=== PATIENT | female | born 1985 | race African-American/Black ===

== ENCOUNTER → 2019-03-04 14:33 | Outpatient (BNVA) | payer OTHER, SELFPAY | PROVIDERS: PCP Family Medicine; Visit Provider Psychiatry & Neurology Psychiatry | DX: Z01.89 Encounter for other specified special examinations (principal) | CPT/HCPCS: 36415; 80061; 83036 ==

== ENCOUNTER 2019-04-01 10:00 | Outpatient (RCR) | payer OTHER, SELFPAY ==
[2019-03-17 16:03] VITALS: BP 150/82; BMI 18.3
== END 2019-04-17 23:59 | disposition home or self-care (01) ==
LOC: BHCOACUTE 10:00
PROVIDERS: PCP Family Medicine; Visit Provider Dermatology
DX: Z01.89 Encounter for other specified special examinations (principal)
CPT/HCPCS: H2022

== ENCOUNTER 2019-05-04 20:11 | Emergency (ER) | payer MEDICAID, SELFPAY ==
[2019-03-17 16:03] VITALS: BP 150/82; BMI 18.3
[2019-05-04 20:12] VITALS: PULSE 68; RESP 18; TEMP 37; O2SAT 100; BMI 17.7
[2019-05-04 20:51] LABS: Basophils % 0.3 %; Eosinophils # 0.1 10^3/uL (0.0-0.8); Eosinophils % 0.9 %; Hematocrit 41.5 % (37.0-47.0); Hemoglobin 13.4 g/dL (11.5-15.3); Lymphocytes # 1.9 10^3/uL (0.8-4.8); Lymphocytes % 20.7 %; Mean Corpuscular HGB Conc 32.3 g/dL (30.0-36.0); Mean Corpuscular Hemoglobin 31.1 pg (28.0-34.0); Mean Corpuscular Volume 96.3 fL (81-99); Mean Platelet Volume 10.7 fL (7.4-10.4); Monocytes # 0.7 10^3/uL (0.2-0.9); Neutrophils # 6.5 10^3/uL (1.8-7.7); Neutrophils % 70.1 %; Nucleated Red Blood Cells % 0 %; Platelet Count 193 10^3/cmm (130-400); Red Blood Count 4.31 10^6/uL (4.1-5.3); Red Cell Distribution Width 13.8 % (12.1-15.1); White Blood Count 9.2 10^3/uL (4.0-10.0)
--- NOTE | 2019-05-04 20:55 | ED_ITS ---
HPI - Abdominal Pain General: Chief Complaint: Abdominal Pain Stated Complaint: ABDOMINAL PAIN Time Seen by Provider: 05/04/19 20:21 Source: patient Mode of arrival: EMS Limitations: no limitations History of Present Illness: HPI narrative: Patient is a 34-year-old female who presents to ED today with complaints of upper abdominal pain stating that she believes she has pancreatitis. Symptoms have been present for 2 to 3 days. Patient states she has a history of pancreatitis and states her symptoms now are similar. She has not had any nausea or vomiting. She reports normal bowel movements and urinary habits. She has not been running fevers. MD elicited complaint: abdominal pain Pertinent past history: other (pancreatitis ) Onset (ago): day(s) Location: Epigastric Radiation: none Migration to: no migration Exacerbating factors: eating Relieving factors: nothing Associated Symptoms: Reports no associated symptoms; Denies change in bowel habits, change in stool character, chills, coffee ground emesis, diarrhea, dysuria, fever(s), hematochezia, hematemesis, melena, nausea, syncope and vomiting Review of Systems Const: Denies: fever, chills, body aches, change in appetite, change in weight or fatigue Card: Denies: chest pain, palpitations, irregular heart rhythm, edema, lightheadedness, syncope, pre-syncope, shortness of breath on exertion, shortness of breath when lying down or leg pain with exertion Resp: Denies: shortness of breath, productive cough, coughing up blood or chest congestion GI: Reports: abdominal pain; Denies: nausea, vomiting, vomiting blood, coffee grounds in vomit, diarrhea, change in bowel habits, painful bowel movements, change in stool character, blood in stool, black tarry stool, mucus in stool, white/light colored stool or fatty stool : Denies: flank pain, difficulty urinating, painful urination, urinary frequency, urinary urgency or urinary hesitancy Musc: Denies: neck pain or back pain Skin/Breast: Denies: rash Neuro: Denies: headache, numbness in extremities, weakness in extremities or changes in sensation PFSH ED PFSH: Social History Smoking and tobacco status: never smoked Current gender identity: Female Physical Exam Const: COMMON NORMALS: average body habitus, oriented x3, no limitations, healthy appearing, alert and well nourished GENERAL APPEARANCE: in distress (mild; in pain) HENMT: COMMON NORMALS: normocephalic and head/scalp atraumatic HEAD & SCALP: normocephalic and atraumatic Resp: COMMON NORMALS: normal respiratory effort and clear to auscultation bilaterally AUSCULTATION: clear to auscultation bilaterally Cardio: COMMON NORMALS: regular rate and regular rhythm RATE: regular rate RHYTHM: regular rhythm GI: COMMON NORMALS: normal to inspection, nondistended, normoactive bowel sounds, soft to palpation, no hepatosplenomegaly and no masses PALPATION: Yes soft, Yes tender Details: LUQ, RUQ and other (epigastric) and Yes no hepatosplenomegaly : COMMON NORMALS: Yes no CVA tenderness BLADDER/KIDNEY EXAM: Yes no CVA tenderness Back/Pelvis: COMMON NORMALS: no CVA tenderness Extremity: COMMON NORMALS: normal to inspection Neuro: COMMON NORMALS: oriented x3, moves all extremities, no focal motor deficits and no sensory deficits noted SENSORIUM/ORIENTATION: Yes alert Skin: COMMON NORMALS: no rashes or lesions noted GENERAL SKIN EXAM: no rashes or lesions noted Course 2 Vital Signs: Vital signs: Vital Signs Temperature 98.6 F 05/04/19 20:12 Pulse Rate 88 05/04/19 21:31 Respiratory Rate 18 05/04/19 21:31 Blood Pressure 142/95 05/04/19 21:31 Pulse Oximetry 98 05/04/19 21:31 MDM - Abdominal Pain MDM Narrative: Medical decision making narrative: pt feels better after medications; lipase today 68; don't feel she meets inpatient criteria at this t matthew and I believe we can treat her pain at home; return to ED precautions given; otherwise she can follow up with PCP Lab Data: Labs: Lab Results 05/04/19 05/04/19 05/04/19 Range/Units 20:40 20:40 20:40 WBC 9.2 (4.0-10.0) 10^3/ uL RBC 4.31 (4.1-5.3) 10^6/u L Hgb 13.4 (11.5-15.3) g/dL Hct 41.5 (37.0-47.0) % MCV 96.3 (81-99) fL MCH 31.1 (28.0-34.0) pg MCHC 32.3 (30.0-36.0) g/dL RDW 13.8 (12.1-15.1) % Plt Count 193 (130-400) 10^3/c mm MPV 10.7 H (7.4-10.4) fL Neut % (Auto) 70.1 % Lymph % (Auto) 20.7 % [place] % (Auto) 7.0 % Eos % (Auto) 0.9 % Baso % (Auto) 0.3 % Neut # (Auto) 6.5 (1.8-7.7) 10^3/u L Lymph # (Auto) 1.9 (0.8-4.8) 10^3/u L [place] # (Auto) 0.7 (0.2-0.9) 10^3/u L Eos # (Auto) 0.1 (0.0-0.8) 10^3/u L Baso # (Auto) 0.0 (0.0-0.1) 10^3/u L Nucleated RBC % (a uto) 0 % Nucleated RBCs # 0.0 /100WBC Sodium 133 L (136-145) mmol/L Potassium 3.8 (3.5-5.1) mmol/L Chloride 98 (98-107) mmol/L Carbon Dioxide 22 (22-29) mmol/L Anion Gap 16.8 (5-19) BUN 14 (6-20) mg/dL Creatinine 1.0 H (0.5-0.9) mg/dL GFR Calculation 75.9 L (90-130) mL/min Glucose 90 (65-115) mg/dL Calculated Osmolal ity 272 L (285-295) mOsm/k g Calcium 9.9 (8.5-10.5) mg/dL Total Bilirubin 0.3 (0.15-1.2) mg/dL AST 12 (0-32) U/L ALT 7 (0-33) U/L Alkaline Phosphata se 53 (35-105) IU/L Total Protein 7.5 (6.6-8.7) g/dL Albumin 4.9 (3.5-5.2) g/dL Globulin 2.6 (1.3-4.6) g/dL Lipase 68 H (13-60) U/L HCG, Qual Negative (Negative) Urine Color (Yellow) Urine Appearance (CLEAR) Urine pH (5-7) Ur Specific Gravit y (1.005-1.030) Urine Protein (Negative) Urine Glucose (UA) (Normal) Urine Ketones (Negative) Urine Blood (Negative) Urine Nitrate (Negative) Urine Bilirubin (NEGATIVE) Urine Urobilinogen (Negative) mg/dL Ur Leukocyte Yesenia ase (Negative) Urine RBC (0-2) /hpf Urine WBC (0-5) /hpf Ur Squamous Epith Cells (0-5) Urine Bacteria (NONE) Urine Mucus Urine Opiates Scre en (Negative) ng/mL Ur Barbiturates Sc reen (Negative) ng/mL Ur Phencyclidine S crn (Negative) ng/mL Ur Amphetamines Sc reen (Negative) ng/mL U Benzodiazepines Scrn (Negative) ng/mL Urine Cocaine Scre en (Negative) ng/mL U Marijuana (THC) Screen (Negative) ng/mL 05/04/19 05/04/19 Range/Units 21:20 21:20 WBC (4.0-10.0) 10^3/ uL RBC (4.1-5.3) 10^6/u L Hgb (11.5-15.3) g/dL Hct (37.0-47.0) % MCV (81-99) fL MCH (28.0-34.0) pg MCHC (30.0-36.0) g/dL RDW (12.1-15.1) % Plt Count (130-400) 10^3/c mm MPV (7.4-10.4) fL Neut % (Auto) % Lymph % (Auto) % [place] % (Auto) % Eos % (Auto) % Baso % (Auto) % Neut # (Auto) (1.8-7.7) 10^3/u L Lymph # (Auto) (0.8-4.8) 10^3/u L [place] # (Auto) (0.2-0.9) 10^3/u L Eos # (Auto) (0.0-0.8) 10^3/u L Baso # (Auto) (0.0-0.1) 10^3/u L Nucleated RBC % (a uto) % Nucleated RBCs # /100WBC Sodium (136-145) mmol/L Potassium (3.5-5.1) mmol/L Chloride (98-107) mmol/L Carbon Dioxide (22-29) mmol/L Anion Gap (5-19) BUN (6-20) mg/dL Creatinine (0.5-0.9) mg/dL GFR Calculation (90-130) mL/min Glucose (65-115) mg/dL Calculated Osmolal ity (285-295) mOsm/k g Calcium (8.5-10.5) mg/dL Total Bilirubin (0.15-1.2) mg/dL AST (0-32) U/L ALT (0-33) U/L Alkaline Phosphata se (35-105) IU/L Total Protein (6.6-8.7) g/dL Albumin (3.5-5.2) g/dL Globulin (1.3-4.6) g/dL Lipase (13-60) U/L HCG, Qual (Negative) Urine Color Yellow (Yellow) Urine Appearance Hazy A (CLEAR) Urine pH 6 (5-7) Ur Specific Gravit y 1.015 (1.005-1.030) Urine Protein Neg (Negative) Urine Glucose (UA) Norm (Normal) Urine Ketones Negative (Negative) Urine Blood Neg (Negative) Urine Nitrate Negative (Negative) Urine Bilirubin Neg (NEGATIVE) Urine Urobilinogen Norm (Negative) mg/dL Ur Leukocyte Yesenia ase Negative (Negative) Urine RBC 0-4 H (0-2) /hpf Urine WBC None (0-5) /hpf Ur Squamous Epith Cells 5-10 H (0-5) Urine Bacteria 1+ H (NONE) Urine Mucus 1+ Urine Opiates Scre en Negative (Negative) ng/mL Ur Barbiturates Sc reen Negative (Negative) ng/mL Ur Phencyclidine S crn Negative (Negative) ng/mL Ur Amphetamines Sc reen Negative (Negative) ng/mL U Benzodiazepines Scrn Negative (Negative) ng/mL Urine Cocaine Scre en Negative (Negative) ng/mL U Marijuana (THC) Screen Negative (Negative) ng/mL Discharge Plan Discharge Patient Disposition: Home, Self-Care Clinical Impression: Colicky epigastric pain Condition: Stable Prescriptions: New hydrocodone-acetaminophen 5-325 mg tablet 1 tab PO Q6H PRN (Reason: pain) Qty: 14 RF: 0 ondansetron HCl [Zofran] 4 mg tablet 4 mg PO Q6H PRN (Reason: nausea and vomiting) Qty: 14 RF: 0 No Action acamprosate 333 mg tablet,delayed release (DR/EC) 333 mg PO BID RF: 0 Discharge Orders: Discharge Order (Routine); Ordered 05/04/19 Ordered By: Mayela Irvin Referrals: Francy Bell DO [Primary Care Provider] - Discharge Diet: Clear Liquid Discharge Activity: Increase activity as tolerated Patient Instructions: Clear Liquid Diet (ED), Abdominal Pain (ED), Pancreatitis Coding Level of Care Code ED Steward/Stewardess [employer] for Chg Fwd Exam Comprehensive
[2019-05-04 21:05] LABS: Alanine Aminotransferase 7 U/L (0-33); Albumin Level 4.9 g/dL (3.5-5.2); Alkaline Phosphatase 53 IU/L (35-105); Anion Gap 16.8 (5-19); Aspartate Amino Transferase 12 U/L (0-32); Blood Urea Nitrogen 14 mg/dL (6-20); Calcium 9.9 mg/dL (8.5-10.5); Carbon Dioxide 22 mmol/L (22-29); Chloride 98 mmol/L (98-107); Globulin 2.6 g/dL (1.3-4.6); Glomerular Filtration Rate 75.9 mL/min (90-130); Glucose 90 mg/dL (65-115); Lipase 68 U/L (13-60); Osmolality Calculated 272 mOsm/kg (285-295); Potassium 3.8 mmol/L (3.5-5.1); Sodium 133 mmol/L (136-145); Total Bilirubin 0.3 mg/dL (0.15-1.2); Total Protein 7.5 g/dL (6.6-8.7)
[2019-05-04 21:10] LABS: HCG, Serum Qual Negative (Negative)
[2019-05-04 21:27] VITALS: RESP 18
[2019-05-04] MEDS: ondansetron 2 mg/ML SDV 2 mL 4 MG IVP (21:27)
[2019-05-04] MEDS: morphine 4 mg/mL SDV 1 mL IVP (21:27)
[2019-05-04 21:31] VITALS: BP 142/95; PULSE 88; RESP 18; O2SAT 98
[2019-05-04 22:00] LABS: Add Urine Microscopic? YES; Bilirubin Urine Neg (NEGATIVE); Blood Urine Neg (Negative); Glucose Urine UA Norm (Normal); Ketones Urine Negative (Negative); Leukocyte Esterase Urine Negative (Negative); Nitrate Urine Negative (Negative); Protein Urine Neg (Negative); Specific Gravity, Urine 1.015 (1.005-1.030); Urine Appearance Hazy (CLEAR); Urine Color Yellow (Yellow); Urobilinogen Urine Norm (Negative); pH Urine 6 (5-7)
[2019-05-04 22:07] LABS: Amphetamines Screen Urine Negative (Negative); Barbiturates Screen Urine Negative (Negative); Benzodiazepines Screen Urine Negative (Negative); Cocaine Screen Urine Negative (Negative); Opiate Screen Urine Negative (Negative); PCP Screen Urine Negative (Negative); THC Screen Urine Negative (Negative)
[2019-05-04 22:09] LABS: Add Urine Culture? No; Bacteria Urine 1+; Mucus Urine 1+; RBC Urine 0-4 /hpf (0-2)
[2019-05-04 23:10] VITALS: BP 127/94; PULSE 71; RESP 16; O2SAT 99
[2019-05-04] MEDS: HYDROcodone-acetaminophen 5-325 mg Tablet 2 TAB PO (23:12)
[2019-05-04] MEDS: ondansetron 4 MG Tablet PO (23:13)
== END 2019-05-04 23:10 | disposition home or self-care (01) ==
LOC: ER 22:39
PROVIDERS: Emergency Provider Physician Assistant; PCP Family Medicine
DX: R10.13 Epigastric pain (principal)
CPT/HCPCS: 12345; 80053; 80306; 81001; 83690; 84703; 85025; 96374; 96375; 99283; A9270; J2270; J2405; Q0162

== ENCOUNTER 2019-05-29 10:51 | Observation (INO) | payer SELFPAY ==
[2019-03-17 16:03] VITALS: BP 150/82; BMI 18.3
[2019-05-29] VITALS (9 sets, daily range): BP systolic 143–166; BP diastolic 64–96; PULSE 51–97; RESP 16–18; TEMP 36.4–37; O2SAT 96–100; BMI 16.9
--- NOTE | 2019-05-29 11:04 | ED_ITS ---
HPI - Abdominal Pain General: Chief Complaint: Abdominal Pain Stated Complaint: ABD PAIN Time Seen by Provider: 05/29/19 10:52 History of Present Illness: HPI narrative: 34-year-old black female who has a history of recurrent pancreatitis. Approximately a year ago she had a cholecystectomy and sounds like she had an ERCP at that time as well but in discussing with her does not sound as if she had a stent. She cannot recall if she had cholelithiasis. She is reporting several days of epigastric abdominal pain radiating a little bit more into the right upper quadrant. She is not had any hematemesis or coffee-ground emesis she denies any fever or cough. She has had some vomiting. MD elicited complaint: abdominal pain Onset (ago): day(s) (4) Location: Epigastric Severity: severe Quality: cramping and aching Radiation: LUQ and RUQ Migration to: RUQ Exacerbating factors: eating Associated Symptoms: Denies bloating, chills, coffee ground emesis, constipation, diarrhea, dysuria, fever(s), hematochezia, hematemesis, melena, nausea and vomiting Related Data: Date of Last Menstrual Period: 05/05/19 Review of Systems Const: Denies: fever, chills, body aches, change in appetite, fatigue or malaise ENMT: Denies: throat pain, ear pain, nasal discharge or nasal congestion Card: Denies: chest pain, edema, shortness of breath on exertion or shortness of breath when lying down Resp: Denies: shortness of breath, productive cough or non-productive cough GI: Denies: abdominal pain, nausea, vomiting, vomiting blood, coffee grounds in vomit, diarrhea, constipation, bloating, blood in stool or black tarry stool : Denies: flank pain, difficulty urinating, painful urination, urinary frequency or urinary urgency Skin/Breast: Denies: rash or itching PFSH ED PFSH: Medical History Alcohol use disorder Pancreatitis Presence of pancreatic duct stent Tobacco abuse Surgical History Hx of cholecystectomy Social History Smoking and tobacco status: current every day smoker Current gender identity: Female Female Reproductive History: Date of last menstrual period: 05/05/19 Physical Exam Const: COMMON NORMALS: no apparent distress GENERAL APPEARANCE: cooperative and comfortable ORIENTATION/CONSCIOUSNESS: Yes awake, Yes oriented to person, Yes oriented to place and Yes oriented to time HENMT: COMMON NORMALS: normocephalic, head/scalp atraumatic, hearing grossly normal bilaterally, external ears normal, EAC's normal, TM's normal bilaterally, nasal mucous membranes and turbinates normal, moist oral mucous membranes and o ropharynx normal HEAD & SCALP: normocephalic and atraumatic NOSE: nasal mucous membranes and turbinates normal EXTERNAL EAR: Yes external ears normal EXTERNAL AUDITORY CANAL: EAC's normal TYMPANIC MEMBRANE: TM's normal bilaterally Eye: COMMON NORMALS: PERRL, EOMs intact bilaterally, conjunctivae normal and no scleral icterus CONJUNCTIVA: Yes conjunctivae normal PUPIL: Yes PERRL Neck/C-Spine: COMMON NORMALS: full ROM, no lymphadenopathy, supple and no JVD Lymph: LYMPHATIC: no lymphadenopathy noted and no lymphedema noted Resp: COMMON NORMALS: normal respiratory effort, no retractions, no use of accessory muscles and clear to auscultation bilaterally AUSCULTATION: clear to auscultation bilaterally Cardio: COMMON NORMALS: no JVD, regular rate, regular rhythm and no murmurs RATE: regular rate RHYTHM: regular rhythm GI: COMMON NORMALS: no hepatosplenomegaly AUSCULTATION: Yes normoactive bowel sounds PALPATION: Yes tender (Epigastric) Details: RUQ, No guarding and Yes no hepatosplenomegaly Extremity: COMMON NORMALS: normal to inspection, normal capillary refill, no clubbing, cyanosis or edema, no calf tenderness and no pedal edema Neuro: SENSORIUM/ORIENTATION: Yes oriented to person, Yes oriented to place and Yes oriented to time Skin: COMMON NORMALS: no rashes or lesions noted GENERAL SKIN EXAM: no rashes or lesions noted Course Vital Signs: Vital signs: Vital Signs Temperature 98.0 F 05/30/19 13:44 Pulse Rate 62 05/30/19 13:44 Respiratory Rate 16 05/30/19 13:44 Blood Pressure 136/81 05/30/19 13:44 Pulse Oximetry 100 05/30/19 13:44 MDM - Abdominal Pain MDM Narrative: Medical decision making narrative: CT normal labs show mild elevation is currently having a left upper quadrant pain. She does have persistent nausea and vomiting with pain we will put her on observation with IV fluids antiemetics and pain control. Lab Data: Labs: Lab Results 05/29/19 05/29/19 05/29/19 Range/Units 12:03 12:03 12:03 WBC 9.7 (4.0-10.0) 10^3/ uL RBC 4.30 (4.1-5.3) 10^6/u L Hgb 13.3 (11.5-15.3) g/dL Hct 42.9 (37.0-47.0) % MCV 99.8 H (81-99) fL MCH 30.9 (28.0-34.0) pg MCHC 31.0 (30.0-36.0) g/dL RDW 13.6 (12.1-15.1) % Plt Count 188 (130-400) 10^3/c mm MPV 10.9 H (7.4-10.4) fL Neut % (Auto) 81.0 % Lymph % (Auto) 13.9 % [place] % (Auto) 4.2 % Eos % (Auto) 0.4 % Baso % (Auto) 0.2 % Neut # (Auto) 7.9 H (1.8-7.7) 10^3/u L Lymph # (Auto) 1.4 (0.8-4.8) 10^3/u L [place] # (Auto) 0.4 (0.2-0.9) 10^3/u L Eos # (Auto) 0.0 (0.0-0.8) 10^3/u L Baso # (Auto) 0.0 (0.0-0.1) 10^3/u L Nucleated RBC % (a uto) 0 % Nucleated RBCs # 0.0 /100WBC PT (10.5-13.3) SECO NDS INR (0.8-1.2) Sodium 134 L (136-145) mmol/L Potassium 4.2 (3.5-5.1) mmol/L Chloride 100 (98-107) mmol/L Carbon Dioxide 20 L (22-29) mmol/L Anion Gap 18.2 (5-19) BUN 5 L (6-20) mg/dL Creatinine 0.7 (0.5-0.9) mg/dL GFR Calculation 114.6 (90-130) mL/min Glucose 91 (65-115) mg/dL Calculated Osmolal ity 273 L (285-295) mOsm/k g Calcium 9.6 (8.5-10.5) mg/dL Total Bilirubin 0.5 (0.15-1.2) mg/dL AST 15 (0-32) U/L ALT 9 (0-33) U/L Alkaline Phosphata se 55 (35-105) IU/L Total Protein 7.6 (6.6-8.7) g/dL Albumin 4.5 (3.5-5.2) g/dL Globulin 3.1 (1.3-4.6) g/dL Lipase 141 H (13-60) U/L HCG, Qual Negative (Negative) 05/29/19 Range/Units 12:03 WBC (4.0-10.0) 10^3/ uL RBC (4.1-5.3) 10^6/u L Hgb (11.5-15.3) g/dL Hct (37.0-47.0) % MCV (81-99) fL MCH (28.0-34.0) pg MCHC (30.0-36.0) g/dL RDW (12.1-15.1) % Plt Count (130-400) 10^3/c mm MPV (7.4-10.4) fL Neut % (Auto) % Lymph % (Auto) % [place] % (Auto) % Eos % (Auto) % Baso % (Auto) % Neut # (Auto) (1.8-7.7) 10^3/u L Lymph # (Auto) (0.8-4.8) 10^3/u L [place] # (Auto) (0.2-0.9) 10^3/u L Eos # (Auto) (0.0-0.8) 10^3/u L Baso # (Auto) (0.0-0.1) 10^3/u L Nucleated RBC % (a uto) % Nucleated RBCs # /100WBC PT 12.50 (10.5-13.3) SECO NDS INR 0.93 (0.8-1.2) Sodium (136-145) mmol/L Potassium (3.5-5.1) mmol/L Chloride (98-107) mmol/L Carbon Dioxide (22-29) mmol/L Anion Gap (5-19) BUN (6-20) mg/dL Creatinine (0.5-0.9) mg/dL GFR Calculation (90-130) mL/min Glucose (65-115) mg/dL Calculated Osmolal ity (285-295) mOsm/k g Calcium (8.5-10.5) mg/dL Total Bilirubin (0.15-1.2) mg/dL AST (0-32) U/L ALT (0-33) U/L Alkaline Phosphata se (35-105) IU/L Total Protein (6.6-8.7) g/dL Albumin (3.5-5.2) g/dL Globulin (1.3-4.6) g/dL Lipase (13-60) U/L HCG, Qual (Negative) Discharge Plan Discharge Patient Disposition: Placed in Observation Admit Provider: Luis Marin Clinical Impression: Pancreatitis, Acute upper gastrointestinal bleeding Condition: Stable Referrals: Francy Bell DO [Primary Care Provider] - Discharge Date/Time: 05/29/19 15:27 Coding Level of Care Code ED Day Guard for Chg Fwd Exam Comprehensive
[2019-05-29] MEDS: ondansetron 2 mg/ML SDV 2 mL 4 MG IVP ×2 (11:13→15:45)
--- NOTE | 2019-05-29 11:35 | CTR_ITS ---
PROCEDURE INFORMATION: Exam: CT Abdomen And Pelvis With Contrast Exam date and time: 05/29/2019 12:05 PM Age: 34 years old Clinical indication: Abdominal pain; Localized; Right; Prior surgery; Surgery date: 6+ months; Surgery type: Gb; Additional info: Abd pain TECHNIQUE: Imaging protocol: Computed tomography of the abdomen and pelvis with intravenous contrast. Total DLP: 490.26 mGy-cm Radiation optimization: All CT scans at this facility use at least one of these dose optimization techniques: automated exposure control; mA and/or kV adjustment per patient size (includes targeted exams where dose is matched to clinical indication); or iterative reconstruction. Contrast material: OMNI 300; Contrast volume: 75 ml; Contrast route: 18G; COMPARISON: CT Abdomen/Pelvis w IV* [id number] 11/06/2018 12:23 AM FINDINGS: Pleural space: No acute airspace or pleural disease. Liver: No focal hepatic mass. Gallbladder and bile ducts: Status post cholecystectomy. Pancreas: Poorly defined hypodensity in the pancreatic head with infiltration of peripancreatic fat, consistent with pancreatitis in the appropriate clinical setting. Correlation with pancreatic enzymes is recommended. Spleen: No splenomegaly. Adrenals: Unremarkable adrenals. Kidneys and ureters: Normal renal morphology prior no hydronephrosis. Stomach and bowel: Mild wall thickening in the nondistended stomach. Bowel dilatation, disproportionately involving the colon, along with prominent stool. Appendix: No acute appendicitis. Intraperitoneal space: Trace free fluid in the cul-de-sac. Vasculature: Normal caliber of the abdominal aorta. Lymph nodes: No pathologically enlarged lymph nodes. Bladder: Bladder dilatation. Reproductive: 2.1 cm high attenuation right ovarian cyst. Bones/joints: No acute osseous pathology . CT/CT abdomen pelvis w con* [id number] IMPRESSION: 1. Poorly defined hypodensity in the pancreatic head with infiltration of peripancreatic fat, consistent with pancreatitis in the appropriate clinical setting. Correlation with pancreatic enzymes is recommended. 2. Bowel dilatation, disproportionately involving the colon, along with prominent stool. 3. 2.1 cm high attenuation right ovarian cyst. 4. Additional findings as described above. Radiation Dose CTDIVOL = (mGy): DLP = 490.26 (mGy-cm)
[2019-05-29] MEDS: morphine 4 mg/mL SDV 1 mL IVP ×2 (11:45→15:45)
[2019-05-29] MEDS: sodium chlor 0.9% + KCl 20 mEq 20 MEQ/1,000 ML BAG 125 MEQ IV (11:50)
[2019-05-29 12:11] LABS: Basophils % 0.2 %; Eosinophils % 0.4 %; Hematocrit 42.9 % (37.0-47.0); Hemoglobin 13.3 g/dL (11.5-15.3); Lymphocytes # 1.4 10^3/uL (0.8-4.8); Lymphocytes % 13.9 %; Mean Corpuscular Hemoglobin 30.9 pg (28.0-34.0); Mean Corpuscular Volume 99.8 fL (81-99); Mean Platelet Volume 10.9 fL (7.4-10.4); Monocytes # 0.4 10^3/uL (0.2-0.9); Monocytes % 4.2 %; Neutrophils # 7.9 10^3/uL (1.8-7.7); Nucleated Red Blood Cells % 0 %; Platelet Count 188 10^3/cmm (130-400); Red Cell Distribution Width 13.6 % (12.1-15.1); White Blood Count 9.7 10^3/uL (4.0-10.0)
[2019-05-29] MEDS: iohexol 300 mg/mL 100 mL Btl IV (12:17)
[2019-05-29 12:27] LABS: Alanine Aminotransferase 9 U/L (0-33); Albumin Level 4.5 g/dL (3.5-5.2); Alkaline Phosphatase 55 IU/L (35-105); Anion Gap 18.2 (5-19); Aspartate Amino Transferase 15 U/L (0-32); Blood Urea Nitrogen 5 mg/dL (6-20); Calcium 9.6 mg/dL (8.5-10.5); Carbon Dioxide 20 mmol/L (22-29); Chloride 100 mmol/L (98-107); Globulin 3.1 g/dL (1.3-4.6); Glomerular Filtration Rate 114.6 mL/min (90-130); Glucose 91 mg/dL (65-115); Lipase 141 U/L (13-60); Osmolality Calculated 273 mOsm/kg (285-295); Potassium 4.2 mmol/L (3.5-5.1); Sodium 134 mmol/L (136-145); Total Bilirubin 0.5 mg/dL (0.15-1.2); Total Protein 7.6 g/dL (6.6-8.7)
[2019-05-29 12:50] LABS: HCG, Serum Qual Negative (Negative)
[2019-05-29 12:54] LABS: Add Urine Microscopic? NO
[2019-05-29 12:55] LABS: Bilirubin Urine Neg (NEGATIVE); Blood Urine Neg (Negative); Glucose Urine UA Norm (Normal); Ketones Urine 1+ (Negative); Leukocyte Esterase Urine Negative (Negative); Nitrate Urine Negative (Negative); Protein Urine Neg (Negative); Specific Gravity, Urine 1.005 (1.005-1.030); Urine Appearance Clear (CLEAR); Urine Color Straw (Yellow); Urobilinogen Urine Norm (Negative); pH Urine 6.5 (5-7)
[2019-05-29] MEDS: pantoprazole 40 mg SDV IVP (14:17)
--- NOTE | 2019-05-29 14:38 | P.HP_ITS ---
Providers/Chief Complaint Admitting Physician: Luis Marin MD Primary Care Provider: Francy Bell DO Chief Complaint: PANCREATITIS, UPPER GI BLEED History of Present Illness Vanita Barone is a 34 year old female presents to emerge department with yet another flare of epigastric area pain radiating to her back which patient relates to pancreatitis. She reports having off-and-on flares of pancreatitis for the last 3 years. Reports may have flare once a month. Reports that usually she was taking ibuprofen but he does not do any good. Reports that she cannot take Tylenol because every time she tries Tylenol it makes it worse. In mid April she was in ER and prescribed [place]. She is confident that because [place] had Tylenol her pain did not get better and today was quite severe rating 9-10 out of 10. Reports that she vomited earlier and noted bright red blood but not a lot. She also vomited some green bile. She had previously cholecystectomy and reports that she quit drinking alcohol approximately 1 year ago. She recalls having upper endoscopy but does not know results. Reports that it was done at [facility] in [place]. She reports smoking and she is trying to quit and down to 3 cigarettes/day now. She has 3 children that live with their father in [place]. She reports leaving here alone. She is not in contact with her parents. Per previous records it appears that patient had pancreatic stent placement. Review of Systems Const: Denies: fever or chills Eyes: Denies: change in vision ENMT: Denies: throat pain or change in hearing Card: Denies: chest pain, edema or lightheadedness Resp: Denies: shortness of breath or productive cough GI: Reports: abdominal pain (Epigastric and right upper quadrant area), nausea, vomiting and change in bowel habits (Reports that frequently she gets constipated and other constipation she may get several diarrheal bowel movements); Denies: difficulty swallowing, blood in stool or black tarry stool : Denies: difficulty urinating Musc: Denies: joint pain or joint swelling Skin/Breast: Denies: rash or redness Neuro: Denies: headache or weakness in extremities Psych: Denies: depression or suicidal ideation Endo: Denies: excessive sweating [place]/Lymph: Denies: easy bleeding or tender lymph nodes All/Imm: Denies: throat swelling Medications/Allergies Allergies Allergy/AdvReac Type Severity Reaction Status Date / Time No Known Allergies Allergy Verified 03/05/19 11:10 PFSH Acute PFSH: Medical History (Updated 05/29/19 @ 14:50 by Luis Marin MD) Alcohol use disorder Pancreatitis Presence of pancreatic duct stent Tobacco abuse Surgical History (Updated 05/29/19 @ 14:49 by Luis Marin MD) Hx of cholecystectomy Social History Smoking and tobacco status: current every day smoker Current gender identity: Female Female Reproductive History: Date of last menstrual period: 05/05/19 Vitals/I&O/Wt Last Vital Signs Temp 98.6 F 05/29/19 10:52 Pulse 97 05/29/19 10:52 Resp 18 05/29/19 11:45 BP 144/96 05/29/19 10:52 Pulse Ox 99 05/29/19 10:52 Weight last 48 hrs Weight 47.627 kg Physical Exam Const: COMMON NORMALS: no apparent distress, oriented x3 and alert HENMT: COMMON NORMALS: normocephalic and head/scalp atraumatic; oral mucous membranes not moist HEAD & SCALP: normocephalic and atraumatic Eye: COMMON NORMALS: EOMs intact bilaterally, conjunctivae normal and no scleral icterus CONJUNCTIVA: Yes conjunctivae normal Neck/C-Spine: COMMON NORMALS: no lymphadenopathy and no meningeal signs Lymph: LYMPHATIC: no lymphadenopathy noted Chest: COMMONS NORMALS: palpation of chest normal Resp: COMMON NORMALS: no use of accessory muscles and clear to auscultation bilaterally AUSCULTATION: clear to auscultation bilaterally Cardio: COMMON NORMALS: regular rate, regular rhythm and no murmurs RATE: regular rate RHYTHM: regular rhythm OTHER: No lower extremity edema GI: COMMON NORMALS: soft to palpation PALPATION: Yes soft and Yes tender (Mostly right upper quadrant and epigastric area.) RECTAL EXAM: deferred : COMMON NORMALS: Yes no CVA tenderness BLADDER/KIDNEY EXAM: Yes no CVA tenderness Back/Pelvis: COMMON NORMALS: no CVA tenderness and thoracic and lumbar spine normal to inspection Extremity: COMMON NORMALS: normal to inspection and normal capillary refill Neuro: COMMON NORMALS: oriented x3 and no focal motor deficits SENSORIUM/ORIENTATION: Yes alert MENINGEAL SIGNS: Yes no meningeal signs Psych: COMMON NORMALS: mental status grossly normal, thought process normal and cooperative THOUGHT PROCESS: normal thought process Skin: COMMON NORMALS: no rashes or lesions noted GENERAL SKIN EXAM: no rashes or lesions noted Data : 05/29/19 12:03 05/29/19 12:03 A&P Assessment and plan (1) Tobacco abuse: Status: Acute (2) Acute upper gastrointestinal bleeding: Status: Acute (3) Pancreatitis: Status: Acute (4) Gastritis due to nonsteroidal anti-inflammatory drug (NSAID): This diagnosis is suspected. Status: Acute (5) Dehydration with hyponatremia: Status: Acute Additional A&P Information Patient could have NSAID induced gastritis/peptic ulcer disease and possibly related pancreatic irritation/inflammation versus recurrent chronic pancreatitis flare. Given history of hematemesis I have discussed case with Dr. Kunz who will perform upper endoscopy tomorrow. We will start patient on high-dose Protonix for now. Continue with normal saline and start patient on clear liquid diet with n.p.o. post midnight. Repeat lipase in a.m. Continue with morphine for treatment of pain and avoid NSAIDs for now. We have discussed that patient may require GI evaluation for EUS and celiac block if her pain does not get better with analgesics. Attestations Medical Necessity Statement*: Patient with acute pancreatitis and reported GI bleed requires observation for close monitoring, treatment evaluation. I expect patient will require less than two midnights. Coding Level of Care Code Acute Admissions Dean for [facility] Fwd Diagnoses Tobacco abuse Z72.0 Acute upper gastrointestinal bleeding K92.2 Pancreatitis K85.90 Gastritis due to nonsteroidal anti-inflammatory drug (NSAID) K29.60; T39.395A Dehydration with hyponatremia E86.0; E87.1
--- NOTE | 2019-05-29 15:28 | P.CONIM_ITS ---
Providers/Reason For Consult Consulting Physican/Specialty*: Lex Juan MD Reason for Consult*: Hematemesis Attending Physician: Luis Marin MD Primary Care Provider: Francy Bell DO History of Present Illness History of Present Illness Chief Complaint: I vomited blood History of present illness:Ms Vanita Barone is a 34 year old female patient presents to the emergency department with worsening upper abdominal pain dull aching in nature also associated with chronic back,patient recalls that she has been diagnosed with pancreatitis in the past and she stopped drinking a while ago, today while she is having a meal composed of chicken noodles she vomited one time blood and she came to the ER for further evaluation,were a CT scan of the abdomen and pelvis was obtained that showed mild thickness of the gastric wall. Also: 1. Poorly defined hypodensity in the pancreatic head with infiltration of peripancreatic fat, consistent with pancreatitis in the appropriate clinical setting. Correlation with pancreatic enzymes is recommended. 2. Bowel dilatation, disproportionately involving the colon, along with prominent stool. 3. 2.1 cm high attenuation right ovarian cyst. 4. Additional findings as described above. Patient reports no fevers or cough yet she does have some shortness of breath and she also reports that she has not been in contact with any COVID-19 positive patients. Patient reports her gallbladder removed about a year ago most likely her panc reatitis due to alcohol ingestion Patient reports that she had an EGD before couple of years and she is under the impression that she had diagnosis of gastric ulcer. General surgery was consulted for further evaluation potential intervention in the form of diagnostic EGD Review of Systems General: Reports: 10 or more systems reviewed and unremarkable except in HPI and below Meds/Allergies Home Medications and Allergies Home Medications Medication Instructions Recorded Confirmed Type acamprosate 333 mg tablet,delayed 333 mg PO TID 03/04/19 05/29/19 History release Allergies Allergy/AdvReac Type Severity Reaction Status Date / Time No Known Allergies Allergy Verified 03/05/19 11:10 Current Medications Current Medications Generic Name Dose Route Start Last Admin Trade Name Freq PRN Reason Stop Dose Admin Potassium Chloride/Sodium Chloride 20 meq in 1,000 mls @ 125 mls/hr 05/29/19 11:45 05/29/19 11:50 Sodium Chlor 0.9% + Kcl 20 Meq IV 125 mls/hr .Q8H ALBAN Administration PFSH Acute PFSH: Medical History Alcohol use disorder Pancreatitis Presence of pancreatic duct stent Tobacco abuse Surgical History Hx of cholecystectomy Social History Smoking and tobacco status: current every day smoker Current gender identity: Female Female Reproductive History: Date of last menstrual period: 05/05/19 Vitals/I&O/Wt Last Vital Signs Temp 98.3 F 05/29/19 14:53 Pulse 51 L 05/29/19 14:53 Resp 16 05/29/19 14:53 BP 143/64 05/29/19 14:53 Pulse Ox 100 05/29/19 14:53 Weight last 48 hrs Weight 105 lb Physical Exam Narrative: EXAM NARRATIVE: Patient is conscious alert oriented X3 BMI 17 Head and neck examination PERRLA no masses no cervical lymphadenopathy no jaundice Cardiac examination audible S1-S2 no murmurs no gallops no arrhythmias Chest is clear bilateral,abscence of Rhonchi or wheezes,no surgical emphysema Abdomen tender in the epigastric region nondistended soft no organomegaly guarding or rigidity/no signs of peritonitis Extremities no cyanosis no clubbing no edema A&P Assessment and plan (1) Hematemesis: Plan of care; After thorough history and physical examination and reviewing the chart and images with my personal interpretation plan to perform a diagnostic esophagogastroduodenoscopy and possible biopsy tomorrow after appropriate resuscitation. Informed consent per chart were,Indications, risks, benefits, and alternatives were all discussed with the patient and did agree to proceed. Repeat H&H every 8 hour Repeated physical examination We will order stat INR and PTT We will continue coordinating with Dr. Marin service Status: Acute Consult Attestations Medical Necessity Statement: Per hospitalist service Time Spent in Patient Care: 16 - 35 minutes (>than 50% of time spent in counselling and/or direct pt care on unit) . Coding Level of Care Code Acute Retail Aide for [facility] Fwd Diagnoses Hematemesis K92.0
[2019-05-29 16:06] LABS: INR 0.93 (0.8-1.2)
[2019-05-29] MEDS: D5-NS 0.45% + KCL 20 mEq 20 MEQ/1,000 ML BAG 100 MEQ IV (16:19)
[2019-05-29] MEDS: oxyCODONE 5 mg IR Tab/Cap PO ×2 (18:32→22:34)
[2019-05-29] MEDS: promethazine 25 mg/mL SDV 1 mL 12.5 MG IM (20:15)
[2019-05-30] VITALS (19 sets, daily range): BP systolic 116–155; BP diastolic 62–94; PULSE 49–62; RESP 16–18; TEMP 35.3–36.7; O2SAT 94–100
[2019-05-30] MEDS: pantoprazole 40 mg SDV IVP (01:31)
[2019-05-30] MEDS: D5-NS 0.45% + KCL 20 mEq 20 MEQ/1,000 ML BAG 100 MEQ IV (01:32)
[2019-05-30] MEDS: HYDROmorphone 1 mg/mL INJ 1 mL IVP (01:59)
[2019-05-30] MEDS: promethazine 25 mg/mL SDV 1 mL 12.5 MG IM ×2 (05:12→12:27)
[2019-05-30 05:18] LABS: Basophils % 0.1 %; Eosinophils % 0.1 %; Hematocrit 36.3 % (37.0-47.0); Lymphocytes # 0.9 10^3/uL (0.8-4.8); Lymphocytes % 6.8 %; Mean Corpuscular HGB Conc 33.1 g/dL (30.0-36.0); Mean Corpuscular Hemoglobin 32.1 pg (28.0-34.0); Mean Corpuscular Volume 97.1 fL (81-99); Mean Platelet Volume 10.8 fL (7.4-10.4); Monocytes # 0.6 10^3/uL (0.2-0.9); Monocytes % 4.7 %; Neutrophils % 87.9 %; Nucleated Red Blood Cells % 0 %; Platelet Count 179 10^3/cmm (130-400); Red Blood Count 3.74 10^6/uL (4.1-5.3); Red Cell Distribution Width 13.2 % (12.1-15.1); White Blood Count 13.7 10^3/uL (4.0-10.0)
[2019-05-30 05:41] LABS: Alanine Aminotransferase 8 U/L (0-33); Albumin Level 4.2 g/dL (3.5-5.2); Alkaline Phosphatase 47 IU/L (35-105); Anion Gap 16.3 (5-19); Aspartate Amino Transferase 18 U/L (0-32); Blood Urea Nitrogen 2 mg/dL (6-20); Calcium 9.4 mg/dL (8.5-10.5); Carbon Dioxide 23 mmol/L (22-29); Chloride 96 mmol/L (98-107); Globulin 2.8 g/dL (1.3-4.6); Glomerular Filtration Rate 136.9 mL/min (90-130); Glucose 184 mg/dL (65-115); Osmolality Calculated 272 mOsm/kg (285-295); Potassium 4.3 mmol/L (3.5-5.1); Sodium 131 mmol/L (136-145); Total Bilirubin 0.4 mg/dL (0.15-1.2)
[2019-05-30 05:42] LABS: Lipase 153 U/L (13-60); Magnesium 1.6 mg/dL (1.7-2.3); Phosphorus 3.3 mg/dL (2.5-4.5)
--- NOTE | 2019-05-30 06:30 | PM.PN ---
Subjective Subjective: Interval history: Patient continues to have upper abdominal pain likely related to her chronic pancreatitis and she vomited once overnight bilious in nature. She is scheduled for diagnostic EGD due to the concern of the changes on the CT scan of the gastric wall thickness in addition to is concerned that the patient may have an ulcer or potential varices Vitals/I&O/Wt Last Vital Signs Temp 97.6 F 05/30/19 04:00 Pulse 58 L 05/30/19 04:00 Resp 16 05/30/19 04:00 BP 132/64 05/30/19 04:00 Pulse Ox 94 05/30/19 04:00 05/29/19 05/29/19 05/30/19 14:59 22:59 06:59 Intake Total 1000 / 1000 921.667 / 1921.667 Output Total 850 / 850 Balance 1000 / 1000 71.667 / 1071.667 Weight last 48 hrs Weight 105 lb Physical Exam Narrative: EXAM NARRATIVE: Patient is conscious alert oriented X3 BMI 17 Head and neck examination PERRLA no masses no cervical lymphadenopathy no jaundice Abdomen mildly tender epigastric region nondistended soft no organomegaly guarding or rigidity/no signs of peritonitis Data : 05/30/19 04:59 05/30/19 04:59 A&P Assessment and plan (1) Hematemesis: Plan of care; After thorough history and physical examination and reviewing the chart and images with my personal interpretation plan to perform a diagnostic esophagogastroduodenoscopy and possible biopsy today. Informed consent per chart were,Indications, risks, benefits, and alternatives were all discussed with the patient and did agree to proceed. Repeat H&H every 8 hour Repeated physical examination Pain management per hospitalist service, if patient's pain related to chronic pancreatitis may benefit from celiac plexus block down the road We will continue coordinating with Dr. Marin service Status: Acute Attestations Medical Necessity Statement*: Per Hospitalist service Time Spent in Patient Care: 16 - 35 minutes (>than 50% of time spent in counselling and/or direct pt care on unit). 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
--- NOTE | 2019-05-30 07:10 | XRR_ITS ---
PROCEDURE INFORMATION: Exam: XR Chest, 1 View Exam date and time: 05/30/2019 7:11 AM Age: 34 years old Clinical indication: Shortness of breath; Additional info: To rule out pneumonia TECHNIQUE: Imaging protocol: XR of the chest Views: 1 view. COMPARISON: CR Chest 1 [place] [id number] 10/01/2018 12:37 PM FINDINGS: Lungs: Unremarkable. No consolidation. Bibasilar nipple shadows. Pleural space: Unremarkable. No pleural effusion. No pneumothorax. Heart/Mediastinum: Unremarkable. No cardiomegaly. Bones/joints: Unremarkable. XR/XR chest 1V portable [id number] IMPRESSION: No acute findings.
[2019-05-30] MEDS: ondansetron 2 mg/ML SDV 2 mL 4 MG IVP (07:32)
[2019-05-30] MEDS: magnesium sulfate premix 2 GM/50 ML PIGGYBACK IV (07:32)
--- NOTE | 2019-05-30 07:45 | ANES.PREANE2 ---
Pre-Anesthetic Assessment Pre-Anesthetic Assessment: Height/Weight: Height 1.68 m Weight 47.627 kg Temp Pulse Resp BP Pulse Ox 97.6 F 58 L 16 132/64 94 05/30/19 04:00 05/30/19 04:00 05/30/19 04:00 05/30/19 04:00 05/30/19 04:00 Preop Diagnosis: Hematemesis Proposed Procedure: Operation Date: 05/30/19 09:10 Proposed Procedures p EGD(Not Applicable) - Lex Juan MD Last Intake: 22:00 Social: Social History: Tobacco Packs per day: 1/2 Pack years: 10 Exam: Pre-Anes Outpt Exam: alert, oriented x 3, clear to auscultation bilaterally and regular rate & rhythm Airway: Submandibular: WNL Cervical ROM: WNL MP: 1 GI: Comments: some nausea pancreatitis, s/p shunt in duct Neuropsych: Comments: hx alcohol abuse Anesthetic Plan: ASA status: 3 Anesthesia: General Meds/Allergies Current Medications: Current Medications Generic Name Dose Route Start Last Admin Trade Name Freq PRN Reason Stop Dose Admin Acamprosate 333 mg 05/29/19 15:30 05/29/19 20:20 Campral PO Not Given TID ALBAN Potassium Chloride /Dextrose/Sod Cl 20 meq in 1,000 m ls @ 100 mls/hr 05/29/19 15:30 05/30/19 01:32 D5-Ns 0.45% + Ravindra l 20 Meq IV 100 mls/hr .Q10H [place] Administration Magnesium Sulfate 2 gm in 50 mls @ 50 mls/hr 05/30/19 07:08 05/30/19 07:32 Magnesium Sulfat e Premix IV 05/30/19 08:07 50 mls/hr ONCE ONE Administration Ondansetron HCl 4 mg 05/29/19 15:30 05/30/19 07:32 Zofran IVP 4 mg Q6H PRN Administration NAUSEA AND VOMITI NG Oxycodone HCl 5 mg 05/29/19 18:27 05/29/19 22:34 Oxycodone Ir PO 5 mg Q4H PRN Administration MODERATE PAIN Pantoprazole Sodiu m 40 mg 05/30/19 02:00 05/30/19 01:31 Protonix IVP 40 mg Q12H [place] Administration Promethazine HCl 12.5 mg 05/29/19 18:46 05/30/19 05:12 Phenergan IM 12.5 mg Q6H PRN Administration NAUSEA PFSH Anesthesia PFSH: Medical History Alcohol use disorder Pancreatitis Presence of pancreatic duct stent Tobacco abuse Surgical History Hx of cholecystectomy Social History Smoking and tobacco status: current every day smoker Current gender identity: Female Female Reproductive History: Date of last menstrual period: 05/05/19 Data Anesthesia CBC & Chem 7: 05/30/19 04:59 05/30/19 04:59 Other Labs: Laboratory Results - last 48 hr 05/29/19 05/29/19 05/29/19 12:03 12:03 12:03 WBC 9.7 RBC 4.30 Hgb 13.3 Hct 42.9 MCV 99.8 H MCH 30.9 MCHC 31.0 RDW 13.6 Plt Count 188 MPV 10.9 H Neut % (Auto) 81.0 Lymph % (Auto) 13.9 [place] % (Auto) 4.2 Eos % (Auto) 0.4 Baso % (Auto) 0.2 Neut # (Auto) 7.9 H Lymph # (Auto) 1.4 [place] # (Auto) 0.4 Eos # (Auto) 0.0 Baso # (Auto) 0.0 Nucleated RBC % (auto) 0 Nucleated RBCs # 0.0 PT INR Sodium 134 L Potassium 4.2 Chloride 100 Carbon Dioxide 20 L Anion Gap 18.2 BUN 5 L Creatinine 0.7 GFR Calculation 114.6 Glucose 91 Calculated Osmolality 273 L Calcium 9.6 Phosphorus Magnesium Total Bilirubin 0.5 AST 15 ALT 9 Alkaline Phosphatase 55 Total Protein 7.6 Albumin 4.5 Globulin 3.1 Lipase 141 H HCG, Qual Negative Urine Color Urine Appearance Urine pH Ur Specific [place] Urine Protein Urine Glucose (UA) Urine Ketones Urine Blood Urine Nitrate Urine Bilirubin Urine Urobilinogen Ur Leukocyte Esterase 05/29/19 05/29/19 05/30/19 12:03 12:30 04:59 WBC 13.7 H RBC 3.74 L Hgb 12.0 Hct 36.3 L MCV 97.1 MCH 32.1 MCHC 33.1 D RDW 13.2 Plt Count 179 MPV 10.8 H Neut % (Auto) 87.9 Lymph % (Auto) 6.8 [place] % (Auto) 4.7 Eos % (Auto) 0.1 Baso % (Auto) 0.1 Neut # (Auto) 12.0 H Lymph # (Auto) 0.9 [place] # (Auto) 0.6 Eos # (Auto) 0.0 Baso # (Auto) 0.0 Nucleated RBC % (auto) 0 Nucleated RBCs # 0.0 PT 12.50 INR 0.93 Sodium Potassium Chloride Carbon Dioxide Anion Gap BUN Creatinine GFR Calculation Glucose Calculated Osmolality Calcium Phosphorus Magnesium Total Bilirubin AST ALT Alkaline Phosphatase Total Protein Albumin Globulin Lipase HCG, Qual Urine Color Straw Urine Appearance Clear Urine pH 6.5 Ur Specific [place] 1.005 Urine Protein Neg Urine Glucose (UA) Norm Urine Ketones 1+ H Urine Blood Neg Urine Nitrate Negative Urine Bilirubin Neg Urine Urobilinogen Norm Ur Leukocyte Esterase Negative 05/30/19 05/30/19 04:59 04:59 WBC RBC Hgb Hct MCV MCH MCHC RDW Plt Count MPV Neut % (Auto) Lymph % (Auto) [place] % (Auto) Eos % (Auto) Baso % (Auto) Neut # (Auto) Lymph # (Auto) [place] # (Auto) Eos # (Auto) Baso # (Auto) Nucleated RBC % (auto) Nucleated RBCs # PT INR Sodium 131 L Potassium 4.3 Chloride 96 L Carbon Dioxide 23 Anion Gap 16.3 BUN 2 L Creatinine 0.6 GFR Calculation 136.9 H Glucose 184 H Calculated Osmolality 272 L Calcium 9.4 Phosphorus 3.3 Magnesium 1.6 L Total Bilirubin 0.4 AST 18 ALT 8 Alkaline Phosphatase 47 Total Protein 7.0 Albumin 4.2 Globulin 2.8 Lipase 153 H HCG, Qual Urine Color Urine Appearance Urine pH Ur Specific [place] Urine Protein Urine Glucose (UA) Urine Ketones Urine Blood Urine Nitrate Urine Bilirubin Urine Urobilinogen Ur Leukocyte Esterase Cardiac Studies: No Data to Display
[2019-05-30] MEDS: sodium chloride 0.9% 1,000 ML 30 ML IV (08:59)
--- NOTE | 2019-05-30 11:19 | PM.TDS ---
Transfer Summary Providers Date of Admission: 05/29/19 12:23 Date of Discharge: 05/30/19 Attending Provider at Admission: Luis Marin MD Attending Provider at Transfer: Luis Marin MD Primary Care Provider: Francy Bell DO Anticipated Date of Transfer: Anticipated date of transfer: 05/30/19 Receiving Facility & Provider: Receiving Provider: [] Receiving facility: [] Diagnoses at Discharge Discharge Diagnosis (1) Hematemesis: Status: Acute (2) Acute pancreatitis: Status: Acute (3) Gastritis due to nonsteroidal anti-inflammatory drug (NSAID): Status: Acute Reason for Visit Reason for Visit: Reason For Visit: PANCREATITIS, UPPER GI BLEED Hospital Course Discharge Summary: HoweverPatient with previous history of alcohol use disorder presented with yet another episode of epigastric area pain and evidence of pancreatitis on imaging. Patient underwent upper endoscopy showing evidence of gastritis and bile reflux but otherwise no significant findings as per Dr. Kunz. Patient continues to have pain. She had previous history of pancreatic stent placement and further evaluation with EUS and possibly ERCP or celiac block was considered and I have discussed with GI specialist at [facility] who graciously accepted patient for further monitoring, evaluation and treatment. This was discussed with patient and she agrees to be transferred. Patient's magnesium was 1.6 this morning. She was given 2 g of magnesium. Her white blood cell count increased to 13.7 and we were currently waiting for chest x-ray as there is a possibility of aspiration pneumonia. She is currently hemodynamically stable. Her oxygen saturation is 99% on room air. She had 850 mL of urinary output since yesterday and her kidney function is stable. Lipid profile and hemoglobin A1c was not checked. Patient's blood glucose level was 91 yesterday upon admission and 184 this morning. Physical Exam Const: COMMON NORMALS: no apparent distress and oriented x3 Resp: COMMON NORMALS: normal respiratory effort and clear to auscultation bilaterally AUSCULTATION: clear to auscultation bilaterally Cardio: COMMON NORMALS: regular rate, regular rhythm and S2 normal heart sound RATE: regular rate RHYTHM: regular rhythm HEART SOUNDS: S2 normal OTHER: No lower extremity edema GI: COMMON NORMALS: normal to inspection, nondistended, normoactive bowel sounds and soft to palpation PALPATION: Yes soft and Yes tender (Mostly epigastric area) Neuro: COMMON NORMALS: oriented x3 and no focal motor deficits TS Data Data Completed and Pending: Completed Studies During Hospitalization Category Date Time Status CT abdomen pelvis w con* [id number] Stat Cat Scan 05/29/19 11:35 Completed Pending at discharge Category Date Time Status XR chest 1V henry ble [id number] Routine Exams 05/30/19 07:10 Ordered H. Pylori / LACEY T est Routine Lab 05/30/19 09:47 Ordered Lipase AM LABS Lab 05/31/19 04:00 Ordered Lipase AM LABS Lab 06/01/19 04:00 Ordered Magnesium AM LABS Lab 05/31/19 04:00 Ordered Magnesium AM LABS Lab 06/01/19 04:00 Ordered Phosphorus AM LAB S Lab 05/31/19 04:00 Ordered Phosphorus AM LAB S Lab 06/01/19 04:00 Ordered Labs from last 24 hours 05/30/19 05/30/19 05/30/19 04:59 04:59 04:59 WBC 13.7 H RBC 3.74 L Hgb 12.0 Hct 36.3 L MCV 97.1 MCH 32.1 MCHC 33.1 D RDW 13.2 Plt Count 179 MPV 10.8 H Neut % (Auto) 87.9 Lymph % (Auto) 6.8 Grant % (Auto) 4.7 Eos % (Auto) 0.1 Baso % (Auto) 0.1 Neut # (Auto) 12.0 H Lymph # (Auto) 0.9 Grant # (Auto) 0.6 Eos # (Auto) 0.0 Baso # (Auto) 0.0 Nucleated RBC % (a uto) 0 Nucleated RBCs # 0.0 PT INR Sodium 131 L Potassium 4.3 Chloride 96 L Carbon Dioxide 23 Anion Gap 16.3 BUN 2 L Creatinine 0.6 GFR Calculation 136.9 H Glucose 184 H Calculated Osmolal ity 272 L Calcium 9.4 Phosphorus 3.3 Magnesium 1.6 L Total Bilirubin 0.4 AST 18 ALT 8 Alkaline Phosphata se 47 Total Protein 7.0 Albumin 4.2 Globulin 2.8 Lipase 153 H HCG, Qual Urine Color Urine Appearance Urine pH Ur Specific Gravit y Urine Protein Urine Glucose (UA) Urine Ketones Urine Blood Urine Nitrate Urine Bilirubin Urine Urobilinogen Ur Leukocyte Yesenia ase 05/29/19 05/29/19 05/29/19 12:30 12:03 12:03 WBC RBC Hgb Hct MCV MCH MCHC RDW Plt Count MPV Neut % (Auto) Lymph % (Auto) Grant % (Auto) Eos % (Auto) Baso % (Auto) Neut # (Auto) Lymph # (Auto) Grant # (Auto) Eos # (Auto) Baso # (Auto) Nucleated RBC % (a uto) Nucleated RBCs # PT 12.50 INR 0.93 Sodium Potassium Chloride Carbon Dioxide Anion Gap BUN Creatinine GFR Calculation Glucose Calculated Osmolal ity Calcium Phosphorus Magnesium Total Bilirubin AST ALT Alkaline Phosphata se Total Protein Albumin Globulin Lipase HCG, Qual Negative Urine Color Straw Urine Appearance Clear Urine pH 6.5 Ur Specific Gravit y 1.005 Urine Protein Neg Urine Glucose (UA) Norm Urine Ketones 1+ H Urine Blood Neg Urine Nitrate Negative Urine Bilirubin Neg Urine Urobilinogen Norm Ur Leukocyte Yesenia ase Negative 05/29/19 05/29/19 12:03 12:03 WBC 9.7 RBC 4.30 Hgb 13.3 Hct 42.9 MCV 99.8 H MCH 30.9 MCHC 31.0 RDW 13.6 Plt Count 188 MPV 10.9 H Neut % (Auto) 81.0 Lymph % (Auto) 13.9 Grant % (Auto) 4.2 Eos % (Auto) 0.4 Baso % (Auto) 0.2 Neut # (Auto) 7.9 H Lymph # (Auto) 1.4 Grant # (Auto) 0.4 Eos # (Auto) 0.0 Baso # (Auto) 0.0 Nucleated RBC % (a uto) 0 Nucleated RBCs # 0.0 PT INR Sodium 134 L Potassium 4.2 Chloride 100 Carbon Dioxide 20 L Anion Gap 18.2 BUN 5 L Creatinine 0.7 GFR Calculation 114.6 Glucose 91 Calculated Osmolal ity 273 L Calcium 9.6 Phosphorus Magnesium Total Bilirubin 0.5 AST 15 ALT 9 Alkaline Phosphata se 55 Total Protein 7.6 Albumin 4.5 Globulin 3.1 Lipase 141 H HCG, Qual Urine Color Urine Appearance Urine pH Ur Specific Gravit y Urine Protein Urine Glucose (UA) Urine Ketones Urine Blood Urine Nitrate Urine Bilirubin Urine Urobilinogen Ur Leukocyte Yesenia ase Vitals: Last Vital Signs Temp 98 F 05/30/19 10:20 Pulse 55 L 05/30/19 11:00 Resp 16 05/30/19 10:20 BP 148/91 05/30/19 11:00 Pulse Ox 99 05/30/19 11:00 TS Medications Medications Home Medications acamprosate 333 mg tablet,delayed release 333 mg PO TID 03/04/19 [History Confirmed 05/29/19] Active Medications Acamprosate (Campral) 333 mg PO TID [facility] Last Admin: 05/29/19 20:20 Dose: Not Given Documented by: Bisacodyl (Dulcolax) 10 mg PO DAILY PRN PRN Reason: CONSTIPATION Potassium Chloride/Dextrose/Sod Cl (D5-Ns 0.45% + Kcl 20 Meq) 20 meq in 1,000 mls @ 100 mls/hr IV .Q10H [facility] Last Admin: 05/30/19 01:32 Dose: 100 mls/hr Documented by: Sodium Chloride (Sodium Chloride 0.9%) 1,000 mls @ 30 mls/hr IV .Q24H [facility] Last Admin: 05/30/19 08:59 Dose: 30 mls/hr Documented by: Ondansetron HCl (Zofran) 4 mg IVP Q6H PRN PRN Reason: NAUSEA AND VOMITING Last Admin: 05/30/19 07:32 Dose: 4 mg Documented by: Oxycodone HCl (Oxycodone Ir) 5 mg PO Q4H PRN PRN Reason: MODERATE PAIN Last Admin: 05/29/19 22:34 Dose: 5 mg Documented by: Pantoprazole Sodium (Protonix) 40 mg IVP Q12H [facility] Last Admin: 05/30/19 01:31 Dose: 40 mg Documented by: Promethazine HCl (Phenergan) 12.5 mg IM Q6H PRN PRN Reason: NAUSEA Last Admin: 05/30/19 05:12 Dose: 12.5 mg Documented by: Discharge Plan Discharge Patient Disposition: Xfer Other Condition: Stable Prescriptions: No Action acamprosate 333 mg tablet,delayed release (DR/EC) 333 mg PO TID RF: 0 Referrals: Francy Bell DO [Primary Care Provider] - Transfer Attestations Time Spent in Transfer Care*: greater than 30 min Quality Metrics Clinical Quality Measures: During this hospital stay, did patient experience: None Coding Level of Care Code Acute Digital Marketing Specialist for [facility] Fwd Diagnoses Hematemesis K92.0 Acute pancreatitis K85.90 Gastritis due to nonsteroidal anti-inflammatory drug (NSAID) K29.60; T39.395A
[2019-05-30] MEDS: oxyCODONE 5 mg IR Tab/Cap PO (12:26)
--- NOTE | 2019-05-30 12:44 | PC.NURSE ---
Patient report called to Francis Gonzalez RN at [facility]. going to room 940-1.
--- NOTE | 2019-05-30 13:36 | PC.NURSE ---
Report given to ambulance crew. pt ambulated to cot,paperwork give to ambulance crew.
[2019-05-31 10:17] LABS: H. Pylori / CLO Test Negative
== END 2019-05-30 13:36 | disposition other institution (70) ==
LOC: ER 13:21 → MEDSURG 14:03
PROVIDERS: Surgery; Admitting Provider Internal Medicine; Emergency Provider Family Medicine; PCP Family Medicine; Visit Provider Internal Medicine
PROC: 0DJ08ZZ Inspection of Upper Intestinal Tract, Via Natural or Artificial Opening Endoscopic (ICD-10-PCS; CPT 43235; principal; 2019-05-30 09:00)
DX: K92.2 Gastrointestinal hemorrhage, unspecified (principal); F17.210 Nicotine dependence, cigarettes, uncomplicated; K29.70 Gastritis, unspecified, without bleeding; Z79.1 Long term (current) use of non-steroidal anti-inflammatories (NSAID); K85.90 Acute pancreatitis without necrosis or infection, unspecified; E86.0 Dehydration; K92.0 Hematemesis; E87.1 Hypo-osmolality and hyponatremia
CPT/HCPCS: 12345; 36415; 43239; 71045; 74177; 80053; 81003; 83690; 83735; 84100; 84703; 85025; 85610; 87077; 96360; 96361; 96365; 96366; 96372; 96374; 96375; 96376; 99282; 99285; C9113; G0378; J1170; J2001; J2270; J2405; J2550; J2704; J3010; J3475; J7030; Q9967

== ENCOUNTER 2019-07-01 06:44 | Inpatient (IN) | payer SELFPAY ==
[2019-03-17 16:03] VITALS: BP 150/82; BMI 18.3
[2019-07-01] VITALS (13 sets, daily range): BP systolic 101–136; BP diastolic 57–82; PULSE 56–76; RESP 14–20; TEMP 36.3–37; O2SAT 91–100; BMI 16.9
--- NOTE | 2019-07-01 06:56 | W.ED.ABDPA2 ---
HPI - Abdominal Pain General: Chief Complaint: Abdominal Pain Stated Complaint: ABD PAIN Time Seen by Provider: 07/01/19 06:47 History of Present Illness: Associated Symptoms: Reports chills, nausea and vomiting; Denies coffee ground emesis and dysuria Related Data: Date of Last Menstrual Period: 05/05/19 Review of Systems Narrative: Patient reports a history of pancreatitis for several years - due to alcohol but she says she has been sober for 3 years. She has had her gallbladder reomved. She says she was in the hospital in [place] until a few weeks ago - had been on a regular diet until the past few days. She started having her usual pain yesterday and had nausea. she threw up this morning. She told me that she takes no medicines at home - although she told the nurse differently - see list - including naprosyn. She was last seen here with pancreatitis and an UGI bleed in May. No blood in stool or urine now. PCP is Vivian Ricks. Const: Reports: chills, fatigue and malaise Resp: Denies: dyspnea, productive cough or non-productive cough GI: Reports: abdominal pain, nausea and vomiting; Denies: coffee ground emesis or dysphagia : Denies: flank pain, difficulty voiding or dysuria Neuro: Denies: headache(s), numbness in extremities or weakness in extremities Psych: Reports: anxiety, depression and other (history of alcohol abuse - states sober for 3 years) Ashwin/Lymph: Denies: easy bruising or easy bleeding PFSH ED PFSH: Medical History Alcohol use disorder Pancreatitis Presence of pancreatic duct stent Tobacco abuse Surgical History Hx of cholecystectomy Social History Smoking and tobacco status: current every day smoker Current gender identity: Female Female Reproductive History: Date of last menstrual period: 05/05/19 Physical Exam Const: COMMON NORMALS: average body habitus, patient oriented x3 and alert GENERAL APPEARANCE: in distress, anxious and ill appearing NUTRITIONAL APPEARANCE: underweight Eye: COMMON NORMALS: Equal, round and reactive pupils present, EOMs intact bilaterally, conjunctivae normal, no scleral icterus, no papilledema, normal visual weller by confrontation and fundi normal bilaterally CONJUNCTIVA: Yes conjunctivae normal PUPIL: Yes Equal, round and reactive pupils present DIRECT OPHTHALMOSCOPY: Yes no papilledema and Yes fundi normal bilaterally Neck/C-Spine: COMMON NORMALS: supple and no JVD Resp: COMMON NORMALS: normal respiratory effort, No use of accessory muscles and clear to auscultation bilaterally AUSCULTATION: clear to auscultation bilaterally Cardio: COMMON NORMALS: no JVD, regular rate, regular rhythm and No murmurs present (Cardio) RATE: regular rate RHYTHM: regular rhythm GI: PALPATION: Yes Tenderness to palpation present (GI), Yes Guarding due to palpation present (GI), No Rebound tenderness present and Yes Other GI palpation findings present (limited exam due to poor patient cooperation) : COMMON NORMALS: Yes no CVA tenderness BLADDER/KIDNEY EXAM: Yes no CVA tenderness Back/Pelvis: COMMON NORMALS: no CVA tenderness Neuro: COMMON NORMALS: patient oriented x3 SENSORIUM/ORIENTATION: Yes alert Psych: COMMON NORMALS: mental status grossly normal, Normal thought process present, normal affect and activity/motor behavior normal THOUGHT PROCESS: Normal thought process present Skin: COMMON NORMALS: no rashes or lesions noted and turgor normal GENERAL SKIN EXAM: no rashes or lesions noted and turgor normal Course Reevaluation(s): Reevaluation #1: appears more comfortable, but still complaining of 8/10 pain. IV fluids running. Pepcid ordered - history of GERD Time: 08:32 Reevaluation #2: Improved after second dose of morphine, but unable to tolerate PO without worsening of pain. She does not feel that she is well enough to go home. She says that she had a CT done during her reent admission - and also had to have an NG tube as she was not able to eat or drink. Time: 10:11 Reevaluation #3: We had been trying to get records from [facility] to be sure that the patient would not require transfer there, however we were not able to get those records - so Dr. Michelle agreed to admit. Time: 13:44 Vital Signs: Vital signs: Vital Signs Temperature 97.4 F L 07/01/19 06:54 Pulse Rate 76 07/01/19 11:33 Respiratory Rate 16 07/01/19 13:09 Blood Pressure 117/78 07/01/19 11:33 Pulse Oximetry 91 07/01/19 11:33 MDM - Abdominal Pain Differential Diagnosis: Differential diagnosis abdominal pain: Likely abdominal pain, constipation, gastroenteritis, pancreatitis and small bowel obstruction Lab Data: Labs: Lab Results 07/01/19 07/01/19 07/01/19 Range/Units 07:20 07:20 09:38 WBC 12.1 H (4.0-10.0) 10^3/ uL RBC 3.67 L (4.1-5.3) 10^6/u L Hgb 11.4 L (11.5-15.3) g/dL Hct 36.0 L (37.0-47.0) % MCV 98.1 (81-99) fL MCH 31.1 (28.0-34.0) pg MCHC 31.7 (30.0-36.0) g/dL RDW 15.9 H (12.1-15.1) % Plt Count 238 (130-400) 10^3/c mm MPV 11.1 H (7.4-10.4) fL Neut % (Auto) 78.1 % Lymph % (Auto) 13.1 % [place] % (Auto) 6.4 % Eos % (Auto) 1.9 % Baso % (Auto) 0.2 % Neut # (Auto) 9.4 H (1.8-7.7) 10^3/u L Lymph # (Auto) 1.6 (0.8-4.8) 10^3/u L [place] # (Auto) 0.8 (0.2-0.9) 10^3/u L Eos # (Auto) 0.2 (0.0-0.8) 10^3/u L Baso # (Auto) 0.0 (0.0-0.1) 10^3/u L Nucleated RBC % (a uto) 0 % Nucleated RBCs # 0.0 /100WBC Sodium 138 (136-145) mmol/L Potassium 4.1 (3.5-5.1) mmol/L Chloride 102 (98-107) mmol/L Carbon Dioxide 24 (22-29) mmol/L Anion Gap 16.1 (5-19) BUN 7 (6-20) mg/dL Creatinine 0.7 (0.5-0.9) mg/dL GFR Calculation 114.6 (90-130) mL/min Glucose 109 (65-115) mg/dL Calculated Osmolal ity 282 L (285-295) mOsm/k g Calcium 9.8 (8.5-10.5) mg/dL Total Bilirubin 0.5 (0.15-1.2) mg/dL AST 12 (0-32) U/L ALT 7 (0-33) U/L Alkaline Phosphata se 53 (35-105) IU/L Total Protein 7.1 (6.6-8.7) g/dL Albumin 4.0 (3.5-5.2) g/dL Globulin 3.1 (1.3-4.6) g/dL Lipase 92 H (13-60) U/L Urine Color Yellow (Yellow) Urine Appearance Clear (CLEAR) Urine pH 5 (5-7) Ur Specific Gravit y 1.015 (1.005-1.030) Urine Protein Neg (Negative) Urine Glucose (UA) Norm (Normal) Urine Ketones Negative (Negative) Urine Blood Neg (Negative) Urine Nitrate Negative (Negative) Urine Bilirubin Neg (NEGATIVE) Urine Urobilinogen Norm (Negative) mg/dL Ur Leukocyte Yesenia ase Negative (Negative) Ethyl Alcohol < 10 (0-10) mg/dL Discharge Plan Discharge Patient Disposition: Placed in Observation Clinical Impression: Acute dehydration Pancreatitis Qualifiers: Chronicity: chronic Pancreatitis type: unspecified pancreatitis type Qualified Code(s): K86.1 - Other chronic pancreatitis Condition: Stable Referrals: Francy Bell DO [Primary Care Provider] - Coding Level of Care Code ED Burn Crew Member for [facility] Fwd Exam Comprehensive
[2019-07-01] MEDS: ketorolac 30 mg/mL INJ 15 MG IVP (07:14)
[2019-07-01] MEDS: morphine 4 mg/mL SDV 1 mL IVP ×4 (07:14→22:00)
[2019-07-01] MEDS: ondansetron 2 mg/ML SDV 2 mL 4 MG IVP ×2 (07:14→19:44)
[2019-07-01 07:45] LABS: Basophils % 0.2 %; Eosinophils # 0.2 10^3/uL (0.0-0.8); Eosinophils % 1.9 %; Hemoglobin 11.4 g/dL (11.5-15.3); Lymphocytes # 1.6 10^3/uL (0.8-4.8); Lymphocytes % 13.1 %; Mean Corpuscular HGB Conc 31.7 g/dL (30.0-36.0); Mean Corpuscular Hemoglobin 31.1 pg (28.0-34.0); Mean Corpuscular Volume 98.1 fL (81-99); Mean Platelet Volume 11.1 fL (7.4-10.4); Monocytes # 0.8 10^3/uL (0.2-0.9); Monocytes % 6.4 %; Neutrophils # 9.4 10^3/uL (1.8-7.7); Neutrophils % 78.1 %; Nucleated Red Blood Cells % 0 %; Platelet Count 238 10^3/cmm (130-400); Red Blood Count 3.67 10^6/uL (4.1-5.3); Red Cell Distribution Width 15.9 % (12.1-15.1); White Blood Count 12.1 10^3/uL (4.0-10.0)
[2019-07-01 08:06] LABS: Alanine Aminotransferase 7 U/L (0-33); Alkaline Phosphatase 53 IU/L (35-105); Anion Gap 16.1 (5-19); Blood Urea Nitrogen 7 mg/dL (6-20); Calcium 9.8 mg/dL (8.5-10.5); Carbon Dioxide 24 mmol/L (22-29); Chloride 102 mmol/L (98-107); Globulin 3.1 g/dL (1.3-4.6); Glomerular Filtration Rate 114.6 mL/min (90-130); Glucose 109 mg/dL (65-115); Lipase 92 U/L (13-60); Osmolality Calculated 282 mOsm/kg (285-295); Potassium 4.1 mmol/L (3.5-5.1); Sodium 138 mmol/L (136-145); Total Bilirubin 0.5 mg/dL (0.15-1.2); Total Protein 7.1 g/dL (6.6-8.7)
[2019-07-01] MEDS: sodium chloride 0.9% 1,000 ML 999 ML IV (08:26)
[2019-07-01 08:51] LABS: Alcohol Level < 10 mg/dL (0-10)
[2019-07-01 08:52] LABS: Aspartate Amino Transferase 12 U/L (0-32)
[2019-07-01] MEDS: famotidine 20 mg/2 mL INJ 40 MG IVP (08:59)
[2019-07-01 10:01] LABS: Add Urine Microscopic? NO
[2019-07-01 10:08] LABS: Bilirubin Urine Neg (NEGATIVE); Blood Urine Neg (Negative); Glucose Urine UA Norm (Normal); Ketones Urine Negative (Negative); Leukocyte Esterase Urine Negative (Negative); Nitrate Urine Negative (Negative); Protein Urine Neg (Negative); Specific Gravity, Urine 1.015 (1.005-1.030); Urine Appearance Clear (CLEAR); Urine Color Yellow (Yellow); Urobilinogen Urine Norm (Negative); pH Urine 5 (5-7)
--- NOTE | 2019-07-01 14:59 | PM.HP ---
Providers/Chief Complaint Admitting Physician: Stephie Michelle Chief Complaint: ABD PAIN History of Present Illness .Vanita Barone is a 34 year old female with a history of chronic pancreatitis who presented to the emergency room with increasing abdominal pain nausea and vomiting for a couple of days. She ate [employer] 2 days ago which she knows that she should not do. Within 24 hours she started having abdominal pain across her entire abdomen going through to her back along with persistent nausea vomiting and inability to really eat much of anything. She was hospitalized here in May with similar presentation along with vomiting of blood. She underwent endoscopy here that showed evidence of some gastritis and bile reflux but was otherwise unremarkable. Patient's pain continue to be severe. She was ultimately transferred to [facility]. She states that she was hospitalized there and had an MRI and an ultrasound. We have attempted to get the records from there without success. Patient states that she was doing better when she was discharged and felt good for a few days. She is taking Creon and had been following instructions regarding diet until the slip up [employer]. She reports being frustrated with recurrent abdominal pain and pancreatitis issues. When asked her specifically where the pain is, she does states in her entire abdomen. When I asked her to point, she points more to the right side of her abdomen and around the right flank. Denies diarrhea. She states usually when she gets pancreatitis she does not have a bowel movement. Denies fever. Denies sick contacts. I am not sure if she has arranged another primary care provider with whom to follow-up. It did not sound like she had planned follow-up appointment with agricultural education instructor. She states that she takes naproxen at home for the pain is at home. In the emergency room she received 3 doses of morphine for a total of 12 mg over a several hour period, a dose of Toradol, Pepcid and Zofran in addition to fluids. She was given a trial of oral intake and vomited again. She is being admitted for continued treatment. Review of Systems Const: Reports: chills and change in appetite; Denies: fever(s) Eyes: Denies: change in vision ENMT: Denies: throat pain, dry mouth or nasal congestion Card: Denies: chest pain, palpitations or edema Resp: Denies: dyspnea, productive cough or non-productive cough GI: Reports: abdominal pain, nausea, vomiting and constipation; Denies: diarrhea : Denies: difficulty voiding Musc: Reports: back pain; Denies: joint pain Skin/Breast: Denies: rash or pruritus Neuro: Reports: headache(s); Denies: weakness in extremities or dizziness Psych: Denies: anxiety or depression Ashwin/Lymph: Denies: easy bruising or easy bleeding Medications/Allergies Home Medications Medication Instructions Recorded Confirmed Last Taken Type Vitamin B-12 1 tab PO DAILY 07/01/19 07/01/19 07/01/19 06:00 History clonidine HCl 0.1 mg PO BEDTIME 07/01/19 07/01/19 06/30/19 History [id number] [Creon] 3 cap PO DAILY 07/01/19 07/01/19 07/01/19 History naproxen sodium [Aleve] 220 mg PO PRN 07/01/19 07/01/19 07/01/19 06:00 History Allergies Allergy/AdvReac Type Severity Reaction Status Date / Time No Known Allergies Allergy Verified 07/01/19 07:00 PFSH Acute PFSH: Medical History (Updated 07/01/19 @ 21:32 by Stephie Michelle MD) Alcohol use disorder In remission per pt on 06/30/14 Chronic pancreatitis Depression Presence of pancreatic duct stent Pt denies history of pancreatic duct stent and none noted on recent imaging here Tobacco abuse Surgical History (Updated 07/01/19 @ 21:28 by Stephie Michelle MD) History of vaginal delivery Hx of cholecystectomy Social History Smoking and tobacco status: current every day smoker Other details last alcohol use: Pt states she has not been drinking recently Current gender identity: Female Female Reproductive History: Date of last menstrual period: 05/05/19 Vitals/I&O/Wt Last Vital Signs Temp 97.4 F L 07/01/19 06:54 Pulse 56 L 07/01/19 14:24 Resp 16 07/01/19 13:09 BP 105/57 07/01/19 14:24 Pulse Ox 100 07/01/19 14:24 Weight last 48 hrs Weight 47.627 kg Physical Exam Const: OTHER: Alert, oriented x3, cooperative, thin build HENMT: OTHER: Normocephalic atraumatic, moist mucus membranes Eye: OTHER: Pupils equally round and reactive to light, muddy sclera no icterus Neck/C-Spine: OTHER: Supple Resp: OTHER: Clear to auscultation bilaterally, no rales, rhonchi or wheezes noted Cardio: OTHER: Regular rate and rhythm, no murmurs gallops or rubs. GI: OTHER: Abdomen soft, some voluntary guarding, no rebound tenderness, abdomen is tender anywhere you touch it, both flanks are tender. Tenderness is out of proportion to the extent of my palpation at times. Patient has some anticipatory hesitation in response to pain as well. Abdomen is nondistended with positive bowel sounds noted. There is not one more focal tender area at this time. Extremity: NARRATIVE EXTREMITY EXAM: No cyanosis, clubbing or edema Neuro: OTHER: Face symmetric, speech clear, moves all extremities Psych: OTHER: Normal affect Skin: OTHER: Skin dry Data : 07/03/19 05:32 07/03/19 05:32 A&P Assessment and plan (1) Acute generalized abdominal pain: In a patient with known chronic pancreatitis. My understanding from review of records is that it is felt that the alcohol is the most likely etiology of the pancreatitis although patient also reports a history of some type of trauma and possibility of medications. She had extensive evaluation at [facility] in [place] recently although we have been unable to get those records. White count is down from her presentation in May. Lipase is also down. Extra lites are essentially normal right now. Recurrent pain could be due to gastritis, pancreatic inflammation from fatty meal yesterday, cannot fully rule out seeking behavior but she does not come across that way. Status: Acute (2) Chronic pancreatitis: No medications include Creon Status: Acute Qualifiers: Pancreatitis type: alcohol induced Qualified Code(s): K86.0 - Alcohol-induced chronic pancreatitis (3) Gastritis due to nonsteroidal anti-inflammatory drug (NSAID): EGD diagnosed in May, not currently on a PPI at home. 10 used to take NSAIDs. Status: Acute (4) Tobacco abuse: Status: Acute Additional A&P Information Observation admission IV fluids Clear liquid diet Pain control, trying to limit narcotics Antiemetics Continue Creon Supportive care otherwise Plans discussed with patient and she was given an opportunity to ask questions Full code Attestations Medical Necessity Statement*: Currently anticipated stay less than 2 midnights in a patient with known chronic pancreatitis. Ultimately there will depend on clinical course Coding Level of Care Code Acute Cnc Manager for g Fwd Diagnoses Acute generalized abdominal pain R10.84 Chronic pancreatitis K86.0 Pancreatitis type: alcohol induced Gastritis due to nonsteroidal anti-inflammatory drug (NSAID) K29.60; T39.395A Tobacco abuse Z72.0
[2019-07-01] MEDS: pantoprazole 40 mg SDV IVP (16:09)
[2019-07-01] MEDS: sodium chlor 0.9% + KCl 20 mEq 20 MEQ/1,000 ML BAG 150 MEQ IV ×2 (16:10→22:45)
[2019-07-01] MEDS: lipase-protease-amylase Capsule 3 EACH PO (17:22)
[2019-07-02] VITALS (11 sets, daily range): BP systolic 113–139; BP diastolic 61–84; PULSE 56–89; RESP 16–18; TEMP 36.5–37.1; O2SAT 98–100
[2019-07-02] MEDS: HYDROcodone-acetaminophen 5-325 mg Tablet 1 TAB PO ×4 (02:30→21:03)
[2019-07-02 03:50] LABS: Basophils % 0.1 %; Eosinophils # 0.1 10^3/uL (0.0-0.8); Hematocrit 36.7 % (37.0-47.0); Hemoglobin 11.3 g/dL (11.5-15.3); Lymphocytes % 7.6 %; Mean Corpuscular HGB Conc 30.8 g/dL (30.0-36.0); Mean Corpuscular Hemoglobin 30.5 pg (28.0-34.0); Mean Corpuscular Volume 99.2 fL (81-99); Mean Platelet Volume 11.1 fL (7.4-10.4); Monocytes # 0.8 10^3/uL (0.2-0.9); Monocytes % 6.3 %; Neutrophils # 11.3 10^3/uL (1.8-7.7); Neutrophils % 84.6 %; Nucleated Red Blood Cells % 0 %; Platelet Count 213 10^3/cmm (130-400); Red Cell Distribution Width 15.6 % (12.1-15.1); White Blood Count 13.4 10^3/uL (4.0-10.0)
[2019-07-02 04:07] LABS: Alanine Aminotransferase 29 U/L (0-33); Albumin Level 3.8 g/dL (3.5-5.2); Alkaline Phosphatase 123 IU/L (35-105); Anion Gap 16.1 (5-19); Aspartate Amino Transferase 60 U/L (0-32); Blood Urea Nitrogen 3 mg/dL (6-20); Calcium 8.7 mg/dL (8.5-10.5); Carbon Dioxide 22 mmol/L (22-29); Chloride 102 mmol/L (98-107); Globulin 2.7 g/dL (1.3-4.6); Glomerular Filtration Rate 136.9 mL/min (90-130); Glucose 106 mg/dL (65-115); Osmolality Calculated 278 mOsm/kg (285-295); Potassium 4.1 mmol/L (3.5-5.1); Sodium 136 mmol/L (136-145); Total Bilirubin 0.9 mg/dL (0.15-1.2); Total Protein 6.5 g/dL (6.6-8.7)
[2019-07-02] MEDS: pantoprazole 40 mg SDV IVP ×2 (04:19→16:22)
[2019-07-02 04:42] LABS: Lipase 432 U/L (13-60)
[2019-07-02] MEDS: sodium chlor 0.9% + KCl 20 mEq 20 MEQ/1,000 ML BAG 150 MEQ IV ×3 (05:33→17:25)
[2019-07-02] MEDS: morphine 4 mg/mL SDV 1 mL IVP ×5 (05:40→23:27)
[2019-07-02] MEDS: lipase-protease-amylase Capsule 3 EACH PO ×3 (08:34→17:24)
[2019-07-02] MEDS: ondansetron 2 mg/ML SDV 2 mL 4 MG IVP (09:37)
--- NOTE | 2019-07-02 09:58 | PC.CHAP ---
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 tongue and groove machine setter visit [] Patient/Family/Request visit [] Outpatient visit [] Follow-up visit [] Physician referral [] Code/Alert [x] Routine visit [] Staff referral [] Actively dying [] Patient sleeping [] Family support [] [] Out of room [] Palliative care [] [] Receiving care in room [] Pre-surgical visit [] Trauma [] Long length of stay [] ICU visit [] Other: Relational/Emotional Strength [] Patient feels connected with others/family/visitors/staff [] Distress [] Loneliness/isolation [] Abandonment Spirituality of Patient [] Person of Fay [] Attends Temple of their Fay [] Believes in Prayer [] Reads Bible or Methodist materials [] There are Spiritual issues to be addressed Sifter Operator Interventions [x] Prayer [] Active listening [] Non-anxious presence [] Spiritual/emotional support [] Crisis/trauma care [] Spiritual counseling [] Bereavement support [] Provided bereavement packet [] Provided Bible/devotional materials [] Provided toy/stuffed animal, coloring book to patient or family member [] Provided Communion [] Anointing/[place] [] Salvation [x] Completed spiritual assessment [] Other: Impact on Illness or Injury [] Angry [] Fearful [] Anxious [] Often cries [] Exhaustion [] Unable to work [] Unable to attend hindu [] Unable to walk/stand [] Unable to read [] Unable to drive [] Unable to eat/drink [] Unable to sleep [] Unable to be with family [] Patient intubated [] Other: Summary patient resting well Time spent with patient 5 min
--- NOTE | 2019-07-02 12:51 | PM.PN ---
Subjective Subjective: Interval history: Patient with continued pain. Still rates it 9 out of 10. Across her entire abdomen. She states that she cannot eat anything. Described 1 episode last night in which she felt like her heart was racing and she was very anxious. Have still not been able to get the records from [facility]. I have requested them again. With slight changes on laboratory studies as noted below. Of gone on and ordered an abdominal ultrasound here. I suspect that this is just variation of her chronic pancreatitis but I need to get more information about what they did a few weeks ago and what was found on the MRI and such that she had. Medications: Reviewed: Yes Vitals/I&O/Wt Last Vital Signs Temp 98.3 F 07/02/19 11:50 Pulse 73 07/02/19 11:50 Resp 18 07/02/19 11:50 BP 119/79 07/02/19 11:50 Pulse Ox 99 07/02/19 11:50 07/01/19 07/02/19 07/02/19 22:59 06:59 14:59 Intake Total 1087.5 / 2087.5 1000 / 3087.5 985 / 985 Balance 1087.5 / 2087.5 1000 / 3087.5 985 / 985 Weight last 48 hrs Weight 47.627 kg Physical Exam Const: OTHER: Alert, oriented x3, cooperative, thin build, does not look as uncomfortable as she did in the emergency room HENMT: OTHER: Moist mucous membranes Eye: OTHER: Pupils are equal and reactive Resp: OTHER: Clear Cardio: OTHER: Regular rate GI: OTHER: Abdomen remains soft, voluntary and expectant guarding present, most tender in the left upper quadrant and epigastric area today. Positive bowel sounds. No rebound noted Extremity: NARRATIVE EXTREMITY EXAM: No edema Neuro: OTHER: Face symmetric, speech clear, moves all extremities Skin: OTHER: Skin dry Data : 07/02/19 03:20 07/02/19 03:20 Other Labs: Laboratory Tests 07/01/19 07/02/19 07/02/19 07:20 03:20 03:20 Total Bilirubin 0.5 0.9 AST 12 60 H ALT 7 29 Alkaline Phosphatase 53 123 H Lipase 92 H 432 H A&P Assessment and plan (1) Acute generalized abdominal pain: In a patient with known chronic pancreatitis. My understanding from review of records is that it is felt that the alcohol is the most likely etiology of the pancreatitis although patient also reports a history of some type of trauma and possibility of medications. She had extensive evaluation at [facility] in recently although we have still been unable to get those records. AST and lipase are up today compared to yesterday. No fever. White count essentially the same. Status: Acute (2) Chronic pancreatitis: Home medications include Creon Status: Acute Qualifiers: Pancreatitis type: alcohol induced Qualified Code(s): K86.0 - Alcohol-induced chronic pancreatitis (3) Gastritis due to nonsteroidal anti-inflammatory drug (NSAID): EGD diagnosed in May, not currently on a PPI at home. She continues to take NSAIDs. Status: Acute (4) Tobacco abuse: Status: Acute Additional A&P Information Persistent symptoms, increase in labs as noted and inability to take oral intake will transition to inpatient status Check abdominal ultrasound I have again requested records from [facility] and we will see if we can have any luck in getting them today Continue IV fluids Continue clear liquid diet Continue pain control, trying to limit narcotics but challenging in this case as NSAIDs are not an ideal option with the gastritis and patient indicates that she cannot tolerate Tylenol Some of the pain she describes as gas pain. We will add some simethicone, might consider some Bentyl but I would rather have more information from the work-up at [facility] before considering that Antiemetics Continue Creon Supportive care otherwise Plans discussed with patient and she was given an opportunity to ask questions Full code Attestations Medical Necessity Statement*: At this point in time with a trend upward, even small, and labs noted above and lack of oral intake plus persistent symptoms combined with inability to get records from evaluation at [facility] a couple of weeks ago, I am going to go and change patient to inpatient status and proceed with work-up as noted above. I have been peripherally involved in care for her in the past when she had very significant liver enzyme abnormalities and rapid clinical worsening. Therefore I consider patient at high risk of rapid clinical decline, especially if other laboratory studies were to continue to worsen at the rate they have in the past. Coding Level of Care Code Acute Promotions Team Leader for Chg Fwd Diagnoses Acute generalized abdominal pain R10.84 Chronic pancreatitis K86.0 Pancreatitis type: alcohol induced Gastritis due to nonsteroidal anti-inflammatory drug (NSAID) K29.60; T39.395A Tobacco abuse Z72.0
[2019-07-02] MEDS: enoxaparin 30 mg/0.3 mL Syringe SUBCUT (16:21)
[2019-07-03] VITALS (10 sets, daily range): BP systolic 114–145; BP diastolic 71–92; PULSE 63–77; RESP 15–20; TEMP 36.4–36.9; O2SAT 92–100
[2019-07-03] MEDS: sodium chlor 0.9% + KCl 20 mEq 20 MEQ/1,000 ML BAG 150 MEQ IV ×2 (03:20→10:06)
[2019-07-03] MEDS: HYDROcodone-acetaminophen 5-325 mg Tablet 1 TAB PO ×2 (03:20→11:06)
[2019-07-03] MEDS: pantoprazole 40 mg SDV IVP ×2 (04:11→16:17)
[2019-07-03] MEDS: morphine 4 mg/mL SDV 1 mL IVP ×3 (04:46→14:10)
[2019-07-03 05:58] LABS: Basophils % 0.2 %; Eosinophils # 0.2 10^3/uL (0.0-0.8); Eosinophils % 1.8 %; Hematocrit 32.4 % (37.0-47.0); Hemoglobin 10.1 g/dL (11.5-15.3); Lymphocytes # 1.6 10^3/uL (0.8-4.8); Lymphocytes % 18.7 %; Mean Corpuscular HGB Conc 31.2 g/dL (30.0-36.0); Mean Corpuscular Hemoglobin 30.3 pg (28.0-34.0); Mean Corpuscular Volume 97.3 fL (81-99); Mean Platelet Volume 10.7 fL (7.4-10.4); Monocytes # 0.8 10^3/uL (0.2-0.9); Monocytes % 9.1 %; Neutrophils # 5.8 10^3/uL (1.8-7.7); Nucleated Red Blood Cells % 0 %; Platelet Count 182 10^3/cmm (130-400); Red Blood Count 3.33 10^6/uL (4.1-5.3); Red Cell Distribution Width 15.4 % (12.1-15.1); White Blood Count 8.3 10^3/uL (4.0-10.0)
[2019-07-03 06:12] LABS: Anion Gap 14.2 (5-19); Blood Urea Nitrogen 2 mg/dL (6-20); Calcium 9.3 mg/dL (8.5-10.5); Carbon Dioxide 23 mmol/L (22-29); Chloride 104 mmol/L (98-107); Glomerular Filtration Rate 168.9 mL/min (90-130); Glucose 79 mg/dL (65-115); Osmolality Calculated 278 mOsm/kg (285-295); Potassium 4.2 mmol/L (3.5-5.1); Sodium 137 mmol/L (136-145)
[2019-07-03 06:13] LABS: Alanine Aminotransferase 15 U/L (0-33); Albumin Level 3.5 g/dL (3.5-5.2); Alkaline Phosphatase 85 IU/L (35-105); Aspartate Amino Transferase 12 U/L (0-32); Globulin 2.5 g/dL (1.3-4.6); Total Bilirubin 0.4 mg/dL (0.15-1.2)
--- NOTE | 2019-07-03 07:00 | USR_ITS ---
PROCEDURE INFORMATION: Exam: US Abdomen Limited, Right Upper Quadrant Exam date and time: 07/03/2019 7:07 AM Age: 34 years old Clinical indication: Abdominal pain; Prior surgery; Surgery date: 6+ months; Surgery type: Cholecystectomy; Additional info: Eval liver/gb fossa/pancreas, increased lfts/pancreatitis TECHNIQUE: Imaging protocol: Real-time ultrasound of the abdomen with image documentation. Examination was focused on the right upper quadrant. COMPARISON: US gall bladder [id number] 08/25/2018 9:26 PM FINDINGS: Liver: No focal hepatic mass. Gallbladder: Status post cholecystectomy. Common bile duct: Normal caliber of the visualized common bile duct measuring 5 mm in diameter. Pancreas: Mild pancreatic ductal dilatation, which has increased in consult acuity when compared to the prior study. MRCP can be performed for further evaluation, if clinically indicated. Right kidney: Normal right renal morphology. No hydronephrosis. Aorta: Normal caliber of the incompletely visualized abdominal aorta. Inferior vena cava: Unremarkable IVC. Intraperitoneal space: Small quantity of free fluid. US/US abdomen limited [id number] IMPRESSION: 1. Mild pancreatic ductal dilatation, which has increased in consult acuity when compared to the prior study. MRCP can be performed for further evaluation, if clinically indicated. 2. Small quantity of free fluid.
[2019-07-03 08:19] LABS: Lipase 42 U/L (13-60)
[2019-07-03] MEDS: ondansetron 2 mg/ML SDV 2 mL 4 MG IVP (09:57)
[2019-07-03] MEDS: lipase-protease-amylase Capsule 3 EACH PO ×2 (10:09→11:07)
--- NOTE | 2019-07-03 14:32 | PC.RESP ---
Smoking Cessation information and a schedule of classes to patient.
[2019-07-03] MEDS: enoxaparin 30 mg/0.3 mL Syringe SUBCUT (16:17)
--- NOTE | 2019-07-03 22:34 | PM.DCS ---
Discharge Providers Date of Admission: 07/02/19 12:45 Date of Discharge: July 03, 2019 Attending Provider at Admission: Stephie Michelle MD Attending Provider at Discharge: Stephie Michelle MD Diagnoses at Discharge Discharge Diagnosis (1) Acute generalized abdominal pain: Status: Acute (2) Acute pancreatitis: Status: Acute Qualifiers: Pancreatitis type: unspecified pancreatitis type Acute pancreatitis complication: uninfected necrosis Qualified Code(s): K85.91 - Acute pancreatitis with uninfected necrosis, unspecified (3) Chronic pancreatitis: Status: Acute Qualifiers: Pancreatitis type: alcohol induced Qualified Code(s): K86.0 - Alcohol-induced chronic pancreatitis (4) Gastritis due to nonsteroidal anti-inflammatory drug (NSAID): Status: Acute Problem details: EGD 05/2019 (5) Tobacco abuse: Status: Acute Reason for Visit Reason for Visit: Reason For Visit: ABD PAIN Hospital Course Hospital Course: [facility] but were not able to. I ended up doing an abdominal ultrasound which showedPatient is a 34-year-old with a history of chronic pancreatitis related to alcohol use who presented to the emergency room with recurrent acute abdominal pain. She had recently been here and was transferred to [facility] for further evaluation. Repeated efforts to get those records were not successful. Patient's initial lipase was 92 with slight elevation with normal LFTs otherwise. On day 2 her AST and alkaline phosphatase more than doubled as did her lipase. On day 3 however all labs had normalized again. Her alcohol level was actually negative upon admission. Patient was managed with clear liquids, IV fluids and pain medications. No pain medicines were prescribed at discharge. Patient was able to transition to a GI soft low-fat diet. Education was provided on low-fat diet and the importance of following as well as avoiding alcohol. Recommended that she follow-up with her primary care provider. We did again make every effort to get records from mild pancreatic ductal dilatation that was increased from previous study. From what patient reported it sounded like she may have had an MRCP at [facility]. With normalization of studies and improvement in her clinical symptoms no further work-up was done at this point in time. Physical Exam Narrative: EXAM NARRATIVE: Patient is alert, [id number], abdomen is not as tender. She has a regular rhythm and clear lungs. Discharge Data Data Completed and Pending: Completed Studies During Hospitalization Category Date Time Status US abdomen limite d [id number] Routine Ultrasound 07/03/19 07:00 Completed Labs from last 24 hours 07/03/19 07/03/19 07/03/19 05:32 05:32 05:32 WBC RBC Hgb Hct MCV MCH MCHC RDW Plt Count MPV Neut % (Auto) Lymph % (Auto) [place] % (Auto) Eos % (Auto) Baso % (Auto) Neut # (Auto) Lymph # (Auto) [place] # (Auto) Eos # (Auto) Baso # (Auto) Nucleated RBC % (a uto) Nucleated RBCs # Sodium 137 Potassium 4.2 Chloride 104 Carbon Dioxide 23 Anion Gap 14.2 BUN 2 L Creatinine 0.5 GFR Calculation 168.9 H Glucose 79 Calculated Osmolal ity 278 L Calcium 9.3 Total Bilirubin 0.4 Direct Bilirubin 0.20 AST 12 ALT 15 Alkaline Phosphata se 85 Total Protein 6.0 L Albumin 3.5 Globulin 2.5 Lipase 42 07/03/19 05:32 WBC 8.3 RBC 3.33 L Hgb 10.1 L Hct 32.4 L MCV 97.3 MCH 30.3 MCHC 31.2 RDW 15.4 H Plt Count 182 MPV 10.7 H Neut % (Auto) 70.0 Lymph % (Auto) 18.7 [place] % (Auto) 9.1 Eos % (Auto) 1.8 Baso % (Auto) 0.2 Neut # (Auto) 5.8 Lymph # (Auto) 1.6 [place] # (Auto) 0.8 Eos # (Auto) 0.2 Baso # (Auto) 0.0 Nucleated RBC % (a uto) 0 Nucleated RBCs # 0.0 Sodium Potassium Chloride Carbon Dioxide Anion Gap BUN Creatinine GFR Calculation Glucose Calculated Osmolal ity Calcium Total Bilirubin Direct Bilirubin AST ALT Alkaline Phosphata se Total Protein Albumin Globulin Lipase Vitals: Last Vital Signs Temp 98.5 F 07/03/19 17:03 Pulse 70 07/03/19 17:03 Resp 18 07/03/19 17:03 BP 135/75 07/03/19 17:03 Pulse Ox 100 07/03/19 17:03 Discharge Plan Discharge Patient Disposition: Home, Self-Care Condition: Stable Prescriptions: New hydroxyzine pamoate 25 mg Capsule 25 mg PO QID PRN (Reason: Anxiety) Qty: 30 RF: 0 Protonix 40 mg tablet,delayed release (DR/EC) 40 mg PO DAILY Qty: 30 RF: 0 Promethegan 25 mg suppository 25 mg TX Q6H PRN (Reason: nausea and vomiting) Qty: 12 RF: 0 Continued clonidine HCl 0.1 mg tablet 0.1 mg PO BEDTIME RF: 0 Creon 6,000-19,000 -30,000 unit capsule,delayed release(DR/EC) 3 cap PO DAILY RF: 0 Vitamin B-12 1 tab PO DAILY RF: 0 Held Aleve 220 mg Tablet 220 mg PO PRN RF: 0 Hold Instructions: Resume on 07/19/19. take with food or milk Discharge Orders: Discharge Order (Routine); Ordered 07/03/19 Ordered By: Stephie Michelle Referrals: Doug Fink MD [Physician] - (Call Friday to make a hospital follow up appointment with Dr. Fink in 4-7 days.) Discharge Diet: Low Fat and GI Soft Discharge Activity: Resume usual activity Patient Instructions: Promethazine (By mouth), Hydroxyzine Hydrochloride (By mouth), Pantoprazole (By mouth), Pancreatitis (DC), Low Fat Diet (DC) Discharge Date/Time: 07/03/19 17:04 Discharge Attestations Time Spent in Discharge Care*: greater than 30 min Quality Metrics Clinical Quality Measures During this hospital stay, did patient experience: None Coding Level of Care Code Acute Private Client Advisor for Chg Fwd Diagnoses Acute generalized abdominal pain R10.84 Acute pancreatitis K85.91 Pancreatitis type: unspecified pancreatitis type Acute pancreatitis complication: uninfected necrosis Chronic pancreatitis K86.0 Pancreatitis type: alcohol induced Gastritis due to nonsteroidal anti-inflammatory drug (NSAID) K29.60; T39.395A Tobacco abuse Z72.0
== END 2019-07-03 17:04 | disposition home or self-care (01) | DRG 440 ==
LOC: ER 13:45 → MEDSURG 15:12
PROVIDERS: Admitting Provider Hospitalist; Emergency Provider Emergency Medicine; PCP Family Medicine; Visit Provider Hospitalist
DX: K85.90 Acute pancreatitis without necrosis or infection, unspecified (principal); K86.0 Alcohol-induced chronic pancreatitis; K29.70 Gastritis, unspecified, without bleeding; T39.395A Adverse effect of other nonsteroidal anti-inflammatory drugs [NSAID], initial encounter; F10.21 Alcohol dependence, in remission; F17.210 Nicotine dependence, cigarettes, uncomplicated
CPT/HCPCS: 12345; 36415; 76705; 80048; 80053; 80076; 80307; 81003; 83690; 85025; 96372; 96375; 99283; A9270; C9113; G0378; J1650; J1885; J2270; J2405; J3490; J7030

== ENCOUNTER 2019-07-30 03:28 | Inpatient (IN) | payer SELFPAY ==
[2019-03-17 16:03] VITALS: BP 150/82; BMI 18.3
[2019-07-30] VITALS (16 sets, daily range): BP systolic 104–164; BP diastolic 58–91; PULSE 48–74; RESP 14–18; TEMP 36.4–36.6; O2SAT 97–100; BMI 16.4
[2019-07-30 03:40] LABS: Basophils # 0.1 10^3/uL (0.0-0.1); Basophils % 0.4 %; Eosinophils # 0.1 10^3/uL (0.0-0.8); Eosinophils % 1.1 %; Hematocrit 41.1 % (37.0-47.0); Hemoglobin 12.9 g/dL (11.5-15.3); Lymphocytes # 2.7 10^3/uL (0.8-4.8); Lymphocytes % 21.3 %; Mean Corpuscular HGB Conc 31.4 g/dL (30.0-36.0); Mean Corpuscular Hemoglobin 30.7 pg (28.0-34.0); Mean Corpuscular Volume 97.9 fL (81-99); Mean Platelet Volume 11.5 fL (7.4-10.4); Monocytes # 0.9 10^3/uL (0.2-0.9); Monocytes % 7.1 %; Neutrophils # 8.9 10^3/uL (1.8-7.7); Neutrophils % 69.8 %; Nucleated Red Blood Cells % 0 %; Platelet Count 262 10^3/cmm (130-400); Red Cell Distribution Width 15.1 % (12.1-15.1); White Blood Count 12.8 10^3/uL (4.0-10.0)
--- NOTE | 2019-07-30 03:45 | CTR_ITS ---
PROCEDURE INFORMATION: Exam: CT Abdomen And Pelvis With Contrast Exam date and time: 07/30/2019 4:23 AM Age: 34 years old Clinical indication: Abdominal pain; Generalized; Prior surgery; Surgery type: Cholecystectomy; Patient HX: HX chronic pancreatitis TECHNIQUE: Imaging protocol: Computed tomography of the abdomen and pelvis with intravenous contrast. Radiation optimization: All CT scans at this facility use at least one of these dose optimization techniques: automated exposure control; mA and/or kV adjustment per patient size (includes targeted exams where dose is matched to clinical indication); or iterative reconstruction. Contrast material: OMNI 300; Contrast volume: 75 ml; Contrast route: 20G; COMPARISON: CT Abdomen/Pelvis w IV* [id number] 11/06/2018 12:23 AM RADIATION DOSE METRICS: Total DLP: 482.16 mGy-cm FINDINGS: Liver: Normal. No mass. Gallbladder and bile ducts: Postoperative cholecystectomy. Pancreas: Soft tissue stranding surrounding the pancreas which is most pronounced at the pancreatic head and involves the pancreas tail with small amount of free fluid below the margin of the pancreas within the mesentery. Spleen: Normal. No splenomegaly. Adrenals: Normal. No mass. Kidneys and ureters: Normal. No hydronephrosis. Stomach and bowel: Wall thickening of the duodenum with accentuation of the wall of the non distended stomach. Appendix: No evidence of appendicitis. Intraperitoneal space: Small amount of free fluid in the pelvis. Vasculature: Unremarkable. No abdominal aortic aneurysm. Lymph nodes: Few small central abdominal mesenteric lymph nodes. Bladder: Unremarkable as visualized. Reproductive: Unremarkable as visualized. Bones/joints: Unremarkable. No acute fracture. Soft tissues: There is soft tissue stranding within the right pericolic gutter. CT/CT abdomen pelvis w con* [id number] IMPRESSION: 1. Acute pancreatitis. 2. Gastritis/duodenitis possibly secondary. Radiation Dose CTDIVOL = (mGy): DLP = 482.16 (mGy-cm)
--- NOTE | 2019-07-30 03:46 | ECG_ITS ---
Measurements Intervals [place] Rate: 58 P: 81 MS: 152 QRS: 58 QRSD: 76 T: 51 QT: 425 QTc: 418 SINUS BRADYCARDIA Compared to ECG 10/01/2018 17:40:21 Sinus rhythm no longer present Ventricular premature complex(es) no longer present Electronically Signed On 07-31-2019 14:58:01 CDT by Tod Restrepo M.D. [email or web address]
[2019-07-30 03:48] LABS: HCG, Serum Qual Negative (Negative)
[2019-07-30 03:54] LABS: Alanine Aminotransferase 13 U/L (0-33); Albumin Level 4.6 g/dL (3.5-5.2); Alkaline Phosphatase 63 IU/L (35-105); Anion Gap 24.8 (5-19); Aspartate Amino Transferase 18 U/L (0-32); Blood Urea Nitrogen 8 mg/dL (6-20); Calcium 9.8 mg/dL (8.5-10.5); Carbon Dioxide 18 mmol/L (22-29); Chloride 98 mmol/L (98-107); Globulin 2.9 g/dL (1.3-4.6); Glomerular Filtration Rate 85.7 mL/min (90-130); Glucose 89 mg/dL (65-115); Lipase 236 U/L (13-60); Osmolality Calculated 279 mOsm/kg (285-295); Potassium 3.8 mmol/L (3.5-5.1); Sodium 137 mmol/L (136-145); Total Bilirubin 0.4 mg/dL (0.15-1.2); Total Protein 7.5 g/dL (6.6-8.7)
[2019-07-30] MEDS: HYDROmorphone 1 mg/mL INJ 1 mL 0.5 MG IVP (04:06)
[2019-07-30] MEDS: ondansetron 2 mg/ML SDV 2 mL 4 MG IVP ×4 (04:07→17:54)
[2019-07-30 04:16] LABS: Alcohol Level < 10 mg/dL (0-10)
[2019-07-30] MEDS: iohexol 300 mg/mL 100 mL Btl IV (04:42)
--- NOTE | 2019-07-30 05:34 | W.ED.ABDPA2 ---
HPI - Abdominal Pain General: Chief Complaint: Abdominal Pain Stated Complaint: abd pain/ n/v Time Seen by Provider: 07/30/19 03:32 History of Present Illness: HPI narrative: Vanita is a nice 34-year-old female who comes in complaining of upper abdominal pain and vomiting. She states the symptoms began yesterday and have gotten progressively worse. She states the symptoms are consistent with her previous pancreatitis. Her gallbladder is gone and she states she no longer drinks. She is uncertain why her pancreatitis flares up from time to time. She is unaware of anything that makes her symptoms better or worse but she does state anytime she drinks that makes her pain worse. Associated Symptoms: Reports diarrhea, nausea and vomiting; Denies chills, coffee ground emesis, constipation, GI cramping, dysuria, fever(s), heartburn, hematochezia, hematuria, hematemesis, melena and syncope Related Data: Date of Last Menstrual Period: 07/19/19 Review of Systems Const: Denies: fever(s), chills, body aches, fatigue, malaise or diaphoresis Eyes: Denies: change in vision, blurry vision, blind spots or photophobia ENMT: Denies: throat pain, odynophagia, hoarseness, swelling of lips/tongue, ear or mastoid pain, ear discharge, change in hearing or nasal discharge Card: Denies: chest pain, palpitations, irregular heart rhythm, edema, lightheadedness, syncope, pre-syncope, dyspnea on exertion or orthopnea Resp: Denies: dyspnea, productive cough, non-productive cough, wheezing, hemoptysis or chest congestion GI: Reports: abdominal pain, nausea, vomiting and diarrhea; Denies: hematemesis, coffee ground emesis, heartburn, constipation, GI cramping, hematochezia or melena : Denies: flank pain, dysuria, urinary frequency, urinary urgency or hematuria Musc: Denies: neck pain, back pain, extremity pain, extremity swelling, joint pain, joint swelling, joint redness, joint warmth or joint stiffness Skin/Breast: Denies: rash, pruritus, erythema, skin tenderness or jaundice Neuro: Denies: headache(s), numbness in extremities, weakness in extremities, sensory changes, lack of coordination, difficulty walking, dizziness, vertigo, confusion or Slurred speech present Ashwin/Lymph: Denies: easy bruising, easy bleeding, petechiae, purpura or enlarged lymph nodes All/Imm: Denies: urticaria, throat swelling, tongue swelling, facial swelling or acute wheezing PFSH ED PFSH: Medical History (Updated 07/30/19 @ 05:46 by Mireille Quan MD) Abnormal endoscopy of upper gastrointestinal tract Gastritis Alcohol use disorder In remission per pt on 06/30/14 Chronic pancreatitis Depression Presence of pancreatic duct stent Pt denies history of pancreatic duct stent and none noted on recent imaging here Tobacco abuse Surgical History History of vaginal delivery Hx of cholecystectomy Family History Denies family history of Hyperlipidemia Lung disease Hypertension Social History Smoking and tobacco status: current every day smoker Other details last alcohol use: Pt states she has not been drinking recently Current gender identity: Female Female Reproductive History: Date of last menstrual period: 07/19/19 Physical Exam Const: COMMON NORMALS: no acute distress, patient oriented x3, no limitations, healthy appearing and well nourished GENERAL APPEARANCE: cooperative, well kempt and well developed HENMT: COMMON NORMALS: normocephalic, atraumatic, external ears normal, EAC's normal and Normal external nose present HEAD & SCALP: normal to inspection, normocephalic and atraumatic FACE & SINUS: normal facial exam and face symmetric NOSE: Normal external nose present and Normal nares present EXTERNAL EAR: Yes external ears normal EXTERNAL AUDITORY CANAL: EAC's normal MOUTH: Normal oral and palatal mucosa present, lip normal and tongue normal Eye: COMMON NORMALS: Equal, round and reactive pupils present and conjunctivae normal GENERAL EYE: appearance normal, both eyes and all related structures ALIGNMENT: Yes alignment normal PERIORBITAL: periorbital findings normal EYELID: eyelids normal CONJUNCTIVA: Yes conjunctivae normal SCLERA: sclerae normal PUPIL: Yes Equal, round and reactive pupils present Neck/C-Spine: COMMON NORMALS: full ROM, no lymphadenopathy, supple, no meningeal signs and no JVD GENERAL: Yes normal visual inspection and Yes trachea midline Chest: COMMONS NORMALS: normal inspection of the chest and normal palpation of entire chest wall Resp: COMMON NORMALS: normal respiratory effort, No retractions and No use of accessory muscles EFFORT & INSPECTION: Yes able to speak in complete sentences and Yes symmetric chest movement AUSCULTATION: no crackles, no rales, no rhonchi and no wheezes Cardio: COMMON NORMALS: no JVD, regular rate, regular rhythm, S1 normal heart sound present and S2 normal heart sound present RATE: regular rate RHYTHM: regular rhythm HEART SOUNDS: S1 normal heart sound present, S2 normal heart sound present, no click, no gallops, no murmurs, no rubs and abnormal split S2 GI: COMMON NORMALS: Soft to palpation and No hepatosplenomegaly present PALPATION: Yes Soft to palpation, Yes Tenderness to palpation present (GI) (Severe diffusely), No Guarding due to palpation present (GI), No Rigid due to palpation, Yes No hepatosplenomegaly present, No Hernia present, No Palpable mass present and No Pulsatile mass present : COMMON NORMALS: Yes no CVA tenderness BLADDER/KIDNEY EXAM: Yes no CVA tenderness EXTERNAL FEMALE EXAM: No Hernia present Back/Pelvis: COMMON NORMALS: no CVA tenderness, thoracic and lumbar spine normal to inspection, no thoracic nor lumbar tenderness and thoraco-lumbar ROM normal Extremity: COMMON NORMALS: normal to inspection, full ROM, capillary refill normal, no joint enlargement, no clubbing, cyanosis or edema and no calf tenderness Neuro: COMMON NORMALS: patient oriented x3, CN's II-XII intact bilaterally, moves all extremities, no focal motor deficits and no sensory deficits noted MENINGEAL SIGNS: Yes no meningeal signs SPEECH: speech normal Psych: COMMON NORMALS: mental status grossly normal, Normal thought process present, cooperative, normal affect, speech normal and activity/motor behavior normal APPEARANCE: Yes well kempt SPEECH: Yes normal speech THOUGHT PROCESS: Normal thought process present Skin: COMMON NORMALS: no rashes or lesions noted, turgor normal, no jaundice, no petechiae and no mottling GENERAL SKIN EXAM: no rashes or lesions noted and turgor normal Course Vital Signs: Vital signs: Vital Signs Temperature 97.9 F 07/30/19 03:29 Pulse Rate 48 L 07/30/19 03:29 Respiratory Rate 18 07/30/19 04:06 Blood Pressure 104/58 07/30/19 03:29 Pulse Oximetry 98 07/30/19 03:29 MDM - Abdominal Pain MDM Narrative: Medical decision making narrative: Vanita is a 34-year-old female who comes in with recurrent abdominal pain consistent with pancreatitis. Her pain is the same now it is is been in the past. She does not feel as though she will to go home and she has repetitively had dry heaves here in the ER. Go and admit. Case was discussed with Dr. Quan and he is in agreement. Lab Data: Attestation: I reviewed the patient's lab results. Labs: Lab Results 07/30/19 07/30/19 07/30/19 Range/Units 03:30 03:30 03:30 WBC 12.8 H (4.0-10.0) 10^3/ uL RBC 4.20 (4.1-5.3) 10^6/u L Hgb 12.9 (11.5-15.3) g/dL Hct 41.1 (37.0-47.0) % MCV 97.9 (81-99) fL MCH 30.7 (28.0-34.0) pg MCHC 31.4 (30.0-36.0) g/dL RDW 15.1 (12.1-15.1) % Plt Count 262 (130-400) 10^3/c mm MPV 11.5 H (7.4-10.4) fL Neut % (Auto) 69.8 % Lymph % (Auto) 21.3 % Morton % (Auto) 7.1 % Eos % (Auto) 1.1 % Baso % (Auto) 0.4 % Neut # (Auto) 8.9 H (1.8-7.7) 10^3/u L Lymph # (Auto) 2.7 (0.8-4.8) 10^3/u L Morton # (Auto) 0.9 (0.2-0.9) 10^3/u L Eos # (Auto) 0.1 (0.0-0.8) 10^3/u L Baso # (Auto) 0.1 (0.0-0.1) 10^3/u L Nucleated RBC % (a uto) 0 % Nucleated RBCs # 0.0 /100WBC Sodium 137 (136-145) mmol/L Potassium 3.8 (3.5-5.1) mmol/L Chloride 98 (98-107) mmol/L Carbon Dioxide 18 L (22-29) mmol/L Anion Gap 24.8 H (5-19) BUN 8 (6-20) mg/dL Creatinine 0.9 (0.5-0.9) mg/dL GFR Calculation 85.7 L (90-130) mL/min Glucose 89 (65-115) mg/dL Calculated Osmolal ity 279 L (285-295) mOsm/k g Calcium 9.8 (8.5-10.5) mg/dL Total Bilirubin 0.4 (0.15-1.2) mg/dL AST 18 (0-32) U/L ALT 13 (0-33) U/L Alkaline Phosphata se 63 (35-105) IU/L Total Protein 7.5 (6.6-8.7) g/dL Albumin 4.6 (3.5-5.2) g/dL Globulin 2.9 (1.3-4.6) g/dL Lipase 236 H (13-60) U/L HCG, Qual Negative (Negative) Ethyl Alcohol (0-10) mg/dL 07/30/19 Range/Units 03:30 WBC (4.0-10.0) 10^3/ uL RBC (4.1-5.3) 10^6/u L Hgb (11.5-15.3) g/dL Hct (37.0-47.0) % MCV (81-99) fL MCH (28.0-34.0) pg MCHC (30.0-36.0) g/dL RDW (12.1-15.1) % Plt Count (130-400) 10^3/c mm MPV (7.4-10.4) fL Neut % (Auto) % Lymph % (Auto) % Morton % (Auto) % Eos % (Auto) % Baso % (Auto) % Neut # (Auto) (1.8-7.7) 10^3/u L Lymph # (Auto) (0.8-4.8) 10^3/u L Morton # (Auto) (0.2-0.9) 10^3/u L Eos # (Auto) (0.0-0.8) 10^3/u L Baso # (Auto) (0.0-0.1) 10^3/u L Nucleated RBC % (a uto) % Nucleated RBCs # /100WBC Sodium (136-145) mmol/L Potassium (3.5-5.1) mmol/L Chloride (98-107) mmol/L Carbon Dioxide (22-29) mmol/L Anion Gap (5-19) BUN (6-20) mg/dL Creatinine (0.5-0.9) mg/dL GFR Calculation (90-130) mL/min Glucose (65-115) mg/dL Calculated Osmolal ity (285-295) mOsm/k g Calcium (8.5-10.5) mg/dL Total Bilirubin (0.15-1.2) mg/dL AST (0-32) U/L ALT (0-33) U/L Alkaline Phosphata se (35-105) IU/L Total Protein (6.6-8.7) g/dL Albumin (3.5-5.2) g/dL Globulin (1.3-4.6) g/dL Lipase (13-60) U/L HCG, Qual (Negative) Ethyl Alcohol < 10 (0-10) mg/dL Imaging Data ^: CT Abd/Pel: Radiologist's impression: [place] [address] CT Scan Report Signed Patient: Vanita Barone Unit #: [id number] : [id number] Age/Sex: 34 / F ADM Date: 07/30/19 Loc: ER Room/Bed: Attending Dr: Ordering Provider/Ordering MD: Karena Liao DO Date of Service: 07/30/19 Procedure(s): CT abdomen pelvis w con* [id number] Accession Number(s): [id number] Report Number: [id number] PROCEDURE INFORMATION: Exam: CT Abdomen And Pelvis With Contrast Exam date and time: 07/30/2019 4:23 AM Age: 34 years old Clinical indication: Abdominal pain; Generalized; Prior surgery; Surgery type: Cholecystectomy; Patient HX: HX chronic pancreatitis TECHNIQUE: Imaging protocol: Computed tomography of the abdomen and pelvis with intravenous contrast. Radiation optimization: All CT scans at this facility use at least one of these dose optimization techniques: automated exposure control; mA and/or kV adjustment per patient size (includes targeted exams where dose is matched to clinical indication); or iterative reconstruction. Contrast material: OMNI 300; Contrast volume: 75 ml; Contrast route: 20G; COMPARISON: CT Abdomen/Pelvis w IV* [id number] 11/06/2018 12:23 AM RADIATION DOSE METRICS: Total DLP: 482.16 mGy-cm FINDINGS: Liver: Normal. No mass. Gallbladder and bile ducts: Postoperative cholecystectomy. Pancreas: Soft tissue stranding surrounding the pancreas which is most pronounced at the pancreatic head and involves the pancreas tail with small amount of free fluid below the margin of the pancreas within the mesentery. Spleen: Normal. No splenomegaly. Adrenals: Normal. No mass. Kidneys and ureters: Normal. No hydronephrosis. Stomach and bowel: Wall thickening of the duodenum with accentuation of the wall of the non distended stomach. Appendix: No evidence of appendicitis. Intraperitoneal space: Small amount of free fluid in the pelvis. Vasculature: Unremarkable. No abdominal aortic aneurysm. Lymph nodes: Few small central abdominal mesenteric lymph nodes. Bladder: Unremarkable as visualized. Reproductive: Unremarkable as visualized. Bones/joints: Unremarkable. No acute fracture. Soft tissues: There is soft tissue stranding within the right pericolic gutter. CT/CT abdomen pelvis w con* [id number] IMPRESSION: 1. Acute pancreatitis. 2. Gastritis/duodenitis possibly secondary. Radiation Dose CTDIVOL = (mGy): DLP = 482.16 (mGy-cm) Dictated By: Shi Hunter DO Signed By: Shi Hunter DO Signed Date/Time: 07/30/19504 DD/ 0503 Discharge Plan Discharge Patient Disposition: Admitted As Inpatient Clinical Impression: Pancreatitis Qualifiers: Chronicity: acute Pancreatitis type: unspecified pancreatitis type Acute pancreatitis complication: no infection or necrosis Qualified Code(s): K85.90 - Acute pancreatitis without necrosis or infection, unspecified Intractable vomiting Qualifiers: Vomiting type: unspecified Nausea presence: with nausea Qualified Code(s): R11.2 - Nausea with vomiting, unspecified Condition: Stable Referrals: Francy Bell DO [Primary Care Provider] - Coding Level of Care Code ED Demographic Analyst for [facility] Fwd Exam Comprehensive
--- NOTE | 2019-07-30 05:42 | PM.HP ---
Providers/Chief Complaint Primary Care Provider: Francy Bell DO Chief Complaint: abd pain/ n/v History of Present Illness Vanita Barone is a 34 year old female has a history of chronic pancreatitis, currently on Creon, recurrent admissions due to pancreatitis, previous history of alcohol abuse, she was transferred to [facility] for EUS and possibly ERCP & possible celiac block that was arranged by Dr. Juan in May coming in today with chief complaint of worsening abdominal pain and intractable nausea vomiting. Patient is stating that after her dinner she went to bed and her abdominal pain woke her up from sleep, pain was very intense, she has not been using her Creon pancreatic enzymes, she is denying loose stools, fever, use of THC active alcohol intake. She is endorsing to multiple episodes of dry heaves, smoking cigarettes every day. She is following up with Dr. Fink as her PCP. She is also seeing mental health clinic for her depression. When asked about her hospitalization at [facility] he denied any stent placement, she is endorsing placement of nasogastric tube conservative management. Diagnosis in the ER revealed mild leukocytosis, calcium 9.8, BUN 8, creatinine 0.9, lipase 236, CT abdomen revealed pancreatitis, she is afebrile Review of Systems Const: Reports: chills, body aches, change in appetite, fatigue and malaise; Denies: fever(s) Eyes: Denies: change in vision ENMT: Denies: throat pain Card: Denies: chest pain Resp: Denies: dyspnea GI: Reports: abdominal pain, nausea and vomiting : Denies: flank pain Musc: Denies: neck pain Skin/Breast: Denies: rash Neuro: Denies: headache(s) Psych: Reports: anxiety and depression Endo: Denies: polyuria Ashwin/Lymph: Denies: easy bruising All/Imm: Denies: urticaria Medications/Allergies Home Medications Medication Instructions Recorded Confirmed Last Taken Type Aleve 220 mg PO PRN 07/01/19 07/01/19 07/01/19 06:00 History Creon 3 cap PO DAILY 07/01/19 07/01/19 07/01/19 History Vitamin B-12 1 tab PO DAILY 07/01/19 07/01/19 07/01/19 06:00 History clonidine HCl 0.1 mg PO BEDTIME 07/01/19 07/01/19 06/30/19 History hydroxyzine pamoate 25 mg PO QID PRN #30 cap 07/03/19 Unknown Rx pantoprazole [Protonix] 40 mg PO DAILY #30 tab 07/03/19 Unknown Rx promethazine [Promethegan] 25 mg MO Q6H PRN #12 each 07/03/19 Unknown Rx Allergies Allergy/AdvReac Type Severity Reaction Status Date / Time No Known Allergies Allergy Verified 07/01/19 07:00 PFSH Acute PFSH: Medical History (Updated 07/30/19 @ 06:17 by Mireille Quan MD) Abnormal endoscopy of upper gastrointestinal tract Gastritis Alcohol use disorder In remission per pt Chronic pancreatitis Depression Tobacco abuse Surgical History History of vaginal delivery Hx of cholecystectomy Family History Denies family history of Hyperlipidemia Lung disease Hypertension Social History (Updated 07/30/19 @ 06:18 by Mireille Quan MD) Smoking and tobacco status: current every day smoker Alcohol intake: former Former alcohol use details: She is stating that her last drink was about a year ago Other details last alcohol use: Pt states she has not been drinking recently Substance/Drug Use: never Lives independently: Yes Housing: House Current gender identity: Female Female Reproductive History: Date of last menstrual period: 07/19/19 Vitals/I&O/Wt Last Vital Signs Temp 97.9 F 07/30/19 03:29 Pulse 48 L 07/30/19 03:29 Resp 18 07/30/19 04:06 BP 104/58 07/30/19 03:29 Pulse Ox 98 07/30/19 03:29 Weight last 48 hrs Weight 47.627 kg Physical Exam Narrative: EXAM NARRATIVE: Head to toe examination -[place] female laying in distress in her bed She is complaining of epigastric pain Her epigastric region is tender to palpation, bowel sounds sluggish S1, S2 no signs of heart failure, she does look dehydrated Lungs are clear to auscultation Lower extremity no signs of edema gangrene or ulcer Irritable mood because of epigastric distress EOMI, PERRLA nonfocal neurological exam Skin does not show any sign of cyanosis No retroperitoneal hemorrhage sign noted Data : 07/30/19 03:30 07/30/19 03:30 A&P Assessment and plan (1) Acute pancreatitis: Status: Acute Qualifiers: Pancreatitis type: unspecified pancreatitis type Acute pancreatitis complication: uninfected necrosis Qualified Code(s): K85.91 - Acute pancreatitis with uninfected necrosis, unspecified (2) Chronic pancreatitis: Status: Acute Qualifiers: Pancreatitis type: alcohol induced Qualified Code(s): K86.0 - Alcohol-induced chronic pancreatitis (3) Gastritis due to nonsteroidal anti-inflammatory drug (NSAID): Status: Acute (4) Tobacco abuse: Status: Acute Additional A&P Information Acute on chronic pancreatitis Lipase 236, mild leukocytosis, BUN/creatinine not abnormal calcium normal mild acidosis noted on blood chemistry, will obtain lactic acid Alcohol level nondetectable She is currently smoking, she is not using her pancreatic enzymes anymore Last alcoholic drink was a year ago She denies any history of pancreatic duct stent placement at [facility] N.p.o. Lactated Ringer with D5 at 100 mL/h Analgesic control with morphine No signs of pancreatic necrosis or pseudocyst, no signs of sepsis Patient was counseled on smoking cessation and benefits for her chronic pancreatitis DVT prophylaxis Lovenox N.p.o. status Full code Attestations Medical Necessity Statement*: Anticipating discharge in less than 48 hours currently she needs management for acute pancreatitis, most of the time her symptoms resolved within 24 hours Time Spent in Patient Care: (>than 50% of time spent in counselling and/or direct pt care on unit). 50 Coding Level of Care Code Acute Hammer Adjuster for [facility] Diagnoses Acute pancreatitis K85.91 Pancreatitis type: unspecified pancreatitis type Acute pancreatitis complication: uninfected necrosis Chronic pancreatitis K86.0 Pancreatitis type: alcohol induced Gastritis due to nonsteroidal anti-inflammatory drug (NSAID) K29.60; T39.395A Tobacco abuse Z72.0
[2019-07-30] MEDS: sodium chloride 0.9% 1,000 ML 999 ML IV (06:13)
[2019-07-30] MEDS: HYDROmorphone 1 mg/mL INJ 1 mL IVP ×4 (06:14→22:07)
[2019-07-30 09:03] LABS: Bilirubin Urine Neg (NEGATIVE); Blood Urine Neg (Negative); Glucose Urine UA Norm (Normal); Ketones Urine 2+ (Negative); Leukocyte Esterase Urine Negative (Negative); Nitrate Urine Negative (Negative); Protein Urine Neg (Negative); Urine Appearance Clear (CLEAR); Urine Color Yellow (Yellow); Urobilinogen Urine Norm (Negative); pH Urine 5 (5-7)
[2019-07-30 09:09] LABS: Add Urine Culture? No; Bacteria Urine 2+; Squamous Epithelial Cell Urine 25-40 (0-5); WBC Urine 0-4 /hpf (0-5)
[2019-07-30 09:12] LABS: Amphetamines Screen Urine Negative (Negative); Barbiturates Screen Urine Negative (Negative); Benzodiazepines Screen Urine Negative (Negative); Cocaine Screen Urine Negative (Negative); Opiate Screen Urine Positive (Negative); PCP Screen Urine Negative (Negative); THC Screen Urine Negative (Negative)
[2019-07-30] MEDS: morphine 4 mg/mL SDV 1 mL IVP ×2 (09:22→16:06)
[2019-07-30 09:25] LABS: Lactic Acid level (Lactate) 1.1 mmol/L (0.5-2.2)
--- NOTE | 2019-07-30 10:15 | MR_ITS ---
WS: [id number] MRCP (MAGNETIC RESONANCE CHOLANGIOPANCREATOGRAPHY) HISTORY: recurrent pancreatitis COMPARISON: CT 07/30/2019. TECHNIQUE: Multiple sequences are performed to evaluate the intra and extrahepatic ducts. Study is limited by motion. Patient was unable to hold her breath for this examination. Status post prior cholecystectomy. Common bile duct is normal at 5 mm. There is no intrahepatic dila tation. Pancreatic duct is normal. There is a small amount of free fluid adjacent to the duodenal C-l oop. Free fluid is not encapsulated measures 2.2 x 1.8 cm. Fluid is along the lateral aspect of the d uodenum. There is mild increased edema within the pancreas and the adjacent duodenal C-loop. No pleur al effusion. MR/MR MRCP [id number] IMPRESSION: 1. Study is limited by patient motion and breathing artifact. 2. Normal common bile duct. No intrahepatic dilatation or extrahepatic dilatat ion. 3. Small amount of fluid adjacent to the duodenum measures 2.2 x 1.8 cm. 4. Mild pancreatitis and duodenitis.
[2019-07-30] MEDS: LORazepam 2 mg/mL INJ 1 mL 1 MG IVP (10:48)
--- NOTE | 2019-07-30 10:56 | PC.NURSE ---
pt transported to MRI by ambulance
[2019-07-30] MEDS: dextrose 5%-lactated ringers 1,000 ML 100 ML IV ×2 (13:06→23:01)
--- NOTE | 2019-07-30 16:47 | P.PN_ITS ---
Subjective Subjective: Interval history: This morning patient was examined in the emergency room, she still hunched over in position, has significant abdominal pain complaints, states the pain medication wears off too soon, no fevers, no chills, has mild nausea, one episode of emesis this morning, no lightheadedness, no dizziness, patient states that she follows up with his process development technician at [facility], she was at [facility] not too long ago not too sure if she had an MRCP, Vitals/I&O/Wt Last Vital Signs Temp 97.7 F 07/30/19 16:00 Pulse 74 07/30/19 16:00 Resp 18 07/30/19 16:06 BP 144/90 07/30/19 16:00 Pulse Ox 99 07/30/19 16:00 07/30/19 07/30/19 07/30/19 06:59 14:59 22:59 Intake Total 1000 / 1000 Balance 1000 / 1000 Weight last 48 hrs Weight 47.627 kg Physical Exam Const: COMMON NORMALS: no acute distress and patient oriented x3 HENMT: COMMON NORMALS: normocephalic HEAD & SCALP: normocephalic Neck/C-Spine: COMMON NORMALS: no JVD Resp: COMMON NORMALS: normal respiratory effort, No retractions, No use of accessory muscles and clear to auscultation bilaterally AUSCULTATION: clear to auscultation bilaterally Cardio: COMMON NORMALS: no JVD, regular rate, regular rhythm, S1 normal heart sound present and S2 normal heart sound present RATE: regular rate RHYTHM: regular rhythm HEART SOUNDS: S1 normal heart sound present and S2 normal heart sound present GI: COMMON NORMALS: Normal to inspection, nondistended, normoactive bowel sounds present, Soft to palpation, non-tender, No hepatosplenomegaly present, no masses and no bruits PALPATION: Yes Soft to palpation and Yes No hepatosplenomegaly present Extremity: COMMON NORMALS: capillary refill normal, no clubbing, cyanosis or edema, no calf tenderness and no pedal edema Neuro: COMMON NORMALS: patient oriented x3 Psych: COMMON NORMALS: mental status grossly normal Data : 07/30/19 03:30 07/30/19 03:30 A&P Assessment and plan (1) Acute pancreatitis: Status: Acute Qualifiers: Pancreatitis type: unspecified pancreatitis type Acute pancreatitis complication: uninfected necrosis Qualified Code(s): K85.91 - Acute pancreatitis with uninfected necrosis, unspecified (2) Chronic pancreatitis: Status: Acute Qualifiers: Pancreatitis type: alcohol induced Qualified Code(s): K86.0 - Alcohol- induced chronic pancreatitis (3) Gastritis due to nonsteroidal anti-inflammatory drug (NSAID): Status: Acute (4) Tobacco abuse: Status: Acute Additional A&P Information Acute on chronic pancreatitis Lipase 236, mild leukocytosis, BUN/creatinine not abnormal calcium normal mild acidosis noted on blood chemistry, will obtain lactic acid Alcohol level nondetectable She is currently smoking, she is not using her pancreatic enzymes anymore Last alcoholic drink was a year ago She denies any history of pancreatic duct stent placement at [facility] CT abdomen shows soft tissue stranding surrounding the pancreas which is most pronounced at the pancreatic head and involves the pancreatic tail with a small amount of free fluid between the margin of the pancreas within the mesentery MRCP shows common bile duct 5 mm, no intrahepatic dilatation, particular duct is normal, small amount of free fluid adjacent to the duodenal C-loop, free fluid is not encapsulated measures 2.2 x 1.8 cm, fluid along the lateral aspect of the duodenum, mild increased edema within the pancreas, and adjacent duodenal C-loop N.p.o. Lactated Ringer with D5 at 100 mL/h Analgesic control with Dilaudid, 1 mg every 4 hours No signs of pancreatic necrosis or pseudocyst, no signs of sepsis Patient was counseled on smoking cessation and benefits for her chronic pancreatitis DVT prophylaxis Lovenox N.p.o. status Full code Attestations Medical Necessity Statement*: Patient requires continued hospitalization due to acute pancreatitis Coding Level of Care Code Acute Personal Care Aid for [facility] Diagnoses Acute pancreatitis K85.91 Pancreatitis type: unspecified pancreatitis type Acute pancreatitis complication: uninfected necrosis Chronic pancreatitis K86.0 Pancreatitis type: alcohol induced Gastritis due to nonsteroidal anti-inflammatory drug (NSAID) K29.60; T39.395A Tobacco abuse Z72.0
[2019-07-30] MEDS: ipratropium-albuterol 3 mL Neb INHALATION (21:26)
[2019-07-31] VITALS (14 sets, daily range): BP systolic 131–144; BP diastolic 76–85; PULSE 51–84; RESP 16–20; TEMP 36.3–37.3; O2SAT 95–100
[2019-07-31] MEDS: ondansetron 2 mg/ML SDV 2 mL 4 MG IVP (01:05)
[2019-07-31] MEDS: HYDROmorphone 1 mg/mL INJ 1 mL IVP ×3 (02:08→09:26)
[2019-07-31 07:03] LABS: Basophils % 0.1 %; Eosinophils % 0.1 %; Hematocrit 33.8 % (37.0-47.0); Hemoglobin 10.7 g/dL (11.5-15.3); Lymphocytes # 0.7 10^3/uL (0.8-4.8); Lymphocytes % 5.3 %; Mean Corpuscular HGB Conc 31.7 g/dL (30.0-36.0); Mean Corpuscular Hemoglobin 30.3 pg (28.0-34.0); Mean Corpuscular Volume 95.8 fL (81-99); Mean Platelet Volume 11.2 fL (7.4-10.4); Monocytes # 1.1 10^3/uL (0.2-0.9); Monocytes % 8.3 %; Neutrophils # 11.3 10^3/uL (1.8-7.7); Neutrophils % 85.7 %; Nucleated Red Blood Cells % 0 %; Platelet Count 201 10^3/cmm (130-400); Red Blood Count 3.53 10^6/uL (4.1-5.3); Red Cell Distribution Width 14.6 % (12.1-15.1); White Blood Count 13.2 10^3/uL (4.0-10.0)
[2019-07-31 07:22] LABS: Magnesium 1.5 mg/dL (1.7-2.3); Phosphorus 2.7 mg/dL (2.5-4.5)
[2019-07-31 07:23] LABS: Alanine Aminotransferase 8 U/L (0-33); Albumin Level 3.7 g/dL (3.5-5.2); Alkaline Phosphatase 50 IU/L (35-105); Anion Gap 15.5 (5-19); Aspartate Amino Transferase 9 U/L (0-32); Blood Urea Nitrogen 2 mg/dL (6-20); Calcium 8.9 mg/dL (8.5-10.5); Carbon Dioxide 23 mmol/L (22-29); Chloride 96 mmol/L (98-107); Globulin 2.8 g/dL (1.3-4.6); Glomerular Filtration Rate 168.9 mL/min (90-130); Glucose 203 mg/dL (65-115); Osmolality Calculated 273 mOsm/kg (285-295); Potassium 3.5 mmol/L (3.5-5.1); Sodium 131 mmol/L (136-145); Total Bilirubin 0.3 mg/dL (0.15-1.2); Total Protein 6.5 g/dL (6.6-8.7)
[2019-07-31] MEDS: dextrose 5%-lactated ringers 1,000 ML 100 ML IV (08:24)
[2019-07-31] MEDS: enoxaparin 40 mg/0.4 mL Syringe SUBCUT (08:25)
[2019-07-31] MEDS: magnesium sulfate premix 2 GM/50 ML PIGGYBACK IV (10:37)
[2019-07-31 10:51] LABS: Estmated Average Glucose 100; Hemoglobin A1C 5.1 % (4.0-6.0)
[2019-07-31] MEDS: HYDROcodone-acetaminophen 5-325 mg Tablet 1 TAB PO (12:34)
--- NOTE | 2019-07-31 13:10 | PM.PN ---
Subjective Subjective: Interval history: This morning patient continues to have abdominal pain, mild nausea no lightheadedness, denies dizziness, no chest pain, no shortness of breath Vitals/I&O/Wt Last Vital Signs Temp 97.5 F L 07/31/19 11:19 Pulse 64 07/31/19 11:19 Resp 20 H 07/31/19 11:19 BP 138/76 07/31/19 11:19 Pulse Ox 95 07/31/19 11:19 07/30/19 07/31/19 07/31/19 22:59 06:59 14:59 Intake Total 0 / 1000 991.667 / 1991.667 938.333 / 938.333 Output Total 100 / 100 Balance 0 / 1000 891.667 / 1891.667 938.333 / 938.333 Weight last 48 hrs Weight 47.627 kg Physical Exam Const: COMMON NORMALS: no acute distress and patient oriented x3 Neck/C-Spine: COMMON NORMALS: no JVD Resp: COMMON NORMALS: normal respiratory effort, No retractions, No use of accessory muscles and clear to auscultation bilaterally AUSCULTATION: clear to auscultation bilaterally Cardio: COMMON NORMALS: no JVD, regular rate, regular rhythm, S1 normal heart sound present and S2 normal heart sound present RATE: regular rate RHYTHM: regular rhythm HEART SOUNDS: S1 normal heart sound present and S2 normal heart sound present GI: COMMON NORMALS: Normal to inspection, nondistended, normoactive bowel sounds present, Soft to palpation, non-tender, No hepatosplenomegaly present, no masses and no bruits PALPATION: Yes Soft to palpation and Yes No hepatosplenomegaly present Extremity: COMMON NORMALS: capillary refill normal, no clubbing, cyanosis or edema, no calf tenderness and no pedal edema Neuro: COMMON NORMALS: patient oriented x3 Psych: COMMON NORMALS: mental status grossly normal Data : 07/31/19 06:23 07/31/19 06:23 A&P Assessment and plan (1) Acute pancreatitis: Status: Acute Qualifiers: Pancreatitis type: unspecified pancreatitis type Acute pancreatitis complication: uninfected necrosis Qualified Code(s): K85.91 - Acute pancreatitis with uninfected necrosis, unspecified (2) Chronic pancreatitis: Status: Acute Qualifiers: Pancreatitis type: alcohol induced Qualified Code(s): K86.0 - Alcohol-induced chronic pancreatitis (3) Gastritis due to nonsteroidal anti-inflammatory drug (NSAID): Status: Acute (4) Tobacco abuse: Status: Acute Additional A&P Information Acute on chronic pancreatitis Lipase 236, mild leukocytosis, BUN/creatinine not abnormal calcium normal mild acidosis noted on blood chemistry, will obtain lactic acid Alcohol level nondetectable She is currently smoking, she is not using her pancreatic enzymes anymore Last alcoholic drink was a year ago She denies any history of pancreatic duct stent placement at [facility] CT abdomen shows soft tissue stranding surrounding the pancreas which is most pronounced at the pancreatic head and involves the pancreatic tail with a small amount of free fluid between the margin of the pancreas within the mesentery MRCP shows common bile duct 5 mm, no intrahepatic dilatation, particular duct is normal, small amount of free fluid adjacent to the duodenal C-loop, free fluid is not encapsulated measures 2.2 x 1.8 cm, fluid along the lateral aspect of the duodenum, mild increased edema within the pancreas, and adjacent duodenal C-loop N.p.o. Lactated Ringer with D5 at 100 mL/h Replace magnesium, and phosphorus and potassium today Analgesic control with Dilaudid, 1 mg every 4 hours No signs of pancreatic necrosis or pseudocyst, no signs of sepsis Patient was counseled on smoking cessation and benefits for her chronic pancreatitis DVT prophylaxis Lovenox N.p.o. 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
[2019-07-31] MEDS: HYDROmorphone 1 mg/mL INJ 1 mL 0.5 MG IVP ×2 (15:24→19:32)
[2019-07-31] MEDS: cloNIDine 0.1 mg Tablet PO (21:28)
[2019-08-01] VITALS (12 sets, daily range): BP systolic 102–137; BP diastolic 65–89; PULSE 61–88; RESP 14–18; TEMP 36.6–38; O2SAT 95–100
[2019-08-01] MEDS: HYDROmorphone 1 mg/mL INJ 1 mL 0.5 MG IVP ×6 (00:12→21:13)
[2019-08-01] MEDS: dextrose 5%-lactated ringers 1,000 ML 100 ML IV ×3 (01:34→21:16)
[2019-08-01] MEDS: hyDROXYzine 25 mg Capsule PO ×2 (03:15→08:50)
[2019-08-01 04:29] LABS: Basophils % 0.2 %; Eosinophils % 0.2 %; Hematocrit 33.3 % (37.0-47.0); Hemoglobin 10.8 g/dL (11.5-15.3); Mean Corpuscular HGB Conc 32.4 g/dL (30.0-36.0); Mean Corpuscular Hemoglobin 30.7 pg (28.0-34.0); Mean Corpuscular Volume 94.6 fL (81-99); Mean Platelet Volume 11.3 fL (7.4-10.4); Monocytes # 1.3 10^3/uL (0.2-0.9); Monocytes % 10.1 %; Neutrophils # 10.1 10^3/uL (1.8-7.7); Neutrophils % 81.2 %; Nucleated Red Blood Cells % 0 %; Platelet Count 181 10^3/cmm (130-400); Red Blood Count 3.52 10^6/uL (4.1-5.3); Red Cell Distribution Width 14.5 % (12.1-15.1); White Blood Count 12.5 10^3/uL (4.0-10.0)
[2019-08-01 04:49] LABS: Alanine Aminotransferase 7 U/L (0-33); Albumin Level 3.6 g/dL (3.5-5.2); Alkaline Phosphatase 54 IU/L (35-105); Anion Gap 14.3 (5-19); Aspartate Amino Transferase 9 U/L (0-32); Calcium 8.9 mg/dL (8.5-10.5); Carbon Dioxide 27 mmol/L (22-29); Chloride 94 mmol/L (98-107); Globulin 2.9 g/dL (1.3-4.6); Glomerular Filtration Rate 168.9 mL/min (90-130); Glucose 140 mg/dL (65-115); Potassium 3.3 mmol/L (3.5-5.1); Sodium 132 mmol/L (136-145); Total Bilirubin 0.3 mg/dL (0.15-1.2); Total Protein 6.5 g/dL (6.6-8.7)
[2019-08-01 04:50] LABS: Magnesium 1.7 mg/dL (1.7-2.3); Phosphorus 2.9 mg/dL (2.5-4.5)
[2019-08-01 04:55] LABS: Blood Urea Nitrogen 1 mg/dL (6-20); Osmolality Calculated 272 mOsm/kg (285-295)
[2019-08-01] MEDS: enoxaparin 40 mg/0.4 mL Syringe SUBCUT (08:50)
[2019-08-01] MEDS: pantoprazole DR 40 mg Tablet PO (08:50)
[2019-08-01] MEDS: potassium chloride premix 40 MEQ/100 ML PREMIX 25 MEQ IV (09:15)
--- NOTE | 2019-08-01 13:15 | P.PN_ITS ---
Subjective Subjective: Interval history: This morning patient continues to have abdominal pain, states that she is somewhat improved, is quite tender on my examination this morning, has mild nausea, pain control is helping Vitals/I&O/Wt Last Vital Signs Temp 98.4 F 08/01/19 11:34 Pulse 62 08/01/19 11:34 Resp 16 08/01/19 12:52 BP 106/70 08/01/19 11:34 Pulse Ox 99 08/01/19 11:34 07/31/19 08/01/19 08/01/19 22:59 06:59 14:59 Intake Total 1000 / 2741.000 1963 / 1000 Output Total 500 / 501 400 / 400 Balance 500 / 1437.333 600 / 600 Physical Exam Const: COMMON NORMALS: no acute distress and patient oriented x3 HENMT: COMMON NORMALS: normocephalic HEAD & SCALP: normocephalic Neck/C-Spine: COMMON NORMALS: no JVD Resp: COMMON NORMALS: normal respiratory effort, No retractions, No use of accessory muscles and clear to auscultation bilaterally AUSCULTATION: clear to auscultation bilaterally Cardio: COMMON NORMALS: no JVD, regular rate, regular rhythm, S1 normal heart sound present and S2 normal heart sound present RATE: regular rate RHYTHM: regular rhythm HEART SOUNDS: S1 normal heart sound present and S2 normal heart sound present GI: COMMON NORMALS: Normal to inspection, nondistended, normoactive bowel sounds present, Soft to palpation, no masses and no bruits PALPATION: Yes Soft to palpation, Yes Tenderness to palpation present (GI), No Guarding due to palpation present (GI) and No Rigid due to palpation Extremity: COMMON NORMALS: capillary refill normal, no clubbing, cyanosis or edema, no calf tenderness and no pedal edema Neuro: COMMON NORMALS: patient oriented x3 Psych: COMMON NORMALS: mental status grossly normal Data : 08/01/19 04:00 08/01/19 04:00 A&P Assessment and plan (1) Acute pancreatitis: Status: Acute Qualifiers: Pancreatitis type: unspecified pancreatitis type Acute pancreatitis complication: uninfected necrosis Qualified Code(s): K85.91 - Acute pancreatitis with uninfected necrosis, unspecified (2) Chronic pancreatitis: Status: Acute Qualifiers: Pancreatitis type: alcohol induced Qualified Code(s): K86.0 - Alcohol- induced chronic pancreatitis (3) Gastritis due to nonsteroidal anti-inflammatory drug (NSAID): Status: Acute (4) Tobacco abuse: Status: Acute Additional A&P Information Acute on chronic pancreatitis Lipase 236, mild leukocytosis continue Alcohol level nondetectable She is currently smoking, she is not using her pancreatic enzymes anymore Last alcoholic drink was a year ago She denies any history of pancreatic duct stent placement at [facility] abdomen shows soft tissue stranding surrounding the pancreas which is most pronounced at the pancreatic head and involves the pancreatic tail with a small amount of free fluid between the margin of the pancreas within the mesentery MRCP shows common bile duct 5 mm, no intrahepatic dilatation, particular duct is normal, small amount of free fluid adjacent to the duodenal C-loop, free fluid is not encapsulated measures 2.2 x 1.8 cm, fluid along the lateral aspect of the duodenum, mild increased edema within the pancreas, and adjacent duodenal C-loop Continue n.p.o. Lactated Ringer with D5 at 100 mL/h Analgesic control with Dilaudid,0.5mg every 4 hours No signs of pancreatic necrosis or pseudocyst, no signs of sepsis Patient continues to have significant abdominal pain today recheck lipase, recheck liver function, will consider repeating CT scan today DVT prophylaxis Lovenox N.p.o. 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
[2019-08-01 14:26] LABS: Gamma Glutamyl Transferase 20 U/L (5-36); Lipase 46 U/L (13-60)
[2019-08-01 14:33] LABS: Procalcitonin 0.05 ng/mL (0-0.5)
[2019-08-01 14:43] LABS: C Reactive Protein 108.8 mg/L (0.0-4.9)
[2019-08-01] MEDS: ondansetron 2 mg/ML SDV 2 mL 4 MG IVP (18:23)
[2019-08-01] MEDS: cloNIDine 0.1 mg Tablet PO (21:13)
[2019-08-02] VITALS (19 sets, daily range): BP systolic 90–113; BP diastolic 54–72; PULSE 54–90; RESP 16–24; TEMP 36.4–37.2; O2SAT 93–99
[2019-08-02] MEDS: HYDROmorphone 1 mg/mL INJ 1 mL 0.5 MG IVP ×5 (02:10→22:56)
[2019-08-02 04:44] LABS: Basophils % 0.2 %; Eosinophils # 0.1 10^3/uL (0.0-0.8); Eosinophils % 0.7 %; Hematocrit 29.2 % (37.0-47.0); Hemoglobin 9.4 g/dL (11.5-15.3); Lymphocytes # 1.3 10^3/uL (0.8-4.8); Mean Corpuscular HGB Conc 32.2 g/dL (30.0-36.0); Mean Corpuscular Hemoglobin 31.9 pg (28.0-34.0); Mean Platelet Volume 11.3 fL (7.4-10.4); Monocytes % 9.8 %; Neutrophils # 7.7 10^3/uL (1.8-7.7); Neutrophils % 75.9 %; Nucleated Red Blood Cells % 0 %; Platelet Count 158 10^3/cmm (130-400); Red Blood Count 2.95 10^6/uL (4.1-5.3); Red Cell Distribution Width 14.6 % (12.1-15.1); White Blood Count 10.1 10^3/uL (4.0-10.0)
[2019-08-02 05:01] LABS: Albumin Level 3.4 g/dL (3.5-5.2); Alkaline Phosphatase 50 IU/L (35-105); Anion Gap 12.4 (5-19); Aspartate Amino Transferase 8 U/L (0-32); Calcium 9.1 mg/dL (8.5-10.5); Carbon Dioxide 27 mmol/L (22-29); Chloride 99 mmol/L (98-107); Globulin 2.3 g/dL (1.3-4.6); Glomerular Filtration Rate 114.6 mL/min (90-130); Glucose 126 mg/dL (65-115); Potassium 3.4 mmol/L (3.5-5.1); Sodium 135 mmol/L (136-145); Total Bilirubin 0.4 mg/dL (0.15-1.2); Total Protein 5.7 g/dL (6.6-8.7)
[2019-08-02 05:07] LABS: Alanine Aminotransferase 5 U/L (0-33); Blood Urea Nitrogen 1 mg/dL (6-20); Osmolality Calculated 277 mOsm/kg (285-295)
[2019-08-02 05:36] LABS: Magnesium 1.6 mg/dL (1.7-2.3)
[2019-08-02] MEDS: dextrose 5%-lactated ringers 1,000 ML 100 ML IV ×2 (07:38→18:06)
[2019-08-02] MEDS: enoxaparin 40 mg/0.4 mL Syringe SUBCUT (08:38)
[2019-08-02] MEDS: pantoprazole DR 40 mg Tablet PO (08:39)
--- NOTE | 2019-08-02 08:47 | PC.RESP ---
Smoking Cessation packet sent to patient with a schedule of classes.
[2019-08-02] MEDS: ipratropium-albuterol 3 mL Neb INHALATION (10:08)
--- NOTE | 2019-08-02 10:11 | PC.CHAP ---
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 electronic system engineer visit [] Patient/Family/Request visit [] Outpatient visit [] Follow-up visit [] Physician referral [] Code/Alert [x] Routine visit [] Staff referral [] Actively dying [] Patient sleeping [] Family support [] [] Out of room [] Palliative care [] [] Receiving care in room [] Pre-surgical visit [] Trauma [] Long length of stay [] ICU visit [] Other: Relational/Emotional Strength [] Patient feels connected with others/family/visitors/staff [] Distress [] Loneliness/isolation [] Abandonment Spirituality of Patient [] Person of Fay [] Attends Mormon of their Fay [] Believes in Prayer [] Reads Bible or Gnosticist materials [] There are Spiritual issues to be addressed Higher Level Teaching Assistant Interventions [x] Prayer [] Active listening [] Non-anxious presence [] Spiritual/emotional support [] Crisis/trauma care [] Spiritual counseling [] Bereavement support [] Provided bereavement packet [] Provided Bible/devotional materials [] Provided toy/stuffed animal, coloring book to patient or family member [] Provided Communion [] Anointing/[place] [] Salvation [x] Completed spiritual assessment [] Other: Impact on Illness or Injury [] Angry [] Fearful [] Anxious [] Often cries [] Exhaustion [] Unable to work [] Unable to attend adventism [] Unable to walk/stand [] Unable to read [] Unable to drive [] Unable to eat/drink [] Unable to sleep [] Unable to be with family [] Patient intubated [] Other: Summary Pain being addressed. Patient feeling a little better Time spent with patient 5 min
--- NOTE | 2019-08-02 14:50 | CTR_ITS ---
PROCEDURE INFORMATION: Exam: CT Abdomen And Pelvis With Contrast Exam date and time: 08/02/2019 3:08 PM Age: 34 years old Clinical indication: Abdominal pain; Generalized; Prior surgery; Surgery date: 6+ months; Surgery type: Gb; Additional info: F/up pancreatitis TECHNIQUE: Imaging protocol: Computed tomography of the abdomen and pelvis with intravenous contrast. Radiation optimization: All CT scans at this facility use at least one of these dose optimization techniques: automated exposure control; mA and/or kV adjustment per patient size (includes targeted exams where dose is matched to clinical indication); or iterative reconstruction. Contrast material: OMNI 300; Contrast volume: 75 ml; Contrast route: IV; COMPARISON: CT abdomen pelvis w con* [id number] 07/30/2019 4:13 AM RADIATION DOSE METRICS: Total DLP: 517.01 mGy-cm FINDINGS: Liver: Normal. No mass. Gallbladder and bile ducts: Prior cholecystectomy. Pancreas: Continued low-density fluid/inflammation about pancreatic head. Pancreatic head appears larger measuring 3.6 cm with increasing heterogeneity suggesting worsening focal pancreatitis and possible early phlegmon formation (series 2, axial image 28 through 32). Spleen: Normal. No splenomegaly. Adrenals: Normal. No mass. Kidneys and ureters: Normal. No hydronephrosis. Stomach and bowel: Unremarkable. No obstruction. No mucosal thickening. Appendix: No evidence of appendicitis. Intraperitoneal space: Trace amount of pelvic cul-de-sac free fluid, unchanged. Vasculature: Unremarkable. No abdominal aortic aneurysm. Lymph nodes: Unremarkable. No enlarged lymph nodes. Bladder: Unremarkable as visualized. Reproductive: Small amounts of air and fluid in vagina, nonspecific. Small amount of fluid in endometrial cavity, nonspecific. Bones/joints: Unremarkable. No acute fracture. Soft tissues: Unremarkable. CT/CT abdomen pelvis w con* [id number] IMPRESSION: 1.) Continued low-density fluid/inflammation about pancreatic head. Pancreatic head appears larger measuring 3.6 cm with increasing heterogeneity suggesting worsening focal pancreatitis and possible early phlegmon formation (series 2, axial image 28 through 32). 2.)Small amounts of air and fluid in vagina, nonspecific. Small amount of fluid in endometrial cavity, nonspecific. Radiation Dose CTDIVOL = (mGy): DLP = 517.01 (mGy-cm)
[2019-08-02] MEDS: ondansetron 2 mg/ML SDV 2 mL 4 MG IVP ×2 (16:49→22:56)
--- NOTE | 2019-08-02 17:35 | PM.PN ---
Subjective Subjective: Interval history: CT unable to be performed yeseterday. Continues to c.o pain and nausea, not taking sufficient po intake Medications: Reviewed: Yes Vitals/I&O/Wt Last Vital Signs Temp 97.6 F 08/02/19 15:30 Pulse 68 08/02/19 15:30 Resp 18 08/02/19 15:30 BP 99/64 08/02/19 15:30 Pulse Ox 93 08/02/19 15:30 08/02/19 08/02/19 08/02/19 06:59 14:59 22:59 Intake Total 1944 1000 / 1000 Balance 1000 / 1000 Physical Exam Narrative: EXAM NARRATIVE: GEN: Awake, alert and oriented, no acute distress CVS: S1S2 N RS: CTA B/L Abd: Did not permit exam CHIEF TECHNICIAN X RAY: no focal neuro deficits Data : 08/02/19 04:07 08/02/19 04:07 A&P Assessment and plan (1) Acute pancreatitis: Status: Acute Qualifiers: Pancreatitis type: unspecified pancreatitis type Acute pancreatitis complication: uninfected necrosis Qualified Code(s): K85.91 - Acute pancreatitis with uninfected necrosis, unspecified (2) Chronic pancreatitis: Status: Acute Qualifiers: Pancreatitis type: alcohol induced Qualified Code(s): K86.0 - Alcohol-induced chronic pancreatitis (3) Gastritis due to nonsteroidal anti-inflammatory drug (NSAID): Status: Acute (4) Tobacco abuse: Status: Acute Additional A&P Information Acute on chronic pancreatitis Lipase 236, mild leukocytosis continue, low grade fever yeseterday, npw resolved She denies any history of pancreatic duct stent placement at [facility] CT abdomen shows soft tissue stranding surrounding the pancreas which is most pronounced at the pancreatic head and involves the pancreatic tail with a small amount of free fluid between the margin of the pancreas within the mesentery MRCP shows pancreatitis without any CBD or ductal obtsrutcion Repeat CT given ongoing worsening pain to r/o necrotizing pancreatitis Lactated Ringer with D5 at 100 mL/h Analgesic control with morphine No signs of pancreatic necrosis or pseudocyst, no signs of sepsis DVT prophylaxis Lovenox N.p.o. 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
[2019-08-02] MEDS: iohexol 300 mg/mL 100 mL Btl IV (19:25)
[2019-08-02] MEDS: cloNIDine 0.1 mg Tablet PO (20:02)
[2019-08-03] VITALS (13 sets, daily range): BP systolic 96–111; BP diastolic 60–71; PULSE 54–75; RESP 16–20; TEMP 36.7–37.1; O2SAT 96–100
[2019-08-03] MEDS: HYDROmorphone 1 mg/mL INJ 1 mL 0.5 MG IVP ×3 (03:05→11:27)
[2019-08-03 05:22] LABS: Basophils % 0.2 %; Eosinophils # 0.1 10^3/uL (0.0-0.8); Eosinophils % 1.1 %; Hematocrit 27.9 % (37.0-47.0); Lymphocytes # 1.4 10^3/uL (0.8-4.8); Lymphocytes % 16.3 %; Mean Corpuscular HGB Conc 32.3 g/dL (30.0-36.0); Mean Corpuscular Hemoglobin 30.8 pg (28.0-34.0); Mean Corpuscular Volume 95.5 fL (81-99); Mean Platelet Volume 11.6 fL (7.4-10.4); Monocytes # 0.8 10^3/uL (0.2-0.9); Monocytes % 9.5 %; Neutrophils # 6.3 10^3/uL (1.8-7.7); Neutrophils % 72.6 %; Nucleated Red Blood Cells % 0 %; Platelet Count 171 10^3/cmm (130-400); Red Blood Count 2.92 10^6/uL (4.1-5.3); Red Cell Distribution Width 14.6 % (12.1-15.1); White Blood Count 8.7 10^3/uL (4.0-10.0)
[2019-08-03 05:54] LABS: Alanine Aminotransferase 6 U/L (0-33); Albumin Level 3.1 g/dL (3.5-5.2); Alkaline Phosphatase 48 IU/L (35-105); Anion Gap 13.4 (5-19); Aspartate Amino Transferase 7 U/L (0-32); Blood Urea Nitrogen 2 mg/dL (6-20); Carbon Dioxide 26 mmol/L (22-29); Chloride 98 mmol/L (98-107); Globulin 2.9 g/dL (1.3-4.6); Glomerular Filtration Rate 136.9 mL/min (90-130); Glucose 122 mg/dL (65-115); Osmolality Calculated 275 mOsm/kg (285-295); Potassium 3.4 mmol/L (3.5-5.1); Sodium 134 mmol/L (136-145); Total Bilirubin 0.4 mg/dL (0.15-1.2)
[2019-08-03] MEDS: dextrose 5%-lactated ringers 1,000 ML 100 ML IV ×2 (06:26→12:02)
[2019-08-03] MEDS: enoxaparin 40 mg/0.4 mL Syringe SUBCUT (07:25)
[2019-08-03] MEDS: pantoprazole DR 40 mg Tablet PO (07:25)
--- NOTE | 2019-08-03 11:28 | PC.NURSE ---
DILAUDID THIS NURSE EVALUATED PALMA CHACON RN (NURSE RESIDENT) ADMINISTER 0.5MG OF DILAUDID TO THIS PATIENT. THIS NURSE FAILED TO WALK RN THROUGH THE SCANNING PROCESS. PATIENT ID SCANNED, BUT REMAINDER OF DILAUDID ALREADY WASTED IN SHARPS BIN. OVERRIDE SCAN DOCUMENTED.
[2019-08-03] MEDS: ondansetron 2 mg/ML SDV 2 mL 4 MG IVP ×2 (12:02→21:16)
[2019-08-03] MEDS: morphine 4 mg/mL SDV 1 mL 2 MG IVP ×2 (16:57→21:14)
--- NOTE | 2019-08-03 18:17 | PM.PN ---
Subjective Subjective: Interval history: CT repeated yesterday showed some phlegmonous changes around the pancreatic head, however patient states she is feeling better today. Her white count has now normalized. There is no further fevers. She tried liquid diet today and was able to tolerate a few sips. She is quite tearful today as she is anxious about how she will manage when she is home and is quite anxious about her financial and home situation specifically regarding her kids being taken away. 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 Data : 08/03/19 04:23 08/03/19 04:23 A&P Assessment and plan (1) Acute pancreatitis: Status: Acute Qualifiers: Pancreatitis type: unspecified pancreatitis type Acute pancreatitis complication: uninfected necrosis Qualified Code(s): K85.91 - Acute pancreatitis with uninfected necrosis, unspecified (2) Chronic pancreatitis: Status: Acute Qualifiers: Pancreatitis type: alcohol induced Qualified Code(s): K86.0 - Alcohol-induced chronic pancreatitis (3) Gastritis due to nonsteroidal anti-inflammatory drug (NSAID): Status: Acute (4) Tobacco abuse: Status: Acute Additional A&P Information Acute on chronic pancreatitis Leukocytosis and fever have now resolved. CT of the abdomen repeated yesterday shows some phlegmonous changes around the pancreatic head. Though CT changes appear to indicate some worsening, patient clinically appears to be feeling much better. She was able to tolerate a liquid diet and is actually open to trying a GI soft diet later today. Calcium levels are normal. Because of her pancreatitis still remains unclear. She states she has not been drinking in the past year. Alcohol levels upon admission were negative. She denies any history of pancreatic duct stent placement at [facility] in the past. 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
[2019-08-03] MEDS: cloNIDine 0.1 mg Tablet PO (21:15)
[2019-08-04] VITALS: BP 111/69; PULSE 52; RESP 17; TEMP 36.4; O2SAT 100
[2019-08-04 01:37] VITALS: RESP 17; O2SAT 100
[2019-08-04] MEDS: morphine 4 mg/mL SDV 1 mL 2 MG IVP ×2 (01:37→05:40)
[2019-08-04] MEDS: dextrose 5%-lactated ringers 1,000 ML 100 ML IV (01:38)
[2019-08-04 03:43] VITALS: BP 92/56; PULSE 54; RESP 18; TEMP 36.9; O2SAT 95
[2019-08-04 05:31] LABS: Basophils % 0.4 %; Eosinophils # 0.1 10^3/uL (0.0-0.8); Eosinophils % 1.4 %; Hematocrit 29.5 % (37.0-47.0); Hemoglobin 9.7 g/dL (11.5-15.3); Lymphocytes # 1.2 10^3/uL (0.8-4.8); Mean Corpuscular HGB Conc 32.9 g/dL (30.0-36.0); Mean Corpuscular Hemoglobin 31.2 pg (28.0-34.0); Mean Corpuscular Volume 94.9 fL (81-99); Mean Platelet Volume 11.2 fL (7.4-10.4); Monocytes # 0.7 10^3/uL (0.2-0.9); Neutrophils # 5.3 10^3/uL (1.8-7.7); Neutrophils % 71.9 %; Nucleated Red Blood Cells % 0 %; Platelet Count 205 10^3/cmm (130-400); Red Blood Count 3.11 10^6/uL (4.1-5.3); Red Cell Distribution Width 14.2 % (12.1-15.1); White Blood Count 7.4 10^3/uL (4.0-10.0)
[2019-08-04 05:40] VITALS: RESP 18
[2019-08-04 05:50] LABS: Chol HDL Ratio 3.45 mg/dL (0.0-4.40); Cholesterol 114 mg/dL (0-200); HDL Cholesterol 33 mg/dL (60-100); LDL Cholesterol Calculated 66 mg/dL (50-129); Triglycerides 73 mg/dL (0-150)
[2019-08-04 05:51] LABS: Alanine Aminotransferase < 5 U/L (0-33); Albumin Level 3.2 g/dL (3.5-5.2); Alkaline Phosphatase 47 IU/L (35-105); Anion Gap 14.5 (5-19); Aspartate Amino Transferase 8 U/L (0-32); Calcium 9.3 mg/dL (8.5-10.5); Carbon Dioxide 26 mmol/L (22-29); Chloride 100 mmol/L (98-107); Globulin 2.7 g/dL (1.3-4.6); Glomerular Filtration Rate 136.9 mL/min (90-130); Glucose 130 mg/dL (65-115); Potassium 3.5 mmol/L (3.5-5.1); Sodium 137 mmol/L (136-145); Total Bilirubin 0.3 mg/dL (0.15-1.2); Total Protein 5.9 g/dL (6.6-8.7)
[2019-08-04 06:06] LABS: Blood Urea Nitrogen 1 mg/dL (6-20); Osmolality Calculated 281 mOsm/kg (285-295)
[2019-08-04 06:59] VITALS: BP 99/63; PULSE 84; RESP 18; TEMP 36.7; O2SAT 100
--- NOTE | 2019-08-04 08:04 | P.DS_ITS ---
Discharge Providers Date of Admission: 07/31/19 14:39 Date of Discharge: August 04, 2019 Attending Provider at Admission: Tristan Pearl MD Attending Provider at Discharge: Rebecca Rodriguez MD Primary Care Provider: Francy Bell DO Diagnoses at Discharge Discharge Diagnosis (1) Acute pancreatitis: Status: Acute Qualifiers: Pancreatitis type: unspecified pancreatitis type Acute pancreatitis complication: uninfected necrosis Qualified Code(s): K85.91 - Acute pancreatitis with uninfected necrosis, unspecified (2) Chronic pancreatitis: Status: Acute Qualifiers: Pancreatitis type: alcohol induced Qualified Code(s): K86.0 - Alcohol- induced chronic pancreatitis (3) Gastritis due to nonsteroidal anti-inflammatory drug (NSAID): Status: Acute Problem details: EGD 05/2019 (4) Tobacco abuse: Status: Acute Reason for Visit Reason for Visit: abd pain/ n/v Discharge Data Data Completed and Pending: Completed Studies During Hospitalization Category Date Time Status CT abdomen pelvis w con* [id number] Rout ine Cat Scan 08/02/19 14:[address] abdomen pelvis w con* [id number] Stat Cat Scan 07/30/19 03:45 Completed MR MRCP [id number] Urg ent MRI 07/30/19 10:15 Completed Labs from last 24 hours 08/04/19 08/04/19 08/04/19 04:38 04:38 04:38 WBC 7.4 RBC 3.11 L Hgb 9.7 L Hct 29.5 L MCV 94.9 MCH 31.2 MCHC 32.9 RDW 14.2 Plt Count 205 MPV 11.2 H Neut % (Auto) 71.9 Lymph % (Auto) 16.0 [place] % (Auto) 10.0 Eos % (Auto) 1.4 Baso % (Auto) 0.4 Neut # (Auto) 5.3 Lymph # (Auto) 1.2 [place] # (Auto) 0.7 Eos # (Auto) 0.1 Baso # (Auto) 0.0 Nucleated RBC % (a uto) 0 Nucleated RBCs # 0.0 Sodium 137 Potassium 3.5 Chloride 100 Carbon Dioxide 26 Anion Gap 14.5 BUN 1 L Creatinine 0.6 GFR Calculation 136.9 H Glucose 130 H Calculated Osmolal ity 281 L Calcium 9.3 Total Bilirubin 0.3 AST 8 ALT < 5 Alkaline Phosphata se 47 Total Protein 5.9 L Albumin 3.2 L Globulin 2.7 Triglycerides 73 Cholesterol 114 LDL Cholesterol, C alc 66 HDL Cholesterol 33 L LDL/HDL Ratio 2.00 Cholesterol/HDL Ra david 3.45 Vitals: Last Vital Signs Temp 98.1 F 08/04/19 06:59 Pulse 84 08/04/19 06:59 Resp 18 08/04/19 06:59 BP 99/63 08/04/19 06:59 Pulse Ox 100 08/04/19 06:59 Discharge Plan Discharge Patient Disposition: Home, Self-Care Condition: Stable Prescriptions: [place] 5-325 mg tablet 1 tab PO TID PRN (Reason: pain) 7 Days Qty: 20 RF: 0 Continued clonidine HCl 0.1 mg tablet 0.1 mg PO BEDTIME RF: 0 Creon 6,000-19,000 -30,000 unit capsule,delayed release(DR/EC) 3 cap PO DAILY RF: 0 Vitamin B-12 1 tab PO DAILY RF: 0 hydroxyzine pamoate 25 mg Capsule 25 mg PO QID PRN (Reason: Anxiety) Qty: 30 RF: 0 pantoprazole [Protonix] 40 mg tablet,delayed release (DR/EC) 40 mg PO DAILY Qty: 30 RF: 0 promethazine [Promethegan] 25 mg suppository 25 mg ID Q6H PRN (Reason: nausea and vomiting) Qty: 12 RF: 0 Discontinued naproxen sodium [Aleve] 220 mg Tablet 220 mg PO PRN RF: 0 Hold Instructions: Resume on 07/19/19. 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
[2019-08-04 08:14] VITALS: BP 99/63; PULSE 84; RESP 18; TEMP 36.7; O2SAT 100
--- NOTE | 2019-08-04 23:40 | PM.DCS ---
Discharge Providers Date of Admission: 07/31/19 14:39 Date of Discharge: August 04, 2019 Attending Provider at Admission: Tristan Pearl MD Attending Provider at Discharge: Rebecca Rodriguez MD Primary Care Provider: Francy Bell DO Diagnoses at Discharge Discharge Diagnosis (1) Acute pancreatitis: Status: Acute Qualifiers: Acute pancreatitis complication: uninfected necrosis Pancreatitis type: unspecified pancreatitis type Qualified Code(s): K85.91 - Acute pancreatitis with uninfected necrosis, unspecified (2) Chronic pancreatitis: Status: Acute Qualifiers: Pancreatitis type: alcohol induced Qualified Code(s): K86.0 - Alcohol-induced chronic pancreatitis (3) Gastritis due to nonsteroidal anti-inflammatory drug (NSAID): Status: Acute Problem details: EGD 05/2019 Reason for Visit Reason for Visit: abd pain/ n/v Hospital Course Discharge Summary: Patient is a 34-year-old lady with a past medical history of chronic pancreatitis on Creon, however has been unable to afford her medications for a while now. She presented to the ER with chief complaints of abdominal pain and intractable nausea and was found to have CT evidence of acute pancreatitis. Lipase was mildly elevated and trended down during the course of admission. She underwent a CT which also showed pancreatitis and some reactive duodenitis however no evidence of CBD obstruction or pancreatic duct stones were seen. Her pain initially worsened on the first few days and she also underwent a CT abdomen pelvis with contrast to rule out necrotizing pancreatitis. While this did show a phlegmonous change at the head of the pancreas, patient eventually clinically improved. She was able to tolerate a clear to full liquid diet at the time of discharge. Her pain was much better controlled after switching Dilaudid to morphine. Her nausea had completely resolved. Her leukocytosis has also resolved. She had a one-time fever of 100.4 on July 31, however this was resolved by the time of discharge. On the day of discharge patient was still on a full liquid diet. While it was recommended she stay until she is able to tolerate further advancement of her diet, she stated that she only had her right to go home for a very limited time and because of personal reasons wished to be discharged that morning. Since she had overall clinically improved, she was eventually discharged. Physical Exam Narrative: EXAM NARRATIVE: GEN: Awake, alert and oriented, no acute distress CVS: S1S2 N RS: CTA B/L Abd: Soft, nt/nd , bs+ CONTRACT LOADER: no focal neuro deficits Discharge Data Data Completed and Pending: Completed Studies During Hospitalization Category Date Time Status CT abdomen pelvis w con* [id number] Rout ine Cat Scan 08/02/19 14:[address] abdomen pelvis w con* [id number] Stat Cat Scan 07/30/19 03:45 Completed MR MRCP [id number] Urg ent MRI 07/30/19 10:15 Completed Labs from last 24 hours 08/04/19 08/04/19 08/04/19 04:38 04:38 04:38 WBC 7.4 RBC 3.11 L Hgb 9.7 L Hct 29.5 L MCV 94.9 MCH 31.2 MCHC 32.9 RDW 14.2 Plt Count 205 MPV 11.2 H Neut % (Auto) 71.9 Lymph % (Auto) 16.0 [place] % (Auto) 10.0 Eos % (Auto) 1.4 Baso % (Auto) 0.4 Neut # (Auto) 5.3 Lymph # (Auto) 1.2 Carter # (Auto) 0.7 Eos # (Auto) 0.1 Baso # (Auto) 0.0 Nucleated RBC % (a uto) 0 Nucleated RBCs # 0.0 Sodium 137 Potassium 3.5 Chloride 100 Carbon Dioxide 26 Anion Gap 14.5 BUN 1 L Creatinine 0.6 GFR Calculation 136.9 H Glucose 130 H Calculated Osmolal ity 281 L Calcium 9.3 Total Bilirubin 0.3 AST 8 ALT < 5 Alkaline Phosphata se 47 Total Protein 5.9 L Albumin 3.2 L Globulin 2.7 Triglycerides 73 Cholesterol 114 LDL Cholesterol, C alc 66 HDL Cholesterol 33 L LDL/HDL Ratio 2.00 Cholesterol/HDL Ra david 3.45 Vitals: Last Vital Signs Temp 98.1 F 08/04/19 08:14 Pulse 84 08/04/19 08:14 Resp 18 08/04/19 08:14 BP 99/63 08/04/19 08:14 Pulse Ox 100 08/04/19 08:14 Discharge Plan Discharge Patient Disposition: Home, Self-Care Condition: Stable Prescriptions: [place] 5-325 mg tablet 1 tab PO TID PRN (Reason: pain) 7 Days Qty: 20 RF: 0 Continued clonidine HCl 0.1 mg tablet 0.1 mg PO BEDTIME RF: 0 Creon 6,000-19,000 -30,000 unit capsule,delayed release(DR/EC) 3 cap PO DAILY RF: 0 Vitamin B-12 1 tab PO DAILY RF: 0 hydroxyzine pamoate 25 mg Capsule 25 mg PO QID PRN (Reason: Anxiety) Qty: 30 RF: 0 pantoprazole [Protonix] 40 mg tablet,delayed release (DR/EC) 40 mg PO DAILY Qty: 30 RF: 0 promethazine [Promethegan] 25 mg suppository 25 mg [place] Q6H PRN (Reason: nausea and vomiting) Qty: 12 RF: 0 Discontinued naproxen sodium [Aleve] 220 mg Tablet 220 mg PO PRN RF: 0 Hold Instructions: Resume on 07/19/19. take with food or milk ibuprofen 200 mg Tablet 400 - 800 mg PO PRN RF: 0 Discharge Orders: Discharge Order (Routine); Ordered 08/04/19 Ordered By: Rebecca Rodriguez Referrals: [facility] [Other] - 7-10 days Celsa Saldana DO [Physician] - 08/26/19 2:45 pm Discharge Diet: GI Soft Discharge Activity: Resume usual activity Patient Instructions: Hydrocodone/Acetaminophen (By mouth), Pancreatitis (DC), Soft Diet (DC) Discharge Date/Time: 08/04/19 08:33 Discharge Attestations Time Spent in Discharge Care*: less than 30 min Quality Metrics Clinical Quality Measures During this hospital stay, did patient experience: None Coding Level of Care Code 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
== END 2019-08-04 08:33 | disposition home or self-care (01) | DRG 440 ==
LOC: ER 07:27 → MEDSURG 15:45
PROVIDERS: Emergency Medicine; Internal Medicine; Admitting Provider Family Medicine; PCP Family Medicine; Visit Provider Student in an Organized Health Care Education/Training Program
DX: K85.91 Acute pancreatitis with uninfected necrosis, unspecified (principal); K86.0 Alcohol-induced chronic pancreatitis; F10.21 Alcohol dependence, in remission; Z91.14 Patient's other noncompliance with medication regimen; F32.9 Major depressive disorder, single episode, unspecified; F17.210 Nicotine dependence, cigarettes, uncomplicated; K29.00 Acute gastritis without bleeding; T39.395A Adverse effect of other nonsteroidal anti-inflammatory drugs [NSAID], initial encounter
CPT/HCPCS: 12345; 36415; 74177; 74181; 80053; 80061; 80306; 80307; 81001; 82977; 83036; 83605; 83690; 83735; 84100; 84145; 84703; 85025; 86140; 93005; 94640; 94664; 96372; 96375; 99284; G0378; J1170; J1650; J2060; J2270; J2405; J3475; J3480; J7030; Q9967

== ENCOUNTER 2019-10-01 14:07 | Emergency (ER) | payer SELFPAY ==
[2019-03-17 16:03] VITALS: BP 150/82; BMI 18.3
[2019-10-01 14:07] VITALS: BP 147/79; PULSE 65; RESP 16; TEMP 36.9; O2SAT 100; BMI 16.4
--- NOTE | 2019-10-01 14:24 | W.ED.ABDPA2 ---
HPI - Abdominal Pain General: Chief Complaint: Abdominal Pain Stated Complaint: ABDOMINAL PAIN Time Seen by Provider: 10/01/19 14:14 Source: patient Mode of arrival: EMS Limitations: no limitations History of Present Illness: HPI narrative: Patient is a 34-year-old female who has a history of chronic pancreatitis and presents to the emergency department with abdominal pain that started this morning about 5 AM. Pain has been progressively worsening and because of that she is here to be evaluated as she believes that this is 1 of her flareups of pancreatitis MD elicited complaint: abdominal pain Pertinent past history: other (Pancreatitis) Onset (ago): hour(s) (7) Pain Consistency: constant Location: Epigastric Severity: severe Quality: sharp Radiation: none Migration to: no migration Exacerbating factors: eating Relieving factors: nothing Associated Symptoms: Reports anorexia, dyspepsia and nausea; Denies belching, bloating, change in bowel habits, change in stool character, chills, coffee ground emesis, constipation, GI cramping, diarrhea, dysuria, excessive flatus, fever(s), heartburn, hematochezia, hematuria, hematemesis, fecal incontinence, loose stools, melena, poor appetite, syncope, vomiting and other Related Data: Date of Last Menstrual Period: 09/22/19 Review of Systems General: Reports: 10 or more systems reviewed and unremarkable except in HPI and below Const: Denies: fever(s) or chills Eyes: Denies: change in vision or blurry vision ENMT: Denies: throat pain, enlarged tonsils, odynophagia, hoarseness, mouth pain or swelling of lips/tongue Card: Denies: chest pain, palpitations, irregular heart rhythm or syncope Resp: Denies: dyspnea, productive cough or non-productive cough GI: Reports: nausea; Denies: vomiting, hematemesis, coffee ground emesis, heartburn, diarrhea, constipation, bloating, GI cramping, belching, excessive flatus, fecal incontinence, change in bowel habits, change in stool character, hematochezia, melena or other : Denies: dysuria or hematuria Musc: Denies: neck pain, back pain or extremity swelling Skin/Breast: Denies: rash, pruritus or erythema Neuro: Denies: headache(s), numbness in extremities or weakness in extremities Endo: Denies: polyuria, polydipsia or tired all the time PFSH ED PFSH: Medical History Abnormal endoscopy of upper gastrointestinal tract Gastritis Alcohol use disorder In remission per pt Chronic pancreatitis Depression Pancreatitis Tobacco abuse Surgical History History of vaginal delivery Hx of cholecystectomy Family History Denies family history of Hyperlipidemia Lung disease Hypertension Social History Smoking and tobacco status: current every day smoker Alcohol intake: former Former alcohol use details: She is stating that her last drink was about a year ago Other details last alcohol use: Pt states she has not been drinking recently Lives independently: Yes Housing: House Current gender identity: Female Female Reproductive History: Date of last menstrual period: 09/22/19 Physical Exam Const: COMMON NORMALS: no acute distress, average body habitus, patient oriented x3, no limitations, healthy appearing, alert and well nourished HENMT: COMMON NORMALS: normocephalic, atraumatic and moist oral mucous membranes HEAD & SCALP: normocephalic and atraumatic Neck/C-Spine: COMMON NORMALS: no meningeal signs and no JVD Resp: COMMON NORMALS: normal respiratory effort, No retractions, No use of accessory muscles, clear to auscultation bilaterally and percussion normal AUSCULTATION: clear to auscultation bilaterally PERCUSSION: percussion normal Cardio: COMMON NORMALS: no JVD, regular rate, regular rhythm, S1 normal heart sound present, S2 normal heart sound present, No gallops present (Cardio), No clicks present (Cardio), No murmurs present (Cardio), No rub (Cardio) and Peripheral pulses 2+ throughout RATE: regular rate RHYTHM: regular rhythm HEART SOUNDS: S1 normal heart sound present and S2 normal heart sound present PERIPHERAL PULSES: Peripheral pulses 2+ throughout GI: COMMON NORMALS: Normal to inspection, nondistended, normoactive bowel sounds present, Soft to palpation, No hepatosplenomegaly present, no masses and no bruits PALPATION: Yes Soft to palpation, Yes Tenderness to palpation present (GI), Yes Guarding due to palpation present (GI), Yes No hepatosplenomegaly present and No Rebound tenderness present : COMMON NORMALS: Yes no CVA tenderness BLADDER/KIDNEY EXAM: Yes no CVA tenderness Back/Pelvis: COMMON NORMALS: no CVA tenderness Extremity: COMMON NORMALS: normal to inspection, full ROM, capillary refill normal, no calf tenderness and no pedal edema Neuro: COMMON NORMALS: patient oriented x3 SENSORIUM/ORIENTATION: Yes alert MENINGEAL SIGNS: Yes no meningeal signs Skin: COMMON NORMALS: no rashes or lesions noted, no wounds, turgor normal, no jaundice, no petechiae and no mottling GENERAL SKIN EXAM: no rashes or lesions noted and turgor normal Course Reevaluation(s): Reevaluation #1: Discussed her lab findings with her. Negative for acute findings. Lipase negative. Her pain is much improved now. We will discharge her home with no new orders. She voiced understanding and is in agreement with the plan Time: 15:50 Vital Signs: Vital signs: Vital Signs Temperature 97.8 F 10/01/19 17:45 Pulse Rate 85 10/01/19 17:45 Respiratory Rate 18 10/01/19 17:45 Blood Pressure 143/96 10/01/19 17:45 Pulse Oximetry 97 10/01/19 17:45 MDM - Abdominal Pain MDM Narrative: Medical decision making narrative: 34-year-old female with a history of acute pancreatitis presents to the emergency department with abdominal pain that she thought was a flareup of her pancreatitis. Evaluation in the emergency department was unremarkable with a normal lipase. Other labs were also unremarkable. She is discharged home with no new orders. Medical Records: Attestation: I reviewed the patient's medical records. Lab Data: Attestation: I reviewed the patient's lab results. Labs: Lab Results 10/01/19 10/01/19 10/01/19 Range/Units 14:40 14:40 14:54 WBC 10.9 H (4.0-10.0) 10^3/ uL RBC 4.22 (4.1-5.3) 10^6/u L Hgb 12.6 (11.5-15.3) g/dL Hct 39.7 (37.0-47.0) % MCV 94.1 (81-99) fL MCH 29.9 (28.0-34.0) pg MCHC 31.7 (30.0-36.0) g/dL RDW 15.7 H (12.1-15.1) % Plt Count 241 (130-400) 10^3/c mm MPV 10.5 H (7.4-10.4) fL Neut % (Auto) 75.8 % Lymph % (Auto) 15.4 % [place] % (Auto) 7.5 % Eos % (Auto) 0.6 % Baso % (Auto) 0.4 % Neut # (Auto) 8.28 H (1.8-7.7) 10^3/u L Lymph # (Auto) 1.7 (0.8-4.8) 10^3/u L [place] # (Auto) 0.8 (0.2-0.9) 10^3/u L Eos # (Auto) 0.1 (0.0-0.8) 10^3/u L Baso # (Auto) 0.0 (0.0-0.1) 10^3/u L Nucleated RBC % (a uto) 0 % Nucleated RBCs # 0.0 /100WBC Sodium (136-145) mmol/L Potassium (3.5-5.1) mmol/L Chloride (98-107) mmol/L Carbon Dioxide (22-29) mmol/L Anion Gap (5-19) BUN (6-20) mg/dL Creatinine (0.5-0.9) mg/dL GFR Calculation (90-130) mL/min Glucose (65-115) mg/dL Calculated Osmolal ity (285-295) mOsm/k g Lactate (0.5-2.2) mmol/L Calcium (8.5-10.5) mg/dL Total Bilirubin (0.15-1.2) mg/dL AST (0-32) U/L ALT (0-33) U/L Alkaline Phosphata se (35-105) IU/L C-Reactive Protein (0.0-4.9) mg/L Total Protein (6.6-8.7) g/dL Albumin (3.5-5.2) g/dL Globulin (1.3-4.6) g/dL Lipase (13-60) U/L HCG, Qual Negative (Negative) Urine Color Yellow (Yellow) Urine Appearance Clear (CLEAR) Urine pH 5 (5-7) Ur Specific Gravit y 1.015 (1.005-1.030) Urine Protein Neg (Negative) Urine Glucose (UA) Norm (Normal) Urine Ketones 1+ H (Negative) Urine Blood Neg (Negative) Urine Nitrate Negative (Negative) Urine Bilirubin Neg (NEGATIVE) Urine Urobilinogen Neg (Negative) mg/dL Ur Leukocyte Yesenia ase Negative (Negative) Ethyl Alcohol (0-10) mg/dL 10/01/19 10/01/19 Range/Units 14:54 14:54 WBC (4.0-10.0) 10^3/ uL RBC (4.1-5.3) 10^6/u L Hgb (11.5-15.3) g/dL Hct (37.0-47.0) % MCV (81-99) fL MCH (28.0-34.0) pg MCHC (30.0-36.0) g/dL RDW (12.1-15.1) % Plt Count (130-400) 10^3/c mm MPV (7.4-10.4) fL Neut % (Auto) % Lymph % (Auto) % [place] % (Auto) % Eos % (Auto) % Baso % (Auto) % Neut # (Auto) (1.8-7.7) 10^3/u L Lymph # (Auto) (0.8-4.8) 10^3/u L [place] # (Auto) (0.2-0.9) 10^3/u L Eos # (Auto) (0.0-0.8) 10^3/u L Baso # (Auto) (0.0-0.1) 10^3/u L Nucleated RBC % (a uto) % Nucleated RBCs # /100WBC Sodium 135 L (136-145) mmol/L Potassium 4.0 (3.5-5.1) mmol/L Chloride 102 (98-107) mmol/L Carbon Dioxide 20 L (22-29) mmol/L Anion Gap 17.0 (5-19) BUN 7 (6-20) mg/dL Creatinine 0.8 (0.5-0.9) mg/dL GFR Calculation 98.2 (90-130) mL/min Glucose 87 (65-115) mg/dL Calculated Osmolal ity 275 L (285-295) mOsm/k g Lactate 1.0 (0.5-2.2) mmol/L Calcium 9.0 (8.5-10.5) mg/dL Total Bilirubin 0.5 (0.15-1.2) mg/dL AST 21 (0-32) U/L ALT 15 (0-33) U/L Alkaline Phosphata se 59 (35-105) IU/L C-Reactive Protein 1.1 (0.0-4.9) mg/L Total Protein 7.6 (6.6-8.7) g/dL Albumin 4.5 (3.5-5.2) g/dL Globulin 3.1 (1.3-4.6) g/dL Lipase 56 (13-60) U/L HCG, Qual (Negative) Urine Color (Yellow) Urine Appearance (CLEAR) Urine pH (5-7) Ur Specific Gravit y (1.005-1.030) Urine Protein (Negative) Urine Glucose (UA) (Normal) Urine Ketones (Negative) Urine Blood (Negative) Urine Nitrate (Negative) Urine Bilirubin (NEGATIVE) Urine Urobilinogen (Negative) mg/dL Ur Leukocyte Yes[place] ase (Negative) Ethyl Alcohol < 10 (0-10) mg/dL Discharge Plan Discharge Patient Disposition: Home Clinical Impression: Abdominal pain Qualifiers: Abdominal location: epigastric Qualified Code(s): R10.13 - Epigastric pain Condition: Stable Prescriptions: Continued clonidine HCl 0.1 mg tablet 0.1 mg PO BEDTIME RF: 0 [place]on 6,000-19,000 -30,000 unit capsule,delayed release(DR/EC) 3 cap PO DAILY RF: 0 Vitamin B-12 1 tab PO DAILY RF: 0 hydroxyzine pamoate 25 mg Capsule 25 mg PO QID PRN (Reason: Anxiety) Qty: 30 RF: 0 pantoprazole [Protonix] 40 mg tablet,delayed release (DR/EC) 40 mg PO DAILY Qty: 30 RF: 0 promethazine [Promethegan] 25 mg suppository 25 mg [place] Q6H PRN (Reason: nausea and vomiting) Qty: 12 RF: 0 Discharge Orders: Discharge Order (Routine); Ordered 10/01/19 Ordered By: Glenn Mckenna Discharge Diet: Low Fat Discharge Activity: Resume usual activity Patient Instructions: Abdominal Pain (ED) Activity Restrictions/Additional Instructions: Return for any new or worsening symptoms. Follow-up with your primary care provider within 5 days. Discharge Date/Time: 10/01/19 17:48 Coding Level of Care Code ED [employer] for Chg Fwd Exam Comprehensive
[2019-10-01 14:52] VITALS: BP 116/88; PULSE 82; RESP 18; O2SAT 99
[2019-10-01 14:57] VITALS: RESP 18
[2019-10-01] MEDS: morphine 4 mg/mL SDV 1 mL IVP (14:57)
[2019-10-01] MEDS: ondansetron 2 mg/ML SDV 2 mL 4 MG IVP (14:58)
[2019-10-01 15:03] LABS: Basophils % 0.4 %; Eosinophils # 0.1 10^3/uL (0.0-0.8); Eosinophils % 0.6 %; Hematocrit 39.7 % (37.0-47.0); Hemoglobin 12.6 g/dL (11.5-15.3); Lymphocytes # 1.7 10^3/uL (0.8-4.8); Lymphocytes % 15.4 %; Mean Corpuscular HGB Conc 31.7 g/dL (30.0-36.0); Mean Corpuscular Hemoglobin 29.9 pg (28.0-34.0); Mean Corpuscular Volume 94.1 fL (81-99); Mean Platelet Volume 10.5 fL (7.4-10.4); Monocytes # 0.8 10^3/uL (0.2-0.9); Monocytes % 7.5 %; Neutrophils # 8.28 10^3/uL (1.8-7.7); Neutrophils % 75.8 %; Nucleated Red Blood Cells % 0 %; Platelet Count 241 10^3/cmm (130-400); Red Blood Count 4.22 10^6/uL (4.1-5.3); Red Cell Distribution Width 15.7 % (12.1-15.1); White Blood Count 10.9 10^3/uL (4.0-10.0)
[2019-10-01 15:03] LABS: Add Urine Microscopic? NO
[2019-10-01 15:10] LABS: Bilirubin Urine Neg (NEGATIVE); Blood Urine Neg (Negative); Glucose Urine UA Norm (Normal); Ketones Urine 1+ (Negative); Leukocyte Esterase Urine Negative (Negative); Nitrate Urine Negative (Negative); Protein Urine Neg (Negative); Specific Gravity, Urine 1.015 (1.005-1.030); Urine Appearance Clear (CLEAR); Urine Color Yellow (Yellow); Urobilinogen Urine Neg (Negative); pH Urine 5 (5-7)
[2019-10-01 15:12] LABS: HCG Qualitative Urine. Negative (Negative)
[2019-10-01 15:20] LABS: Alanine Aminotransferase 15 U/L (0-33); Albumin Level 4.5 g/dL (3.5-5.2); Alkaline Phosphatase 59 IU/L (35-105); Aspartate Amino Transferase 21 U/L (0-32); Blood Urea Nitrogen 7 mg/dL (6-20); C Reactive Protein 1.1 mg/L (0.0-4.9); Carbon Dioxide 20 mmol/L (22-29); Chloride 102 mmol/L (98-107); Globulin 3.1 g/dL (1.3-4.6); Glomerular Filtration Rate 98.2 mL/min (90-130); Glucose 87 mg/dL (65-115); Lipase 56 U/L (13-60); Osmolality Calculated 275 mOsm/kg (285-295); Sodium 135 mmol/L (136-145); Total Bilirubin 0.5 mg/dL (0.15-1.2); Total Protein 7.6 g/dL (6.6-8.7)
[2019-10-01 15:22] LABS: Alcohol Level < 10 mg/dL (0-10)
[2019-10-01 15:23] VITALS: BP 148/64; PULSE 99; RESP 18; O2SAT 98
[2019-10-01] MEDS: sodium chloride 0.9% 1,000 ML 999 ML IV (15:29)
[2019-10-01] MEDS: lidocaine 2% viscous 15 ML, aluminum-mag hydrox-simethicon 30 ML, sucralfate oral liq 1 GM PO (16:27)
[2019-10-01] MEDS: ketorolac 30 mg/mL INJ IVP (17:18)
[2019-10-01 17:45] VITALS: BP 143/96; PULSE 85; RESP 18; TEMP 36.6; O2SAT 97
== END 2019-10-01 17:48 | disposition home or self-care (01) ==
PROVIDERS: Emergency Provider Family Medicine
DX: R10.13 Epigastric pain (principal); F17.210 Nicotine dependence, cigarettes, uncomplicated
CPT/HCPCS: 12345; 36415; 80053; 80307; 81003; 81025; 83605; 83690; 85025; 86140; 96361; 96374; 96375; 99283; J1885; J2270; J2405; J7030

== ENCOUNTER 2019-10-02 20:15 | Observation (INO) | payer SELFPAY ==
[2019-03-17 16:03] VITALS: BP 150/82; BMI 18.3
[2019-10-02 20:21] VITALS: BP 137/98; PULSE 72; RESP 17; TEMP 36.8; O2SAT 100; BMI 16.0
[2019-10-02 20:31] VITALS: BP 140/93; PULSE 69; RESP 16; O2SAT 100
--- NOTE | 2019-10-02 20:38 | CTR_ITS ---
PROCEDURE INFORMATION: Exam: CT Abdomen And Pelvis With Contrast Exam date and time: 10/02/2019 8:51 PM Age: 34 years old Clinical indication: Abdominal pain; Prior surgery; Surgery date: 6+ months; Surgery type: Gb; Patient HX: C/O epigastric pain HX of pancreatitis TECHNIQUE: Imaging protocol: Computed tomography of the abdomen and pelvis with intravenous contrast. Radiation optimization: All CT scans at this facility use at least one of these dose optimization techniques: automated exposure control; mA and/or kV adjustment per patient size (includes targeted exams where dose is matched to clinical indication); or iterative reconstruction. Contrast material: OMNI 300; Contrast volume: 95 ml; Contrast route: INTRAVENOUS (IV); COMPARISON: CT abdomen pelvis w con* [id number] 08/02/2019 6:38 PM RADIATION DOSE METRICS: Total DLP (mGy-cm): 187.26 FINDINGS: Liver: Unremarkable.No mass. Gallbladder and bile ducts: There has been a cholecystectomy. There is no common bile duct dilation. Pancreas: There is mild peripancreatic inflammatory stranding and fluid, consistent with mild acute pancreatitis. No pseudocyst or pancreatic necrosis. Spleen: Normal. No splenomegaly. Adrenals: Normal. No mass. Kidneys and ureters: There is no evidence of hydronephrosis. There is no evidence of renal calcifications. Stomach and bowel: There is no evidence of intestinal perforation or obstruction. There is no evidence of colitis/diverticulitis. Appendix: No evidence of appendicitis. Intraperitoneal space: There is a small amount of fluid in the pelvis which is within physiologic limits for a menstruating female. Vasculature: Unremarkable.No abdominal aortic aneurysm. Lymph nodes: Unremarkable.No enlarged lymph nodes. Bladder: There is nonspecific bladder wall thickening. This may be related to incomplete distention. Reproductive: The uterus, ovaries and adnexa are unremarkable. Bones/joints: No acute bony abnormality. Soft tissues: Unremarkable. Other findings: There is levoscoliosis. CT/CT abdomen pelvis w con* [id number] IMPRESSION: There is mild peripancreatic inflammatory stranding and fluid, consistent with mild acute pancreatitis. No pseudocyst. Radiation Dose CTDIVOL = (mGy): DLP = 187.26 (mGy-cm)
[2019-10-02 20:51] LABS: Basophils % 0.5 %; Eosinophils # 0.1 10^3/uL (0.0-0.8); Eosinophils % 0.8 %; Hematocrit 36.3 % (37.0-47.0); Hemoglobin 11.4 g/dL (11.5-15.3); Lymphocytes # 1.7 10^3/uL (0.8-4.8); Lymphocytes % 20.2 %; Mean Corpuscular HGB Conc 31.4 g/dL (30.0-36.0); Mean Corpuscular Hemoglobin 29.9 pg (28.0-34.0); Mean Corpuscular Volume 95.3 fL (81-99); Mean Platelet Volume 10.3 fL (7.4-10.4); Monocytes # 0.5 10^3/uL (0.2-0.9); Monocytes % 6.5 %; Neutrophils # 5.98 10^3/uL (1.8-7.7); Neutrophils % 71.8 %; Nucleated Red Blood Cells % 0 %; Platelet Count 210 10^3/cmm (130-400); Red Blood Count 3.81 10^6/uL (4.1-5.3); Red Cell Distribution Width 15.8 % (12.1-15.1); White Blood Count 8.3 10^3/uL (4.0-10.0)
[2019-10-02 21:12] LABS: Alanine Aminotransferase 13 U/L (0-33); Albumin Level 4.2 g/dL (3.5-5.2); Alkaline Phosphatase 53 IU/L (35-105); Anion Gap 14.9 (5-19); Aspartate Amino Transferase 17 U/L (0-32); Blood Urea Nitrogen 4 mg/dL (6-20); C Reactive Protein 9.4 mg/L (0.0-4.9); Calcium 8.8 mg/dL (8.5-10.5); Carbon Dioxide 23 mmol/L (22-29); Chloride 105 mmol/L (98-107); Creatine Phosphokinase 41 U/L (26-192); Globulin 2.9 g/dL (1.3-4.6); Glomerular Filtration Rate 98.2 mL/min (90-130); Glucose 109 mg/dL (65-115); Osmolality Calculated 284 mOsm/kg (285-295); Potassium 3.9 mmol/L (3.5-5.1); Sodium 139 mmol/L (136-145); Total Bilirubin 0.2 mg/dL (0.15-1.2); Total Protein 7.1 g/dL (6.6-8.7)
[2019-10-02 21:19] LABS: Lipase 332 U/L (13-60)
[2019-10-02 21:25] LABS: Add Urine Microscopic? NO
[2019-10-02 21:33] LABS: Bilirubin Urine Neg (NEGATIVE); Blood Urine Neg (Negative); Glucose Urine UA Norm (Normal); HCG Qualitative Urine. Negative (Negative); Ketones Urine 1+ (Negative); Leukocyte Esterase Urine Negative (Negative); Nitrate Urine Negative (Negative); Protein Urine Neg (Negative); Specific Gravity, Urine 1.005 (1.005-1.030); Urine Appearance Clear (CLEAR); Urine Color Yellow (Yellow); Urobilinogen Urine Norm (Negative); pH Urine 5 (5-7)
[2019-10-02 21:39] LABS: Amphetamines Screen Urine Negative (Negative); Barbiturates Screen Urine Negative (Negative); Benzodiazepines Screen Urine Negative (Negative); Cocaine Screen Urine Negative (Negative); Opiate Screen Urine Positive (Negative); PCP Screen Urine Negative (Negative); THC Screen Urine Negative (Negative)
[2019-10-02] MEDS: iohexol 300 mg/mL 100 mL Btl IV (21:50)
--- NOTE | 2019-10-02 21:50 | ED_ITS ---
HPI - Abdominal Pain General: Chief Complaint: Abdominal Pain Stated Complaint: ABDOMINAL PAIN Time Seen by Provider: 10/02/19 20:33 Source: patient Mode of arrival: EMS Limitations: no limitations History of Present Illness: HPI narrative: Patient was seen here yesterday for the same thing. She has a history of chronic pancreatitis, however lipase done yesterday was negative. She was given intravenous pain medication which resolved her pain and she felt better. She was discharged home with no new orders. Sometime to be her pain started again and has been gradually worsening. She is therefore here again to be evaluated. She has nausea but no vomiting MD elicited complaint: abdominal pain Associated Symptoms: Reports nausea; Denies bloating, chills, GI cramping, diarrhea, dysuria, fever(s) and vomiting Related Data: Date of Last Menstrual Period: 09/18/19 Review of Systems General: Reports: 10 or more systems reviewed and unremarkable except in HPI and below Const: Denies: fever(s), chills or body aches Eyes: Denies: change in vision or blurry vision ENMT: Denies: throat pain, enlarged tonsils, odynophagia, hoarseness, mouth pain or swelling of lips/tongue Card: Denies: palpitations, irregular heart rhythm, edema or swelling of feet/ankles Resp: Denies: dyspnea, productive cough or non-productive cough GI: Reports: abdominal pain and nausea; Denies: vomiting, early satiety, diarrhea, bloating or GI cramping : Denies: flank pain, difficulty voiding, dysuria, urinary frequency, urinary urgency or urinary hesitancy Musc: Denies: neck pain, back pain or extremity swelling Skin/Breast: Denies: rash, pruritus or erythema Neuro: Denies: headache(s), numbness in extremities or weakness in extremities Endo: Denies: polyuria, polydipsia or tired all the time PFSH ED PFSH: Medical History (Reviewed 10/02/19 @ 21:56 by Glenn Mckenna MD, [facility] – [place]) Abnormal endoscopy of upper gastrointestinal tract Gastritis Alcohol use disorder In remission per pt Chronic pancreatitis Depression Pancreatitis Tobacco abuse Surgical History History of vaginal delivery Hx of cholecystectomy Family History (Reviewed 10/02/19 @ 21:56 by Glenn Mckenna MD, [facility] – [place]) Denies family history of Hyperlipidemia Lung disease Hypertension Social History (Reviewed 10/02/19 @ 21:56 by Glenn Mckenna MD, [facility] – [place]) Smoking and tobacco status: current every day smoker Alcohol intake: former Former alcohol use details: She is stating that her last drink was about a year ago Other details last alcohol use: Pt states she has not been drinking recently Lives independently: Yes Housing: House Current gender identity: Female Female Reproductive History: Date of last menstrual period: 09/18/19 Physical Exam Const: COMMON NORMALS: average body habitus, patient oriented x3, no limitations, healthy appearing, alert and well nourished GENERAL APPEARANCE: in distress HENMT: COMMON NORMALS: normocephalic, atraumatic and moist oral mucous membranes HEAD & SCALP: normocephalic and atraumatic Neck/C-Spine: COMMON NORMALS: no meningeal signs and no JVD Resp: COMMON NORMALS: normal respiratory effort, No retractions, No use of accessory muscles, clear to auscultation bilaterally and percussion normal AUSCULTATION: clear to auscultation bilaterally PERCUSSION: percussion normal Cardio: COMMON NORMALS: no JVD, regular rate, regular rhythm, S1 normal heart sound present, S2 normal heart sound present, No gallops present (Cardio), No clicks present (Cardio), No murmurs present (Cardio), No rub (Cardio) and Peripheral pulses 2+ throughout RATE: regular rate RHYTHM: regular rhythm HEART SOUNDS: S1 normal heart sound present and S2 normal heart sound present PERIPHERAL PULSES: Peripheral pulses 2+ throughout GI: COMMON NORMALS: Normal to inspection, nondistended, normoactive bowel sounds present, Soft to palpation, No hepatosplenomegaly present, no masses and no bruits PALPATION: Yes Soft to palpation, Yes Tenderness to palpation present (GI) (epigastric) and Yes No hepatosplenomegaly present : COMMON NORMALS: Yes no CVA tenderness BLADDER/KIDNEY EXAM: Yes no CVA tenderness Back/Pelvis: COMMON NORMALS: no CVA tenderness Extremity: COMMON NORMALS: normal to inspection, full ROM, capillary refill normal, no calf tenderness and no pedal edema Neuro: COMMON NORMALS: patient oriented x3 SENSORIUM/ORIENTATION: Yes alert MENINGEAL SIGNS: Yes no meningeal signs Course ED course: 34-year-old female with a history of pancreatitis presents to the emergency department with epigastric pain. She was seen yesterday for the same thing but at that time her lipase numbers were normal. She comes back today with elevation of her lipase consistent with pancreatitis. CT scan findings are also consistent with pancreatitis. Because she has returned twice in less than 24 hours she is admitted under observation status for further evaluation and management. Consultations: Consultation #1: Dr. Michelle, hospitalist. She kindly accepted the patient to her service Time: 23:15 Vital Signs: Vital signs: Vital Signs Temperature 98.2 F 10/02/19 20:21 Pulse Rate 69 10/02/19 20:31 Respiratory Rate 16 10/02/19 21:57 Blood Pressure 140/93 10/02/19 20:31 Pulse Oximetry 100 10/02/19 20:31 MDM - Abdominal Pain MDM Narrative: Medical decision making narrative: 34-year-old female with uncomplicated acute pancreatitis. She is admitted for management and further evaluation. Medical Records: Attestation: I reviewed the patient's medical records. Lab Data: Attestation: I reviewed the patient's lab results. Labs: Lab Results 10/02/19 10/02/19 10/02/19 Range/Units 20:41 20:41 20:47 WBC 8.3 (4.0-10.0) 10^3/ uL RBC 3.81 L (4.1-5.3) 10^6/u L Hgb 11.4 L (11.5-15.3) g/dL Hct 36.3 L (37.0-47.0) % MCV 95.3 (81-99) fL MCH 29.9 (28.0-34.0) pg MCHC 31.4 (30.0-36.0) g/dL RDW 15.8 H (12.1-15.1) % Plt Count 210 (130-400) 10^3/c mm MPV 10.3 (7.4-10.4) fL Neut % (Auto) 71.8 % Lymph % (Auto) 20.2 % [place] % (Auto) 6.5 % Eos % (Auto) 0.8 % Baso % (Auto) 0.5 % Neut # (Auto) 5.98 (1.8-7.7) 10^3/u L Lymph # (Auto) 1.7 (0.8-4.8) 10^3/u L [place] # (Auto) 0.5 (0.2-0.9) 10^3/u L Eos # (Auto) 0.1 (0.0-0.8) 10^3/u L Baso # (Auto) 0.0 (0.0-0.1) 10^3/u L Nucleated RBC % (a uto) 0 % Nucleated RBCs # 0.0 /100WBC Sodium 139 (136-145) mmol/L Potassium 3.9 (3.5-5.1) mmol/L Chloride 105 (98-107) mmol/L Carbon Dioxide 23 (22-29) mmol/L Anion Gap 14.9 (5-19) BUN 4 L (6-20) mg/dL Creatinine 0.8 (0.5-0.9) mg/dL GFR Calculation 98.2 (90-130) mL/min Glucose 109 (65-115) mg/dL Calculated Osmolal ity 284 L (285-295) mOsm/k g Calcium 8.8 (8.5-10.5) mg/dL Total Bilirubin 0.2 (0.15-1.2) mg/dL AST 17 (0-32) U/L ALT 13 (0-33) U/L Alkaline Phosphata se 53 (35-105) IU/L Creatine Kinase 41 (26-192) U/L C-Reactive Protein 9.4 H (0.0-4.9) mg/L Total Protein 7.1 (6.6-8.7) g/dL Albumin 4.2 (3.5-5.2) g/dL Globulin 2.9 (1.3-4.6) g/dL Lipase 332 H (13-60) U/L HCG, Qual Negative (Negative) Urine Color (Yellow) Urine Appearance (CLEAR) Urine pH (5-7) Ur Specific Gravit y (1.005-1.030) Urine Protein (Negative) Urine Glucose (UA) (Normal) Urine Ketones (Negative) Urine Blood (Negative) Urine Nitrate (Negative) Urine Bilirubin (NEGATIVE) Urine Urobilinogen (Negative) mg/dL Ur Leukocyte Yesenia ase (Negative) Urine Opiates Scre en (Negative) ng/mL Ur Barbiturates Sc reen (Negative) ng/mL Ur Phencyclidine S crn (Negative) ng/mL Ur Amphetamines Sc reen (Negative) ng/mL U Benzodiazepines Scrn (Negative) ng/mL Urine Cocaine Scre en (Negative) ng/mL U Marijuana (THC) Screen (Negative) ng/mL 10/02/19 10/02/19 Range/Units 20:47 20:47 WBC (4.0-10.0) 10^3/ uL RBC (4.1-5.3) 10^6/u L Hgb (11.5-15.3) g/dL Hct (37.0-47.0) % MCV (81-99) fL MCH (28.0-34.0) pg MCHC (30.0-36.0) g/dL RDW (12.1-15.1) % Plt Count (130-400) 10^3/c mm MPV (7.4-10.4) fL Neut % (Auto) % Lymph % (Auto) % [place] % (Auto) % Eos % (Auto) % Baso % (Auto) % Neut # (Auto) (1.8-7.7) 10^3/u L Lymph # (Auto) (0.8-4.8) 10^3/u L [place] # (Auto) (0.2-0.9) 10^3/u L Eos # (Auto) (0.0-0.8) 10^3/u L Baso # (Auto) (0.0-0.1) 10^3/u L Nucleated RBC % (a uto) % Nucleated RBCs # /100WBC Sodium (136-145) mmol/L Potassium (3.5-5.1) mmol/L Chloride (98-107) mmol/L Carbon Dioxide (22-29) mmol/L Anion Gap (5-19) BUN (6-20) mg/dL Creatinine (0.5-0.9) mg/dL GFR Calculation (90-130) mL/min Glucose (65-115) mg/dL Calculated Osmolal ity (285-295) mOsm/k g Calcium (8.5-10.5) mg/dL Total Bilirubin (0.15-1.2) mg/dL AST (0-32) U/L ALT (0-33) U/L Alkaline Phosphata se (35-105) IU/L Creatine Kinase (26-192) U/L C-Reactive Protein (0.0-4.9) mg/L Total Protein (6.6-8.7) g/dL Albumin (3.5-5.2) g/dL Globulin (1.3-4.6) g/dL Lipase (13-60) U/L HCG, Qual (Negative) Urine Color Yellow (Yellow) Urine Appearance Clear (CLEAR) Urine pH 5 (5-7) Ur Specific Gravit y 1.005 (1.005-1.030) Urine Protein Neg (Negative) Urine Glucose (UA) Norm (Normal) Urine Ketones 1+ H (Negative) Urine Blood Neg (Negative) Urine Nitrate Negative (Negative) Urine Bilirubin Neg (NEGATIVE) Urine Urobilinogen Norm (Negative) mg/dL Ur Leukocyte Yesenia ase Negative (Negative) Urine Opiates Scre en Positive H (Negative) ng/mL Ur Barbiturates Sc reen Negative (Negative) ng/mL Ur Phencyclidine S crn Negative (Negative) ng/mL Ur Amphetamines Sc reen Negative (Negative) ng/mL U Benzodiazepines Scrn Negative (Negative) ng/mL Urine Cocaine Scre en Negative (Negative) ng/mL U Marijuana (THC) Screen Negative (Negative) ng/mL Imaging Data ^: CT Abd/Pel: Radiologist's impression: [place] [address] CT Scan Report Signed Patient: Benjamin Barone #: [id number] : 1985Acct#:[id number] Age/Sex: 34 / FADM Date: 10/02/19 Loc: ERRoom/Bed: Attending Dr: Ordering Provider/Ordering MD: Glenn Mckenna MD, [facility] – [place] Date of Service: 10/02/19 Procedure(s): CT abdomen pelvis w con* [id number] Accession Number(s): [id number] Report Number: [id number] PROCEDURE INFORMATION: Exam: CT Abdomen And Pelvis With Contrast Exam date and time: 10/02/2019 8:51 PM Age: 34 years old Clinical indication: Abdominal pain; Prior surgery; Surgery date: 6+ months; Surgery type: Gb; Patient HX: C/O epigastric pain HX of pancreatitis TECHNIQUE: Imaging protocol: Computed tomography of the abdomen and pelvis with intravenous contrast. Radiation optimization: All CT scans at this facility use at least one of these dose optimization techniques: automated exposure control; mA and/or kV adjustment per patient size (includes targeted exams where dose is matched to clinical indication); or iterative reconstruction. Contrast material: OMNI 300; Contrast volume: 95 ml; Contrast route: INTRAVENOUS (IV); COMPARISON: CT abdomen pelvis w con* [id number] 08/02/2019 6:38 PM RADIATION DOSE METRICS: Total DLP (mGy-cm): 187.26 FINDINGS: Liver: Unremarkable.No mass. Gallbladder and bile ducts: There has been a cholecystectomy. There is no common bile duct dilation. Pancreas: There is mild peripancreatic inflammatory stranding and fluid, consistent with mild acute pancreatitis. No pseudocyst or pancreatic necrosis. Spleen: Normal. No splenomegaly. Adrenals: Normal. No mass. Kidneys and ureters: There is no evidence of hydronephrosis. There is no evidence of renal calcifications. Stomach and bowel: There is no evidence of intestinal perforation or obstruction. There is no evidence of colitis/diverticulitis. Appendix: No evidence of appendicitis. Intraperitoneal space: There is a small amount of fluid in the pelvis which is within physiologic limits for a menstruating female. Vasculature: Unremarkable.No abdominal aortic aneurysm. Lymph nodes: Unremarkable.No enlarged lymph nodes. Bladder: There is nonspecific bladder wall thickening. This may be related to incomplete distention. Reproductive: The uterus, ovaries and adnexa are unremarkable. Bones/joints: No acute bony abnormality. Soft tissues: Unremarkable. Other findings: There is levoscoliosis. CT/CT abdomen pelvis w con* [id number] IMPRESSION: There is mild peripancreatic inflammatory stranding and fluid, consistent with mild acute pancreatitis. No pseudocyst. Radiation Dose CTDIVOL = (mGy): DLP = 187.26 (mGy-cm) Dictated By:Quyen Rios Signed By:Britney Rios Date/Time:10/02/192212 DD/ 11 Discharge Plan Discharge Patient Disposition: Placed in Observation Clinical Impression: Acute pancreatitis Condition: Stable Prescriptions: No Action clonidine HCl 0.1 mg tablet 0.1 mg PO BEDTIME RF: 0 Creon 6,000-19,000 -30,000 unit capsule,delayed release(DR/EC) 3 cap PO DAILY RF: 0 Vitamin B-12 1 tab PO DAILY RF: 0 hydroxyzine pamoate 25 mg Capsule 25 mg PO QID PRN (Reason: Anxiety) Qty: 30 RF: 0 pantoprazole [Protonix] 40 mg tablet,delayed release (DR/EC) 40 mg PO DAILY Qty: 30 RF: 0 promethazine [Promethegan] 25 mg suppository 25 mg NV Q6H PRN (Reason: nausea and vomiting) Qty: 12 RF: 0 Coding Level of Care Code ED Filenet Developer for Chg Fwd Exam Comprehensive
[2019-10-02 21:57] VITALS: RESP 16
[2019-10-02] MEDS: morphine 4 mg/mL SDV 1 mL IVP (21:57)
[2019-10-02] MEDS: ondansetron 2 mg/ML SDV 2 mL 4 MG IVP (21:57)
[2019-10-02] MEDS: sodium chloride 0.9% 1,000 ML 999 ML IV (21:58)
[2019-10-02 23:50] VITALS: BP 144/84; PULSE 59; RESP 16; O2SAT 100
[2019-10-02] MEDS: sodium chloride 0.9% 1,000 ML 100 ML IV (23:50)
--- NOTE | 2019-10-02 23:51 | P.HP_ITS ---
Providers/Chief Complaint Admitting Physician: Stephie Michelle MD Primary Care Provider: none Chief Complaint: ABDOMINAL PAIN History of Present Illness Vanita Barone is a 34 year old female with history of chronic alcoholic pancreatitis who presented to the emergency room with a acute abdominal pain starting around 1:00 on 01 October. She had similar pain yesterday but at the time had normal lipase. She has had some nausea associated but no vomiting or diarrhea. Pain is located in the epigastric region and goes through to her back. It is rated at an 8 out of 10 and described as sharp. It is been fairly constant today. It has worsened since she was in the emergency room yesterday. Last hospitalization was more than a month ago. Nothing that she is tried at home is helped. In the emergency room today, she was found to have a lipase of 332 and a CRP of 9.4. These were up from prior values. CT of the abdomen was done and did show some mild peripancreatic inflammation. She required several doses of pain medicine in the emergency room. She is already received 2 L of fluid. She is being admitted for further management. She had an MRCP in July of this year done at our facility. Review of Systems Const: Reports: change in appetite and malaise; Denies: fever(s) or chills Eyes: Denies: change in vision ENMT: Reports: dry mouth; Denies: throat pain or nasal congestion Card: Denies: chest pain, palpitations or edema Resp: Denies: dyspnea, productive cough or non-productive cough GI: Reports: abdominal pain and nausea; Denies: vomiting, diarrhea or constipation : Denies: difficulty voiding Musc: Denies: joint swelling, joint redness or muscle weakness Skin/Breast: Reports: dry skin; Denies: rash or pruritus Neuro: Denies: headache(s), numbness in extremities, weakness in extremities or dizziness Psych: Denies: anxiety or depression [place]/Lymph: Denies: easy bruising or easy bleeding Medications/Allergies Home Medications Medication Instructions Recorded Confirmed Last Taken Type Creon 3 cap PO DAILY 07/01/19 07/30/19 07/01/19 History Vitamin B-12 1 tab PO DAILY 07/01/19 07/30/19 07/30/19 History clonidine HCl 0.1 mg PO BEDTIME 07/01/19 07/30/19 07/29/19 History hydroxyzine pamoate 25 mg PO QID PRN #30 cap 07/03/19 07/30/19 Unknown Rx pantoprazole [Protonix] 40 mg PO DAILY #30 tab 07/03/19 07/30/19 07/30/19 Rx promethazine [Promethegan] 25 mg ND Q6H PRN #12 each 07/03/19 07/30/19 Unknown Rx Allergies Allergy/AdvReac Type Severity Reaction Status Date / Time No Known Allergies Allergy Verified 10/02/19 20:27 Additional Medication Information Medications listed above are what patient has been previously prescribed. She has not had the prescriptions filled since she was here in July and is not currently taking those medications. PFSH Acute PFSH: Medical History (Updated 10/03/19 @ 00:08 by Stephie Michelle MD) Abnormal endoscopy of upper gastrointestinal tract (~05/2019) NSAID induced gastritis Alcohol use disorder In remission per pt Chronic pancreatitis Depression Surgical History History of vaginal delivery Hx of cholecystectomy Family History Denies family history of Hyperlipidemia Lung disease Hypertension Social History Smoking and tobacco status: current every day smoker Alcohol intake: former Other details last alcohol use: Pt states she has not been drinking recently Lives independently: Yes Housing: House Current gender identity: Female Female Reproductive History: Date of last menstrual period: 09/18/19 Vitals/I&O/Wt Last Vital Signs Temp 98.2 F 10/02/19 20:21 Pulse 59 L 10/02/19 23:50 Resp 16 10/02/19 23:50 BP 144/84 10/02/19 23:50 Pulse Ox 100 10/02/19 23:50 Weight last 48 hrs Weight 47.627 kg Physical Exam Const: COMMON NORMALS: patient oriented x3 and alert HENMT: COMMON NORMALS: normocephalic and atraumatic Eye: COMMON NORMALS: Equal, round and reactive pupils present and EOMs intact bilaterally Neck/C-Spine: COMMON NORMALS: supple Lymph: LYMPHATIC: no lymphadenopathy noted Resp: COMMON NORMALS: normal respiratory effort, No use of accessory muscles and clear to auscultation bilaterally Cardio: COMMON NORMALS: regular rate, regular rhythm, No gallops present (Cardio), No murmurs present (Cardio) and No rub (Cardio) GI: COMMON NORMALS: Soft to palpation AUSCULTATION: Yes Hypoactive bowel sounds present PALPATION: Yes Tenderness to palpation present (GI) (In the epigastrium), No Guarding due to palpation present (GI) and No Rebound tenderness present PERCUSSION: normal to percussion Extremity: COMMON NORMALS: capillary refill normal, no clubbing, cyanosis or edema and no calf tenderness Neuro: COMMON NORMALS: moves all extremities and no sensory deficits noted SENSORIUM/ORIENTATION: Yes alert SPEECH: speech normal Psych: COMMON NORMALS: Normal thought process present and cooperative Skin: COMMON NORMALS: no rashes or lesions noted and no mottling Data : 10/02/19 20:41 10/02/19 20:41 Other Labs: Liver Function 10/02/19 Range/Units 20:41 Total Bilirubin 0.2 (0.15-1.2) mg/dL AST 17 (0-32) U/L ALT 13 (0-33) U/L Alkaline Phosphatase 53 (35-105) IU/L Albumin 4.2 (3.5-5.2) g/dL Urine 10/02/19 Range/Units 20:47 Urine Color Yellow (Yellow) Urine Appearance Clear (CLEAR) Urine pH 5 (5-7) Ur Specific [place] 1.005 (1.005-1.030) Urine Protein Neg (Negative) Urine Glucose (UA) Norm (Normal) Laboratory Tests 10/02/19 10/02/19 10/02/19 20:41 20:47 20:47 C-Reactive Protein 9.4 H Lipase 332 H HCG, Qual Negative Urine Opiates Screen Positive H CT Abd/Pel: Radiologist's impression: FINDINGS: Liver: Unremarkable.No mass. Gallbladder and bile ducts: There has been a cholecystectomy. There is no common bile duct dilation. Pancreas: There is mild peripancreatic inflammatory stranding and fluid, consistent with mild acute pancreatitis. No pseudocyst or pancreatic necrosis. Spleen: Normal. No splenomegaly. Adrenals: Normal. No mass. Kidneys and ureters: There is no evidence of hydronephrosis. There is no evidence of renal calcifications. Stomach and bowel: There is no evidence of intestinal perforation or obstruction. There is no evidence of colitis/diverticulitis. Appendix: No evidence of appendicitis. Intraperitoneal space: There is a small amount of fluid in the pelvis which is within physiologic limits for a menstruating female. Vasculature: Unremarkable.No abdominal aortic aneurysm. Lymph nodes: Unremarkable.No enlarged lymph nodes. Bladder: There is nonspecific bladder wall thickening. This may be related to incomplete distention. Reproductive: The uterus, ovaries and adnexa are unremarkable. Bones/joints: No acute bony abnormality. Soft tissues: Unremarkable. Other findings: There is levoscoliosis. CT/CT abdomen pelvis w con* [id number] IMPRESSION: There is mild peripancreatic inflammatory stranding and fluid, consistent with mild acute pancreatitis. No pseudocyst. A&P Assessment and plan (1) Acute pancreatitis: In a patient with known chronic alcoholic pancreatitis Status: Acute Qualifiers: Pancreatitis type: unspecified pancreatitis type Acute pancreatitis complication: no infection or necrosis Qualified Code(s): K85.90 - Acute pancreatitis without necrosis or infection, unspecified (2) Elevated C-reactive protein (CRP): Status: Acute (3) Depression: Status: Chronic Qualifiers: Depression Type: major depressive disorder Major depression recurrence: recurrent Active/Remission status: remission status unspecified Qualified Code(s): F33.9 - Major depressive disorder, recurrent, unspecified (4) Nicotine dependence, cigarettes, uncomplicated: Status: Chronic Additional A&P Information Observation admission IV fluids Pain control Clear liquids only Reevaluate in the morning Supportive care otherwise Nicotine patch if needed Lovenox for DVT prophylaxis PPI for GI prophylaxis Plans discussed with patient and she was given an opportunity to ask questions Full code Attestations Medical Necessity Statement*: Anticipated stay less than 2 midnights currently in a patient with known chronic pancreatitis with some mild peripancreatic inflammation. She has had 2 ER visits in the last 48 hours. Hopefully with initiation of pain control and fluids we can get her symptoms under control. Coding Level of Care Code Acute Supervisor Cell Operation for Anurag [place] Diagnoses Acute pancreatitis K85.90 Pancreatitis type: unspecified pancreatitis type Acute pancreatitis complication: no infection or necrosis Elevated C-reactive protein (CRP) R79.82 Depression F33.9 Depression Type: major depressive disorder Major depression recurrence: recurrent Active/Remission status: remission status unspecified Nicotine dependence, cigarettes, uncomplicated F17.210
[2019-10-03] VITALS (10 sets, daily range): BP systolic 123–144; BP diastolic 76–92; PULSE 52–73; RESP 16–18; TEMP 36.4–37.1; O2SAT 99–100
[2019-10-03] MEDS: sodium chlor 0.9% + KCl 20 mEq 20 MEQ/1,000 ML BAG 100 MEQ IV ×3 (01:02→21:09)
[2019-10-03] MEDS: enoxaparin 40 mg/0.4 mL Syringe SUBCUT (01:02)
[2019-10-03] MEDS: morphine 4 mg/mL SDV 1 mL IVP ×4 (02:30→21:19)
[2019-10-03 04:54] LABS: Basophils % 0.3 %; Eosinophils # 0.1 10^3/uL (0.0-0.8); Eosinophils % 1.3 %; Hematocrit 33.5 % (37.0-47.0); Hemoglobin 10.5 g/dL (11.5-15.3); Lymphocytes # 2.2 10^3/uL (0.8-4.8); Lymphocytes % 24.9 %; Mean Corpuscular HGB Conc 31.3 g/dL (30.0-36.0); Mean Corpuscular Hemoglobin 30.1 pg (28.0-34.0); Mean Platelet Volume 11.2 fL (7.4-10.4); Monocytes # 0.5 10^3/uL (0.2-0.9); Monocytes % 5.5 %; Neutrophils # 5.86 10^3/uL (1.8-7.7); Neutrophils % 67.8 %; Nucleated Red Blood Cells % 0 %; Platelet Count 197 10^3/cmm (130-400); Red Blood Count 3.49 10^6/uL (4.1-5.3); Red Cell Distribution Width 15.7 % (12.1-15.1); White Blood Count 8.7 10^3/uL (4.0-10.0)
[2019-10-03 05:12] LABS: Alanine Aminotransferase 10 U/L (0-33); Albumin Level 3.7 g/dL (3.5-5.2); Alkaline Phosphatase 45 IU/L (35-105); Anion Gap 11.9 (5-19); Aspartate Amino Transferase 13 U/L (0-32); Blood Urea Nitrogen 3 mg/dL (6-20); Calcium 8.2 mg/dL (8.5-10.5); Carbon Dioxide 21 mmol/L (22-29); Chloride 110 mmol/L (98-107); Globulin 2.2 g/dL (1.3-4.6); Glomerular Filtration Rate 114.6 mL/min (90-130); Glucose 96 mg/dL (65-115); Magnesium 2.1 mg/dL (1.7-2.3); Osmolality Calculated 283 mOsm/kg (285-295); Potassium 3.9 mmol/L (3.5-5.1); Sodium 139 mmol/L (136-145); Total Bilirubin 0.2 mg/dL (0.15-1.2); Total Protein 5.9 g/dL (6.6-8.7)
[2019-10-03 05:13] LABS: Lipase 206 U/L (13-60)
[2019-10-03] MEDS: lipase-protease-amylase Capsule 2 EACH PO ×3 (08:12→17:51)
[2019-10-03] MEDS: pantoprazole DR 40 mg Tablet PO (08:12)
[2019-10-03] MEDS: HYDROcodone-acetaminophen 5-325 mg Tablet 1 TAB PO ×2 (09:52→14:32)
[2019-10-03] MEDS: promethazine 25 mg Tablet 12.5 MG PO (09:52)
[2019-10-03] MEDS: hyDROXYzine 25 mg Capsule 50 MG PO (12:09)
--- NOTE | 2019-10-03 21:47 | PM.PN ---
Subjective Subjective: Interval history: Still persistent dental pain. Very poor oral intake of food or drink. Had a minimal amount of broth. Vitals/I&O/Wt Last Vital Signs Temp 98 F 10/03/19 20:00 Pulse 66 10/03/19 20:00 Resp 18 10/03/19 21:19 BP 144/92 10/03/19 20:00 Pulse Ox 99 10/03/19 20:00 10/03/19 10/03/19 10/03/19 06:59 14:59 22:59 Intake Total 1726.667 / 7075.591 5877 / 2794.667 Output Total 700 / 700 500 / 1200 Balance 1026.667 / 1026.667 568 / 1594.667 Weight last 48 hrs Weight 47.627 kg Physical Exam Const: COMMON NORMALS: no acute distress and patient oriented x3 OTHER: Uncomfortable due to abdominal pain. HENMT: COMMON NORMALS: oropharynx normal Neck/C-Spine: COMMON NORMALS: no JVD Resp: COMMON NORMALS: normal respiratory effort and clear to auscultation bilaterally AUSCULTATION: clear to auscultation bilaterally Cardio: COMMON NORMALS: no JVD, regular rhythm, S1 normal heart sound present, S2 normal heart sound present and No murmurs present (Cardio) RHYTHM: regular rhythm HEART SOUNDS: S1 normal heart sound present and S2 normal heart sound present GI: COMMON NORMALS: Normal to inspection, nondistended, normoactive bowel sounds present and Soft to palpation PALPATION: Yes Soft to palpation and Yes Tenderness to palpation present (GI) (Some diffuse, but the worst at the epigastrium) Extremity: COMMON NORMALS: no joint enlargement and no pedal edema Neuro: COMMON NORMALS: patient oriented x3 and moves all extremities Skin: COMMON NORMALS: no rashes or lesions noted GENERAL SKIN EXAM: no rashes or lesions noted Data : 10/03/19 04:34 10/03/19 04:34 A&P Assessment and plan (1) Acute pancreatitis: Reports she quit drinking alcohol about 3 years ago. Since then has had at least 3 episodes of recurrent pancreatitis. Will assess with gallbladder ultrasound to get a closer look at the bile ducts. She is previously had cholecystectomy, although choledocholithiasis is still a possibility. Did have MRCP on 07/30/2019 which was unrevealing. Triglycerides previously checked multiple times, and were not elevated. Calcium is not elevated. Discussed with her that smoking in some instances can trigger pancreatitis, and warned her to avoid smoking to reduce chance of recurrent disease. Discussed with her also that she would benefit from assessment by gastroenterology due to recurrent episodes of pancreatitis despite alcohol cessation, for additional evaluation. This may include endoscopic ultrasound, possibly ERCP, any other work-up at the discretion of the raking machine operator. She verbalized understanding. Previously known chronic alcoholic pancreatitis. Currently acute pancreatitis is confirmed by CT scan. She is still having pain, very poor oral intake. Continue IV hydration, symptomatic support. Will continue observation. Recheck lipase. Status: Acute Qualifiers: Pancreatitis type: unspecified pancreatitis type Acute pancreatitis complication: no infection or necrosis Qualified Code(s): K85.90 - Acute pancreatitis without necrosis or infection, unspecified (2) Elevated C-reactive protein (CRP): Status: Acute (3) Depression: She states that she gets stressed out easily, although says overall does not have severe depression. She says she follows up with a caser at [facility]. Status: Chronic Qualifiers: Depression Type: major depressive disorder Major depression recurrence: recurrent Active/Remission status: remission status unspecified Qualified Code(s): F33.9 - Major depressive disorder, recurrent, unspecified (4) Nicotine dependence, cigarettes, uncomplicated: Encourage cessation as insomnia sepsis smoking can trigger acute pancreatitis. Status: Chronic Attestations Medical Necessity Statement*: Continue hospitalization for supportive care due to episode of acute pancreatitis, with continued abdominal pain, poor oral intake. 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
[2019-10-04] VITALS (9 sets, daily range): BP systolic 111–153; BP diastolic 67–92; PULSE 56–68; RESP 14–20; TEMP 36.4–37; O2SAT 98–100
[2019-10-04] MEDS: enoxaparin 40 mg/0.4 mL Syringe SUBCUT ×2 (00:31→23:13)
[2019-10-04] MEDS: morphine 4 mg/mL SDV 1 mL IVP ×2 (01:22→05:44)
[2019-10-04 04:27] LABS: Basophils % 0.4 %; Eosinophils # 0.1 10^3/uL (0.0-0.8); Eosinophils % 2.1 %; Hematocrit 33.4 % (37.0-47.0); Hemoglobin 10.2 g/dL (11.5-15.3); Lymphocytes # 2.5 10^3/uL (0.8-4.8); Lymphocytes % 36.7 %; Mean Corpuscular HGB Conc 30.5 g/dL (30.0-36.0); Mean Corpuscular Hemoglobin 30.1 pg (28.0-34.0); Mean Corpuscular Volume 98.5 fL (81-99); Mean Platelet Volume 10.8 fL (7.4-10.4); Monocytes # 0.4 10^3/uL (0.2-0.9); Monocytes % 5.7 %; Neutrophils # 3.65 10^3/uL (1.8-7.7); Neutrophils % 54.8 %; Nucleated Red Blood Cells % 0 %; Platelet Count 176 10^3/cmm (130-400); Red Blood Count 3.39 10^6/uL (4.1-5.3); Red Cell Distribution Width 15.3 % (12.1-15.1); White Blood Count 6.7 10^3/uL (4.0-10.0)
[2019-10-04 04:45] LABS: Alanine Aminotransferase 9 U/L (0-33); Albumin Level 3.5 g/dL (3.5-5.2); Alkaline Phosphatase 43 IU/L (35-105); Anion Gap 11.1 (5-19); Aspartate Amino Transferase 12 U/L (0-32); Blood Urea Nitrogen 2 mg/dL (6-20); Calcium 8.1 mg/dL (8.5-10.5); Carbon Dioxide 22 mmol/L (22-29); Chloride 108 mmol/L (98-107); Globulin 2.4 g/dL (1.3-4.6); Glomerular Filtration Rate 136.9 mL/min (90-130); Glucose 77 mg/dL (65-115); Lipase 113 U/L (13-60); Osmolality Calculated 278 mOsm/kg (285-295); Potassium 4.1 mmol/L (3.5-5.1); Sodium 137 mmol/L (136-145); Total Bilirubin 0.2 mg/dL (0.15-1.2); Total Protein 5.9 g/dL (6.6-8.7)
[2019-10-04] MEDS: HYDROcodone-acetaminophen 5-325 mg Tablet 1 TAB PO ×5 (05:18→23:14)
[2019-10-04] MEDS: sodium chlor 0.9% + KCl 20 mEq 20 MEQ/1,000 ML BAG 100 MEQ IV ×2 (05:47→16:58)
[2019-10-04] MEDS: bisacodyl 5 mg Tablet 10 MG PO (08:29)
[2019-10-04] MEDS: pantoprazole DR 40 mg Tablet PO (08:29)
[2019-10-04] MEDS: lipase-protease-amylase Capsule 2 EACH PO ×3 (08:29→16:57)
--- NOTE | 2019-10-04 08:33 | PC.NURSE ---
patient reports abdominal pain with movement or exertion, but tolerable while laying still, discussed plan of care including pain management, verbalized understanding, denies further questions or concerns.
--- NOTE | 2019-10-04 12:05 | PC.RESP ---
Smoking Cessation information sent to patient.
--- NOTE | 2019-10-04 12:46 | PM.PN ---
Subjective Subjective: Interval history: Still having abdominal pain today. Poor appetite. She can only a small amount of oral liquid. In terms of IV pain medication says that the pain is the worse in the morning, and so needs a dose at that time, otherwise we will try to go with oral treatment with hydrocodone. Vitals/I&O/Wt Last Vital Signs Temp 98.1 F 10/04/19 11:44 Pulse 68 10/04/19 11:44 Resp 18 10/04/19 11:44 BP 139/92 10/04/19 11:44 Pulse Ox 100 10/04/19 11:44 10/03/19 10/04/19 10/04/19 22:59 06:59 14:59 Intake Total 1568 / 3294.667 863.333 / 4158.000 218 / 218 Output Total 500 / 1200 500 / 1700 Balance 1068 / 2094.667 363.333 / 2458.000 218 / 218 Weight last 48 hrs Weight 47.627 kg Physical Exam Const: COMMON NORMALS: no acute distress and patient oriented x3 OTHER: Uncomfortable due to abdominal pain. HENMT: COMMON NORMALS: oropharynx normal Neck/C-Spine: COMMON NORMALS: no JVD Resp: COMMON NORMALS: normal respiratory effort and clear to auscultation bilaterally AUSCULTATION: clear to auscultation bilaterally Cardio: COMMON NORMALS: no JVD, regular rhythm, S1 normal heart sound present, S2 normal heart sound present and No murmurs present (Cardio) RHYTHM: regular rhythm HEART SOUNDS: S1 normal heart sound present and S2 normal heart sound present GI: COMMON NORMALS: Normal to inspection, nondistended, normoactive bowel sounds present and Soft to palpation PALPATION: Yes Soft to palpation and Yes Tenderness to palpation present (GI) (epigastrium) Extremity: COMMON NORMALS: no joint enlargement and no pedal edema Neuro: COMMON NORMALS: patient oriented x3 and moves all extremities Skin: COMMON NORMALS: no rashes or lesions noted GENERAL SKIN EXAM: no rashes or lesions noted Data : 10/04/19 04:15 10/04/19 04:15 A&P Assessment and plan (1) Acute pancreatitis: Lipase is improving, however, subjectively she is still having quite a bit of pain, poor oral intake. She does agree to try to transition to oral medication for pain is possible, but does say pain is worse in the morning, and at that time still needed IV medication. For now we will keep IV morphine daily in the morning, hydrocodone for other times. Continue IV hydration support. Zofran for nausea. Other symptomatic management. May discharge home once abdominal pain is improving, tolerating some oral intake. Reports she quit drinking alcohol about 3 years ago. Since then has had at least 3 episodes of recurrent pancreatitis. Gallbladder ultrasound unremarkable. Status post cholecystectomy. Did have MRCP on 07/30/2019 which was unrevealing. Triglycerides previously checked multiple times, and were not elevated. Calcium is not elevated. Discussed with her that smoking in some instances can trigger pancreatitis, and warned her to avoid smoking to reduce chance of recurrent disease. Discussed with her also that she would benefit from assessment by gastroenterology due to recurrent episodes of pancreatitis despite alcohol cessation, for additional evaluation. This may include endoscopic ultrasound, possibly ERCP, any other work-up at the discretion of the cutter aluminum sheet. She verbalized understanding. Previously known chronic alcoholic pancreatitis. Currently acute pancreatitis is confirmed by CT scan. Status: Acute Qualifiers: Pancreatitis type: unspecified pancreatitis type Acute pancreatitis complication: no infection or necrosis Qualified Code(s): K85.90 - Acute pancreatitis without necrosis or infection, unspecified (2) Elevated C-reactive protein (CRP): Status: Acute (3) Depression: She states that she gets stressed out easily, although says overall does not have severe depression. She says she follows up with a protective services case worker at [facility] [place]. Status: Chronic Qualifiers: Depression Type: major depressive disorder Major depression recurrence: recurrent Active/Remission status: remission status unspecified Qualified Code(s): F33.9 - Major depressive disorder, recurrent, unspecified (4) Nicotine dependence, cigarettes, uncomplicated: Encourage cessation as insomnia sepsis smoking can trigger acute pancreatitis. Status: Chronic Additional A&P Information Observation admission IV fluids Pain control Clear liquids only Reevaluate in the morning Supportive care otherwise Nicotine patch if needed Lovenox for DVT prophylaxis PPI for GI prophylaxis Plans discussed with patient and she was given an opportunity to ask questions Full code Attestations Medical Necessity Statement*: Continue admission for assessment management of acute pancreatitis. 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
[2019-10-04] MEDS: hyDROXYzine 25 mg Capsule 50 MG PO ×2 (14:35→23:14)
[2019-10-04] MEDS: ondansetron 2 mg/ML SDV 2 mL 4 MG IVP (16:58)
[2019-10-04] MEDS: HYDROmorphone 1 mg/mL INJ 1 mL 2 MG IVP (20:09)
--- NOTE | 2019-10-04 21:48 | US_ITS ---
WS: [id number] RIGHT UPPER QUADRANT ULTRASOUND HISTORY: biliary ducts, pancreas - recurrent pancreatitis COMPARISON: 07/03/2019 Liver: 12.8 cm in length. Normal size and echogenicity with no intrahepatic dilatation. No mass. Gallbladder: Prior cholecystectomy. CBD: 0.6 cm Pancreas: Normal size and echogenicity. Right kidney: 10.7 cm in length. Normal echogenicity with no mass or hydronephrosis. Aorta and IVC: Unremarkable. No ascites. US/US gall bladder [id number] IMPRESSION: 1. Status post cholecystectomy. 2. Otherwise negative.
[2019-10-05] VITALS: BP 135/93; PULSE 73; RESP 20; TEMP 36.9; O2SAT 98
[2019-10-05 04:00] VITALS: BP 145/86; PULSE 48; RESP 18; TEMP 36.8; O2SAT 100
[2019-10-05 04:29] LABS: Basophils % 0.3 %; Eosinophils # 0.1 10^3/uL (0.0-0.8); Eosinophils % 1.7 %; Hematocrit 32.4 % (37.0-47.0); Hemoglobin 10.6 g/dL (11.5-15.3); Lymphocytes # 2.2 10^3/uL (0.8-4.8); Lymphocytes % 34.7 %; Mean Corpuscular HGB Conc 32.7 g/dL (30.0-36.0); Mean Corpuscular Hemoglobin 31.4 pg (28.0-34.0); Mean Corpuscular Volume 95.9 fL (81-99); Monocytes # 0.5 10^3/uL (0.2-0.9); Neutrophils # 3.58 10^3/uL (1.8-7.7); Neutrophils % 56.1 %; Nucleated Red Blood Cells % 0 %; Platelet Count 159 10^3/cmm (130-400); Red Blood Count 3.38 10^6/uL (4.1-5.3); Red Cell Distribution Width 14.8 % (12.1-15.1); White Blood Count 6.4 10^3/uL (4.0-10.0)
[2019-10-05] MEDS: HYDROcodone-acetaminophen 5-325 mg Tablet 1 TAB PO ×3 (04:31→12:30)
[2019-10-05] MEDS: sodium chlor 0.9% + KCl 20 mEq 20 MEQ/1,000 ML BAG 100 MEQ IV (04:31)
[2019-10-05 04:56] LABS: Alanine Aminotransferase 7 U/L (0-33); Albumin Level 3.2 g/dL (3.5-5.2); Alkaline Phosphatase 42 IU/L (35-105); Aspartate Amino Transferase 12 U/L (0-32); Blood Urea Nitrogen 2 mg/dL (6-20); Calcium 8.4 mg/dL (8.5-10.5); Carbon Dioxide 22 mmol/L (22-29); Chloride 106 mmol/L (98-107); Globulin 2.3 g/dL (1.3-4.6); Glomerular Filtration Rate 136.9 mL/min (90-130); Glucose 74 mg/dL (65-115); Lipase 38 U/L (13-60); Osmolality Calculated 276 mOsm/kg (285-295); Sodium 136 mmol/L (136-145); Total Bilirubin 0.2 mg/dL (0.15-1.2); Total Protein 5.5 g/dL (6.6-8.7)
--- NOTE | 2019-10-05 07:49 | PC.NURSE ---
Patient resting in bed, easily awakens, oriented X3, reports wanting lights off and left alone to reduce pain, reports pain with movement. discussed plan of care. call light in reach.
[2019-10-05 08:00] VITALS: BP 128/81; PULSE 68; RESP 14; TEMP 36.9; O2SAT 99
[2019-10-05] MEDS: lipase-protease-amylase Capsule 2 EACH PO ×2 (08:56→10:56)
[2019-10-05] MEDS: pantoprazole DR 40 mg Tablet PO (08:56)
[2019-10-05] MEDS: hyDROXYzine 25 mg Capsule 50 MG PO (10:56)
[2019-10-05] MEDS: bisacodyl 5 mg Tablet 10 MG PO (10:56)
[2019-10-05 11:36] VITALS: BP 113/68; PULSE 60; RESP 14; TEMP 37; O2SAT 100
--- NOTE | 2019-10-05 12:02 | PM.DCS ---
Discharge Providers Date of Admission: 10/02/19 23:19 Date of Discharge: October 05, 2019 Attending Provider at Admission: Stephie Michelle MD Attending Provider at Discharge: Luis Marin MD Diagnoses at Discharge Discharge Diagnosis (1) Acute pancreatitis: Status: Acute Qualifiers: Pancreatitis type: unspecified pancreatitis type Acute pancreatitis complication: no infection or necrosis Qualified Code(s): K85.90 - Acute pancreatitis without necrosis or infection, unspecified (2) Elevated C-reactive protein (CRP): Status: Acute (3) Depression: Status: Chronic Qualifiers: Depression Type: major depressive disorder Major depression recurrence: recurrent Active/Remission status: remission status unspecified Qualified Code(s): F33.9 - Major depressive disorder, recurrent, unspecified (4) Nicotine dependence, cigarettes, uncomplicated: Status: Chronic Reason for Visit Reason for Visit: ABDOMINAL PAIN Hospital Course Discharge Summary: Patient with previous history of pancreatitis and gastritis/duodenitis presented with recurrent episodes of epigastric area abdominal pain and elevated pancreatic enzymes. Patient was previously told to avoid any NSAIDs but she continues to take large amount of ibuprofen every 3 hours mostly for her abdominal pain. I again had extensive discussion with patient regarding importance to avoid NSAIDs as it likely causes patient to have gastritis/esophagitis and possibly transmural inflammation causing peripancreatic edema and not necessarily true pancreatitis. Patient voiced understanding. This morning reports feeling much better. Her lipase normalized. Reports that she is not nauseous and able to eat and drink. She wants to go home and we will go ahead and dismiss patient on Stafford and Tylenol as well as Protonix. If patient stays of NSAIDs I think she will gradually improved and stay asymptomatic. Discussed with patient regarding importance of smoking cessation. Patient voiced understanding but refused any pharmacological help. Patient was told to follow-up with primary care physician in the next 4 to 7 days. Physical Exam Const: COMMON NORMALS: no acute distress Eye: COMMON NORMALS: EOMs intact bilaterally, conjunctivae normal and no scleral icterus CONJUNCTIVA: Yes conjunctivae normal Resp: COMMON NORMALS: clear to auscultation bilaterally AUSCULTATION: clear to auscultation bilaterally Cardio: COMMON NORMALS: regular rate, regular rhythm and No murmurs present (Cardio) RATE: regular rate RHYTHM: regular rhythm OTHER: No lower extremity edema GI: COMMON NORMALS: Soft to palpation PALPATION: Yes Soft to palpation and Yes Tenderness to palpation present (GI) (At epigastric area.) Discharge Data Data Completed and Pending: Completed Studies During Hospitalization Category Date Time Status CT abdomen pelvis w con* [id number] Urge nt Cat Scan 10/02/19 20:38 Completed US gall bladder 7 [id number] Routine Ultrasound 10/04/19 21:48 Completed Pending at discharge Category Date Time Status Complete Blood Co unt w/Auto AM LABS Lab 10/06/19 04:00 Ordered Comprehensive Met abolic Panel AM LA BS Lab 10/06/19 04:00 Ordered Labs from last 24 hours 10/05/19 10/05/19 03:53 03:53 WBC 6.4 RBC 3.38 L Hgb 10.6 L Hct 32.4 L MCV 95.9 MCH 31.4 MCHC 32.7 D RDW 14.8 Plt Count 159 MPV 12.0 H Neut % (Auto) 56.1 Lymph % (Auto) 34.7 Hawkins % (Auto) 7.0 Eos % (Auto) 1.7 Baso % (Auto) 0.3 Neut # (Auto) 3.58 Lymph # (Auto) 2.2 Hawkins # (Auto) 0.5 Eos # (Auto) 0.1 Baso # (Auto) 0.0 Nucleated RBC % (a uto) 0 Nucleated RBCs # 0.0 Sodium 136 Potassium 4.0 Chloride 106 Carbon Dioxide 22 Anion Gap 12.0 BUN 2 L Creatinine 0.6 GFR Calculation 136.9 H Glucose 74 Calculated Osmolal ity 276 L Calcium 8.4 L Total Bilirubin 0.2 AST 12 ALT 7 Alkaline Phosphata se 42 Total Protein 5.5 L Albumin 3.2 L Globulin 2.3 Lipase 38 Vitals: Last Vital Signs Temp 98.6 F 10/05/19 11:36 Pulse 60 10/05/19 11:36 Resp 14 10/05/19 11:36 BP 113/68 10/05/19 11:36 Pulse Ox 100 10/05/19 11:36 Discharge Plan Discharge Patient Disposition: Home Condition: Stable Prescriptions: New hydrocodone-acetaminophen 5-325 mg Tablet 1 tab PO Q6H PRN (Reason: Moderate To Severe Pain) Qty: 20 RF: 0 acetaminophen 325 mg Tablet 650 mg PO Q6H PRN (Reason: Mild/Mod Pain Or Temp >/= 101) Qty: 30 RF: 0 Zenpep 5,000-17,000- 24,000 unit Capsule,Delayed Release(Dr/Ec) 2 ea PO TIDWM Qty: 120 RF: 0 pantoprazole 40 mg Tablet,Delayed Release (Dr/Ec) 40 mg PO DAILY Qty: 30 RF: 0 promethazine 25 mg Tablet 12.5 mg PO Q8H PRN (Reason: Nausea) Qty: 10 RF: 0 No Action No Known Home Medications RF: 0 Discharge Orders: Discharge Order (Routine); Ordered 10/05/19 Ordered By: Luis Marin Discharge Diet: Advance as tolerated Discharge Activity: Increase activity as tolerated Activity Restrictions/Additional Instructions: Please call your doctor or present to emergency department if your condition worsens or you develop diarrhea. Please avoid taking NSAIDs and use Tylenol as needed for pain but not more than 4 g/day. Please note that prescribed Stafford also has Tylenol in it. 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
--- NOTE | 2019-10-05 12:26 | PC.NURSE ---
discharge instructions given to patient, patient verbalized understanding of instructions. IV discontinued and IV catheter intact.
[2019-10-05 14:23] VITALS: BP 113/68; PULSE 60; RESP 14; TEMP 37; O2SAT 100
== END 2019-10-05 14:30 | disposition home or self-care (01) ==
LOC: ER 23:26 → MEDSURG 10-03 07:45
PROVIDERS: Family Medicine; Internal Medicine; Admitting Provider Hospitalist; Visit Provider Internal Medicine
DX: K85.90 Acute pancreatitis without necrosis or infection, unspecified (principal); K86.0 Alcohol-induced chronic pancreatitis; R79.82 Elevated C-reactive protein (CRP); F33.9 Major depressive disorder, recurrent, unspecified; F10.11 Alcohol abuse, in remission; F17.200 Nicotine dependence, unspecified, uncomplicated; Z90.49 Acquired absence of other specified parts of digestive tract
CPT/HCPCS: 12345; 36415; 74177; 76705; 80053; 80306; 81003; 81025; 82550; 83690; 83735; 85025; 86140; 96360; 96361; 96372; 96374; 96375; 96376; 99283; 99285; G0378; J1170; J1650; J2270; J2405; J7030; Q0169; Q9967

== ENCOUNTER 2019-12-13 22:20 | Emergency (ER) | payer SELFPAY ==
[2019-10-05 12:15] VITALS: BP 150/82; BMI 18.3
[2019-12-13 22:23] VITALS: BP 146/97; PULSE 73; RESP 18; TEMP 36.8; O2SAT 100; BMI 16.7
--- NOTE | 2019-12-13 22:28 | ECG_ITS ---
[facility] Test Date: 2019-12-13 Pat Name: Vanita Barone Department: Room: Gender: Female Shade Maker: : 1985 Requested By: Karena Castillo Order Number: [id number] Reading MD: Measurements Intervals Luck Rate: 70 P: 74 NE: 145 QRS: 55 QRSD: 87 T: 71 QT: 363 QTc: 392 Interpretive Statements SINUS RHYTHM WITH SINUS ARRHYTHMIA No previous ECG available for comparison [email or web address]
--- NOTE | 2019-12-13 22:30 | XR_ITS ---
WS: [id number] Exam: XR chest 1V portable [id number] Date/Time of Exam: 12/13/2019 11:03 PM Reason For Exam: Chest pain Comparison 05/30/2019. The lungs are hyperinflated and clear. Normal cardiomediastinal structures and bony elements. No pleu ral effusions. XR/XR chest 1V portable [id number] IMPRESSION: 1. Pulmonary hyperinflation. No acute process identified.
[2019-12-13] MEDS: ondansetron 2 mg/ML SDV 2 mL 4 MG IVP (22:52)
[2019-12-13 22:58] VITALS: RESP 16; O2SAT 99
[2019-12-13 22:58] LABS: Basophils % 0.4 %; Eosinophils # 0.1 10^3/uL (0.0-0.8); Eosinophils % 0.8 %; Hematocrit 37.8 % (37.0-47.0); Hemoglobin 12.1 g/dL (11.5-15.3); Lymphocytes # 2.2 10^3/uL (0.8-4.8); Lymphocytes % 23.2 %; Mean Corpuscular Hemoglobin 32.2 pg (28.0-34.0); Mean Corpuscular Volume 100.5 fL (81-99); Mean Platelet Volume 10.7 fL (7.4-10.4); Monocytes # 0.8 10^3/uL (0.2-0.9); Monocytes % 7.9 %; Neutrophils # 6.42 10^3/uL (1.8-7.7); Neutrophils % 67.5 %; Nucleated Red Blood Cells % 0 %; Platelet Count 186 10^3/cmm (130-400); Red Blood Count 3.76 10^6/uL (4.1-5.3); Red Cell Distribution Width 15.6 % (12.1-15.1); White Blood Count 9.5 10^3/uL (4.0-10.0)
[2019-12-13] MEDS: HYDROmorphone 1 mg/mL INJ 1 mL 0.5 MG IVP (22:58)
[2019-12-13] MEDS: sodium chloride 0.9% 1,000 ML 999 ML IV (23:05)
--- NOTE | 2019-12-13 23:08 | ED_ITS ---
HPI - Chest Pain General: Chief Complaint: Chest Pain Stated Complaint: CP Time Seen by Provider: 12/13/19 22:25 Source: patient Mode of arrival: ambulatory Limitations: no limitations History of Present Illness: HPI narrative: Vanita is a nice 34-year-old female who comes in complaining of upper abdominal pain and chest pain. She states that this feels like her pancreatitis that she is had numerous times in the past. She describes the pain as a dull ache that goes through to her back. She had associated nausea but no vomiting. She denies any diarrhea or constipation. Patient states it is really not chest pain but insists that its upper abdominal pain. She denies having any alcohol recently and that has been her cause in the past. She states tonight she became stressed and upset with family problems and ultimately this is what caused her to become sick. She denies recent blood in her stools or black tarry stools. She denies any other complaints or concerns. She did not try thing at home to see what would make this better or worse. She just thought it was bad enough she should come to the hospital. Associated symptoms: Reports abdominal pain and nausea; Deny diaphoresis, dyspnea, fever(s), palpitations, syncope or vomiting Review of Systems Const: Denies: fever(s), chills, body aches, fatigue, malaise or diaphoresis Eyes: Denies: change in vision, blurry vision, photophobia, eye discomfort, eye discharge, eye redness or yellow eyes ENMT: Denies: throat pain, odynophagia, hoarseness, swelling of lips/tongue, ear or mastoid pain, ear discharge, change in hearing or nasal discharge Card: Reports: chest pain; Denies: palpitations, irregular heart rhythm, edema, lightheadedness, syncope, pre-syncope, dyspnea on exertion or orthopnea Resp: Denies: dyspnea, productive cough, non-productive cough, wheezing, hemoptysis or chest congestion GI: Reports: abdominal pain and nausea; Denies: vomiting, hematemesis, coffee ground emesis, heartburn, diarrhea, constipation, GI cramping, hematochezia or melena : Denies: flank pain, dysuria, urinary frequency, urinary urgency or hematuria Musc: Denies: neck pain, back pain, extremity pain, extremity swelling, joint pain, joint swelling, joint redness, joint warmth or joint stiffness Skin/Breast: Denies: rash, pruritus, erythema, skin pain or skin tenderness Neuro: Denies: headache(s), numbness in extremities, weakness in extremities, sensory changes, lack of coordination, difficulty walking, dizziness, vertigo, confusion, Slurred speech present or seizure-like activity Ashwin/Lymph: Denies: easy bruising, easy bleeding, petechiae, purpura or enlarged lymph nodes All/Imm: Denies: urticaria, throat swelling, tongue swelling, facial swelling or acute wheezing PFSH ED PFSH: Medical History Abnormal endoscopy of upper gastrointestinal tract (~05/2019) NSAID induced gastritis Alcohol use disorder In remission per pt Chronic pancreatitis Depression Surgical History History of vaginal delivery Hx of cholecystectomy Family History Denies family history of Hyperlipidemia Lung disease Hypertension Social History Smoking and tobacco status: current every day smoker Alcohol intake: former Other details last alcohol use: Pt states she has not been drinking recently Lives independently: Yes Housing: House Current gender identity: Female Female Reproductive History: Date of last menstrual period: 09/18/19 Physical Exam Const: COMMON NORMALS: no acute distress, patient oriented x3, no limitations and alert GENERAL APPEARANCE: cooperative HENMT: COMMON NORMALS: normocephalic, atraumatic, external ears normal, EAC's normal and Normal external nose present HEAD & SCALP: normal to inspection, normocephalic and atraumatic FACE & SINUS: normal facial exam and face symmetric NOSE: Normal external nose present and Normal nares present EXTERNAL EAR: Yes external ears normal EXTERNAL AUDITORY CANAL: EAC's normal MOUTH: Normal oral and palatal mucosa present, lip normal and tongue normal Eye: COMMON NORMALS: Equal, round and reactive pupils present and conjunctivae normal GENERAL EYE: appearance normal, both eyes and all related structures ALIGNMENT: Yes alignment normal PERIORBITAL: periorbital findings normal EYELID: eyelids normal CONJUNCTIVA: Yes conjunctivae normal SCLERA: sclerae normal PUPIL: Yes Equal, round and reactive pupils present Neck/C-Spine: COMMON NORMALS: full ROM, no lymphadenopathy, supple, no meningeal signs and no JVD GENERAL: Yes normal visual inspection and Yes trachea midline Chest: COMMONS NORMALS: normal inspection of the chest and normal palpation of entire chest wall Resp: COMMON NORMALS: normal respiratory effort, No retractions, No use of accessory muscles and clear to auscultation bilaterally EFFORT & INSPECTION: Yes able to speak in complete sentences and Yes symmetric chest movement AUSCULTATION: clear to auscultation bilaterally, no crackles, no rales, no rhonchi and no wheezes Cardio: COMMON NORMALS: no JVD, regular rate, regular rhythm, S1 normal heart sound present and S2 normal heart sound present RATE: regular rate RHYTHM: regular rhythm HEART SOUNDS: S1 normal heart sound present, S2 normal heart sound present, no click, no gallops, no murmurs and no rubs GI: COMMON NORMALS: Soft to palpation and No hepatosplenomegaly present PALPATION: Yes Soft to palpation, Yes Tenderness to palpation present (GI) (Moderate diffusely), No Guarding due to palpation present (GI), No Rigid due to palpation, Yes No hepatosplenomegaly present, No Hernia present, No Palpable mass present and No Pulsatile mass present : COMMON NORMALS: Yes no CVA tenderness BLADDER/KIDNEY EXAM: Yes no CVA tenderness EXTERNAL FEMALE EXAM: No Hernia present Back/Pelvis: COMMON NORMALS: no CVA tenderness, thoracic and lumbar spine normal to inspection, no thoracic nor lumbar tenderness and thoraco-lumbar ROM normal Extremity: COMMON NORMALS: normal to inspection, full ROM, capillary refill normal, no joint enlargement, no clubbing, cyanosis or edema and no calf tenderness Neuro: COMMON NORMALS: patient oriented x3, CN's II-XII intact bilaterally, moves all extremities, no focal motor deficits and no sensory deficits noted SENSORIUM/ORIENTATION: Yes alert MENINGEAL SIGNS: Yes no meningeal signs SPEECH: speech normal Psych: COMMON NORMALS: mental status grossly normal, Normal thought process present, cooperative, normal affect, speech normal and activity/motor behavior normal SPEECH: Yes normal speech THOUGHT PROCESS: Normal thought process present Skin: COMMON NORMALS: no rashes or lesions noted, turgor normal, no jaundice, no petechiae and no mottling GENERAL SKIN EXAM: no rashes or lesions noted and turgor normal Procedures EJ/Peripheral Line Arm L: Time Out Performed: Yes Skin Cleansed in Sterile Fashion: Yes Size (gauge): 20 IV Secured and Dressing Applied: Yes Patient Tolerated Procedure: well Additional Comments: Ultrasound utilized throughout procedure. Course Vital Signs: Vital signs: Vital Signs Temperature 98.2 F 12/13/19 22:23 Pulse Rate 63 12/14/19 04:52 Respiratory Rate 16 12/14/19 02:02 Blood Pressure 133/71 12/14/19 02:30 Pulse Oximetry 94 12/14/19 04:52 MDM - Chest Pain MDM Narrative: Medical decision making narrative: 1223 -Vanita is declining a CT scan as we have lost an IV and she does not want any further attempts. She wants to go home. Unfortunately she will not have a ride available to take her home until 9 or 10:00 in the morning. She states that she has an appointment later today with a new primary care provider and she wants to make that appointment. When asked she states that her lipase does become elevated reliably when she has a flareup of acute pancreatitis. Her lipase tonight is normal. I have offered and recommended to do a CT scan with or without contrast but she declines. She states she just wants to rest until her right can arrive. I will continue to cycle her cardiac enzymes while she is here in the ER and I will not make her go to the waiting room as she can rest here until her ride is available. Patient understands she is free to change her mind and had further evaluation at any time. 0454 -patient was due to have another troponin drawn which would be her third. Her last EKG and troponin were unremarkable. Patient is refusing any further blood draws at this time. I had previously shared with her the risks of missed GA but she is certain this was her pancreatitis. Her pain is gone. She has been discharged but because I have allowed her to sleep in the emergency department I wanted to continue with the rule out but at this point the patient is refusing further work-up. She is still awaiting her ride. Lab Data: Labs: Lab Results 12/13/19 12/13/19 12/13/19 Range/Units 22:30 22:30 22:30 WBC 9.5 (4.0-10.0) 10^3/ uL RBC 3.76 L (4.1-5.3) 10^6/u L Hgb 12.1 (11.5-15.3) g/dL Hct 37.8 (37.0-47.0) % MCV 100.5 H (81-99) fL MCH 32.2 (28.0-34.0) pg MCHC 32.0 (30.0-36.0) g/dL RDW 15.6 H (12.1-15.1) % Plt Count 186 (130-400) 10^3/c mm MPV 10.7 H (7.4-10.4) fL Neut % (Auto) 67.5 % Lymph % (Auto) 23.2 % [place] % (Auto) 7.9 % Eos % (Auto) 0.8 % Baso % (Auto) 0.4 % Neut # (Auto) 6.42 (1.8-7.7) 10^3/u L Lymph # (Auto) 2.2 (0.8-4.8) 10^3/u L [place] # (Auto) 0.8 (0.2-0.9) 10^3/u L Eos # (Auto) 0.1 (0.0-0.8) 10^3/u L Baso # (Auto) 0.0 (0.0-0.1) 10^3/u L Nucleated RBC % (a uto) 0 % Nucleated RBCs # 0.0 /100WBC PT (12.1-14.9) SECO NDS INR (0.8-1.2) APTT (23.9-36.7) SECO NDS Sodium 135 L (136-145) mmol/L Potassium 3.6 (3.5-5.1) mmol/L Chloride 102 (98-107) mmol/L Carbon Dioxide 22 (22-29) mmol/L Anion Gap 14.6 (5-19) BUN 8 (6-20) mg/dL Creatinine 0.6 (0.5-0.9) mg/dL GFR Calculation 136.9 H (90-130) mL/min Glucose 147 H (65-115) mg/dL Calculated Osmolal ity 281 L (285-295) mOsm/k g Lactic Acid 1.5 (0.5-2.2) mmol/L Calcium 9.0 (8.5-10.5) mg/dL Magnesium 1.8 (1.7-2.3) mg/dL Total Bilirubin 0.2 (0.15-1.2) mg/dL AST 15 (0-32) U/L ALT 13 (0-33) U/L Alkaline Phosphata se 63 (35-105) IU/L Troponin T Gen 5 n g/L (0-10) ng/L Troponin T Baselin e (0-10) ng/L Total Protein 6.9 (6.6-8.7) g/dL Albumin 4.4 (3.5-5.2) g/dL Globulin 2.5 (1.3-4.6) g/dL Lipase 79 H (13-60) U/L HCG, Qual (Negative) Urine Color (Yellow) Urine Appearance (CLEAR) Urine pH (5-7) Ur Specific Gravit y (1.005-1.030) Urine Protein (Negative) Urine Glucose (UA) (Normal) Urine Ketones (Negative) Urine Blood (Negative) Urine Nitrate (Negative) Urine Bilirubin (Negative) Urine Urobilinogen (Negative) mg/dL Ur Leukocyte Yesenia ase (Negative) Urine RBC (0-2) /hpf Urine WBC (0-5) /hpf Ur Squamous Epith Cells (0-5) /hpf Amorphous Sediment Urine Bacteria (NONE) /hpf Urine Mucus /hpf Ethyl Alcohol < 10 (0-10) mg/dL Serum Ketones Negative (Negative) 12/13/19 12/13/19 12/13/19 Range/Units 22:30 23:10 23:10 WBC (4.0-10.0) 10^3/ uL RBC (4.1-5.3) 10^6/u L Hgb (11.5-15.3) g/dL Hct (37.0-47.0) % MCV (81-99) fL MCH (28.0-34.0) pg MCHC (30.0-36.0) g/dL RDW (12.1-15.1) % Plt Count (130-400) 10^3/c mm MPV (7.4-10.4) fL Neut % (Auto) % Lymph % (Auto) % [place] % (Auto) % Eos % (Auto) % Baso % (Auto) % Neut # (Auto) (1.8-7.7) 10^3/u L Lymph # (Auto) (0.8-4.8) 10^3/u L [place] # (Auto) (0.2-0.9) 10^3/u L Eos # (Auto) (0.0-0.8) 10^3/u L Baso # (Auto) (0.0-0.1) 10^3/u L Nucleated RBC % (a uto) % Nucleated RBCs # /100WBC PT 12.70 (12.1-14.9) SECO NDS INR 0.92 (0.8-1.2) APTT 27.8 (23.9-36.7) SECO NDS Sodium (136-145) mmol/L Potassium (3.5-5.1) mmol/L Chloride (98-107) mmol/L Carbon Dioxide (22-29) mmol/L Anion Gap (5-19) BUN (6-20) mg/dL Creatinine (0.5-0.9) mg/dL GFR Calculation (90-130) mL/min Glucose (65-115) mg/dL Calculated Osmolal ity (285-295) mOsm/k g Lactic Acid (0.5-2.2) mmol/L Calcium (8.5-10.5) mg/dL Magnesium (1.7-2.3) mg/dL Total Bilirubin (0.15-1.2) mg/dL AST (0-32) U/L ALT (0-33) U/L Alkaline Phosphata se (35-105) IU/L Troponin T Gen 5 n g/L (0-10) ng/L Troponin T Baselin e 6 (0-10) ng/L Total Protein (6.6-8.7) g/dL Albumin (3.5-5.2) g/dL Globulin (1.3-4.6) g/dL Lipase (13-60) U/L HCG, Qual Negative (Negative) Urine Color (Yellow) Urine Appearance (CLEAR) Urine pH (5-7) Ur Specific Gravit y (1.005-1.030) Urine Protein (Negative) Urine Glucose (UA) (Normal) Urine Ketones (Negative) Urine Blood (Negative) Urine Nitrate (Negative) Urine Bilirubin (Negative) Urine Urobilinogen (Negative) mg/dL Ur Leukocyte Yesenia ase (Negative) Urine RBC (0-2) /hpf Urine WBC (0-5) /hpf Ur Squamous Epith Cells (0-5) /hpf Amorphous Sediment Urine Bacteria (NONE) /hpf Urine Mucus /hpf Ethyl Alcohol (0-10) mg/dL Serum Ketones (Negative) 12/14/19 12/14/19 Range/Units 00:41 02:15 WBC (4.0-10.0) 10^3/ uL RBC (4.1-5.3) 10^6/u L Hgb (11.5-15.3) g/dL Hct (37.0-47.0) % MCV (81-99) fL MCH (28.0-34.0) pg MCHC (30.0-36.0) g/dL RDW (12.1-15.1) % Plt Count (130-400) 10^3/c mm MPV (7.4-10.4) fL Neut % (Auto) % Lymph % (Auto) % [place] % (Auto) % Eos % (Auto) % Baso % (Auto) % Neut # (Auto) (1.8-7.7) 10^3/u L Lymph # (Auto) (0.8-4.8) 10^3/u L [place] # (Auto) (0.2-0.9) 10^3/u L Eos # (Auto) (0.0-0.8) 10^3/u L Baso # (Auto) (0.0-0.1) 10^3/u L Nucleated RBC % (a uto) % Nucleated RBCs # /100WBC PT (12.1-14.9) SECO NDS INR (0.8-1.2) APTT (23.9-36.7) SECO NDS Sodium (136-145) mmol/L Potassium (3.5-5.1) mmol/L Chloride (98-107) mmol/L Carbon Dioxide (22-29) mmol/L Anion Gap (5-19) BUN (6-20) mg/dL Creatinine (0.5-0.9) mg/dL GFR Calculation (90-130) mL/min Glucose (65-115) mg/dL Calculated Osmolal ity (285-295) mOsm/k g Lactic Acid (0.5-2.2) mmol/L Calcium (8.5-10.5) mg/dL Magnesium (1.7-2.3) mg/dL Total Bilirubin (0.15-1.2) mg/dL AST (0-32) U/L ALT (0-33) U/L Alkaline Phosphata se (35-105) IU/L Troponin T Gen 5 n g/L 6 (0-10) ng/L Troponin T Baselin e (0-10) ng/L Total Protein (6.6-8.7) g/dL Albumin (3.5-5.2) g/dL Globulin (1.3-4.6) g/dL Lipase (13-60) U/L HCG, Qual (Negative) Urine Color Yellow (Yellow) Urine Appearance Hazy A (CLEAR) Urine pH 5 (5-7) Ur Specific Gravit y 1.020 (1.005-1.030) Urine Protein Neg (Negative) Urine Glucose (UA) Norm (Normal) Urine Ketones 1+ H (Negative) Urine Blood Neg (Negative) Urine Nitrate Negative (Negative) Urine Bilirubin Neg (Negative) Urine Urobilinogen 1 H (Negative) mg/dL Ur Leukocyte Yesenia ase Negative (Negative) Urine RBC 0-4 H (0-2) /hpf Urine WBC None (0-5) /hpf Ur Squamous Epith Cells 10-15 H (0-5) /hpf Amorphous Sediment Not Reportable Urine Bacteria Trace (NONE) /hpf Urine Mucus 4+ /hpf Ethyl Alcohol (0-10) mg/dL Serum Ketones (Negative) EKG Data^: EKG 1: Attestation: I personally reviewed and interpreted this EKG as follows: EKG interpretation date: 12/13/19 EKG interpretation time: 22:26 Interpretation: Normal sinus rhythm at 70 beats a minute,, no blocks, normal intervals, normal axis, nonspecific ST-T wave changes. EKG 2: Attestation: I personally reviewed and interpreted this EKG as follows: EKG interpretation date: 12/14/19 EKG interpretation time: 04:08 Interpretation: Sinus bradycardia 58 beats a minute, no blocks, normal intervals, no acute ST-T wave changes. Discharge Plan Discharge Patient Disposition: Home Clinical Impression: Chronic pancreatitis Qualifiers: Pancreatitis type: other Qualified Code(s): K86.1 - Other chronic pancreatitis Condition: Stable Prescriptions: No Action acetaminophen 325 mg Tablet 650 mg PO Q6H PRN (Reason: Mild/Mod Pain Or Temp >/= 101) Qty: 30 RF: 0 hydrocodone-acetaminophen 5-325 mg Tablet 1 tab PO Q6H PRN (Reason: Moderate To Severe Pain) Qty: 20 RF: 0 pantoprazole 40 mg Tablet,Delayed Release (Dr/Ec) 40 mg PO DAILY Qty: 30 RF: 0 promethazine 25 mg Tablet 12.5 mg PO Q8H PRN (Reason: Nausea) Qty: 10 RF: 0 Zenpep 5,000-17,000- 24,000 unit Capsule,Delayed Release(Dr/Ec) 2 ea PO TIDWM Qty: 120 RF: 0 Discharge Orders: Discharge Order (Routine); Ordered 12/14/19 Ordered By: Karena Liao Referrals: Tristan Pearl MD [Hospitalist] - (Follow-up today as scheduled.) Discharge Diet: Advance as tolerated and Clear Liquid Discharge Activity: Increase activity as tolerated Patient Instructions: Chest Pain (ED), Pancreatitis (ED) Activity Restrictions/Additional Instructions: Please return to the ER immediately for any of the signs or symptoms listed on your discharge instruction sheets, worsening/changing of your symptoms, you are not getting better as quickly as expected, or for ANY other cause or concerns. You are declining any further evaluation and care here of your heart or abdomen. I have recommended a CT scan as well as further lab testing but you have declined. If you change your mind or your symptoms change/worsen you are welcome to return to the ER at any time. Be certain to follow-up with your new primary care provider today as scheduled. Coding Level of Care Code ED [employer] for [employer] Fwd Exam Comprehensive
[2019-12-13 23:18] VITALS: BP 132/83; PULSE 62; RESP 19; O2SAT 99
[2019-12-13 23:20] LABS: Alanine Aminotransferase 13 U/L (0-33); Albumin Level 4.4 g/dL (3.5-5.2); Alkaline Phosphatase 63 IU/L (35-105); Anion Gap 14.6 (5-19); Aspartate Amino Transferase 15 U/L (0-32); Blood Urea Nitrogen 8 mg/dL (6-20); Carbon Dioxide 22 mmol/L (22-29); Chloride 102 mmol/L (98-107); Globulin 2.5 g/dL (1.3-4.6); Glomerular Filtration Rate 136.9 mL/min (90-130); Glucose 147 mg/dL (65-115); Lipase 79 U/L (13-60); Magnesium 1.8 mg/dL (1.7-2.3); Osmolality Calculated 281 mOsm/kg (285-295); Potassium 3.6 mmol/L (3.5-5.1); Sodium 135 mmol/L (136-145); Total Bilirubin 0.2 mg/dL (0.15-1.2); Total Protein 6.9 g/dL (6.6-8.7)
[2019-12-13 23:21] LABS: Lactic Sepsis W/Reflex 1.5 mmol/L (0.5-2.2); Troponin(5th) Baseline 6 ng/L (0-10)
[2019-12-13 23:26] LABS: Alcohol Level < 10 mg/dL (0-10)
[2019-12-13 23:36] LABS: Ketone (Acetest) Serum Negative (Negative)
[2019-12-13 23:45] VITALS: BP 139/101; PULSE 87; RESP 18; O2SAT 100
[2019-12-14 00:14] LABS: INR 0.92 (0.8-1.2)
[2019-12-14 00:15] LABS: Partial Thromboplastin Time 27.8 SECONDS (23.9-36.7)
[2019-12-14 00:16] LABS: HCG, Serum Qual Negative (Negative)
--- NOTE | 2019-12-14 00:31 | ECG_ITS ---
[facility] Test Date: 2019-12-14 Pat Name: Vanita Barone Department: Room: Gender: Female Bone Tender: : 1985 Requested By: Karena Castillo Order Number: [id number] Reading MD: Measurements Intervals [place] Rate: 52 P: 71 NC: 138 QRS: 57 QRSD: 85 T: 69 QT: 413 QTc: 386 Interpretive Statements SINUS BRADYCARDIA Compared to ECG 07/30/2019 12:50:15 No significant changes [email or web address]
[2019-12-14] MEDS: HYDROcodone-acetaminophen 5-325 mg Tablet 1 TAB PO ×2 (00:41→02:10)
[2019-12-14 00:43] VITALS: BP 139/80; PULSE 60; O2SAT 99
[2019-12-14 01:03] LABS: Blood Urine Neg (Negative); Glucose Urine UA Norm (Normal); Ketones Urine 1+ (Negative); Nitrate Urine Negative (Negative); Protein Urine Neg (Negative); Urine Appearance Hazy (CLEAR); Urine Color Yellow (Yellow); pH Urine 5 (5-7)
[2019-12-14 01:04] LABS: Add Urine Microscopic? YES; Bilirubin Urine Neg (Negative); Leukocyte Esterase Urine Negative (Negative); Urobilinogen Urine 1 mg/dL (Negative)
[2019-12-14 01:25] LABS: Add Urine Culture? No; Bacteria Urine TRACE /hpf; Mucus Urine 4+ /hpf; RBC Urine 0-4 /hpf (0-2)
[2019-12-14 02:02] VITALS: BP 113/69; PULSE 80; RESP 16; O2SAT 100
[2019-12-14] MEDS: ondansetron 4 MG Tablet PO (02:10)
[2019-12-14 02:30] VITALS: BP 133/71; PULSE 62; O2SAT 100
[2019-12-14 03:13] LABS: Troponin T (5th) Once 6 ng/L (0-10)
--- NOTE | 2019-12-14 04:31 | ECG_ITS ---
[facility] Test Date: 2019-12-14 Pat Name: Vanita Barone Department: Room: Gender: Female Rn Pediatric: : 1985 Requested By: Karena Castillo Order Number: [id number] Reading MD: Measurements Intervals [place] Rate: 58 P: 75 NH: 166 QRS: 56 QRSD: 77 T: 69 QT: 411 QTc: 404 Interpretive Statements SINUS BRADYCARDIA Compared to ECG 12/14/2019 00:06:32 No significant changes [email or web address]
[2019-12-14 04:52] VITALS: PULSE 63; O2SAT 94
--- NOTE | 2019-12-14 04:52 | PC.NURSE ---
pt refused to get the last TROP drawn.
[2019-12-14] MEDS: ibuprofen 200 mg Tablet 400 MG PO (05:03)
== END 2019-12-14 06:11 | disposition home or self-care (01) ==
PROVIDERS: Emergency Provider Emergency Medicine
DX: K86.1 Other chronic pancreatitis (principal); F17.210 Nicotine dependence, cigarettes, uncomplicated
CPT/HCPCS: 12345; 36573; 71045; 80053; 80307; 81001; 82009; 83605; 83690; 83735; 84484; 84703; 85025; 85610; 85730; 93005; 96374; 96375; 96376; 99284; J0131; J1170; J2405; J7030; Q0162

== ENCOUNTER 2019-12-15 04:24 | Inpatient (IN) | payer SELFPAY ==
[2019-10-05 12:15] VITALS: BP 150/82; BMI 18.3
[2019-12-15] VITALS (25 sets, daily range): BP systolic 100–164; BP diastolic 51–99; PULSE 54–108; RESP 15–24; TEMP 36.5–37.1; O2SAT 97–100; BMI 16.7
--- NOTE | 2019-12-15 04:27 | XR_ITS ---
WS: [id number] PORTABLE CHEST HISTORY: Upper abdominal pain COMPARISON: 12/13/2019 Lungs are clear and well expanded. No pleural effusion or pneumothorax. Cardiac size: Normal. Mediastinum/Aorta: Normal mediastinum. No osseous abnormality seen. XR/XR chest 1V portable [id number] IMPRESSION: Unremarkable portable chest.
--- NOTE | 2019-12-15 04:27 | CT_ITS ---
WS: [id number] CT ABDOMEN AND PELVIS WITH CONTRAST HISTORY: Abdominal pain TECHNIQUE: Imaging performed of the abdomen and pelvis with IV contrast. Single phase imaging of the abdomen. The CT evaluation was performed after delayed contrast due to extravasation. Coronal and sa gittal reformats are submitted. All CT scans at [facility] use at least one of these dose optimization techniques: automated exposure control; mA and/or kV adjustment per patient size (inclu ricardo targeted exams where dose is matched to clinical indication); or iterative reconstruction. IV CONTRAST: Omnipaque 300; 95 mL IV. Oral contrast: No DLP: 180.13 mGy.cm COMPARISON: 10/02/2019 Lower thorax: Lung bases are clear. Heart is normal size. Small hiatal hernia. Liver/biliary system: Normal size with no intrahepatic dilatation. Gallbladder: Status post cholecystectomy. Pancreas: Very mildly edematous and prominent pancreas with minimal. Pancreatic fluid and edema. No c ollection. No dilatation of the pancreatic duct. Spleen: Normal. Adrenal glands: Normal. Right kidney: Normal. Left kidney: Normal. Aorta: Normal. Lymphadenopathy: None. Free fluid: Small amount of free fluid in the pelvis could be physiologic. GI tract: Normal appendix. Moderate diffuse fecal retention. No GI tract obstruction. Abdominal wall: Unremarkable abdominal wall. No hernia. Pelvis: Urinary bladder is markedly distended and contains excreted contrast. Uterus appears midline. Ovaries are difficult to visualize but they probably are both contain small follicles. Bones: Unremarkable. CT/CT abdomen pelvis w con* [id number] IMPRESSION: 1. Mild acute pancreatitis. No pseudocyst identified. 2. Normal appendix. 3. Mild constipation. 4. Small amount of free fluid in the pelvis could be physiologic.
[2019-12-15 04:46] LABS: ABG PCO2 33.9 mmHg (35-45); ABG PH Result 7.35 (7.35-7.45); Arterial Blood Gas Hematocrit 37.1 % (37-47); Base Excess ABG -5.9 mmol/L (-2.0-2.0); Blood Gas Allen Test Pos; Blood Gas Sample Site Radial, left; Blood Gas Sample Type Arterial; HCO3 ABG 18.9 mmol/L (22-26); Oxygen Device ROOM AIR
[2019-12-15] MEDS: morphine 4 mg/mL SDV 1 mL IVP ×3 (05:12→08:37)
[2019-12-15] MEDS: ondansetron 2 mg/ML SDV 2 mL 4 MG IVP ×2 (05:12→21:08)
[2019-12-15] MEDS: pantoprazole 40 mg SDV 80 MG IVP (05:13)
[2019-12-15] MEDS: sodium chloride 0.9% 1,000 ML 999 ML IV ×2 (05:18→08:30)
--- NOTE | 2019-12-15 05:30 | ED_ITS ---
HPI - Abdominal Pain General: Chief Complaint: Abdominal Pain Stated Complaint: ABD PAIN Time Seen by Provider: 12/15/19 04:26 Source: patient and EMS Mode of arrival: EMS Limitations: no limitations History of Present Illness: HPI narrative: Vanita is a 34-year-old female well- known to me. She was seen and evaluated by me last night for the same complaint of abdominal pain. Patient has history of chronic pancreatitis. She denies any recent alcohol. Last night she was seen in her lipase was normal and she stated that her lipase will usually go up when she does get a flareup. She felt better after being medicated and hydrated and elected to go home. Patient states she did well at home until about noon when her pain gradually began to return. At midnight this a.m. she got much worse and began to vomit. She denies any chest pain, shortness of breath, fever, diarrhea, blood in her stools or blood in her vomit. Patient states this feels like her typical flareup of pancreatitis. Associated Symptoms: Reports nausea and vomiting; Denies chills, coffee ground emesis, constipation, GI cramping, diarrhea, dysuria, fever(s), heartburn, hematochezia, hematuria, hematemesis, melena and syncope Related Data: Date of Last Menstrual Period: 09/18/19 Review of Systems Const: Denies: fever(s), chills, body aches, fatigue, malaise or diaphoresis Eyes: Denies: change in vision, blurry vision, photophobia, eye discomfort, eye discharge, eye redness or yellow eyes ENMT: Denies: throat pain, odynophagia, hoarseness, swelling of lips/tongue, ear or mastoid pain, ear discharge, change in hearing or nasal discharge Card: Denies: chest pain, palpitations, irregular heart rhythm, edema, lightheadedness, syncope, pre-syncope, dyspnea on exertion or orthopnea Resp: Denies: dyspnea, productive cough, non-productive cough, wheezing, hemoptysis or chest congestion GI: Reports: abdominal pain, nausea and vomiting; Denies: hematemesis, coffee ground emesis, heartburn, diarrhea, constipation, GI cramping, hematochezia or melena : Denies: flank pain, dysuria, urinary frequency, urinary urgency or hematuria Musc: Denies: neck pain, back pain, extremity pain, extremity swelling, joint pain, joint swelling, joint redness, joint warmth or joint stiffness Skin/Breast: Denies: rash, pruritus, erythema, skin pain or skin tenderness Neuro: Denies: headache(s), numbness in extremities, weakness in extremities, sensory changes, lack of coordination, difficulty walking, dizziness, vertigo, confusion, Slurred speech present or seizure-like activity Ashwin/Lymph: Denies: easy bruising, easy bleeding, petechiae, purpura or enlarged lymph nodes All/Imm: Denies: urticaria, throat swelling, tongue swelling, facial swelling or acute wheezing PFSH ED PFSH: Medical History Abnormal endoscopy of upper gastrointestinal tract (~05/2019) NSAID induced gastritis Alcohol abuse Alcohol use disorder In remission per pt Anxiety Chronic GERD Chronic pancreatitis Depression Social discord Surgical History History of vaginal delivery Hx of cholecystectomy Family History Denies family history of Hyperlipidemia Lung disease Hypertension Social History Smoking and tobacco status: current every day smoker Alcohol intake: former Other details last alcohol use: Pt states she has not been drinking recently Lives independently: Yes Housing: House Current gender identity: Female Female Reproductive History: Date of last menstrual period: 09/18/19 Physical Exam Const: COMMON NORMALS: no acute distress, patient oriented x3, no limitations and alert GENERAL APPEARANCE: cooperative HENMT: COMMON NORMALS: normocephalic, atraumatic, external ears normal, EAC's normal and Normal external nose present HEAD & SCALP: normal to inspection, normocephalic and atraumatic FACE & SINUS: normal facial exam and face symmetric NOSE: Normal external nose present and Normal nares present EXTERNAL EAR: Yes external ears normal EXTERNAL AUDITORY CANAL: EAC's normal MOUTH: Normal oral and palatal mucosa present, lip normal and tongue normal Eye: COMMON NORMALS: Equal, round and reactive pupils present and conjunctivae normal GENERAL EYE: appearance normal, both eyes and all related structures ALIGNMENT: Yes alignment normal PERIORBITAL: periorbital findings normal EYELID: eyelids normal CONJUNCTIVA: Yes conjunctivae normal SCLERA: sclerae normal PUPIL: Yes Equal, round and reactive pupils present Neck/C-Spine: COMMON NORMALS: full ROM, no lymphadenopathy, supple, no meningeal signs and no JVD GENERAL: Yes normal visual inspection and Yes trachea midline Chest: COMMONS NORMALS: normal inspection of the chest and normal palpation of entire chest wall Resp: COMMON NORMALS: normal respiratory effort, No retractions, No use of accessory muscles and clear to auscultation bilaterally EFFORT & INSPECTION: Yes able to speak in complete sentences and Yes symmetric chest movement AUSCULTATION: clear to auscultation bilaterally, no crackles, no rales, no rhonchi and no wheezes Cardio: COMMON NORMALS: no JVD, regular rate, regular rhythm, S1 normal heart sound present and S2 normal heart sound present RATE: regular rate RHYTHM: regular rhythm HEART SOUNDS: S1 normal heart sound present, S2 normal heart sound present, no click, no gallops, no murmurs and no rubs GI: COMMON NORMALS: Soft to palpation and No hepatosplenomegaly present PALPATION: Yes Soft to palpation, No Tenderness to palpation present (GI) (Upper abdomen), No Guarding due to palpation present (GI), No Rigid due to palpation, Yes No hepatosplenomegaly present, No Hernia present, No Palpable mass present and No Pulsatile mass present : COMMON NORMALS: Yes no CVA tenderness BLADDER/KIDNEY EXAM: Yes no CVA tenderness EXTERNAL FEMALE EXAM: No Hernia present Back/Pelvis: COMMON NORMALS: no CVA tenderness, thoracic and lumbar spine normal to inspection, no thoracic nor lumbar tenderness and thoraco-lumbar ROM normal Extremity: COMMON NORMALS: normal to inspection, full ROM, capillary refill normal, no joint enlargement, no clubbing, cyanosis or edema and no calf tenderness Neuro: COMMON NORMALS: patient oriented x3, CN's II-XII intact bilaterally, moves all extremities, no focal motor deficits and no sensory deficits noted SENSORIUM/ORIENTATION: Yes alert MENINGEAL SIGNS: Yes no meningeal signs SPEECH: speech normal Psych: COMMON NORMALS: mental status grossly normal, Normal thought process present, cooperative, normal affect, speech normal and activity/motor behavior normal SPEECH: Yes normal speech THOUGHT PROCESS: Normal thought process present Skin: COMMON NORMALS: no rashes or lesions noted, turgor normal, no jaundice, no petechiae and no mottling GENERAL SKIN EXAM: no rashes or lesions noted and turgor normal Course Vital Signs: Vital signs: Vital Signs Temperature 98.0 F 12/15/19 04:28 Pulse Rate 72 12/15/19 05:30 Respiratory Rate 16 12/15/19 05:30 Blood Pressure 133/83 12/15/19 05:30 Pulse Oximetry 100 12/15/19 05:30 MDM - Abdominal Pain MDM Narrative: Medical decision making narrative: 0545 -Case to be turned over to Dr. Bush at change of shift. Patient has not vomited here. Her vital signs are stable. Labs and CT are pending at this time. Differential Diagnosis: Differential diagnosis abdominal pain: Likely abdominal pain, acute appendicitis, calculus of kidney, constipation, diverticulitis, gastroenteritis, pancreatitis and small bowel obstruction Medical Records: Attestation: I reviewed the patient's medical records. Lab Data: Labs: Lab Results 12/15/19 Range/Units 04:33 Specimen Type Arterial Sample Site Radial, left ABG pH 7.35 (7.35-7.45) ABG pCO2 33.9 L (35-45) mmHg ABG pO2 91.0 (80.0-100.0) mmH g ABG HCO3 18.9 L (22-26) mmol/L ABG Base Excess -5.9 L (-2.0-2.0) mmol/ L Yevgeniy Test Pos Hematocrit 37.1 (37-47) % O2 Delivery Device Room air Human Resources Mgr ID [id number] Discharge Plan Discharge Prescriptions: No Action hydrocodone-acetaminophen 5-325 mg Tablet 1 tab PO Q6H PRN (Reason: Moderate To Severe Pain) Qty: 20 RF: 0 pantoprazole 40 mg Tablet,Delayed Release (Dr/Ec) 40 mg PO DAILY Qty: 30 RF: 0 promethazine 25 mg Tablet 12.5 mg PO Q8H PRN (Reason: Nausea) Qty: 10 RF: 0 Zenpep 5,000-17,000- 24,000 unit Capsule,Delayed Release(Dr/Ec) 2 ea PO TIDWM Qty: 120 RF: 0 Coding Level of Care Code ED 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 Fwd Exam Comprehensive
[2019-12-15 05:52] LABS: HCG, Serum Qual Negative (Negative)
[2019-12-15 05:56] LABS: Alanine Aminotransferase 13 U/L (0-33); Albumin Level 4.9 g/dL (3.5-5.2); Alkaline Phosphatase 62 IU/L (35-105); Anion Gap 16.2 (5-19); Aspartate Amino Transferase 14 U/L (0-32); Blood Urea Nitrogen 5 mg/dL (6-20); Carbon Dioxide 23 mmol/L (22-29); Chloride 102 mmol/L (98-107); Globulin 3.1 g/dL (1.3-4.6); Glomerular Filtration Rate 98.2 mL/min (90-130); Glucose 85 mg/dL (65-115); Lipase 90 U/L (13-60); Magnesium 1.7 mg/dL (1.7-2.3); Osmolality Calculated 281 mOsm/kg (285-295); Potassium 4.2 mmol/L (3.5-5.1); Sodium 137 mmol/L (136-145); Total Bilirubin 0.3 mg/dL (0.15-1.2)
[2019-12-15 05:57] LABS: H. Pylori IgG Antibody Negative (Negative)
[2019-12-15 06:00] LABS: Alcohol Level < 10 mg/dL (0-10)
[2019-12-15 06:04] LABS: Basophils % 0.5 %; Eosinophils # 0.1 10^3/uL (0.0-0.8); Eosinophils % 1.1 %; Hematocrit 40.6 % (37.0-47.0); Hemoglobin 12.8 g/dL (11.5-15.3); Lymphocytes # 1.7 10^3/uL (0.8-4.8); Lymphocytes % 27.2 %; Mean Corpuscular HGB Conc 31.5 g/dL (30.0-36.0); Mean Corpuscular Hemoglobin 31.1 pg (28.0-34.0); Mean Corpuscular Volume 98.8 fL (81-99); Mean Platelet Volume 12.3 fL (7.4-10.4); Monocytes # 0.5 10^3/uL (0.2-0.9); Monocytes % 7.5 %; Neutrophils # 4.06 10^3/uL (1.8-7.7); Neutrophils % 63.5 %; Nucleated Red Blood Cells % 0 %; Platelet Count 213 10^3/cmm (130-400); Red Blood Count 4.11 10^6/uL (4.1-5.3); Red Cell Distribution Width 15.4 % (12.1-15.1); White Blood Count 6.4 10^3/uL (4.0-10.0)
[2019-12-15 09:15] LABS: Add Urine Microscopic? NO
[2019-12-15 09:26] LABS: Bilirubin Urine Neg (Negative); Blood Urine Neg (Negative); Glucose Urine UA Norm (Normal); Ketones Urine 2+ (Negative); Leukocyte Esterase Urine Negative (Negative); Nitrate Urine Negative (Negative); Protein Urine Neg (Negative); Specific Gravity, Urine 1.015 (1.005-1.030); Urine Appearance Clear (CLEAR); Urine Color Yellow (Yellow); Urobilinogen Urine Norm (Negative)
--- NOTE | 2019-12-15 09:55 | PC.SOCIAL ---
Spoke with the patient about [facility], she stated that she does speak with someone from there. I called [facility], they stated that she talks with a casemanager often. They have an appointment set up for FridayDec 19 at 11 AM call visit. They faxed over an application for [facility], this was done with the patient while in ER. This was faxed back over to [facility]. I called Danish De Los Santos to see if he will help this patient with [employer]. Or if he could possibly check on the medicaid process as she had previously applied before.
--- NOTE | 2019-12-15 11:35 | PM.MISC ---
Miscellaneous Note Purpose of Documentation: IV insertion Note: 20g IV inserted under US-guidance at L basilic. Patient tolerated well. 3 Attempts
[2019-12-15] MEDS: morphine 4 mg/mL SDV 1 mL 6 MG IM (12:21)
[2019-12-15] MEDS: iohexol 300 mg/mL 100 mL Btl IV (13:12)
--- NOTE | 2019-12-15 14:23 | P.HP_ITS ---
Providers/Chief Complaint Chief Complaint: ABD PAIN History of Present Illness Vanita Barone is a 34 year old female with past medical history of chronic pancreatitis currently on Creon, recurrent admissions because of pancreatitis, gastritis, history of alcohol abuse in the past presented today with abdominal pain worsening for last 2 to 3 days. She states she was doing fine till around 4 days ago since her last discharge 2 months ago. Abdominal pain at present is epigastric rating to back is sharp in nature around 6/ 10 to 10/10 radiating to retrosternal area along with nausea. She states she has been taking up to 4 to 5 tablets of Tylenol every day for pain for last 4 to 5 days. She states she has not had alcohol for over a year. She is not able to take her medication as an outpatient including [place] for pain medication which was prescribed to to her by her primary care provider because of lack of insurance and financial struggles. She denies of having any diarrhea. States she has some constipation with last bowel movement around 4 days ago and is passing flatus occasionally. Denies of having any dizziness, palpitation, chest pain, dysuria, loss of appetite. States she is actually gained around 4 pounds since last admission. She denies of any flulike symptoms , fever, exposure to COVID-19 Her blood work in the ER showed a white count of 6.4, hemoglobin of 12.8, platelet count of 12 213, ABG showing a PCO2 of 33, PO2 of 99, sodium of 137, chloride of 132, creatinine of 0.8, lactate of 1, AST/ALT of 14/13, alkaline phosphatase of 62, lipase of 90 with UA negative for any signs of UTI. CT abdomen pelvis done in the ER showed mild acute pancreatitis with no pseudocyst and mild constipation. Review of Systems General: Reports: 10 or more systems reviewed and unremarkable except in HPI and below Const: Denies: fever(s), chills, body aches, change in appetite, change in weight, malaise, night sweats, diaphoresis, change in sleep pattern, daytime sleepiness or snoring Eyes: Denies: change in vision, blurry vision, photophobia, eye discomfort or eye discharge ENMT: Denies: throat pain, enlarged tonsils, hoarseness, mouth pain, oral sores, dry mouth, tinnitus, nasal congestion or post nasal drip Card: Denies: chest pain, palpitations, irregular heart rhythm, edema, swelling of feet/ankles, lightheadedness, syncope, pre-syncope, dyspnea on exertion, orthopnea, leg pain with exertion or acrocyanosis Resp: Denies: dyspnea, productive cough, non-productive cough, wheezing, stridor, pain on inspiration, change in phlegm color, hemoptysis or chest congestion GI: Denies: abdominal pain, nausea, vomiting, hematemesis, coffee ground emesis, dysphagia, heartburn, diarrhea, constipation, bloating, GI cramping, change in bowel habits, pain on defecation, hematochezia or melena : Denies: flank pain, dysuria, urinary frequency, urinary urgency, urinary hesitancy, nocturia or hematuria Musc: Denies: neck pain, back pain, extremity pain, joint pain, joint swelling, joint redness, joint stiffness or limited range of motion Neuro: Denies: headache(s), numbness in extremities, weakness in extremities, sensory changes, lack of coordination, difficulty walking, frequent falls, dizziness, vertigo, confusion, Slurred speech present, difficulty communicating thoughts or seizure-like activity Psych: Denies: anxiety, depression, mood swings, panic attacks, hopelessness or irritability Endo: Denies: polyuria, polydipsia, tired all the time, cold intolerance, excessive sweating, flushing or heat intolerance Ashwin/Lymph: Denies: easy bruising or easy bleeding All/Imm: Denies: tongue swelling, facial swelling or acute wheezing Medications/Allergies Home Medications Medication Instructions Recorded Confirmed Last Taken Type [id number] [Zenpep] 2 ea PO TIDWM #120 cap 10/05/19 12/15/19 Unknown Rx Allergies Allergy/AdvReac Type Severity Reaction Status Date / Time No Known Allergies Allergy Verified 12/14/19 10: PFSH Acute PFSH: Medical History Abnormal endoscopy of upper gastrointestinal tract (~05/2019) NSAID induced gastritis Alcohol abuse Alcohol use disorder In remission per pt Anxiety Chronic GERD Chronic pancreatitis Depression Social discord Surgical History History of vaginal delivery Hx of cholecystectomy Family History Denies family history of Hyperlipidemia Lung disease Hypertension Social History Smoking and tobacco status: current every day smoker Alcohol intake: former Other details last alcohol use: Pt states she has not been drinking recently Lives independently: Yes Housing: House Current gender identity: Female Female Reproductive History: Date of last menstrual period: 09/18/19 Vitals/I&O/Wt Last Vital Signs Temp 98.0 F 12/15/19 04:28 Pulse 63 12/15/19 14:00 Resp 24 H 12/15/19 14:00 BP 109/65 12/15/19 14:00 Pulse Ox 99 12/15/19 14:00 12/14/19 12/15/19 12/15/19 22:59 06:59 14:59 Intake Total 699.3 / 699.3 300.7 / 300.7 Balance 699.3 / 699.3 300.7 / 300.7 Weight last 48 hrs Weight 48.534 kg Physical Exam Narrative: EXAM NARRATIVE: General: No acute distress, AO x3, thin, cachectic HEENT: PERRLA, pupils bilaterally equal and reactive Chest: Normal vesicular breath sounds, no added sounds, equal good air entry bilaterally CVS: S1-S2 regular, no murmurs, no tachycardia, no gallops, no rubs Abdomen: Soft, tenderness in epigastric area, no organomegaly, bowel sounds present Neuro: No focal deficits, no facial deformity, AO x3, power 5/5 in all limbs Data : 12/15/19 04:55 12/15/19 04:52 A&P Assessment and plan (1) Abdominal pain: Status: Acute (2) Chronic pancreatitis: Status: Chronic Qualifiers: Pancreatitis type: other Qualified Code(s): K86.1 - Other chronic pancreatitis (3) Abnormal endoscopy of upper gastrointestinal tract: Status: Acute (4) Social discord: Status: Acute Additional A&P Information Abdominal pain: Most likely because of combination of chronic pancreatitis along with worsening of NSAID induced gastritis which was found to be on endoscopy done in May 2019. Patient states she is taking up to 4 to 5 tablets of Tylenol every day right now. CT abdomen results appreciated. Patient does not have any gallstones and alkaline phosphatase within normal limits. For now we will treat conservatively. N.p.o. for now. We will try clear liquid diet at night and advance gradually as she tolerates. Zofran as needed along with promethazine. Protonix IV daily. Maalox 15 mL p.o. every 8 hours for now. Milk of magnesia for constipation. H. pylori negative in the ER, hepatitis panel negative in the past in April, alcohol level negative in the ER today. Check lipid panel to rule out triglyceridemia, TSH, iron panel, ferritin, ESR, CRP, JORGE ALBERTO profile given recurrent admissions for pancreatitis even though patient does not consume alcohol anymore. Though most likely patient presentation is worsening of chronic pancreatitis at present. HbA1c done in 06.17. Continue with home dose of Creon. Dilaudid 0.5 IV every 6 hours as needed for pain. D5 NS at 50 cc/h. Social discord: Patient states she cannot try medication as an outpatient because of lack of insurance and financial trouble at present and states at present she need to rely on our friends for assistance with medication and transportation. She follows up with Dr. Ryan who is a [address] physician. We will consult care coordination for possible financial assistance. Patient also has some features of anxiety/depression. Most likely she needs to follow- up as an outpatient with [facility]. Full code. N.p.o. for now. Clear liquid diet from night. Lovenox for DVT prophylaxis Protonix for PUD prophylaxis Attestations Medical Necessity Statement*: Patient needs admission because of abdominal pain most likely because of acute on chronic pancreatitis along with poor oral intake. Most likely admission for less than 2 midnights Time Spent in Patient Care: Greater than 35 minutes (>than 50% of time spent in counselling and/or direct pt care on unit) . Coding Level of Care Code Acute Swing Tender for Chg Fwd Diagnoses Abdominal pain R10.9 Chronic pancreatitis K86.1 Pancreatitis type: other Abnormal endoscopy of upper gastrointestinal tract R93.3 Social discord Z65.8
[2019-12-15 14:58] LABS: Chol HDL Ratio 2.82 mg/dL (0.0-4.40); Cholesterol 169 mg/dL (0-200); HDL Cholesterol 60 mg/dL (60-100); Iron 65 ug/dL (37-145); LDL Cholesterol Calculated 76 mg/dL (50-129); Percent Saturation 18.5 % (20-50); Total Iron Binding Capacity 351 mcg/dl; Triglycerides 163 mg/dL (0-150); Unsaturated Iron Binding 286 ug/dL (112-347); VLDL Cholestrol Calculation 33 mg/dL (0-30)
[2019-12-15] MEDS: alum-mag-hydroxide-sime 30 mL UDC 15 ML PO (16:17)
[2019-12-15 16:31] LABS: Erythrocyte Sedimentation Rate 9 mm/hr (0-15)
[2019-12-15 16:33] LABS: C Reactive Protein 1.7 mg/L (0.0-4.9); Ferritin 51 ng/mL (15-150)
[2019-12-15] MEDS: pantoprazole 40 mg SDV IVP (16:55)
[2019-12-15] MEDS: HYDROmorphone 1 mg/mL INJ 1 mL 0.5 MG IVP ×2 (16:56→21:11)
[2019-12-15] MEDS: lipase-protease-amylase Capsule 2 EACH PO (16:56)
[2019-12-15] MEDS: D5-NS 0.45% + KCL 20 mEq 20 MEQ/1,000 ML BAG 125 MEQ IV (16:57)
--- NOTE | 2019-12-15 17:58 | ECG_ITS ---
[facility] Test Date: 2019-12-15 Pat Name: Vanita Barone Department: Room: 252 Gender: Female Supervisor Photocomposition: : 1985 Requested By: Karena Castillo Order Number: [id number] Reading MD: Measurements Intervals [place] Rate: 59 P: 71 AR: 155 QRS: 55 QRSD: 72 T: 65 QT: 397 QTc: 394 Interpretive Statements SINUS BRADYCARDIA No previous ECG available for comparison [id number]
[2019-12-15] MEDS: promethazine 25 mg/mL SDV 1 mL 12.5 MG IM (23:03)
[2019-12-16] VITALS (9 sets, daily range): BP systolic 111–147; BP diastolic 73–97; PULSE 52–81; RESP 12–20; TEMP 36.1–36.9; O2SAT 96–100
[2019-12-16] MEDS: alum-mag-hydroxide-sime 30 mL UDC 15 ML PO ×2 (00:45→08:00)
[2019-12-16] MEDS: HYDROmorphone 1 mg/mL INJ 1 mL 0.5 MG IVP ×3 (01:15→08:00)
[2019-12-16] MEDS: D5-NS 0.45% + KCL 20 mEq 20 MEQ/1,000 ML BAG 125 MEQ IV ×2 (05:01→19:49)
[2019-12-16 05:23] LABS: Basophils % 0.2 %; Eosinophils # 0.1 10^3/uL (0.0-0.8); Eosinophils % 0.9 %; Hematocrit 36.9 % (37.0-47.0); Hemoglobin 11.7 g/dL (11.5-15.3); Lymphocytes # 1.2 10^3/uL (0.8-4.8); Lymphocytes % 13.5 %; Mean Corpuscular HGB Conc 31.7 g/dL (30.0-36.0); Mean Corpuscular Hemoglobin 31.6 pg (28.0-34.0); Mean Corpuscular Volume 99.7 fL (81-99); Mean Platelet Volume 11.4 fL (7.4-10.4); Monocytes # 0.6 10^3/uL (0.2-0.9); Monocytes % 6.6 %; Neutrophils # 7.09 10^3/uL (1.8-7.7); Neutrophils % 78.4 %; Nucleated Red Blood Cells % 0 %; Platelet Count 191 10^3/cmm (130-400); Red Cell Distribution Width 15.5 % (12.1-15.1); White Blood Count 9.1 10^3/uL (4.0-10.0)
[2019-12-16 05:31] LABS: INR 0.98 (0.8-1.2)
[2019-12-16 05:58] LABS: Alanine Aminotransferase 14 U/L (0-33); Albumin Level 4.1 g/dL (3.5-5.2); Alkaline Phosphatase 52 IU/L (35-105); Aspartate Amino Transferase 20 U/L (0-32); Blood Urea Nitrogen 3 mg/dL (6-20); Calcium 8.7 mg/dL (8.5-10.5); Carbon Dioxide 22 mmol/L (22-29); Chloride 101 mmol/L (98-107); Globulin 2.4 g/dL (1.3-4.6); Glomerular Filtration Rate 136.9 mL/min (90-130); Glucose 158 mg/dL (65-115); Osmolality Calculated 276 mOsm/kg (285-295); Sodium 133 mmol/L (136-145); Total Bilirubin 0.2 mg/dL (0.15-1.2); Total Protein 6.5 g/dL (6.6-8.7)
[2019-12-16 05:59] LABS: Magnesium 1.7 mg/dL (1.7-2.3); Phosphorus 3.1 mg/dL (2.5-4.5)
[2019-12-16 06:10] LABS: Lipase 620 U/L (13-60)
--- NOTE | 2019-12-16 07:43 | PC.NURSE ---
walked in asked her if she was feeling okay she shook her head no, I asked her if I could take her vitals she rolled over put the sheet over her face, then another DIRECTOR WEB came in asked her if she could and she would not allow us to take her vitals.
[2019-12-16] MEDS: pantoprazole 40 mg SDV IVP (08:00)
[2019-12-16] MEDS: lipase-protease-amylase Capsule 2 EACH PO ×2 (08:00→11:41)
[2019-12-16] MEDS: ondansetron 2 mg/ML SDV 2 mL 4 MG IVP ×2 (08:00→20:55)
--- NOTE | 2019-12-16 09:19 | PM.PN ---
Subjective Subjective: Interval history: On examination patient lying comfortably in bed. States had a rough night because of abdominal pain. Denies any nausea. Not able to eat. Labs and vitals noted. Has remained afebrile. Vitals/I&O/Wt Last Vital Signs Temp 97.3 F L 12/16/19 04:00 Pulse 52 L 12/16/19 04:00 Resp 18 12/16/19 05:01 BP 124/73 12/16/19 04:00 Pulse Ox 97 12/16/19 04:00 12/15/19 12/16/19 12/16/19 22:59 06:59 14:59 Intake Total 480 / 1780.7 1000 / 2780.7 Output Total 0 / 0 Balance 480 / 1780.7 1000 / 2780.7 Weight last 48 hrs Weight 49.532 kg Weight 48.534 kg Physical Exam Narrative: EXAM NARRATIVE: General: No acute distress, AO x3, thin, cachectic HEENT: PERRLA, pupils bilaterally equal and reactive Chest: Normal vesicular breath sounds, no added sounds, equal good air entry bilaterally CVS: S1-S2 regular, no murmurs, no tachycardia, no gallops, no rubs Abdomen: Soft, tenderness in epigastric area, no organomegaly, bowel sounds present Neuro: No focal deficits, no facial deformity, AO x3, power 5/5 in all limbs Data : 12/16/19 04:32 12/16/19 04:32 A&P Assessment and plan (1) Abdominal pain: Status: Acute (2) Chronic pancreatitis: Status: Chronic Qualifiers: Pancreatitis type: other Qualified Code(s): K86.1 - Other chronic pancreatitis (3) Abnormal endoscopy of upper gastrointestinal tract: Status: Acute (4) Social discord: Status: Acute Additional A&P Information Abdominal pain: Most likely because of combination of chronic pancreatitis along with worsening of NSAID induced gastritis which was found to be on endoscopy done in May 2019. Patient states she is taking up to 4 to 5 tablets of Tylenol every day right now. CT abdomen results appreciated. Patient does not have any gallstones and alkaline phosphatase within normal limits. For now we will treat conservatively. Likely is worsening today. N.p.o. for now. We will try to advance gradually. Zofran as needed along with promethazine. Protonix IV daily. Maalox 15 mL p.o. every 8 hours as needed Milk of magnesia for constipation. H. pylori negative in the ER, hepatitis panel negative in the past in April, alcohol level negative in the ER today. As such, iron panel, ferritin, ESR, CRP results appreciated. JORGE ALBERTO profile pending. HbA1c done in 06.17. Continue with home dose of Creon. Increase Dilaudid to 1 mg IV every 6 hours as needed for pain along with Tylenol 3 25 every 8 hour as needed.. D5 NS at 50 cc/h. Social discord: Patient states she cannot try medication as an outpatient because of lack of insurance and financial trouble at present and states at present she need to rely on our friends for assistance with medication and transportation. She follows up with Dr. Ryan who is a [address] physician. As per the care coordination patient failed financial assistance paperwork last time and was unfortunately declined. Full code. NPO. Lovenox for DVT prophylaxis Protonix for PUD prophylaxis Attestations Medical Necessity Statement*: Patient needs further hospitalization for management of acute on chronic pancreatitis leading to poor oral intake, pain control Time Spent in Patient Care: Greater than 35 minutes (>than 50% of time spent in counselling and/or direct pt care on unit). Coding Level of Care Code Acute Traveling Nurse for Anurag [place] Diagnoses Abdominal pain R10.9 Chronic pancreatitis K86.1 Pancreatitis type: other Abnormal endoscopy of upper gastrointestinal tract R93.3 Social discord Z65.8
--- NOTE | 2019-12-16 10:48 | PC.CHAP ---
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 smog technician visit [] Patient/Family/Request visit [] Outpatient visit [] Follow-up visit [] Physician referral [] Code/Alert [x] Routine visit [] Staff referral [] Actively dying [] Patient sleeping [] Family support [] [] Out of room [] Palliative care [] [x] Receiving care in room [] Pre-surgical visit [] Trauma [] Long length of stay [] ICU visit [] Other: Relational/Emotional Strength [x] Patient feels connected with others/family/visitors/staff [] Distress [] Loneliness/isolation [] Abandonment Spirituality of Patient [x] Person of Fay [] Attends Latter Day of their Fay [x] Believes in Prayer [] Reads Bible or Caodaism materials [] There are Spiritual issues to be addressed 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 Truck 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 Interventions [x] Prayer [x] Active listening [x] Non-anxious presence [x] Spiritual/emotional support [] Crisis/trauma care [x] Spiritual counseling [] Bereavement support [] Provided bereavement packet [] Provided Bible/devotional materials [] Provided toy/stuffed animal, coloring book to patient or family member [] Provided Communion [] Anointing/[place] [] Salvation [x] Completed spiritual assessment [] Other: Impact on Illness or Injury [] Angry [x] Fearful [] Anxious [] Often cries [] Exhaustion [] Unable to work [] Unable to attend baptism [] Unable to walk/stand [] Unable to read [] Unable to drive [] Unable to eat/drink [] Unable to sleep [] Unable to be with family [] Patient intubated [] Other: Summary In pain, not feeling well, doesn't know what about her recovery, good attitude, negative feelings Time spent with patient 10 mins
[2019-12-16] MEDS: acetaminophen 325 mg Tablet PO ×2 (11:26→19:36)
[2019-12-16] MEDS: magnesium hydroxide 30 mL UDC PO (13:57)
[2019-12-16] MEDS: HYDROmorphone 1 mg/mL INJ 1 mL IVP ×2 (14:26→20:53)
[2019-12-16] MEDS: promethazine 25 mg/mL SDV 1 mL 12.5 MG IM (14:31)
[2019-12-17] VITALS (10 sets, daily range): BP systolic 114–140; BP diastolic 68–87; PULSE 62–86; RESP 16–20; TEMP 36.6–37.3; O2SAT 97–100
[2019-12-17] MEDS: HYDROmorphone 1 mg/mL INJ 1 mL IVP ×4 (02:48→21:14)
[2019-12-17] MEDS: acetaminophen 325 mg Tablet PO ×2 (04:19→13:33)
[2019-12-17] MEDS: D5-NS 0.45% + KCL 20 mEq 20 MEQ/1,000 ML BAG 125 MEQ IV (04:19)
[2019-12-17 06:35] LABS: Lipase 256 U/L (13-60)
[2019-12-17 07:31] LABS: Alanine Aminotransferase 11 U/L (0-33); Albumin Level 3.8 g/dL (3.5-5.2); Alkaline Phosphatase 50 IU/L (35-105); Anion Gap 11.4 (5-19); Aspartate Amino Transferase 20 U/L (0-32); Calcium 9.1 mg/dL (8.5-10.5); Carbon Dioxide 24 mmol/L (22-29); Chloride 99 mmol/L (98-107); Globulin 2.5 g/dL (1.3-4.6); Glomerular Filtration Rate 168.9 mL/min (90-130); Glucose 104 mg/dL (65-115); Potassium 3.4 mmol/L (3.5-5.1); Sodium 131 mmol/L (136-145); Total Bilirubin 0.3 mg/dL (0.15-1.2); Total Protein 6.3 g/dL (6.6-8.7)
[2019-12-17 07:38] LABS: Blood Urea Nitrogen 1 mg/dL (6-20); Osmolality Calculated 268 mOsm/kg (285-295)
[2019-12-17] MEDS: pantoprazole 40 mg SDV IVP (08:47)
[2019-12-17] MEDS: dextrose 5%-sod chloride 0.9% 1,000 ML 75 ML IV ×2 (09:28→23:23)
--- NOTE | 2019-12-17 10:59 | P.PN_ITS ---
Subjective Subjective: Interval history: Lying comfortably in bed. Denies any nausea, vomiting. Tolerating clear liquid diet appropriately. States pain is little better. Talking a lot more awake than yesterday. Still has not had a bowel movement. Seen in hemodynamically stable and afebrile. Vitals/I&O/Wt Last Vital Signs Temp 98.7 F 12/17/19 07:33 Pulse 69 12/17/19 07:33 Resp 18 12/17/19 08:48 BP 132/82 12/17/19 07:33 Pulse Ox 98 12/17/19 08:48 12/16/19 12/17/19 12/17/19 22:59 06:59 14:59 Intake Total 230 / 1230 1100 / 2330 650 / 650 Balance 230 / 1230 1100 / 2330 650 / 650 Weight last 48 hrs Weight 48.217 kg Weight 49.532 kg Physical Exam Narrative: EXAM NARRATIVE: General: No acute distress, AO x3, thin, cachectic HEENT: PERRLA, pupils bilaterally equal and reactive Chest: Normal vesicular breath sounds, no added sounds, equal good air entry bilaterally CVS: S1-S2 regular, no murmurs, no tachycardia, no gallops, no rubs Abdomen: Soft, tenderness in epigastric area, no organomegaly, bowel sounds present Neuro: No focal deficits, no facial deformity, AO x3, power 5/5 in all limbs Data : 12/16/19 04:32 12/17/19 04:30 A&P Assessment and plan (1) Abdominal pain: Status: Acute (2) Chronic pancreatitis: Status: Chronic Qualifiers: Pancreatitis type: other Qualified Code(s): K86.1 - Other chronic pancreatitis (3) Abnormal endoscopy of upper gastrointestinal tract: Status: Acute (4) Social discord: Status: Acute Additional A&P Information Abdominal pain: Most likely because of combination of chronic pancreatitis along with worsening of NSAID induced gastritis which was found to be on endoscopy done in May 2019. Patient states she is taking up to 4 to 5 tablets of Tylenol every day right now. CT abdomen results appreciated. Patient does not have any gallstones and alkaline phosphatase within normal limits. For now we will treat conservatively. Lipase better than yesterday. Continue with clear liquid diet for now. Will advance gradually. Zofran as needed along with promethazine. Protonix IV daily. Maalox 15 mL p.o. every 8 hours as needed Milk of magnesia for constipation. Dilaudid 1 g IV every 6 hours as needed, Tylenol 3 25 mg every 8 hours as needed for pain. H. pylori negative in the ER, hepatitis panel negative in the past in April, alcohol level negative in the ER today. As such, iron panel, ferritin, ESR, CRP results appreciated. JORGE ALBERTO profile pending. HbA1c done in 06.17. Hyponatremia: Most likely dilutional. We will switch fluids to D5 NS at 75 cc/h. Social discord: Patient states she cannot try medication as an outpatient because of lack of insurance and financial trouble at present and states at present she need to rely on our friends for assistance with medication and transportation. She follows up with Dr. Ryan who is a [facility] physician. As per the care coordination patient failed financial assistance paperwork last time and was unfortunately declined. Full code. NPO. Lovenox for DVT prophylaxis Protonix for PUD prophylaxis Attestations Medical Necessity Statement*: Patient needs controlled hospitalization for management of acute on chronic pancreatitis, poor oral intake mildly advanced oral diet gradually. Time Spent in Patient Care: Greater than 35 minutes (>than 50% of time spent in counselling and/or direct pt care on unit) . Coding Level of Care Code Acute Hydrologic Modeler for Anurag Paris Diagnoses Abdominal pain R10.9 Chronic pancreatitis K86.1 Pancreatitis type: other Abnormal endoscopy of upper gastrointestinal tract R93.3 Social discord Z65.8
[2019-12-17] MEDS: magnesium hydroxide 30 mL UDC PO (11:15)
--- NOTE | 2019-12-17 16:52 | PC.RESP ---
Smoking Cessation information sent to patient.
[2019-12-17] MEDS: ondansetron 2 mg/ML SDV 2 mL 4 MG IVP (17:38)
[2019-12-18] VITALS (10 sets, daily range): BP systolic 109–138; BP diastolic 50–93; PULSE 40–99; RESP 16–18; TEMP 36.5–36.9; O2SAT 94–100
[2019-12-18] MEDS: acetaminophen 325 mg Tablet PO ×3 (00:48→18:11)
[2019-12-18] MEDS: diphenhydrAMINE 50 mg Capsule PO (01:50)
[2019-12-18] MEDS: HYDROmorphone 1 mg/mL INJ 1 mL IVP ×4 (03:54→22:44)
[2019-12-18 05:45] LABS: Basophils % 0.3 %; Eosinophils # 0.1 10^3/uL (0.0-0.8); Eosinophils % 1.3 %; Hematocrit 33.6 % (37.0-47.0); Hemoglobin 10.7 g/dL (11.5-15.3); Lymphocytes # 1.9 10^3/uL (0.8-4.8); Lymphocytes % 28.4 %; Mean Corpuscular HGB Conc 31.8 g/dL (30.0-36.0); Mean Corpuscular Hemoglobin 31.5 pg (28.0-34.0); Mean Corpuscular Volume 98.8 fL (81-99); Mean Platelet Volume 11.4 fL (7.4-10.4); Monocytes # 0.7 10^3/uL (0.2-0.9); Monocytes % 10.5 %; Neutrophils # 4.04 10^3/uL (1.8-7.7); Neutrophils % 59.2 %; Nucleated Red Blood Cells % 0 %; Platelet Count 186 10^3/cmm (130-400); White Blood Count 6.8 10^3/uL (4.0-10.0)
[2019-12-18 06:19] LABS: Alanine Aminotransferase 10 U/L (0-33); Albumin Level 3.5 g/dL (3.5-5.2); Alkaline Phosphatase 48 IU/L (35-105); Anion Gap 11.7 (5-19); Aspartate Amino Transferase 18 U/L (0-32); Calcium 8.8 mg/dL (8.5-10.5); Carbon Dioxide 24 mmol/L (22-29); Chloride 104 mmol/L (98-107); Globulin 2.2 g/dL (1.3-4.6); Glomerular Filtration Rate 136.9 mL/min (90-130); Glucose 98 mg/dL (65-115); Potassium 3.7 mmol/L (3.5-5.1); Sodium 136 mmol/L (136-145); Total Bilirubin 0.2 mg/dL (0.15-1.2); Total Protein 5.7 g/dL (6.6-8.7)
[2019-12-18 06:20] LABS: Lipase 51 U/L (13-60)
[2019-12-18 06:22] LABS: Blood Urea Nitrogen 1 mg/dL (6-20); Osmolality Calculated 278 mOsm/kg (285-295)
[2019-12-18] MEDS: pantoprazole 40 mg SDV IVP (08:56)
--- NOTE | 2019-12-18 09:05 | PC.NURSE ---
IV IV to R AC removed with catheter intact. No distress noted.
[2019-12-18] MEDS: dextrose 5%-sod chloride 0.9% 1,000 ML 75 ML IV (13:00)
--- NOTE | 2019-12-18 13:09 | P.PN_ITS ---
Subjective Subjective: Interval history: No acute events overnight. On examination patient is lying comfortably in bed. She is tolerating clear liquid diet well. She states she has having abdominal pain on and off. Discussed with her in detail that unfortunately she has chronic pancreatitis and she would always have some baseline abdominal pain and and she should not expect her pain to be 0. Discussed with her that going forward she should take GI soft diet/ BRAT diet for at least couple of weeks and then advance gradually. Discussed with her that she can take multiple small small meals. Discussed with her regarding the concept of refractory opiate pain. Vitals/I&O/Wt Last Vital Signs Temp 98.4 F 12/18/19 11:45 Pulse 89 12/18/19 11:45 Resp 17 12/18/19 11:45 BP 109/73 12/18/19 11:45 Pulse Ox 94 12/18/19 08:00 12/17/19 12/18/19 12/18/19 22:59 06:59 14:59 Intake Total 1650 / 2300 1000 / 1000 Output Total 425 / 425 Balance 1650 / 2300 -425 / 1875 1000 / 1000 Weight last 48 hrs Weight 48.172 kg Weight 48.217 kg Physical Exam Narrative: EXAM NARRATIVE: General: No acute distress, AO x3, thin, cachectic HEENT: PERRLA, pupils bilaterally equal and reactive Chest: Normal vesicular breath sounds, no added sounds, equal good air entry bilaterally CVS: S1-S2 regular, no murmurs, no tachycardia, no gallops, no rubs Abdomen: Soft, tenderness in epigastric area, no organomegaly, bowel sounds present Neuro: No focal deficits, no facial deformity, AO x3, power 5/5 in all limbs Data : 12/18/19 04:53 12/18/19 04:53 A&P Assessment and plan (1) Abdominal pain: Status: Acute (2) Chronic pancreatitis: Status: Chronic Qualifiers: Pancreatitis type: other Qualified Code(s): K86.1 - Other chronic pancreatitis (3) Abnormal endoscopy of upper gastrointestinal tract: Status: Acute (4) Social discord: Status: Acute Additional A&P Information Abdominal pain: Most likely because of combination of chronic pancreatitis along with worsening of NSAID induced gastritis which was found to be on endoscopy done in May 2019. Patient states she is taking up to 4 to 5 tablets of Tylenol every day right now. CT abdomen results appreciated. Patient does not have any gallstones and alkaline phosphatase within normal limits. For now we will treat conservatively. Lipase trending down. Advance to full liquid diet. Zofran as needed along with promethazine. Protonix IV daily. Dilaudid 1 g IV every 6 hours as needed, Tylenol 3 25 mg every 8 hours as needed for pain. H. pylori negative in the ER, hepatitis panel negative in the past in April, alcohol level negative in the ER today. As such, iron panel, ferritin, ESR, CRP results appreciated. JORGE ALBERTO profile pending. HbA1c done in 06.17. Hyponatremia: Resolved. Most likely dilutional. We will switch fluids to D5 NS at 75 cc/h. Social discord: Patient states she cannot try medication as an outpatient because of lack of insurance and financial trouble at present and states at present she need to rely on our friends for assistance with medication and transportation. She follows up with Dr. Ryan who is a [facility] physician. As per the care coordination patient failed financial assistance paperwork last time and was unfortunately declined. Full code. Full liquid diet. Lovenox for DVT prophylaxis Protonix for PUD prophylaxis. Discharge planning: If patient continues to do well can plan to discharge her tomorrow on full liquid diet for couple of weeks advancing to GI soft/brat diet. Attestations Medical Necessity Statement*: Needs further hospitalization for management of abdominal pain because of acute on chronic pancreatitis while we advance her diet gradually. Time Spent in Patient Care: Greater than 35 minutes (>than 50% of time spent in counselling and/or direct pt care on unit) . Coding Level of Care Code Acute Registered Account Administrator for Anurag Paris Diagnoses Abdominal pain R10.9 Chronic pancreatitis K86.1 Pancreatitis type: other Abnormal endoscopy of upper gastrointestinal tract R93.3 Social discord Z65.8
[2019-12-18] MEDS: ondansetron 2 mg/ML SDV 2 mL 4 MG IVP (16:43)
[2019-12-18] MEDS: diphenhydrAMINE 25 mg Capsule 50 MG PO (22:45)
[2019-12-19] VITALS (8 sets, daily range): BP systolic 113–128; BP diastolic 71–84; PULSE 52–81; RESP 16–20; TEMP 36.4–37.3; O2SAT 97–100
[2019-12-19] MEDS: acetaminophen 325 mg Tablet PO (01:29)
[2019-12-19] MEDS: dextrose 5%-sod chloride 0.9% 1,000 ML 75 ML IV (01:31)
[2019-12-19] MEDS: HYDROmorphone 1 mg/mL INJ 1 mL IVP ×2 (05:21→11:47)
[2019-12-19 06:20] LABS: Alanine Aminotransferase 10 U/L (0-33); Albumin Level 3.4 g/dL (3.5-5.2); Alkaline Phosphatase 48 IU/L (35-105); Anion Gap 10.8 (5-19); Aspartate Amino Transferase 13 U/L (0-32); Calcium 8.9 mg/dL (8.5-10.5); Carbon Dioxide 26 mmol/L (22-29); Chloride 106 mmol/L (98-107); Globulin 2.4 g/dL (1.3-4.6); Glomerular Filtration Rate 114.6 mL/min (90-130); Glucose 95 mg/dL (65-115); Potassium 3.8 mmol/L (3.5-5.1); Sodium 139 mmol/L (136-145); Total Bilirubin 0.2 mg/dL (0.15-1.2); Total Protein 5.8 g/dL (6.6-8.7)
[2019-12-19 06:23] LABS: Lipase 37 U/L (13-60)
[2019-12-19 06:27] LABS: Blood Urea Nitrogen 1 mg/dL (6-20); Osmolality Calculated 284 mOsm/kg (285-295)
[2019-12-19] MEDS: pantoprazole 40 mg SDV IVP (09:36)
--- NOTE | 2019-12-19 09:47 | P.DS_ITS ---
Discharge Providers Date of Admission: 12/17/19 09:10 Date of Discharge: December 19, 2019 Attending Provider at Admission: Quan Anderson MD Attending Provider at Discharge: Quan Anderson MD Diagnoses at Discharge Discharge Diagnosis (1) Abdominal pain: Status: Acute (2) Chronic pancreatitis: Status: Chronic Qualifiers: Pancreatitis type: other Qualified Code(s): K86.1 - Other chronic pancreatitis (3) Abnormal endoscopy of upper gastrointestinal tract: Status: Acute Permanent problem details: NSAID induced gastritis (4) Social discord: Status: Acute Reason for Visit Reason for Visit: ABD PAIN Hospital Course Discharge Summary: Vanita Barone is a 34 year old female with past medical history of chronic pancreatitis currently on Creon, recurrent admissions because of pancreatitis, gastritis, history of alcohol abuse in the past presented today with abdominal pain worsening for last 2 to 3 days. She states she was doing fine till around 4 days ago since her last discharge 2 months ago. Abdominal pain at present is epigastric rating to back is sharp in nature around 6/ 10 to 10/10 radiating to retrosternal area along with nausea. She states she has been taking up to 4 to 5 tablets of Tylenol every day for pain for last 4 to 5 days. She states she has not had alcohol for over a year. She is not able to take her medication as an outpatient including Ida for pain medication which was prescribed to to her by her primary care provider because of lack of insurance and financial struggles. She denies of having any diarrhea. States she has some constipation with last bowel movement around 4 days ago and is passing flatus occasionally. Denies of having any dizziness, palpitation, chest pain, dysuria, loss of appetite. States she is actually gained around 4 pounds since last admission. She denies of any flulike symptoms, fever, exposure to COVID-19 Her blood work in the ER showed a white count of 6.4, hemoglobin of 12.8, platelet count of 12 213, ABG showing a PCO2 of 33, PO2 of 99, sodium of 137, chloride of 132, creatinine of 0.8, lactate of 1, AST/ALT of 14/13, alkaline phosphatase of 62, lipase of 90 with UA negative for any signs of UTI. CT abdomen pelvis done in the ER showed mild acute pancreatitis with no pseudocyst and mild constipation. She was under the hospital and started on conservative treatment for acute on chronic pancreatitis. She was kept n.p.o. and had IV hydration and was advanced to full liquid diet gradually. She responded well to the treatment and is able to tolerate full liquid diet well. Patient does not have any insurance and because of financial difficulties she is not able to get her medications as an outpatient. Patient unfortunately has been denied very recently for financial assistance. She supposed to see Dr. Leahy who is a [facility] physician from where she can get medications at a better thrasher. She is advised to continue full liquid diet and to advance very slowly within next 1 week to GI soft diet/brat diet mostly containing bananas, applesauce, rice, toast, mashed potatoes. She is advised to take multiple small meals during the day. She has been discharged in hemodynamically stable condition with above recommendations. She has been appointment to see [facility] at [place] on December 19 and has been counseled to keep her appointment. Physical Exam Narrative: EXAM NARRATIVE: General: No acute distress, AO x3, thin, cachectic HEENT: PERRLA, pupils bilaterally equal and reactive Chest: Normal vesicular breath sounds, no added sounds, equal good air entry bilaterally CVS: S1-S2 regular, no murmurs, no tachycardia, no gallops, no rubs Abdomen: Soft, tenderness in epigastric area, no organomegaly, bowel sounds present Neuro: No focal deficits, no facial deformity, AO x3, power 5/5 in all limbs Discharge Data Data Completed and Pending: Completed Studies During Hospitalization Category Date Time Status CT abdomen pelvis w con* [id number] Stat Cat Scan 12/15/19 04:27 Completed XR chest 1V henry ble [id number] Stat Exams 12/15/19 04:27 Completed Pending at discharge Category Date Time Status [facility] JORGE ALBERTO Profile R outine Lab 12/15/19 15:35 Received Labs from last 24 hours 12/19/19 12/19/19 04:56 04:56 Sodium 139 Potassium 3.8 Chloride 106 Carbon Dioxide 26 Anion Gap 10.8 BUN 1 L Creatinine 0.7 GFR Calculation 114.6 Glucose 95 Calculated Osmolal ity 284 L Calcium 8.9 Total Bilirubin 0.2 AST 13 ALT 10 Alkaline Phosphata se 48 Total Protein 5.8 L Albumin 3.4 L Globulin 2.4 Lipase 37 Vitals: Last Vital Signs Temp 97.6 F 12/19/19 07:42 Pulse 81 12/19/19 07:42 Resp 18 12/19/19 07:42 BP 124/84 12/19/19 07:42 Pulse Ox 100 12/19/19 07:42 Discharge Plan Discharge Patient Disposition: Home Condition: Stable Prescriptions: New Mag-Al Plus 200-200-20 mg/5 mL Suspension 15 ml PO Q8H PRN (Reason: Abdominal pain) Qty: 120 RF: 0 Protonix 40 mg tablet,delayed release (DR/EC) 40 mg PO DAILY Qty: 30 RF: 0 Ida 5-325 mg tablet 1 tab PO BID PRN (Reason: pain) Qty: 10 RF: 0 Continued Zenpep 5,000-17,000- 24,000 unit Capsule,Delayed Release(Dr/Ec) 2 ea PO TIDWM Qty: 60 RF: 0 Discharge Orders: Discharge Order (Routine); Ordered 12/19/19 Ordered By: Quan Anderson Referrals: [facility], [Staff Physician] - 12/20/19 11:00 am (Phone call visit with your therapist. Please be available for this call. ) Activity Restrictions/Additional Instructions: She is advised to continue full liquid diet and to advance very slowly within next 1 week to GI soft diet/brat diet mostly containing bananas, applesauce, rice, toast, mashed potatoes. She is advised to take multiple small meals during the day. Discharge Attestations Time Spent in Discharge Care*: greater than 30 min Specific Discharge Activities: Specific discharge activities: educating patient, discussing with continuous pillowcase cutter/social workers/dc planners, documenting/other paperwork and evaluating patient/reviewing data Status at Discharge: Cognitive status at discharge: cognitively intact , Behavioral status at discharge: cooperative , Functional status at discharge: independent ambulation Overall status at discharge: patient is back to [facility] Quality Metrics Clinical Quality Measures During this hospital stay, did patient experience: None Coding Level of Care Code Acute Rescue Worker for Carlg Fwd Diagnoses Abdominal pain R10.9 Chronic pancreatitis K86.1 Pancreatitis type: other Abnormal endoscopy of upper gastrointestinal tract R93.3 Social discord Z65.8
--- NOTE | 2019-12-19 12:50 | PC.NURSE ---
Discharge instructions given to patient voiced full understanding, Meds from beds to meds given to patient. IV dc'd cath intact bleeding controlled with 2x2's and coban, patient to main entrance via wheelchair with zero difficulties.
[2019-12-20 15:23] LABS: Anti-Double Strand DNA AB <1 IU/mL; Jo-1 Antibody <1.0 NEG AI (<1.0 NEG); SM/RNP Antibodies <1.0 NEG AI (<1.0 NEG); SS-B/LA IGG <1.0 NEG AI (<1.0 NEG); Scleroderma Ab(Scl-70) Ab <1.0 NEG AI (<1.0 NEG); Ss-A/Ro Igg <1.0 NEG AI (<1.0 NEG)
--- NOTE | 2019-12-20 17:19 | PC.RESP ---
Smoking Cessation information sent to patient.
== END 2019-12-19 12:50 | disposition home or self-care (01) | DRG 440 ==
LOC: ER 12:29 → MEDSURG 14:51
PROVIDERS: Emergency Medicine; Admitting Provider Student in an Organized Health Care Education/Training Program; Emergency Provider Family Medicine; Visit Provider Student in an Organized Health Care Education/Training Program
DX: K86.1 Other chronic pancreatitis (principal); Z79.1 Long term (current) use of non-steroidal anti-inflammatories (NSAID); F10.21 Alcohol dependence, in remission; Z65.8 Other specified problems related to psychosocial circumstances; K21.9 Gastro-esophageal reflux disease without esophagitis; F41.8 Other specified anxiety disorders; F17.210 Nicotine dependence, cigarettes, uncomplicated; K85.90 Acute pancreatitis without necrosis or infection, unspecified
CPT/HCPCS: 12345; 36410; 36415; 36600; 71045; 74177; 80053; 80061; 80307; 81003; 82728; 82803; 83540; 83550; 83605; 83690; 83735; 84100; 84443; 84703; 85025; 85610; 85651; 86140; 86225; 86235; 86677; 93005; 94664; 96372; 96375; 99284; C9113; G0378; J1170; J2270; J2405; J2550; J7030; Q0163; Q9967

== ENCOUNTER 2020-05-05 05:41 | Emergency (ER) | payer SELFPAY ==
[2019-10-05 12:15] VITALS: BP 150/82; BMI 18.3
[2020-05-05] VITALS (11 sets, daily range): BP systolic 109–143; BP diastolic 65–86; PULSE 56–98; RESP 13–21; TEMP 36.6; O2SAT 96–100; BMI 16.4
[2020-05-05 05:58] LABS: Basophils % 0.4 %; Eosinophils % 0.4 %; Hemoglobin 13.6 g/dL (11.5-15.3); Lymphocytes # 2.6 10^3/uL (0.8-4.8); Lymphocytes % 24.4 %; Mean Corpuscular HGB Conc 32.4 g/dL (30.0-36.0); Mean Corpuscular Hemoglobin 32.4 pg (28.0-34.0); Mean Platelet Volume 10.9 fL (7.4-10.4); Monocytes # 0.8 10^3/uL (0.2-0.9); Monocytes % 6.9 %; Neutrophils # 7.32 10^3/uL (1.8-7.7); Neutrophils % 67.7 %; Nucleated Red Blood Cells % 0 %; Platelet Count 185 10^3/cmm (130-400); Red Cell Distribution Width 14.6 % (12.1-15.1); White Blood Count 10.8 10^3/uL (4.0-10.0)
[2020-05-05] MEDS: sodium chloride 0.9% 1,000 ML 999 ML IV (06:00)
[2020-05-05 06:13] LABS: Alanine Aminotransferase 29 U/L (0-33); Albumin Level 4.6 g/dL (3.5-5.2); Alkaline Phosphatase 59 IU/L (35-105); Anion Gap 28.2 (5-19); Aspartate Amino Transferase 51 U/L (0-32); Blood Urea Nitrogen 5 mg/dL (6-20); Calcium 9.5 mg/dL (8.5-10.5); Carbon Dioxide 16 mmol/L (22-29); Chloride 92 mmol/L (98-107); Globulin 3.2 g/dL (1.3-4.6); Glomerular Filtration Rate 113.9 mL/min (90-130); Glucose 70 mg/dL (65-115); Lipase 67 U/L (13-60); Osmolality Calculated 270 mOsm/kg (285-295); Potassium 4.2 mmol/L (3.5-5.1); Sodium 132 mmol/L (136-145); Total Protein 7.8 g/dL (6.6-8.7)
--- NOTE | 2020-05-05 06:18 | W.ED.ABDPA2 ---
HPI - Abdominal Pain General: Chief Complaint: Abdominal Pain Stated Complaint: abd pain Time Seen by Provider: 05/05/20 06:11 Source: patient Mode of arrival: EMS Limitations: no limitations History of Present Illness: MD elicited complaint: abdominal pain Pertinent past history: gastritis and other (pancreatitis) Onset (ago): day(s) (1) Pain Consistency: constant Location: Epigastric and Periumbilical Severity: severe Quality: cramping, stabbing, aching, sharp and burning Radiation: epigastric and back Exacerbating factors: eating Relieving factors: nothing Context: history of similar episodes and other (symptoms started after eating hot sauce. She also smokes marijuana.) Associated Symptoms: Reports bloating, dyspepsia, heartburn, nausea and poor appetite; Denies coffee ground emesis, dysuria, fever(s), hematochezia and hematemesis Related Data: Date of Last Menstrual Period: 04/16/20 Patient : No Review of Systems General: Reports: 10 or more systems reviewed and unremarkable except in HPI and below Const: Reports: change in appetite, fatigue and malaise Eyes: Denies: change in vision or blurry vision ENMT: Reports: dry mouth; Denies: throat pain or enlarged tonsils Resp: Denies: dyspnea, productive cough or wheezing GI: Reports: abdominal pain, nausea, vomiting, heartburn, bloating and GI cramping; Denies: hematemesis, coffee ground emesis or hematochezia : Denies: difficulty voiding, dysuria or urinary frequency Skin/Breast: Denies: rash, pruritus or erythema Neuro: Reports: headache(s); Denies: numbness in extremities or weakness in extremities All/Imm: Denies: urticaria or throat swelling PFSH ED PFSH: Medical History Abnormal endoscopy of upper gastrointestinal tract (~05/2019) NSAID induced gastritis Alcohol abuse Alcohol use disorder In remission per pt Anxiety Chronic GERD Chronic pancreatitis Depression Social discord Surgical History History of vaginal delivery Hx of cholecystectomy Family History Denies family history of Hyperlipidemia Lung disease Hypertension Social History Smoking and tobacco status: current every day smoker Alcohol intake: former Other details last alcohol use: Pt states she has not been drinking recently Lives independently: Yes Housing: House Current gender identity: Female Female Reproductive History: Date of last menstrual period: 04/16/20 Physical Exam Const: GENERAL APPEARANCE: cooperative; not ill appearing, not frail appearing and no odor of alcohol detected NUTRITIONAL APPEARANCE: underweight ORIENTATION/CONSCIOUSNESS: Yes awake, Yes oriented to person and Yes oriented to place HENMT: COMMON NORMALS: normocephalic and atraumatic HEAD & SCALP: normocephalic and atraumatic FACE & SINUS: normal facial exam and face symmetric Eye: COMMON NORMALS: Equal, round and reactive pupils present, EOMs intact bilaterally, conjunctivae normal and no scleral icterus GENERAL EYE: appearance normal, both eyes and all related structures CONJUNCTIVA: Yes conjunctivae normal SCLERA: sclerae normal PUPIL: Yes Equal, round and reactive pupils present Neck/C-Spine: COMMON NORMALS: no lymphadenopathy; negative for full ROM Resp: COMMON NORMALS: normal respiratory effort, No use of accessory muscles and clear to auscultation bilaterally EFFORT & INSPECTION: Yes able to speak in complete sentences, No respiratory distress and No labored AUSCULTATION: clear to auscultation bilaterally Cardio: COMMON NORMALS: regular rate, regular rhythm, S1 normal heart sound present and S2 normal heart sound present RATE: regular rate RHYTHM: regular rhythm HEART SOUNDS: S1 normal heart sound present and S2 normal heart sound present GI: INSPECTION: Yes normal to inspection, No abdominal distension and No Localized GI swelling present AUSCULTATION: Yes normoactive bowel sounds PALPATION: Yes Soft to palpation, Yes Tenderness to palpation present (GI), Yes Guarding due to palpation present (GI) and No Ascites present : COMMON NORMALS: Yes no CVA tenderness BLADDER/KIDNEY EXAM: Yes no CVA tenderness Back/Pelvis: COMMON NORMALS: no CVA tenderness Extremity: COMMON NORMALS: normal to inspection and full ROM Neuro: SENSORIUM/ORIENTATION: Yes oriented to person and Yes oriented to place Skin: COMMON NORMALS: no rashes or lesions noted, no wounds, turgor normal and no jaundice GENERAL SKIN EXAM: no rashes or lesions noted and turgor normal Course Vital Signs: Vital signs: Vital Signs Temperature 97.8 F 05/05/20 11:37 Pulse Rate 78 03/19/21 11:37 Respiratory Rate 21 H 05/05/20 11:37 Blood Pressure 109/65 05/05/20 11:37 Pulse Oximetry 100 05/05/20 11:37 MDM - Abdominal Pain MDM Narrative: Medical decision making narrative: 35-year-old female with history of chronic pancreatitis, with epigastric pain, nausea, vomiting since yesterday.35-year-old female with history of chronic pancreatitis, with epigastric pain, nausea, vomiting since yesterday.Treated with IV fluid, analgesics, anti-emetics. CT abdomen pelvis shows change is consistent with chronic pancreatitis as well as thickening of the distal stomach and proximal duodenum distant with duodenitis. No free air. Her lipase is 67, which is lower than her baseline. She improved significantly with IVPPI, and was able to tolerate liquids.I will recommend that she restart protonic?s twice daily for 14 days, and also start Carafate four times daily for the next two weeks. She needs to schedule a follow up appointment with her primary care doctor to schedule further testing and evaluation if her symptoms do not improve. Differential Diagnosis: Differential diagnosis abdominal pain: Likely constipation, gastroenteritis, pancreatitis and small bowel obstruction Medical Records: Attestation: I reviewed the patient's medical records. Lab Data: Attestation: I reviewed the patient's lab results. Labs: Lab Results 05/05/20 05/05/20 05/05/20 Range/Units 05:50 05:50 08:44 WBC 10.8 H (4.0-10.0) 10^3/ uL RBC 4.20 (4.1-5.3) 10^6/u L Hgb 13.6 (11.5-15.3) g/dL Hct 42.0 (37.0-47.0) % MCV 100.0 H (81-99) fL MCH 32.4 (28.0-34.0) pg MCHC 32.4 (30.0-36.0) g/dL RDW 14.6 (12.1-15.1) % Plt Count 185 (130-400) 10^3/c mm MPV 10.9 H (7.4-10.4) fL Neut % (Auto) 67.7 % Lymph % (Auto) 24.4 % [place] % (Auto) 6.9 % Eos % (Auto) 0.4 % Baso % (Auto) 0.4 % Neut # (Auto) 7.32 (1.8-7.7) 10^3/u L Lymph # (Auto) 2.6 (0.8-4.8) 10^3/u L [place] # (Auto) 0.8 (0.2-0.9) 10^3/u L Eos # (Auto) 0.0 (0.0-0.8) 10^3/u L Baso # (Auto) 0.0 (0.0-0.1) 10^3/u L Nucleated RBC % (a uto) 0 % Nucleated RBCs # 0.0 /100WBC Sodium 132 L (136-145) mmol/L Potassium 4.2 (3.5-5.1) mmol/L Chloride 92 L (98-107) mmol/L Carbon Dioxide 16 L (22-29) mmol/L Anion Gap 28.2 H (5-19) BUN 5 L (6-20) mg/dL Creatinine 0.7 (0.5-0.9) mg/dL GFR Calculation 113.9 (90-130) mL/min Glucose 70 (65-115) mg/dL Calculated Osmolal ity 270 L (285-295) mOsm/k g Calcium 9.5 (8.5-10.5) mg/dL Total Bilirubin 1.0 (0.15-1.2) mg/dL AST 51 H (0-32) U/L ALT 29 (0-33) U/L Alkaline Phosphata se 59 (35-105) IU/L Total Protein 7.8 (6.6-8.7) g/dL Albumin 4.6 (3.5-5.2) g/dL Globulin 3.2 (1.3-4.6) g/dL Lipase 67 H (13-60) U/L HCG, Qual Negative (Negative) Urine Color (Yellow) Urine Appearance (CLEAR) Urine pH (5-7) Ur Specific Gravit y (1.005-1.030) Urine Protein (Negative) Urine Glucose (UA) (Normal) Urine Ketones (Negative) Urine Blood (Negative) Urine Nitrate (Negative) Urine Bilirubin (Negative) Urine Urobilinogen (Negative) mg/dL Ur Leukocyte Yesenia ase (Negative) Urine Opiates Scre en (Negative) ng/mL Ur Barbiturates Sc reen (Negative) ng/mL Ur Phencyclidine S crn (Negative) ng/mL Ur Amphetamines Sc reen (Negative) ng/mL U Benzodiazepines Scrn (Negative) ng/mL Urine Cocaine Scre en (Negative) ng/mL U Marijuana (THC) Screen (Negative) ng/mL 05/05/20 05/05/20 Range/Units 08:44 08:44 WBC (4.0-10.0) 10^3/ uL RBC (4.1-5.3) 10^6/u L Hgb (11.5-15.3) g/dL Hct (37.0-47.0) % MCV (81-99) fL MCH (28.0-34.0) pg MCHC (30.0-36.0) g/dL RDW (12.1-15.1) % Plt Count (130-400) 10^3/c mm MPV (7.4-10.4) fL Neut % (Auto) % Lymph % (Auto) % [place] % (Auto) % Eos % (Auto) % Baso % (Auto) % Neut # (Auto) (1.8-7.7) 10^3/u L Lymph # (Auto) (0.8-4.8) 10^3/u L [place] # (Auto) (0.2-0.9) 10^3/u L Eos # (Auto) (0.0-0.8) 10^3/u L Baso # (Auto) (0.0-0.1) 10^3/u L Nucleated RBC % (a uto) % Nucleated RBCs # /100WBC Sodium (136-145) mmol/L Potassium (3.5-5.1) mmol/L Chloride (98-107) mmol/L Carbon Dioxide (22-29) mmol/L Anion Gap (5-19) BUN (6-20) mg/dL Creatinine (0.5-0.9) mg/dL GFR Calculation (90-130) mL/min Glucose (65-115) mg/dL Calculated Osmolal ity (285-295) mOsm/k g Calcium (8.5-10.5) mg/dL Total Bilirubin (0.15-1.2) mg/dL AST (0-32) U/L ALT (0-33) U/L Alkaline Phosphata se (35-105) IU/L Total Protein (6.6-8.7) g/dL Albumin (3.5-5.2) g/dL Globulin (1.3-4.6) g/dL Lipase (13-60) U/L HCG, Qual (Negative) Urine Color Yellow (Yellow) Urine Appearance Clear (CLEAR) Urine pH 5 (5-7) Ur Specific Gravit y 1.030 (1.005-1.030) Urine Protein Neg (Negative) Urine Glucose (UA) Norm (Normal) Urine Ketones 3+ H (Negative) Urine Blood Neg (Negative) Urine Nitrate Negative (Negative) Urine Bilirubin Neg (Negative) Urine Urobilinogen Norm (Negative) mg/dL Ur Leukocyte Yesenia ase Negative (Negative) Urine Opiates Scre en Negative (Negative) ng/mL Ur Barbiturates Sc reen Negative (Negative) ng/mL Ur Phencyclidine S crn Negative (Negative) ng/mL Ur Amphetamines Sc reen Negative (Negative) ng/mL U Benzodiazepines Scrn Negative (Negative) ng/mL Urine Cocaine Scre en Negative (Negative) ng/mL U Marijuana (THC) Screen Positive H (Negative) ng/mL Discharge Plan Discharge Patient Disposition: Home Clinical Impression: Acute duodenitis Chronic pancreatitis Qualifiers: Pancreatitis type: unspecified pancreatitis type Qualified Code(s): K86.1 - Other chronic pancreatitis Abdominal pain Qualifiers: Abdominal location: epigastric Qualified Code(s): R10.13 - Epigastric pain Condition: Stable Prescriptions: New Protonix 40 mg tablet,delayed release (DR/EC) 40 mg PO BID 14 Days Qty: 28 RF: 0 sucralfate 1 gram tablet 1 g PO Q6H 28 Days Qty: 112 RF: 0 [place] 7.5-325 mg tablet 1 tab PO Q8H PRN (Reason: pain) Qty: 12 RF: 0 ondansetron 8 mg tablet,disintegrating 8 mg PO Q8H PRN (Reason: nausea and vomiting) 2 Days Qty: 30 RF: 0 No Action Mag-Al Plus 200-200-20 mg/5 mL Suspension 15 ml PO Q8H PRN (Reason: Abdominal pain) Qty: 120 RF: 0 Protonix 40 mg tablet,delayed release (DR/EC) 40 mg PO DAILY Qty: 30 RF: 0 [place] 5-325 mg tablet 1 tab PO BID PRN (Reason: pain) Qty: 10 RF: 0 Zenpep 5,000-17,000- 24,000 unit Capsule,Delayed Release(Dr/Ec) 2 ea PO TIDWM Qty: 60 RF: 0 Discharge Orders: Discharge ED (Routine); Ordered 05/05/20 Ordered By: Maura Harding Discharge Diet: Advance as tolerated and Clear Liquid Discharge Activity: Increase activity as tolerated Patient Instructions: Peptic Ulcer (ED) Activity Restrictions/Additional Instructions: Start taking your Protonix twice daily for the next 14 days. Avoid acidic or spicy foods. Avoid [id number] anti-inflammatory such as Aleve/Advil/Motrin/ibuprofen. Call to schedule follow-up appointment with your primary care doctor in the next 2 to 3 days. Start with clear liquids, advance to full liquids and then soft/bland food if tolerated. Return immediately to the ER if you are unable to keep down liquids you after taking the medicine, if you develop a fever, throwing up blood, or any other worsening symptoms. Stand Alone Forms: Work/School Release Coding Level of Care Code ED Obstetrician And Gynaecologist for Anurag [place]
--- NOTE | 2020-05-05 06:58 | CT_ITS ---
WS: [id number] CT ABDOMEN PELVIS TECHNIQUE: Contrast-enhanced CT of the abdomen and pelvis with coronal and sagittal reformatted image s. CLINICAL INFORMATION: epigastric pain, N/V, hx of pancreatitis and PUD, r/o perf COMPARISON: CT December 15, 2019 DLP: 615.[address] scans at [facility] use at least one of these dose optimization techniques: automat ed exposure control; mA and/or kV adjustment per patient size (includes targeted exams where dose is matched to clinical indication); or iterative reconstruction. FINDINGS: Mild diffuse thickening of the duodenum and distal stomach can be seen with gastroduodeniti s. No free air. No evidence of perforation. In addition, mild edema involving the body and head of th e pancreas with peripancreatic fluid most consistent with acute pancreatitis. Recommend correlation p ancreatic enzymes. Diffuse fatty infiltration of the liver. Cholecystectomy. Normal portal vein and splenic vein. Lung b ases are well aerated. Adrenal glands are normal. Normal renal parenchymal enhancement. No hydronephr osis. Normal portal vein and splenic vein. Normal renal parenchymal enhancement. Portal vein and sple lorena vein are patent. Lung bases are well aerated. Adrenal glands are normal. Normal renal parenchymal enhancement. No hydr onephrosis. Normal caliber abdominal aorta. Physiologic multifollicular ovaries. Trace free fluid in the pelvis. No evidence of small or large sharon wel obstruction. CT/CT abdomen pelvis w con* [id number] IMPRESSION: 1. Mild diffuse thickening of the distal stomach and proximal duodenum can be seen with gastroduodenitis. No free air. 2. Mild edema with Peripancreatic fluid suspicious for acute pancreatitis. No pseudocyst. Recommend correlation with pancreatic enzymes. 3. Normal portal veins and splenic vein. 4. Prior cholecystectomy. 5. Diffuse fatty infiltration of the liver. Notified Maura Harding MD at 05/05/2020 10:20 AM.
[2020-05-05] MEDS: pantoprazole 40 mg SDV IVP (07:11)
[2020-05-05] MEDS: ondansetron 2 mg/ML SDV 2 mL 4 MG IVP (07:11)
[2020-05-05] MEDS: fentaNYL 50 mcg/mL INJ 2mL IVP (07:12)
--- NOTE | 2020-05-05 07:32 | PC.NURSE ---
Received report assumed care. No changes noted from report. Fluids completed. Pt C/O of mid to upper abdomen pain. Had 1 episode of bile vomit. Dr Harding in room, complete assessment. Meds will be ordered for abd pain.
[2020-05-05] MEDS: hyoscyamine ODT 0.125 mg Tablet 0.25 MG PO (07:35)
--- NOTE | 2020-05-05 07:37 | PC.NURSE ---
Resting with lights out.
[2020-05-05] MEDS: lactated ringers 1,000 ML 999 ML IV (08:30)
[2020-05-05 08:53] LABS: HCG Qualitative Urine. Negative (Negative)
[2020-05-05] MEDS: iohexol 300 mg/mL 100 mL Btl IV (10:00)
[2020-05-05 10:11] LABS: Add Urine Microscopic? NO
[2020-05-05 10:15] LABS: Bilirubin Urine Neg (Negative); Blood Urine Neg (Negative); Glucose Urine UA Norm (Normal); Ketones Urine 3+ (Negative); Leukocyte Esterase Urine Negative (Negative); Nitrate Urine Negative (Negative); Protein Urine Neg (Negative); Urine Appearance Clear (CLEAR); Urine Color Yellow (Yellow); Urobilinogen Urine Norm (Negative); pH Urine 5 (5-7)
[2020-05-05] MEDS: morphine 4 mg/mL SDV 1 mL 6 MG IVP (10:16)
[2020-05-05 11:59] LABS: Amphetamines Screen Urine Negative (Negative); Barbiturates Screen Urine Negative (Negative); Benzodiazepines Screen Urine Negative (Negative); Cocaine Screen Urine Negative (Negative); Opiate Screen Urine Negative (Negative); PCP Screen Urine Negative (Negative); THC Screen Urine Positive (Negative)
== END 2020-05-05 11:48 | disposition home or self-care (01) ==
PROVIDERS: Emergency Medicine; Emergency Provider Family Medicine
DX: K29.80 Duodenitis without bleeding (principal); K86.1 Other chronic pancreatitis; R10.13 Epigastric pain; F17.210 Nicotine dependence, cigarettes, uncomplicated
CPT/HCPCS: 74177; 80053; 80306; 81003; 81025; 83690; 85025; 96361; 96374; 96375; 99284; C9113; J2270; J2405; J3010; J7030; Q9967

== ENCOUNTER 2020-05-06 22:17 | Inpatient (IN) | payer SELFPAY ==
[2019-10-05 12:15] VITALS: BP 150/82; BMI 18.3
[2020-05-06 22:18] VITALS: BP 143/96; PULSE 68; RESP 16; TEMP 36.6; O2SAT 100; BMI 16.4
--- NOTE | 2020-05-06 22:19 | W.ED.ABDPA2 ---
HPI - Abdominal Pain General: Chief Complaint: Abdominal Pain Stated Complaint: ABDOMINAL PAIN Time Seen by Provider: 05/06/20 22:19 Source: patient Mode of arrival: ambulatory Limitations: no limitations History of Present Illness: HPI narrative: Patient comes in today with epigastric pain. Patient had been seen yesterday for the same complaints and was diagnosed with duodenitis and chronic pancreatitis. CT scan was done at that time and noted no perforation. Patient was unable to get medications filled today due to lack of funds. Patient appears in moderate pain. Patient does report that she has been throwing up all day without able to hold any fluids down. MD elicited complaint: abdominal pain Related Data: Date of Last Menstrual Period: 04/16/20 Review of Systems General: Reports: 10 or more systems reviewed and unremarkable except in HPI and below GI: Reports: abdominal pain PFSH ED PFSH: Medical History Abnormal endoscopy of upper gastrointestinal tract (~05/2019) NSAID induced gastritis Alcohol abuse Alcohol use disorder In remission per pt Anxiety Chronic GERD Chronic pancreatitis Depression Social discord Surgical History History of vaginal delivery Hx of cholecystectomy Family History Denies family history of Hyperlipidemia Lung disease Hypertension Social History Smoking and tobacco status: current every day smoker Alcohol intake: former Other details last alcohol use: Pt states she has not been drinking recently Lives independently: Yes Housing: House Current gender identity: Female Female Reproductive History: Date of last menstrual period: 04/16/20 Physical Exam Const: COMMON NORMALS: no acute distress and patient oriented x3 GENERAL APPEARANCE: cooperative HENMT: COMMON NORMALS: normocephalic and Normal external nose present HEAD & SCALP: normal to inspection and normocephalic NOSE: Normal external nose present MOUTH: Normal oral and palatal mucosa present Eye: GENERAL EYE: appearance normal, both eyes and all related structures Neck/C-Spine: COMMON NORMALS: full ROM Lymph: LYMPHATIC: no lymphadenopathy noted Chest: COMMONS NORMALS: normal inspection of the chest Resp: COMMON NORMALS: normal respiratory effort EFFORT & INSPECTION: Yes able to speak in complete sentences Cardio: COMMON NORMALS: regular rate and regular rhythm RATE: regular rate RHYTHM: regular rhythm GI: INSPECTION: Yes normal to inspection AUSCULTATION: Yes normoactive bowel sounds PALPATION: Yes Tenderness to palpation present (GI) (epigastric) : COMMON NORMALS: Yes no CVA tenderness BLADDER/KIDNEY EXAM: Yes no CVA tenderness Back/Pelvis: COMMON NORMALS: no CVA tenderness and thoracic and lumbar spine normal to inspection Extremity: COMMON NORMALS: normal to inspection Neuro: COMMON NORMALS: patient oriented x3 and moves all extremities Psych: COMMON NORMALS: mental status grossly normal and cooperative Skin: COMMON NORMALS: no rashes or lesions noted GENERAL SKIN EXAM: no rashes or lesions noted Course ED course: 2334, patient's labs shows a deterioration of her condition her lipase is went from 60s to greater than 500. Patient been given IV fluids, medication for nausea and pain and reports minimal relief. Patient reports today few has been able to hold anything down and fluids and has had worsening pain. I reviewed this with Dr. Pan who will assume care of patient in order to patient be admitted to hospitalist therapy. wjw Vital Signs: Vital signs: Vital Signs Temperature 97.8 F 05/06/20 22:18 Pulse Rate 81 05/06/20 23:25 Respiratory Rate 17 05/06/20 23:25 Blood Pressure 171/105 05/06/20 23:25 Pulse Oximetry 100 05/06/20 23:25 MDM - Abdominal Pain MDM Narrative: Medical decision making narrative: Patient comes back in today from yesterday in which she was diagnosed with duodenitis and chronic pancreatitis. Patient reported today she was unable to have medications filled had worsening symptoms of pain and inability to hold any liquids down. On exam patient's abdomen is tender with epigastric tenderness. Patient appears to be in moderate to severe pain.Vital signs were normal. Differential diagnosis includes but not limited to pancreatitis, gastroenteritis, gastritis, dehydration. Laboratory values showed a deterioration from yesterday's labs with increase in WBCs from 10,000-16,000. Sodium from 1 32-1 30. And lipase from 62 greater than 500. I reviewed this with Dr. Pan feeling that patient probably needs to be admitted for concerns of dehydration and deterioration of chronic pancreatitis. He agreed to plan and to talk with hospitalist regarding further recommendations. Lab Data: Labs: Lab Results 05/06/20 05/06/20 Range/Units 22:45 22:45 WBC 16.2 H (4.0-10.0) 10^3/ uL RBC 4.51 (4.1-5.3) 10^6/u L Hgb 14.7 (11.5-15.3) g/dL Hct 45.5 (37.0-47.0) % MCV 100.9 H (81-99) fL MCH 32.6 (28.0-34.0) pg MCHC 32.3 (30.0-36.0) g/dL RDW 14.0 (12.1-15.1) % Plt Count 202 (130-400) 10^3/c mm MPV 11.0 H (7.4-10.4) fL Neut % (Auto) 88.3 % Lymph % (Auto) 6.2 % [place] % (Auto) 5.1 % Eos % (Auto) 0.0 % Baso % (Auto) 0.1 % Neut # (Auto) 14.26 H (1.8-7.7) 10^3/u L Lymph # (Auto) 1.0 (0.8-4.8) 10^3/u L [place] # (Auto) 0.8 (0.2-0.9) 10^3/u L Eos # (Auto) 0.0 (0.0-0.8) 10^3/u L Baso # (Auto) 0.0 (0.0-0.1) 10^3/u L Nucleated RBC % (a uto) 0 % Nucleated RBCs # 0.0 /100WBC Sodium 130 L (136-145) mmol/L Potassium 4.0 (3.5-5.1) mmol/L Chloride 94 L (98-107) mmol/L Carbon Dioxide 15 L (22-29) mmol/L Anion Gap 25.0 H (5-19) BUN 4 L (6-20) mg/dL Creatinine 0.6 (0.5-0.9) mg/dL GFR Calculation 136.1 H (90-130) mL/min Glucose 134 H (65-115) mg/dL Calculated Osmolal ity 269 L (285-295) mOsm/k g Calcium 9.9 (8.5-10.5) mg/dL Total Bilirubin 0.6 (0.15-1.2) mg/dL AST 24 (0-32) U/L ALT 24 (0-33) U/L Alkaline Phosphata se 66 (35-105) IU/L Total Protein 8.8 H (6.6-8.7) g/dL Albumin 5.1 (3.5-5.2) g/dL Globulin 3.7 (1.3-4.6) g/dL Lipase 527 H (13-60) U/L Discharge Plan Discharge Prescriptions: No Action Mag-Al Plus 200-200-20 mg/5 mL Suspension 15 ml PO Q8H PRN (Reason: Abdominal pain) Qty: 120 RF: 0 Protonix 40 mg tablet,delayed release (DR/EC) 40 mg PO DAILY Qty: 30 RF: 0 [place] 5-325 mg tablet 1 tab PO BID PRN (Reason: pain) Qty: 10 RF: 0 Zenpep 5,000-17,000- 24,000 unit Capsule,Delayed Release(Dr/Ec) 2 ea PO TIDWM Qty: 60 RF: 0 Protonix 40 mg tablet,delayed release (DR/EC) 40 mg PO BID 14 Days Qty: 28 RF: 0 sucralfate 1 gram tablet 1 g PO Q6H 28 Days Qty: 112 RF: 0 [place] 7.5-325 mg tablet 1 tab PO Q8H PRN (Reason: pain) Qty: 12 RF: 0 ondansetron 8 mg tablet,disintegrating 8 mg PO Q8H PRN (Reason: nausea and vomiting) 2 Days Qty: 30 RF: 0 Sign Out Sign Out Data: Sign Out Comment: needs admission for dehydration and exacerbation of pancreatitis. Last updated by Edin Cormier FNP at 05/06/20 23:44 Coding Level of Care Code ED Environmental Emergencies Assistant for Anurag Fwd Exam Comprehensive
[2020-05-06] MEDS: sodium chloride 0.9% 1,000 ML 999 ML IV (22:34)
[2020-05-06] MEDS: metoclopramide 5 mg/mL SDV 2 mL 10 MG IVP (22:35)
[2020-05-06] MEDS: famotidine 20 mg/2 mL INJ 40 MG IVP (22:35)
[2020-05-06 22:41] VITALS: RESP 17; O2SAT 100
[2020-05-06] MEDS: morphine 4 mg/mL SDV 1 mL IVP (22:41)
[2020-05-06 22:52] LABS: Basophils % 0.1 %; Hematocrit 45.5 % (37.0-47.0); Hemoglobin 14.7 g/dL (11.5-15.3); Lymphocytes % 6.2 %; Mean Corpuscular HGB Conc 32.3 g/dL (30.0-36.0); Mean Corpuscular Hemoglobin 32.6 pg (28.0-34.0); Mean Corpuscular Volume 100.9 fL (81-99); Monocytes # 0.8 10^3/uL (0.2-0.9); Monocytes % 5.1 %; Neutrophils # 14.26 10^3/uL (1.8-7.7); Neutrophils % 88.3 %; Nucleated Red Blood Cells % 0 %; Platelet Count 202 10^3/cmm (130-400); Red Blood Count 4.51 10^6/uL (4.1-5.3); White Blood Count 16.2 10^3/uL (4.0-10.0)
[2020-05-06 23:13] LABS: Alanine Aminotransferase 24 U/L (0-33); Albumin Level 5.1 g/dL (3.5-5.2); Alkaline Phosphatase 66 IU/L (35-105); Blood Urea Nitrogen 4 mg/dL (6-20); Calcium 9.9 mg/dL (8.5-10.5); Carbon Dioxide 15 mmol/L (22-29); Chloride 94 mmol/L (98-107); Globulin 3.7 g/dL (1.3-4.6); Glomerular Filtration Rate 136.1 mL/min (90-130); Glucose 134 mg/dL (65-115); Osmolality Calculated 269 mOsm/kg (285-295); Sodium 130 mmol/L (136-145); Total Bilirubin 0.6 mg/dL (0.15-1.2); Total Protein 8.8 g/dL (6.6-8.7)
[2020-05-06 23:16] LABS: Aspartate Amino Transferase 24 U/L (0-32)
[2020-05-06 23:22] LABS: Lipase 527 U/L (13-60)
[2020-05-06 23:25] VITALS: BP 171/105; PULSE 81; RESP 17; O2SAT 100
[2020-05-07] VITALS (12 sets, daily range): BP systolic 132–163; BP diastolic 70–91; PULSE 55–73; RESP 16–18; TEMP 36.6–37.2; O2SAT 95–100
[2020-05-07] MEDS: morphine 4 mg/mL SDV 1 mL IVP ×6 (00:48→22:16)
--- NOTE | 2020-05-07 01:48 | PM.HP ---
Providers/Chief Complaint Admitting Physician: Stephie Michelle MD Chief Complaint: ABDOMINAL PAIN History of Present Illness Vanita Barone is a 35 year old female who presented to the emergency room twice in the past day and a half with complaints of abdominal pain. Pain started a couple of days ago. It is primarily in the epigastrium and left upper quadrant area and goes around to her back. It is sharp and constant, rated as severe. She has had nausea and vomiting. Initially vomitus of attempts at food intake and later dry heaving. Most recent episode occurred in the emergency room this evening. She denies any diarrhea. Last bowel movement was approximately 5 days ago. Denies any blood in her vomitus. No fever or chills. She generally has not felt well and does not want to even try to eat anything. She had a CT of her abdomen and pelvis done May 05 that revealed some thickening at the duodenum as well as some mild peripancreatic inflammatory changes. Lipase at the time was 67. She received IV fluids, IV pain medicines and antiemetics with significant clinical improvement. She was given a prescription for Protonix and Carafate and recommended to follow-up with her primary care provider. She did okay initially but throughout the day today has had return of increasing pain and vomiting. She does not have any pain medicines or antiemetics at home. Does not sound like she has been taking her pancreatic enzymes. She required several doses of IV pain medicine as well as antiemetic agents this evening. She received some fluids and IV Pepcid also. Lipase was found to be over 500 now. With persistent pain and nausea, increase in her lipase levels and continued inability to take oral intake, she is being admitted for further treatment. Review of Systems Const: Reports: change in appetite and malaise; Denies: fever(s) or chills ENMT: Reports: dry mouth; Denies: throat pain or nasal congestion Card: Denies: chest pain, palpitations or edema Resp: Denies: dyspnea, productive cough or non-productive cough GI: Reports: abdominal pain, nausea, vomiting and constipation (Last bowel movement about 5 days ago); Denies: diarrhea : Reports: oliguria; Denies: difficulty voiding Musc: Reports: back pain; Denies: joint swelling, joint redness or muscle weakness Skin/Breast: Denies: rash or pruritus Neuro: Denies: headache(s) or dizziness Psych: Reports: anxiety; Denies: depression Ashwin/Lymph: Denies: easy bruising or easy bleeding Medications/Allergies Allergies Allergy/AdvReac Type Severity Reaction Status Date / Time No Known Allergies Allergy Verified 12/14/19 10:20 Additional Medication Information Not taking any medications at home currently PFSH Acute PFSH: Medical History (Updated 05/07/20 @ 02:23 by Stephie Michelle MD) Abnormal endoscopy of upper gastrointestinal tract (~05/2019) NSAID induced gastritis Alcohol abuse Patient denies current drinking 05/07/2020 Anxiety Chronic GERD Chronic pancreatitis by history alcoholic related, denies ongoing use, acutely worsens every couple months Depression Social discord Surgical History History of vaginal delivery Hx of cholecystectomy Family History Denies family history of Hyperlipidemia Lung disease Hypertension Social History (Updated 05/07/20 @ 02:33 by Stephie Michelle MD) Smoking and tobacco status: current every day smoker cigarettes Alcohol intake: former Former alcohol use details: Denies current use Substance/Drug Use: current Substance/Drug use type: Marijuana Lives independently: Yes Housing: House Current gender identity: Female Female Reproductive History: Date of last menstrual period: 04/16/20 Vitals/I&O/Wt Last Vital Signs Temp 98 F 05/07/20 01:25 Pulse 64 05/07/20 01:25 Resp 18 05/07/20 01:25 BP 160/79 05/07/20 01:25 Pulse Ox 100 05/07/20 01:25 05/06/20 05/06/20 05/07/20 14:59 22:59 06:59 Intake Total 1000 / 1000 Balance 1000 / 1000 Weight last 48 hrs Weight 47.627 kg Physical Exam Const: COMMON NORMALS: patient oriented x3 and alert GENERAL APPEARANCE: not comfortable NUTRITIONAL APPEARANCE: thin HENMT: COMMON NORMALS: not normocephalic and head/scalp not atraumatic Eye: COMMON NORMALS: Equal, round and reactive pupils present and EOMs intact bilaterally Neck/C-Spine: COMMON NORMALS: supple Resp: COMMON NORMALS: clear to auscultation bilaterally Cardio: COMMON NORMALS: regular rate and regular rhythm GI: COMMON NORMALS: Soft to palpation AUSCULTATION: Yes Hypoactive bowel sounds present PALPATION: Yes Tenderness to palpation present (GI) (epigastrium & left upper quadrant greater than other quadrants), Yes Guarding due to palpation present (GI) and No Rebound tenderness present Extremity: COMMON NORMALS: no clubbing, cyanosis or edema Neuro: COMMON NORMALS: moves all extremities SPEECH: speech normal Psych: COMMON NORMALS: cooperative Skin: COMMON NORMALS: no rashes or lesions noted GENERAL SKIN EXAM: dry skin Data : 05/06/20 22:45 05/06/20 22:45 Other Labs: Laboratory Results WBC 16.2 10^3/uL (4.0-10.0) H 05/06/20 22:45 RBC 4.51 10^6/uL (4.1-5.3) 05/06/20 22:45 Hgb 14.7 g/dL (11.5-15.3) 05/06/20 22:45 Hct 45.5 % (37.0-47.0) 05/06/20 22:45 MCV 100.9 fL (81-99) H 05/06/20 22:45 MCH 32.6 pg (28.0-34.0) 05/06/20 22:45 MCHC 32.3 g/dL (30.0-36.0) 05/06/20 22:45 RDW 14.0 % (12.1-15.1) 05/06/20 22:45 Plt Count 202 10^3/cmm (130-400) 05/06/20 22:45 MPV 11.0 fL (7.4-10.4) H 05/06/20 22:45 Neut % (Auto) 88.3 % 05/06/20 22:45 Lymph % (Auto) 6.2 % 05/06/20 22:45 Edmunds % (Auto) 5.1 % 05/06/20 22:45 Eos % (Auto) 0.0 % 05/06/20 22:45 Baso % (Auto) 0.1 % 05/06/20 22:45 Neut # (Auto) 14.26 10^3/uL (1.8-7.7) H 05/06/20 22:45 Lymph # (Auto) 1.0 10^3/uL (0.8-4.8) 05/06/20 22:45 Edmunds # (Auto) 0.8 10^3/uL (0.2-0.9) 05/06/20 22:45 Eos # (Auto) 0.0 10^3/uL (0.0-0.8) 05/06/20 22:45 Baso # (Auto) 0.0 10^3/uL (0.0-0.1) 05/06/20 22:45 Nucleated RBC % (auto) 0 % 05/06/20 22:45 Nucleated RBCs # 0.0 /100WBC 05/06/20 22:45 Sodium 130 mmol/L (136-145) L 05/06/20 22:45 Potassium 4.0 mmol/L (3.5-5.1) 05/06/20 22:45 Chloride 94 mmol/L (98-107) L 05/06/20 22:45 Carbon Dioxide 15 mmol/L (22-29) L 05/06/20 22:45 Anion Gap 25.0 (5-19) H 05/06/20 22:45 BUN 4 mg/dL (6-20) L 05/06/20 22:45 Creatinine 0.6 mg/dL (0.5-0.9) 05/06/20 22:45 GFR Calculation 136.1 mL/min (90-130) H 05/06/20 22:45 Glucose 134 mg/dL (65-115) H 05/06/20 22:45 Calculated Osmolality 269 mOsm/kg (285-295) L 05/06/20 22:45 Calcium 9.9 mg/dL (8.5-10.5) 05/06/20 22:45 Total Bilirubin 0.6 mg/dL (0.15-1.2) 05/06/20 22:45 AST 24 U/L (0-32) 05/06/20 22:45 ALT 24 U/L (0-33) 05/06/20 22:45 Alkaline Phosphatase 66 IU/L (35-105) 05/06/20 22:45 Total Protein 8.8 g/dL (6.6-8.7) H 05/06/20 22:45 Albumin 5.1 g/dL (3.5-5.2) 05/06/20 22:45 Globulin 3.7 g/dL (1.3-4.6) 05/06/20 22:45 Lipase 527 U/L (13-60) H 05/06/20 22:45 Other data: CT ABDOMEN AND PELVIS 05/05/2020: FINDINGS: Mild diffuse thickening of the duodenum and distal stomach can be seen with gastroduodenitis. No free air. No evidence of perforation. In addition, mild edema involving the body and head of the pancreas with peripancreatic fluid most consistent with acute pancreatitis. Recommend correlation pancreatic enzymes. Diffuse fatty infiltration of the liver. Cholecystectomy. Normal portal vein and splenic vein. Lung bases are well aerated. Adrenal glands are normal. Normal renal parenchymal enhancement. No hydronephrosis. Normal portal vein and splenic vein. Normal renal parenchymal enhancement. Portal vein and splenic vein are patent. Lung bases are well aerated. Adrenal glands are normal. Normal renal parenchymal enhancement. No hydronephrosis. Normal caliber abdominal aorta. Physiologic multifollicular ovaries. Trace free fluid in the pelvis. No evidence of small or large bowel obstruction. CT/CT abdomen pelvis w con* [id number] IMPRESSION: 1. Mild diffuse thickening of the distal stomach and proximal duodenum can be seen with gastroduodenitis. No free air. 2. Mild edema with Peripancreatic fluid suspicious for acute pancreatitis. No pseudocyst. Recommend correlation with pancreatic enzymes. 3. Normal portal veins and splenic vein. 4. Prior cholecystectomy. 5. Diffuse fatty infiltration of the liver. A&P Assessment and plan (1) Acute on chronic pancreatitis: Status: Acute (2) Acute duodenitis: Status: Acute (3) Nicotine dependence, cigarettes, uncomplicated: Status: Chronic Additional A&P Information Inpatient admission IV fluids Pain control, will start with IV as well as oral options, K pad IV PPI Resume pancreatic enzymes Check lactic acid and CRP Antiemetics as needed Clear liquid diet Monitor electrolytes and volume status, replacing and adjusting fluids as indicated Stool softeners Monitor clinical response Lovenox for DVT prophylaxis Supportive care otherwise Would probably benefit from GI evaluation; has been recommended in the past without follow-through Anticipate will need new prescriptions or medications filled prior to discharge Anticipate DE home Has followed at [facility] in the past Attestations Medical Necessity Statement*: Anticipated stay greater than 2 midnights in this patient with a history of chronic pancreatitis presenting with persistent GI symptoms and increasing lipase. She required multiple doses of IV pain medications and antiemetics in the emergency room without significant improvement overall. CT imaging done day prior to admission revealed some thickening in the area of the duodenum and peripancreatic inflammation. At high risk of progressive clinical decline without intervention as documented. 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
[2020-05-07] MEDS: sodium chloride 0.9% 1,000 ML 150 ML IV ×4 (02:05→23:46)
[2020-05-07] MEDS: enoxaparin 30 mg/0.3 mL Syringe SUBCUT (02:08)
[2020-05-07] MEDS: pantoprazole 40 mg SDV IV ×2 (02:18→15:20)
[2020-05-07] MEDS: ondansetron 2 mg/ML SDV 2 mL 4 MG IVP ×3 (03:17→21:01)
[2020-05-07] MEDS: HYDROcodone-acetaminophen 5-325 mg Tablet 1 TAB PO ×2 (03:23→09:18)
[2020-05-07] MEDS: promethazine 25 mg Supp PR (04:52)
[2020-05-07] MEDS: lipase-protease-amylase Capsule 2 EACH PO ×3 (09:17→18:24)
[2020-05-07] MEDS: docusate sodium 100 mg Capsule PO ×2 (09:18→18:24)
[2020-05-07 11:43] LABS: Magnesium 1.5 mg/dL (1.7-2.3); Phosphorus 1.8 mg/dL (2.5-4.5)
[2020-05-07 11:58] LABS: C Reactive Protein 40.9 mg/L (0.0-4.9)
[2020-05-07 12:09] LABS: Lipase 369 U/L (13-60)
[2020-05-07] MEDS: magnesium sulfate premix 4 GM/100 ML PREMIX IV (13:08)
[2020-05-07] MEDS: HYDROcodone-acetaminophen 5-325 mg Tablet 2 TAB PO ×2 (15:21→21:00)
[2020-05-07] MEDS: phosphorus 250 mg Tablet PO (18:24)
--- NOTE | 2020-05-07 18:26 | PC.NURSE ---
shift summary no change in pt condition at this time. pt was rested in bed most of day.
--- NOTE | 2020-05-07 18:53 | P.PN_ITS ---
Subjective Subjective: Interval history: Patient admitted just after midnight. Still having pain but admittedly better with increased oral pain medications. No vomiting. Medications: Reviewed: Yes Vitals/I&O/Wt Last Vital Signs Temp 98.6 F 05/07/20 15:52 Pulse 69 05/07/20 15:52 Resp 18 05/07/20 17:22 BP 163/89 05/07/20 15:52 Pulse Ox 95 05/07/20 17:22 05/07/20 05/07/20 05/07/20 06:59 14:59 22:59 Intake Total 1000 / 1000 1120 / 1120 1007.5 / 2127.5 Output Total 500 / 500 650 / 650 Balance 500 / 500 1120 / 1120 357.5 / 1477.5 Weight last 48 hrs Weight 47.627 kg Physical Exam Narrative: EXAM NARRATIVE: Patient is laying comfortably in bed upon entering the room. She states that she still in a lot of pain and having a lot of nausea. I do not assess this clinically. Regular normal S1-S2 without murmurs Lungs clear to auscultation Abdomen mildly tender epigastrium normal bowel sounds no rebound rigidity or guarding Extremities no edema Data : 05/06/20 22:45 05/06/20 22:45 A&P Assessment and plan (1) Acute on chronic pancreatitis: Continue IV fluids and IV pain medicine as well as oral pain medicine. Discussed with admitting provider and patient usually takes 3 or 4 days to recover. Nothing seems different about this admission. Status: Acute (2) Social discord: Status: Chronic (3) Chronic GERD: Continue PPI Status: Chronic (4) Nicotine dependence, cigarettes, uncomplicated: Status: Chronic Attestations Medical Necessity Statement*: Patient requires admission for supportive care through acute pancreatitis. requires IV pain medications as well as IV fluids. 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
[2020-05-07 21:19] LABS: Basophils % 0.3 %; Eosinophils % 0.3 %; Hematocrit 41.4 % (37.0-47.0); Hemoglobin 13.9 g/dL (11.5-15.3); Lymphocytes # 1.2 10^3/uL (0.8-4.8); Lymphocytes % 8.4 %; Mean Corpuscular HGB Conc 33.6 g/dL (30.0-36.0); Mean Corpuscular Hemoglobin 32.3 pg (28.0-34.0); Mean Corpuscular Volume 96.3 fL (81-99); Monocytes # 0.6 10^3/uL (0.2-0.9); Monocytes % 4.5 %; Neutrophils # 12.18 10^3/uL (1.8-7.7); Neutrophils % 86.1 %; Nucleated Red Blood Cells % 0 %; Platelet Count 187 10^3/cmm (130-400); Red Cell Distribution Width 13.8 % (12.1-15.1); White Blood Count 14.1 10^3/uL (4.0-10.0)
[2020-05-07 21:59] LABS: Lactic Sepsis W/Reflex 0.8 mmol/L (0.5-2.2)
[2020-05-08] VITALS (11 sets, daily range): BP systolic 123–156; BP diastolic 68–92; PULSE 58–81; RESP 16–19; TEMP -17.7–37.4; O2SAT 94–100
[2020-05-08] MEDS: enoxaparin 30 mg/0.3 mL Syringe SUBCUT (02:03)
[2020-05-08] MEDS: pantoprazole 40 mg SDV IV ×2 (02:04→15:13)
[2020-05-08] MEDS: ondansetron 2 mg/ML SDV 2 mL 4 MG IVP (02:45)
[2020-05-08] MEDS: HYDROcodone-acetaminophen 5-325 mg Tablet 2 TAB PO ×3 (02:57→20:47)
[2020-05-08] MEDS: morphine 4 mg/mL SDV 1 mL IVP ×4 (06:39→23:37)
[2020-05-08] MEDS: sodium chloride 0.9% 1,000 ML 150 ML IV ×3 (06:39→20:47)
[2020-05-08 07:26] LABS: Alanine Aminotransferase 16 U/L (0-33); Albumin Level 3.7 g/dL (3.5-5.2); Alkaline Phosphatase 51 IU/L (35-105); Anion Gap 18.1 (5-19); Aspartate Amino Transferase 15 U/L (0-32); Calcium 8.1 mg/dL (8.5-10.5); Carbon Dioxide 17 mmol/L (22-29); Chloride 100 mmol/L (98-107); Globulin 2.7 g/dL (1.3-4.6); Glucose 65 mg/dL (65-115); Potassium 3.1 mmol/L (3.5-5.1); Sodium 132 mmol/L (136-145); Total Bilirubin 0.5 mg/dL (0.15-1.2); Total Protein 6.4 g/dL (6.6-8.7)
[2020-05-08 07:28] LABS: Blood Urea Nitrogen 1 mg/dL (6-20); Osmolality Calculated 268 mOsm/kg (285-295)
--- NOTE | 2020-05-08 07:32 | PC.NURSE ---
pt refused vitals signs i woke pt by saying goodmorning is it okay if i check bloodpressure pt rolled back over and closed eyes.
[2020-05-08] MEDS: lipase-protease-amylase Capsule 2 EACH PO ×3 (09:29→18:48)
[2020-05-08] MEDS: phosphorus 250 mg Tablet PO ×2 (09:29→18:47)
[2020-05-08] MEDS: docusate sodium 100 mg Capsule PO ×2 (09:29→18:48)
--- NOTE | 2020-05-08 10:20 | PC.CHAP ---
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 furnace repairer helper visit [] Patient/Family/Request visit [] Outpatient visit [] Follow-up visit [] Physician referral [] Code/Alert [x] Routine visit [] Staff referral [] Actively dying [x] Patient sleeping [] Family support [] [] Out of room [] Palliative care [] [] Receiving care in room [] Pre-surgical visit [] Trauma [] Long length of stay [] ICU visit [] Other: Relational/Emotional Strength [] Patient feels connected with others/family/visitors/staff [] Distress [] Loneliness/isolation [] Abandonment Spirituality of Patient [] Person of Fay [] Attends Christianity of their Fay [] Believes in Prayer [] Reads Bible or Sikh materials [] There are Spiritual issues to be addressed Video Network Engineer Interventions [] Prayer [] Active listening [] Non-anxious presence [] Spiritual/emotional support [] Crisis/trauma care [] Spiritual counseling [] Bereavement support [] Provided bereavement packet [] Provided Bible/devotional materials [] Provided toy/stuffed animal, coloring book to patient or family member [] Provided Communion [] Anointing/[place] [] Salvation [] Completed spiritual assessment [] Other: Impact on Illness or Injury [] Angry [] Fearful [] Anxious [] Often cries [] Exhaustion [] Unable to work [] Unable to attend muslim [] Unable to walk/stand [] Unable to read [] Unable to drive [] Unable to eat/drink [] Unable to sleep [] Unable to be with family [] Patient intubated [] Other: Summary Time spent with patient
--- NOTE | 2020-05-08 11:37 | PC.NURSE ---
1129- Pain Patient report pain a 9/10 down throughout her upper and lower back. Patient requested the morphine IV push stating the pills hurt my stomach .
--- NOTE | 2020-05-08 13:30 | PC.RESP ---
SMOKING CESSATION INFORMATION SENT TO PATIENT.
--- NOTE | 2020-05-08 18:12 | PM.PN ---
Subjective Subjective: Interval history: Tolerating full liquid diet currently. Rates pain 8 out of 10, relieved with opiates, hemodynamically stable, afebrile Medications: Reviewed: Yes Medication Review Details: Not taking any medications at home currently Vitals/I&O/Wt Last Vital Signs Temp 99.0 F 05/08/20 16:00 Pulse 76 05/08/20 16:00 Resp 18 05/08/20 16:00 BP 123/68 05/08/20 16:00 Pulse Ox 100 05/08/20 11:18 05/08/20 05/08/20 05/08/20 06:59 14:59 22:59 Intake Total 1100 / 4252.5 1000 / 1000 240 / 1240 Output Total 1100 / 2150 400 / 400 Balance 0 / 2102.5 600 / 600 240 / 840 Weight last 48 hrs Weight 47.627 kg Physical Exam Narrative: EXAM NARRATIVE: GEN: Awake, alert and oriented, no acute distress CVS: S1S2 N RS: CTA B/L Abd: Soft, nondistended, tenderness to palpation epigastric and left upper quadrant region 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 Discussed with admitting provider and patient usually takes 3 or 4 days to recover. Nothing seems different about this admission. Status: Acute (2) Social discord: Status: Chronic (3) Chronic GERD: Continue PPI Status: Chronic (4) Nicotine dependence, cigarettes, uncomplicated: Status: Chronic Additional A&P Information Inpatient admission IV fluids, normal saline at 150 cc with hour Pain control, will start with IV as well as oral options, K pad IV PPI Resume pancreatic enzymes Antiemetics as needed Full liquid diet, advance as tolerated Monitor electrolytes and volume status, replacing and adjusting fluids as indicated Stool softeners Monitor clinical response Lovenox for DVT prophylaxis Supportive care otherwise Would probably benefit from GI evaluation; has been recommended in the past without follow-through Anticipate will need new prescriptions or medications filled prior to discharge Has followed at [facility] in the past Attestations Medical Necessity Statement*: Optimization of pain control, slowly advancing diet for acute on chronic pancreatitis. 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
[2020-05-09] VITALS (9 sets, daily range): BP systolic 126–147; BP diastolic 51–92; PULSE 61–93; RESP 16–18; TEMP 36.6–37.2; O2SAT 99–100
[2020-05-09] MEDS: enoxaparin 40 mg/0.4 mL Syringe SUBCUT (02:04)
[2020-05-09] MEDS: pantoprazole 40 mg SDV IV ×2 (02:04→13:59)
[2020-05-09] MEDS: HYDROcodone-acetaminophen 5-325 mg Tablet 2 TAB PO ×4 (03:43→21:04)
[2020-05-09] MEDS: sodium chloride 0.9% 1,000 ML 150 ML IV ×2 (03:44→10:51)
[2020-05-09] MEDS: morphine 4 mg/mL SDV 1 mL IVP ×2 (07:56→13:59)
[2020-05-09] MEDS: docusate sodium 100 mg Capsule PO ×2 (07:57→17:19)
[2020-05-09] MEDS: phosphorus 250 mg Tablet PO ×2 (07:57→17:19)
--- NOTE | 2020-05-09 11:14 | PC.NURSE ---
TEARFUL UPON ENTERING ROOM PT LAYING ON BED WITH NO SHEETS ON BED COVERED UP WITH JACKET - PER THIS NURSE, REQUESTED PT TO SIT UP IN CHAIR WHILE LINENS WERE PLACED - PT STARTS TO CRY AND STATES DONT YELL AT ME - EDUCATED PT TO THIS NURSE MAKING A REQUEST ONLY SO LINENS COULD BE PLACED ON BARE BED AND WAS NOT YELLING AT HER PO PAIN MEDICATION GIVEN PER REQUEST - PT REMAINS TEARFUL AND STATES I JUST WANT TO SLEEP
[2020-05-09] MEDS: lipase-protease-amylase Capsule 2 EACH PO ×2 (12:06→17:18)
--- NOTE | 2020-05-09 15:08 | PC.NURSE ---
pt asked if i could come back to check vitals at a later time. pt stated she had not slept much and wanted to rest.
--- NOTE | 2020-05-09 16:57 | PM.PN ---
Subjective Subjective: Interval history: Still c.o pain, mildly improved, persisting nausea Medications: Reviewed: Yes Medication Review Details: Not taking any medications at home currently Vitals/I&O/Wt Last Vital Signs Temp 98.9 F 05/09/20 11:11 Pulse 68 05/09/20 11:54 Resp 18 05/09/20 13:59 BP 147/81 05/09/20 11:54 Pulse Ox 100 05/09/20 11:54 05/09/20 05/09/20 05/09/20 06:59 14:59 22:59 Intake Total 1000 / 3290 1000 / 1000 Output Total 1400 / 1800 Balance -400 / 1490 1000 / 1000 Physical Exam Narrative: EXAM NARRATIVE: GEN: Awake, alert and oriented, no acute distress CVS: S1S2 N RS: CTA B/L Abd: Soft, nt/nd , bs+ 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 Data : 05/07/20 21:13 05/08/20 05:35 A&P Assessment and plan (1) Acute on chronic pancreatitis: Status: Acute (2) Social discord: Status: Chronic (3) Chronic GERD: Continue PPI Status: Chronic (4) Nicotine dependence, cigarettes, uncomplicated: Status: Chronic Additional A&P Information Continue IV fluids, normal saline at 150 cc with hour Pain control, continue with iv opiates change protonix to 40mg po BID Antiemetics as needed Advance diet to full liquid from clears , then to GI soft as tolerated Recative duodenitis noted no current signs of pseudocyst or necrosis on CT Monitor clinical response Lovenox for DVT prophylaxis Suppkement iv potassium , noted at 3.1 today DVT ppx: lovenox Full code Attestations Medical Necessity Statement*: ongoing need for IVF, advancing diet as tolerated, pain control Coding Level of Care Code 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
[2020-05-09] MEDS: lidocaine 1% 5 ML in potassium chloride premix 100 ML 25 ML IV (17:17)
[2020-05-09] MEDS: pantoprazole DR 40 mg Tablet PO (17:19)
[2020-05-09] MEDS: ondansetron 2 mg/ML SDV 2 mL 4 MG IVP (21:35)
[2020-05-09] MEDS: sodium chloride 0.9% 500 ML 150 ML IV (22:38)
[2020-05-10] VITALS (8 sets, daily range): BP systolic 117–146; BP diastolic 68–83; PULSE 52–84; RESP 13–19; TEMP 36.7–37.1; O2SAT 99–100
[2020-05-10] MEDS: morphine 4 mg/mL SDV 1 mL IVP ×4 (00:02→23:54)
[2020-05-10] MEDS: sodium chloride 0.9% 500 ML 150 ML IV ×2 (02:10→05:34)
[2020-05-10] MEDS: enoxaparin 40 mg/0.4 mL Syringe SUBCUT (02:11)
[2020-05-10] MEDS: HYDROcodone-acetaminophen 5-325 mg Tablet 2 TAB PO ×3 (03:10→21:11)
[2020-05-10 07:55] LABS: Basophils % 0.4 %; Eosinophils # 0.2 10^3/uL (0.0-0.8); Eosinophils % 2.1 %; Hematocrit 31.9 % (37.0-47.0); Hemoglobin 10.8 g/dL (11.5-15.3); Lymphocytes # 2.1 10^3/uL (0.8-4.8); Lymphocytes % 27.5 %; Mean Corpuscular HGB Conc 33.9 g/dL (30.0-36.0); Mean Corpuscular Hemoglobin 32.5 pg (28.0-34.0); Mean Corpuscular Volume 96.1 fL (81-99); Mean Platelet Volume 11.7 fL (7.4-10.4); Monocytes # 0.6 10^3/uL (0.2-0.9); Monocytes % 8.2 %; Neutrophils # 4.76 10^3/uL (1.8-7.7); Neutrophils % 61.3 %; Nucleated Red Blood Cells % 0 %; Platelet Count 190 10^3/cmm (130-400); Red Blood Count 3.32 10^6/uL (4.1-5.3); Red Cell Distribution Width 13.4 % (12.1-15.1); White Blood Count 7.8 10^3/uL (4.0-10.0)
[2020-05-10 08:23] LABS: Alanine Aminotransferase 10 U/L (0-33); Albumin Level 3.5 g/dL (3.5-5.2); Alkaline Phosphatase 43 IU/L (35-105); Anion Gap 15.7 (5-19); Aspartate Amino Transferase 11 U/L (0-32); Calcium 8.5 mg/dL (8.5-10.5); Carbon Dioxide 25 mmol/L (22-29); Chloride 99 mmol/L (98-107); Globulin 2.5 g/dL (1.3-4.6); Glomerular Filtration Rate 217.3 mL/min (90-130); Glucose 68 mg/dL (65-115); Sodium 137 mmol/L (136-145); Total Bilirubin 0.2 mg/dL (0.15-1.2)
[2020-05-10 08:24] LABS: Lipase 239 U/L (13-60)
[2020-05-10 08:25] LABS: Blood Urea Nitrogen 1 mg/dL (6-20); Osmolality Calculated 278 mOsm/kg (285-295)
[2020-05-10 08:27] LABS: Potassium 2.7 mmol/L (3.5-5.1)
[2020-05-10] MEDS: phosphorus 250 mg Tablet PO ×2 (08:52→18:06)
[2020-05-10] MEDS: docusate sodium 100 mg Capsule PO ×2 (08:52→18:07)
[2020-05-10] MEDS: lipase-protease-amylase Capsule 2 EACH PO ×3 (08:52→18:06)
[2020-05-10] MEDS: pantoprazole DR 40 mg Tablet PO ×2 (08:53→18:07)
[2020-05-10] MEDS: diphenhydrAMINE 25 mg Capsule PO ×2 (12:53→21:11)
--- NOTE | 2020-05-10 14:37 | PM.PN ---
Subjective Subjective: Interval history: Afebrile, hemodynamically stable, saturating 100% on room air, potassium today at 2.7 Medications: Reviewed: Yes Medication Review Details: Not taking any medications at home currently Vitals/I&O/Wt Last Vital Signs Temp 98.3 F 05/10/20 11:19 Pulse 52 L 05/10/20 11:19 Resp 18 05/10/20 11:19 BP 127/82 05/10/20 11:19 Pulse Ox 100 05/10/20 11:19 05/09/20 05/10/20 05/10/20 22:59 06:59 14:59 Intake Total 1105 / 2105 1000 / 3105 500 / 500 Output Total 2049 Balance 1105 / 2105 -1050 / 1055 500 / 500 Physical Exam Narrative: EXAM NARRATIVE: GEN: Awake, alert and oriented, no acute distress CVS: S1S2 N RS: CTA B/L Abd: Soft, nt/nd , bs+ 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 Data : 05/10/20 07:18 05/10/20 07:18 A&P Assessment and plan (1) Acute on chronic pancreatitis: Status: Acute (2) Social discord: Status: Chronic (3) Chronic GERD: Continue PPI Status: Chronic (4) Nicotine dependence, cigarettes, uncomplicated: Status: Chronic Additional A&P Information Continue IV fluids, reduce rate 200 cc an hour today Advance diet to GI soft and assess for patient tolerance Pain control, continue Percocet 10/650 every 6 hours as needed, reduce morphine to every 8 hour as needed, add Toradol, will attempt to transition to oral medications as much as possible in anticipation of discharge over the next 24 to 48 hours. Continue protonix to 40mg po BID Antiemetics as needed Recative duodenitis noted no current signs of pseudocyst or necrosis on CT Monitor clinical response with above interventions Lovenox for DVT prophylaxis Supplement iv potassium , noted at 2.7 today DVT ppx: lovenox Full code Attestations Medical Necessity Statement*: Acute on chronic pancreatitis, needs optimization of pain management, advancing diet, assess for patient tolerance. 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
[2020-05-10] MEDS: ketorolac 30 mg/mL INJ 15 MG IVP (18:07)
[2020-05-10] MEDS: potassium chloride ER 20 mEq Tablet PO (18:07)
[2020-05-10] MEDS: sodium chloride 0.9% 1,000 ML 100 ML IV (18:08)
[2020-05-10] MEDS: lidocaine 1% 5 ML in potassium chloride premix 100 ML 25 ML IV ×2 (18:09→22:49)
[2020-05-11 00:27] VITALS: BP 124/82; PULSE 76; RESP 18; TEMP 36.7; O2SAT 99
[2020-05-11] MEDS: enoxaparin 40 mg/0.4 mL Syringe SUBCUT (03:19)
[2020-05-11] MEDS: ketorolac 30 mg/mL INJ 15 MG IVP (03:19)
[2020-05-11] MEDS: sodium chloride 0.9% 1,000 ML 100 ML IV (03:25)
[2020-05-11] MEDS: morphine 4 mg/mL SDV 1 mL IVP ×2 (03:25→12:02)
[2020-05-11 04:30] VITALS: BP 115/68; PULSE 76; RESP 18; TEMP 37; O2SAT 99
[2020-05-11 07:36] LABS: Basophils % 0.7 %; Eosinophils # 0.1 10^3/uL (0.0-0.8); Eosinophils % 1.7 %; Hematocrit 33.7 % (37.0-47.0); Hemoglobin 11.5 g/dL (11.5-15.3); Lymphocytes # 2.1 10^3/uL (0.8-4.8); Lymphocytes % 36.7 %; Mean Corpuscular HGB Conc 34.1 g/dL (30.0-36.0); Mean Corpuscular Hemoglobin 32.6 pg (28.0-34.0); Mean Corpuscular Volume 95.5 fL (81-99); Mean Platelet Volume 11.1 fL (7.4-10.4); Monocytes # 0.6 10^3/uL (0.2-0.9); Monocytes % 9.8 %; Neutrophils # 2.95 10^3/uL (1.8-7.7); Neutrophils % 50.9 %; Nucleated Red Blood Cells % 0 %; Platelet Count 216 10^3/cmm (130-400); Red Blood Count 3.53 10^6/uL (4.1-5.3); Red Cell Distribution Width 13.6 % (12.1-15.1); White Blood Count 5.8 10^3/uL (4.0-10.0)
[2020-05-11 07:51] LABS: Alanine Aminotransferase 9 U/L (0-33); Albumin Level 3.3 g/dL (3.5-5.2); Alkaline Phosphatase 42 IU/L (35-105); Anion Gap 14.5 (5-19); Aspartate Amino Transferase 12 U/L (0-32); Blood Urea Nitrogen 2 mg/dL (6-20); Calcium 8.3 mg/dL (8.5-10.5); Carbon Dioxide 24 mmol/L (22-29); Chloride 100 mmol/L (98-107); Globulin 2.4 g/dL (1.3-4.6); Glomerular Filtration Rate 217.3 mL/min (90-130); Glucose 78 mg/dL (65-115); Osmolality Calculated 275 mOsm/kg (285-295); Potassium 3.5 mmol/L (3.5-5.1); Sodium 135 mmol/L (136-145); Total Bilirubin 0.2 mg/dL (0.15-1.2); Total Protein 5.7 g/dL (6.6-8.7)
[2020-05-11 08:00] VITALS: BP 132/87; PULSE 64; RESP 18; TEMP 36.8; O2SAT 100
[2020-05-11] MEDS: HYDROcodone-acetaminophen 5-325 mg Tablet 2 TAB PO (09:01)
[2020-05-11] MEDS: bisacodyl 5 mg Tablet 10 MG PO (09:01)
[2020-05-11] MEDS: ondansetron 2 mg/ML SDV 2 mL 4 MG IVP (09:02)
[2020-05-11] MEDS: docusate sodium 100 mg Capsule PO (09:02)
[2020-05-11] MEDS: pantoprazole DR 40 mg Tablet PO (09:02)
[2020-05-11] MEDS: lipase-protease-amylase Capsule 2 EACH PO ×2 (09:12→12:02)
[2020-05-11 12:00] VITALS: BP 120/81; PULSE 73; RESP 18; TEMP 36.9; O2SAT 97
[2020-05-11 12:02] VITALS: RESP 15; O2SAT 100
--- NOTE | 2020-05-11 12:03 | P.DS_ITS ---
Discharge Providers Date of Admission: 05/07/20 00:37 Date of Discharge: May 11, 2020 Attending Provider at Admission: Stephie Michelle MD Attending Provider at Discharge: Rebecca Rodriguez MD Diagnoses at Discharge Discharge Diagnosis (1) Acute on chronic pancreatitis: Status: Acute (2) Social discord: Status: Chronic (3) Chronic GERD: Status: Chronic (4) Nicotine dependence, cigarettes, uncomplicated: Status: Chronic Reason for Visit Reason for Visit: ABDOMINAL PAIN Hospital Course Hospital Course Patient is a 35-year-old lady with a history of chronic pancreatitis who presented with chief complaints of abdominal pain nausea vomiting, inability to tolerate p.o. intake. CAT scan upon admission showed signs of pancreatitis and likely reactive duodenitis. Patient had cramping abdominal pain, she received pain control with both p.o. and IV opiates, hydration during course of admission. Her diet was slowly advanced. Leukocytosis on admission secondary to dehydration is now resolved. She remained afebrile and hemodynamically stable. Feels much improved on the day of discharge, tolerating a GI soft diet at this time. She is being discharged with recommendations to follow-up with senior construction estimator. Patient is moving to [place] in summer 2020 and indicates that she will be following up with her senior construction estimator there. In the interim encouraged to reestablish follow-up with her primary care physician. Physical Exam Narrative: EXAM NARRATIVE: GEN: Awake, alert and oriented, no acute distress CVS: S1S2 N RS: CTA B/L Abd: Soft, nt/nd , bs+ [employer] RO[employer]ING M[employer] OPERATOR: no focal neuro deficits Discharge Data 2 Data Completed and Pending: Labs from last 24 hours 05/11/20 05/11/20 07:10 07:10 WBC 5.8 RBC 3.53 L Hgb 11.5 Hct 33.7 L MCV 95.5 MCH 32.6 MCHC 34.1 RDW 13.6 Plt Count 216 MPV 11.1 H Neut % (Auto) 50.9 Lymph % (Auto) 36.7 [place] % (Auto) 9.8 Eos % (Auto) 1.7 Baso % (Auto) 0.7 Neut # (Auto) 2.95 Lymph # (Auto) 2.1 [place] # (Auto) 0.6 Eos # (Auto) 0.1 Baso # (Auto) 0.0 Nucleated RBC % (a uto) 0 Nucleated RBCs # 0.0 Sodium 135 L Potassium 3.5 Chloride 100 Carbon Dioxide 24 Anion Gap 14.5 BUN 2 L Creatinine 0.4 L GFR Calculation 217.3 H Glucose 78 Calculated Osmolal ity 275 L Calcium 8.3 L Total Bilirubin 0.2 AST 12 ALT 9 Alkaline Phosphata se 42 Total Protein 5.7 L Albumin 3.3 L Globulin 2.4 Addt'l Data from Hospital Stay: Laboratory Results Vitals: Last Vital Signs Temp 98.2 F 05/11/20 08:00 Pulse 64 05/11/20 08:00 Resp 15 05/11/20 12:02 BP 132/87 05/11/20 08:00 Pulse Ox 100 05/11/20 12:02 Discharge Plan Discharge Patient Disposition: Home Condition: Stable Prescriptions: New hydrocodone-acetaminophen 5-325 mg Tablet 1 tab PO Q6H PRN (Reason: Moderate Pain) 7 Days Qty: 28 RF: 0 pantoprazole 40 mg Tablet,Delayed Release (Dr/Ec) 40 mg PO BID 30 Days Qty: 60 RF: 0 Zenpep 5,000-17,000- 24,000 unit Capsule,Delayed Release(Dr/Ec) 2 ea PO TIDWM 30 Days Qty: 60 RF: 0 diphenhydramine HCl 25 mg Capsule 25 mg PO Q6H PRN (Reason: Itching) Qty: 0 RF: 0 ondansetron HCl [Zofran] 4 mg tablet 4 mg PO Q8H PRN (Reason: nausea and vomiting) 5 Days Qty: 15 RF: 0 No Action No Known Home Medications RF: 0 Discharge Orders: Discharge Order (Routine); Ordered 05/11/20 Ordered By: Rebecca Rodriguez Referrals: Celsa Saldana DO [Physician] - 05/22/20 1:15 pm Discharge Diet: Advance as tolerated Discharge Activity: Resume usual activity Discharge Attestations Time Spent in Discharge Care*: greater than 30 min Specific Discharge Activities: educating patient and discussing with correctional case records supervisor/social workers/dc planners Status at Discharge: Cognitive status at discharge: cognitively intact , Behavioral status at discharge: cooperative , Quality Metrics Clinical Quality Measures During this hospital stay, did patient experience: None Coding Level of Care Code Acute Chg FW DC note Diagnoses Acute on chronic pancreatitis K85.90; K86.1 Social discord Z65.8 Chronic GERD K21.9 Nicotine dependence, cigarettes, uncomplicated F17.210
[2020-05-11 14:14] VITALS: RESP 15; O2SAT 100
== END 2020-05-11 14:15 | disposition home or self-care (01) | DRG 440 ==
LOC: ER 23:05 → MEDSURG 05-07 01:04
PROVIDERS: Admitting Provider Hospitalist; Emergency Provider Nurse Practitioner Family; Visit Provider Student in an Organized Health Care Education/Training Program
DX: K85.90 Acute pancreatitis without necrosis or infection, unspecified (principal); K86.0 Alcohol-induced chronic pancreatitis; F10.11 Alcohol abuse, in remission; F41.9 Anxiety disorder, unspecified; K21.9 Gastro-esophageal reflux disease without esophagitis; F32.9 Major depressive disorder, single episode, unspecified; F12.90 Cannabis use, unspecified, uncomplicated; K29.80 Duodenitis without bleeding
CPT/HCPCS: 36415; 80053; 83605; 83690; 83735; 84100; 85025; 86140; 96361; 96372; 96374; 96375; 99285; C9113; J1650; J1885; J2270; J2405; J2765; J3475; J3480; J3490; J7030; J7040; J8498

== ENCOUNTER 2020-05-17 12:33 | Inpatient (IN) | payer SELFPAY ==
[2019-10-05 12:15] VITALS: BP 150/82; BMI 18.3
[2020-05-17] VITALS (9 sets, daily range): BP systolic 118–153; BP diastolic 75–109; PULSE 58–104; RESP 18; TEMP 36.8–37; O2SAT 97–100; BMI 15.2
[2020-05-17] MEDS: ondansetron 2 mg/ML SDV 2 mL 4 MG IVP (13:30)
[2020-05-17] MEDS: morphine 4 mg/mL SDV 1 mL IVP (13:30)
--- NOTE | 2020-05-17 14:27 | CT_ITS ---
WS: [id number] CT ABDOMEN AND PELVIS WITH CONTRAST HISTORY: diffuse abdominal pain TECHNIQUE: Imaging performed of the abdomen and pelvis with IV contrast. Single phase imaging of the abdomen. Coronal and sagittal reformats are submitted. All CT scans at [facility] use at least one of these dose optimization techniques: automated exposure control; mA and/or kV adjustment per patient size (includes targeted exams where dose is matched to clinical indication); or iterativ e reconstruction. IV CONTRAST: Omnipaque 300; 95 mL IV. Oral contrast: No DLP: 622.67 mGy.cm COMPARISON: 05/05/2020 Lower thorax: Lung bases are clear. Heart is normal size. No hiatal hernia. Liver/biliary system: Normal size liver. Very minimal central bile duct dilatation may be physiologic . Gallbladder: Status post cholecystectomy. Pancreas: Again noted is mild edema around the pancreas and the body has enlarged since the prior nazario dy suggesting mild acute pancreatitis with edema. No adjacent fluid collection or pancreatic pseudocy st. Spleen: Normal. Adrenal glands: Normal. Right kidney: Normal. Left kidney: Normal. Aorta: Normal. Lymphadenopathy: None. Free fluid: Small amount of free fluid in the pelvis, more than physiologic fluid. The fluid has incr eased since 05/05/2020. GI tract: No GI tract obstruction. There is mucosal edema and significant inflammatory changes of col itis, most significant from the hepatic flexure to the sigmoid. Abdominal wall: Unremarkable abdominal wall. No hernia. Pelvis: Normal size anteverted uterus. Free fluid in the pelvis is more than physiologic. Bones: Unremarkable. CT/CT abdomen pelvis w con* [id number] IMPRESSION: 1. Development of mucosal edema within a large portion of the colon, greatest at the splenic flexure with adjacent fluid. Findings consistent with acute, sarkis r lopez colitis. 2. Small amount of free fluid in the pelvis is more than physiologic and new s javon since 05/05/2020. 3. Continued changes suspicious for mild pancreatitis.
--- NOTE | 2020-05-17 14:28 | ED_ITS ---
Documented by User: ELICEO Mahmood 05/22/20 07:03 HPI - Abdominal Pain General: Chief Complaint: Abdominal Pain Stated Complaint: ABD PAIN Time Seen by Provider: 05/17/20 14:19 Source: patient Mode of arrival: wheelchair Limitations: no limitations History of Present Illness: HPI narrative: Patient is a 35-year-old female with a history of chronic pancreatitis is here for complaints of diffuse abdominal pain. Patient was discharged from our facility approximately 5 to 6 days ago for chronic pancreatitis and duodenitis. She states since her d ischarge her pain has not improved at all. She tells me she is not able to keep anything down. She is having severe pain anytime she tries to eat. She has not been running fevers. No diarrhea. Patient has not had any hematemesis. MD elicited complaint: abdominal pain Pertinent past history: other (pancreatitis) Associated Symptoms: Reports nausea and vomiting; Denies change in stool character, chills, diarrhea, dysuria and fever(s) Related Data: Date of Last Menstrual Period: 04/16/20 Review of Systems Const: Denies: fever(s), chills, body aches, fatigue or malaise Card: Denies: chest pain Resp: Denies: dyspnea GI: Reports: abdominal pain, nausea and vomiting; Denies: diarrhea, pain on defecation or change in stool character : Denies: flank pain, difficulty voiding, dysuria, urinary frequency, urinary urgency or urinary hesitancy Musc: Denies: neck pain or back pain Skin/Breast: Denies: rash Neuro: Denies: headache(s) [facility] ED PFSH: Medical History (Updated 05/20/20 @ 00:00 by ) Abnormal endoscopy of upper gastrointestinal tract (~05/2019) NSAID induced gastritis Alcohol abuse Patient denies current drinking 05/07/2020 Anxiety Chronic GERD Chronic pancreatitis by history alcoholic related, denies ongoing use, acutely worsens every couple months Depression Nicotine dependence, cigarettes, uncomplicated Pancolitis Pancreatitis, chronic Surgical History History of vaginal delivery Hx of cholecystectomy Family History Denies family history of Hyperlipidemia Lung disease Hypertension Social History (Updated 05/07/20 @ 02:33 by Stephie Michelle MD) Smoking and tobacco status: current every day smoker cigarettes Alcohol intake: former Former alcohol use details: Denies current use Lives independently: Yes Housing: House Current gender identity: Female Female Reproductive History: Date of last menstrual period: 04/16/20 Physical Exam Const: COMMON NORMALS: no acute distress, patient oriented x3, no limitations and alert GENERAL APPEARANCE: cooperative ORIENTATION/CONSCIOUSNESS: Yes awake, Yes oriented to person, Yes oriented to place and Yes oriented to time HENMT: COMMON NORMALS: normocephalic and atraumatic HEAD & SCALP: normocephalic and atraumatic Resp: COMMON NORMALS: normal respiratory effort and clear to auscultation bilaterally AUSCULTATION: clear to auscultation bilaterally Cardio: COMMON NORMALS: regular rate and regular rhythm RATE: regular rate RHYTHM: regular rhythm GI: COMMON NORMALS: Normal to inspection, nondistended, normoactive bowel sounds present, Soft to palpation, No hepatosplenomegaly present and no masses PALPATION: Yes Soft to palpation, Yes Tenderness to palpation present (GI) (diffusely; patient grabs my hand and pushes away), Yes Guarding due to palpation present (GI) and Yes No hepatosplenomegaly present : COMMON NORMALS: Yes no CVA tenderness BLADDER/KIDNEY EXAM: Yes no CVA tenderness Back/Pelvis: COMMON NORMALS: no CVA tenderness Neuro: COMMON NORMALS: patient oriented x3 SENSORIUM/ORIENTATION: Yes alert, Yes oriented to person, Yes oriented to place and Yes oriented to time Skin: COMMON NORMALS: no rashes or lesions noted GENERAL SKIN EXAM: no rash es or lesions noted Course Vital Signs: Vital signs: Vital Signs Temperature 98.9 F 05/19/20 17:03 Pulse Rate 61 05/19/20 17:03 Respiratory Rate 18 05/19/20 17:03 Blood Pressure 122/55 05/19/20 17:03 Pulse Oximetry 100 05/19/20 17:03 MDM - Abdominal Pain MDM Narrative: Medical decision making narrative: Patient was discharged home from the hospital a few days ago. She tells me her pain never improved and seems to be worse today. Her CT scan showing pancolitis. I offered patient IV antibiotics and to go home on antibiotics and pain medications however patient does not feel like her pain could be adequately controlled at home. I have spoken to Dr. Lara who spoke to hospitalist for admission. Lab Data: Labs: Lab Results 05/17/20 05/17/20 05/17/20 Range/Units 11:17 13:29 14:45 WBC 9.2 (4.0-10.0) 10^3/ uL RBC 4.04 L (4.1-5.3) 10^6/u L Hgb 13.2 (11.5-15.3) g/dL Hct 39.6 (37.0-47.0) % MCV 98.0 (81-99) fL MCH 32.7 (28.0-34.0) pg MCHC 33.3 (30.0-36.0) g/dL RDW 15.2 H (12.1-15.1) % Plt Count 431 H (130-400) 10^3/c mm MPV 10.5 H (7.4-10.4) fL Neut % (Auto) 65.8 % Lymph % (Auto) 23.2 % [place] % (Auto) 9.6 % Eos % (Auto) 0.8 % Baso % (Auto) 0.4 % Neut # (Auto) 6.05 (1.8-7.7) 10^3/u L Lymph # (Auto) 2.1 (0.8-4.8) 10^3/u L [place] # (Auto) 0.9 (0.2-0.9) 10^3/u L Eos # (Auto) 0.1 (0.0-0.8) 10^3/u L Baso # (Auto) 0.0 (0.0-0.1) 10^3/u L Nucleated RBC % (a uto) 0 % Nucleated RBCs # 0.0 /100WBC Sodium (136-145) mmol/L Potassium (3.5-5.1) mmol/L Chloride (98-107) mmol/L Carbon Dioxide (22-29) mmol/L Anion Gap (5-19) BUN (6-20) mg/dL Creatinine (0.5-0.9) mg/dL GFR Calculation (90-130) mL/min Glucose (65-115) mg/dL Calculated Osmolal ity (285-295) mOsm/k g Calcium (8.5-10.5) mg/dL Total Bilirubin (0.15-1.2) mg/dL AST (0-32) U/L ALT (0-33) U/L Alkaline Phosphata se (35-105) IU/L Total Protein (6.6-8.7) g/dL Albumin (3.5-5.2) g/dL Globulin (1.3-4.6) g/dL Lipase (13-60) U/L HCG, Qual (Negative) Urine Color Yellow (Yellow) Urine Appearance Hazy A (CLEAR) Urine pH 6.5 (5-7) Ur Specific Gravit y 1.020 (1.005-1.030) Urine Protein Neg (Negative) Urine Glucose (UA) Norm (Normal) Urine Ketones 1+ H (Negative) Urine Blood Neg (Negative) Urine Nitrate Negative (Negative) Urine Bilirubin 1+ H (Negative) Urine Urobilinogen 1 H (Negative) mg/dL Ur Leukocyte Yesenia ase Negative (Negative) Urine RBC 0-4 H (0-2) /hpf Urine WBC None (0-5) /hpf Ur Squamous Epith Cells 40-55 H (0-5) /hpf Amorphous Sediment Not Reportable Urine Bacteria 2+ H (NONE) /hpf Urine Mucus 4+ /hpf Urine Opiates Scre en Positive H (Negative) ng/mL Ur Barbiturates Sc reen Negative (Negative) ng/mL Ur Phencyclidine S crn Negative (Negative) ng/mL Ur Amphetamines Sc reen Negative (Negative) ng/mL U Benzodiazepines Scrn Negative (Negative) ng/mL Urine Cocaine Scre en Negative (Negative) ng/mL U Marijuana (THC) Screen Positive H (Negative) ng/mL 05/17/20 05/17/20 Range/Units 14:45 14:45 WBC (4.0-10.0) 10^3/ uL RBC (4.1-5.3) 10^6/u L Hgb (11.5-15.3) g/dL Hct (37.0-47.0) % MCV (81-99) fL MCH (28.0-34.0) pg MCHC (30.0-36.0) g/dL RDW (12.1-15.1) % Plt Count (130-400) 10^3/c mm MPV (7.4-10.4) fL Neut % (Auto) % Lymph % (Auto) % [place] % (Auto) % Eos % (Auto) % Baso % (Auto) % Neut # (Auto) (1.8-7.7) 10^3/u L Lymph # (Auto) (0.8-4.8) 10^3/u L [place] # (Auto) (0.2-0.9) 10^3/u L Eos # (Auto) (0.0-0.8) 10^3/u L Baso # (Auto) (0.0-0.1) 10^3/u L Nucleated RBC % (a uto) % Nucleated RBCs # /100WBC Sodium 140 (136-145) mmol/L Potassium 3.5 (3.5-5.1) mmol/L Chloride 101 (98-107) mmol/L Carbon Dioxide 27 (22-29) mmol/L Anion Gap 15.5 (5-19) BUN 6 (6-20) mg/dL Creatinine 0.5 (0.5-0.9) mg/dL GFR Calculation 168.0 H (90-130) mL/min Glucose 93 (65-115) mg/dL Calculated Osmolal ity 287 (285-295) mOsm/k g Calcium 9.5 (8.5-10.5) mg/dL Total Bilirubin 0.2 (0.15-1.2) mg/dL AST 16 (0-32) U/L ALT 10 (0-33) U/L Alkaline Phosphata se 48 (35-105) IU/L Total Protein 7.4 (6.6-8.7) g/dL Albumin 4.2 (3.5-5.2) g/dL Globulin 3.2 (1.3-4.6) g/dL Lipase 89 H (13-60) U/L HCG, Qual Negative (Negative) Urine Color (Yellow) Urine Appearance (CLEAR) Urine pH (5-7) Ur Specific Gravit y (1.005-1.030) Urine Protein (Negative) Urine Glucose (UA) (Normal) Urine Ketones (Negative) Urine Blood (Negative) Urine Nitrate (Negative) Urine Bilirubin (Negative) Urine Urobilinogen (Negative) mg/dL Ur Leukocyte Yesenia ase (Negative) Urine RBC (0-2) /hpf Urine WBC (0-5) /hpf Ur Squamous Epith Cells (0-5) /hpf Amorphous Sediment Urine Bacteria (NONE) /hpf Urine Mucus /hpf Urine Opiates Scre en (Negative) ng/mL Ur Barbiturates Sc reen (Negative) ng/mL Ur Phencyclidine S crn (Negative) ng/mL Ur Amphetamines Sc reen (Negative) ng/mL U Benzodiazepines Scrn (Negative) ng/mL Urine Cocaine Scre en (Negative) ng/mL U Marijuana (THC) Screen (Negative) ng/mL Imaging Data ^: CT Abd/Pel: Radiologist's impression: [facility] [address] [place] [address] CT Scan Report Signed Patient: Vanita Barone Unit #: [id number] : [id number] Age/Sex: 35 / F ADM Date: 05/17/20 Loc: ER Room/Bed: Attending Dr: Ordering Provider/Ordering MD: Mayela Irvin Date of Service: 05/17/20 Procedure(s): CT abdomen pelvis w con* [id number] Accession Number(s): [id number] Report Number: [id number] WS: [id number] CT ABDOMEN AND PELVIS WITH CONTRAST HISTORY: diffuse abdominal pain TECHNIQUE: Imaging performed of the abdomen and pelvis with IV contrast. Single phase imaging of the abdomen. Coronal and sagittal reformats are submitted. All CT scans at [facility] u se at least one of these dose optimization techniques: automated exposure control; mA and/or kV adjustment per patient size (includes targeted exams where dose is matched to clinical indication); or iterative reconstruction. IV CONTRAST: Omnipaque 300; 95 mL IV. Oral contrast: No DLP: 622.67 mGy.cm COMPARISON: 05/05/2020 Lower thorax: Lung bases are clear. Heart is normal size. No hiatal hernia. Liver/biliary system: Normal size liver. Very minimal central bile duct dilatation may be physiologic. Gallbladder: Status post cholecystectomy. Pancreas: Again noted is mild edema around the pancreas and the body has enlarged since the prior study suggesting mild acute pancreatitis with edema. No adjacent fluid collection or pancreatic pseudocyst. Spleen: Normal. Adrenal glands: Normal. Right kidney: Normal. Left kidney: Normal. Aorta: Normal. Lymphadenopathy: None. Free fluid: Small amount of free fluid in the pelvis, more than physiologic fluid. The fluid has increased since 05/05/2020. GI tract: No GI tract obstruction. There is mucosal edema and significant inflammatory changes of colitis, most significant from the hepatic flexure to the sigmoid. Abdominal wall: Unremarkable abdominal wall. No hernia. Pelvis: Normal size anteverted uterus. Free fluid in the pelvis is more than physiologic. Bones: Unremarkable. CT/CT abdomen pelvis w con* [id number] IMPRESSION: 1. Development of mucosal edema within a large portion of the colon, greatest at the splenic flexure with adjacent fluid. Findings consistent with acute, near lopez colitis. 2. Small amount of free fluid in the pelvis is more than physiologic and new since since 05/05/2020. 3. Continued changes suspicious for mild pancreatitis. Dictated By: Sabiha Bello DO Signed By: Sabiha Bello DO Signed Date/Time: 05/17/20 1600 DD/ 1552 Discharge Plan Discharge Patient Disposition: Admitted As Inpatient Admit Provider: James Nunez Clinical Impression: Pancolitis, Pancreatitis, chronic Condition: Stable Discharge Diet: Regular Discharge Activity: Resume usual activity Coding Level of Care Code ED Screener And Blender for Chg Fwd Exam Detailed Documented by User: Bg Lara MD 05/17/20 20:17 HPI - Abdominal Pain General: Chief Complaint: Abdominal Pain Stated Complaint: ABD PAIN Time Seen by Provider: 05/17/20 14:19 [facility] ED PFSH: Medical History (Updated 05/20/20 @ 00:00 by ) Abnormal endoscopy of upper gastrointestinal tract (~05/2019) NSAID induced gastritis Alcohol abuse Patient denies current drinking 05/07/2020 Anxiety Chronic GERD Chronic pancreatitis by history alcoholic related, denies ongoing use, acutely worsens every couple months Depression Nicotine dependence, cigarettes, uncomplicated Pancolitis Pancreatitis, chronic Surgical History History of vaginal delivery Hx of cholecystectomy Family History Denies family history of Hyperlipidemia Lung disease Hypertension Social History (Updated 05/07/20 @ 02:33 by Stephie Michelle MD) Smoking and tobacco status: current every day smoker cigarettes Alcohol intake: former Former alcohol use details: Denies current use Lives independently: Yes Housing: House Current gender identity: Female Course Vital Signs: Vital signs: Vital Signs Temperature 98.9 F 05/19/20 17:03 Pulse Rate 61 05/19/20 17:03 Respiratory Rate 18 05/19/20 17:03 Blood Pressure 122/55 05/19/20 17:03 Pulse Oximetry 100 05/19/20 17:03 MDM - Abdominal Pain MDM Narrative: Medical decision making narrative: The patient was recently discharged and her pain is now worse. She is unable to eat and her CT shows a pancolitis which is much worse than her previous admission. She was given antibiotics and admitted under Dr. Nunez Lab Data: Labs: Lab Results 05/17/20 05/17/20 05/17/20 Range/Units 11:17 13:29 14:45 WBC 9.2 (4.0-10.0) 10^3/ uL RBC 4.04 L (4.1-5.3) 10^6/u L Hgb 13.2 (11.5-15.3) g/dL Hct 39.6 (37.0-47.0) % MCV 98.0 (81-99) fL MCH 32.7 (28.0-34.0) pg MCHC 33.3 (30.0-36.0) g/dL RDW 15.2 H (12.1-15.1) % Plt Count 431 H (130-400) 10^3/c mm MPV 10.5 H (7.4-10.4) fL Neut % (Auto) 65.8 % Lymph % (Auto) 23.2 % [place] % (Auto) 9.6 % Eos % (Auto) 0.8 % Baso % (Auto) 0.4 % Neut # (Auto) 6.05 (1.8-7.7) 10^3/u L Lymph # (Auto) 2.1 (0.8-4.8) 10^3/u L [place] # (Auto) 0.9 (0.2-0.9) 10^3/u L Eos # (Auto) 0.1 (0.0-0.8) 10^3/u L Baso # (Auto) 0.0 (0.0-0.1) 10^3/u L Nucleated RBC % (a uto) 0 % Nucleated RBCs # 0.0 /100WBC Sodium (136-145) mmol/L Potassium (3.5-5.1) mmol/L Chloride (98-107) mmol/L Carbon Dioxide (22-29) mmol/L Anion Gap (5-19) BUN (6-20) mg/dL Creatinine (0.5-0.9) mg/dL GFR Calculation (90-130) mL/min Glucose (65-115) mg/dL Calculated Osmolal ity (285-295) mOsm/k g Calcium (8.5-10.5) mg/dL Total Bilirubin (0.15-1.2) mg/dL AST (0-32) U/L ALT (0-33) U/L Alkaline Phosphata se (35-105) IU/L Total Protein (6.6-8.7) g/dL Albumin (3.5-5.2) g/dL Globulin (1.3-4.6) g/dL Lipase (13-60) U/L HCG, Qual (Negative) Urine Color Yellow (Yellow) Urine Appearance Hazy A (CLEAR) Urine pH 6.5 (5-7) Ur Specific Gravit y 1.020 (1.005-1.030) Urine Protein Neg (Negative) Urine Glucose (UA) Norm (Normal) Urine Ketones 1+ H (Negative) Urine Blood Neg (Negative) Urine Nitrate Negative (Negative) Urine Bilirubin 1+ H (Negative) Urine Urobilinogen 1 H (Negative) mg/dL Ur Leukocyte Yesenia ase Negative (Negative) Urine RBC 0-4 H (0-2) /hpf Urine WBC None (0-5) /hpf Ur Squamous Epith Cells 40-55 H (0-5) /hpf Amorphous Sediment Not Reportable Urine Bacteria 2+ H (NONE) /hpf Urine Mucus 4+ /hpf Urine Opiates Scre en Positive H (Negative) ng/mL Ur Barbiturates Sc reen Negative (Negative) ng/mL Ur Phencyclidine S crn Negative (Negative) ng/mL Ur Amphetamines Sc reen Negative (Negative) ng/mL U Benzodiazepines Scrn Negative (Negative) ng/mL Urine Cocaine Scre en Negative (Negative) ng/mL U Marijuana (THC) Screen Positive H (Negative) ng/mL 05/17/20 05/17/20 Range/Units 14:45 14:45 WBC (4.0-10.0) 10^3/ uL RBC (4.1-5.3) 10^6/u L Hgb (11.5-15.3) g/dL Hct (37.0-47.0) % MCV (81-99) fL MCH (28.0-34.0) pg MCHC (30.0-36.0) g/dL RDW (12.1-15.1) % Plt Count (130-400) 10^3/c mm MPV (7.4-10.4) fL Neut % (Auto) % Lymph % (Auto) % [place] % (Auto) % Eos % (Auto) % Baso % (Auto) % Neut # (Auto) (1.8-7.7) 10^3/u L Lymph # (Auto) (0.8-4.8) 10^3/u L [place] # (Auto) (0.2-0.9) 10^3/u L Eos # (Auto) (0.0-0.8) 10^3/u L Baso # (Auto) (0.0-0.1) 10^3/u L Nucleated RBC % (a uto) % Nucleated RBCs # /100WBC Sodium 140 (136-145) mmol/L Potassium 3.5 (3.5-5.1) mmol/L Chloride 101 (98-107) mmol/L Carbon Dioxide 27 (22-29) mmol/L Anion Gap 15.5 (5-19) BUN 6 (6-20) mg/dL Creatinine 0.5 (0.5-0.9) mg/dL GFR Calculation 168.0 H (90-130) mL/min Glucose 93 (65-115) mg/dL Calculated Osmolal ity 287 (285-295) mOsm/k g Calcium 9.5 (8.5-10.5) mg/dL Total Bilirubin 0.2 (0.15-1.2) mg/dL AST 16 (0-32) U/L ALT 10 (0-33) U/L Alkaline Phosphata se 48 (35-105) IU/L Total Protein 7.4 (6.6-8.7) g/dL Albumin 4.2 (3.5-5.2) g/dL Globulin 3.2 (1.3-4.6) g/dL Lipase 89 H (13-60) U/L HCG, Qual Negative (Negative) Urine Color (Yellow) Urine Appearance (CLEAR) Urine pH (5-7) Ur Specific Gravit y (1.005-1.030) Urine Protein (Negative) Urine Glucose (UA) (Normal) Urine Ketones (Negative) Urine Blood (Negative) Urine Nitrate (Negative) Urine Bilirubin (Negative) Urine Urobilinogen (Negative) mg/dL Ur Leukocyte Yesenia ase (Negative) Urine RBC (0-2) /hpf Urine WBC (0-5) /hpf Ur Squamous Epith Cells (0-5) /hpf Amorphous Sediment Urine Bacteria (NONE) /hpf Urine Mucus /hpf Urine Opiates Scre en (Negative) ng/mL Ur Barbiturates Sc reen (Negative) ng/mL Ur Phencyclidine S crn (Negative) ng/mL Ur Amphetamines Sc reen (Negative) ng/mL U Benzodiazepines Scrn (Negative) ng/mL Urine Cocaine Scre en (Negative) ng/mL U Marijuana (THC) Screen (Negative) ng/mL Discharge Plan Discharge Patient Disposition: Admitted As Inpatient Admit Provider: James Nunez Clinical Impression: Pancolitis, Pancreatitis, chronic Condition: Stable Discharge Diet: Regular Discharge Activity: Resume usual activity Coding Level of Care Code ED Screener And Blender for Anurag Fwd Exam Detailed
--- NOTE | 2020-05-17 14:36 | PC.NURSE ---
Read and agree with assessment
[2020-05-17 14:42] LABS: Add Urine Microscopic? YES; Bilirubin Urine 1+ (Negative); Blood Urine Neg (Negative); Glucose Urine UA Norm (Normal); Ketones Urine 1+ (Negative); Leukocyte Esterase Urine Negative (Negative); Nitrate Urine Negative (Negative); Protein Urine Neg (Negative); Urine Appearance Hazy (CLEAR); Urine Color Yellow (Yellow); Urobilinogen Urine 1 mg/dL (Negative); pH Urine 6.5 (5-7)
[2020-05-17 14:43] LABS: Add Urine Culture? No; Bacteria Urine 2+ /hpf; Mucus Urine 4+ /hpf; RBC Urine 0-4 /hpf (0-2); Squamous Epithelial Cell Urine 40-55 /hpf (0-5)
[2020-05-17 14:48] LABS: Basophils % 0.4 %; Eosinophils # 0.1 10^3/uL (0.0-0.8); Eosinophils % 0.8 %; Hematocrit 39.6 % (37.0-47.0); Hemoglobin 13.2 g/dL (11.5-15.3); Lymphocytes # 2.1 10^3/uL (0.8-4.8); Lymphocytes % 23.2 %; Mean Corpuscular HGB Conc 33.3 g/dL (30.0-36.0); Mean Corpuscular Hemoglobin 32.7 pg (28.0-34.0); Mean Platelet Volume 10.5 fL (7.4-10.4); Monocytes # 0.9 10^3/uL (0.2-0.9); Monocytes % 9.6 %; Neutrophils # 6.05 10^3/uL (1.8-7.7); Neutrophils % 65.8 %; Nucleated Red Blood Cells % 0 %; Platelet Count 431 10^3/cmm (130-400); Red Blood Count 4.04 10^6/uL (4.1-5.3); Red Cell Distribution Width 15.2 % (12.1-15.1); White Blood Count 9.2 10^3/uL (4.0-10.0)
[2020-05-17 15:04] LABS: HCG, Serum Qual Negative (Negative)
[2020-05-17 15:10] LABS: Alanine Aminotransferase 10 U/L (0-33); Albumin Level 4.2 g/dL (3.5-5.2); Alkaline Phosphatase 48 IU/L (35-105); Aspartate Amino Transferase 16 U/L (0-32); Blood Urea Nitrogen 6 mg/dL (6-20); Calcium 9.5 mg/dL (8.5-10.5); Carbon Dioxide 27 mmol/L (22-29); Chloride 101 mmol/L (98-107); Globulin 3.2 g/dL (1.3-4.6); Glucose 93 mg/dL (65-115); Lipase 89 U/L (13-60); Osmolality Calculated 287 mOsm/kg (285-295); Sodium 140 mmol/L (136-145); Total Bilirubin 0.2 mg/dL (0.15-1.2); Total Protein 7.4 g/dL (6.6-8.7)
[2020-05-17] MEDS: iohexol 300 mg/mL 100 mL Btl IV (15:41)
[2020-05-17 15:50] LABS: Anion Gap 15.5 (5-19); Potassium 3.5 mmol/L (3.5-5.1)
--- NOTE | 2020-05-17 17:17 | PC.NURSE ---
Changed into a gown.
--- NOTE | 2020-05-17 17:17 | PM.HP ---
Providers/Chief Complaint Chief Complaint: ABD PAIN History of Present Illness Vanita Barone is a 35 year old female chronic pancreatitis who presented with chief complaints of abdominal pain nausea vomiting, inability to tolerate p.o. intake all her symptoms started last night. Upon arrival in the ER she was worked up for above mention complain. Pertinent Imaging studies: C.T Abdomen and Plelvis : mucosal edema within a large portion of the colon, greatest at the splenic flexure with adjacent fluid. Findings consistent with acute, near lopez colitis. Pertinent labs : WBC : 9.2 H/H: 13/39, PLT : 431, Na : 140, k : 3.5, BUN/SCR : 6/0.5 , LFT :Nl, Lipase : 89. ECA Medications She was started on ciprofloxacin as well as given pain medications and started on I.V fluids. Review of Systems Const: Denies: fever(s), chills or body aches Card: Denies: palpitations, edema, swelling of feet/ankles, dyspnea on exertion, orthopnea or leg pain with exertion Resp: Denies: dyspnea, productive cough, wheezing or pain on inspiration GI: Denies: diarrhea or constipation : Denies: flank pain Musc: Denies: back pain, extremity pain or extremity swelling Neuro: Denies: headache(s), difficulty walking or confusion Medications/Allergies Home Medications Medication Instructions Recorded Confirmed Last Taken Type No Known Home Medications 05/17/20 05/17/20 Unknown History Allergies Allergy/AdvReac Type Severity Reaction Status Date / Time No Known Allergies Allergy Verified 12/14/19 10:20 PFSH Acute PFSH: Medical History (Updated 05/17/20 @ 17:03 by ELICEO Mahmood) Abnormal endoscopy of upper gastrointestinal tract (~05/2019) NSAID induced gastritis Alcohol abuse Patient denies current drinking 05/07/2020 Anxiety Chronic GERD Chronic pancreatitis by history alcoholic related, denies ongoing use, acutely worsens every couple months Depression Surgical History History of vaginal delivery Hx of cholecystectomy Family History Denies family history of Hyperlipidemia Lung disease Hypertension Social History (Updated 05/07/20 @ 02:33 by Stephie Michelle MD) Smoking and tobacco status: current every day smoker cigarettes Alcohol intake: former Former alcohol use details: Denies current use Lives independently: Yes Housing: House Current gender identity: Female Female Reproductive History: Date of last menstrual period: 04/16/20 Vitals/I&O/Wt Last Vital Signs Temp 98.4 F 05/17/20 12:38 Pulse 58 L 05/17/20 17:00 Resp 18 05/17/20 17:00 BP 153/109 05/17/20 17:00 Pulse Ox 100 05/17/20 17:00 Weight last 48 hrs Weight 45.359 kg Physical Exam Const: COMMON NORMALS: patient oriented x3 HENMT: COMMON NORMALS: normocephalic and atraumatic HEAD & SCALP: normocephalic and atraumatic Resp: COMMON NORMALS: clear to auscultation bilaterally AUSCULTATION: clear to auscultation bilaterally Cardio: COMMON NORMALS: regular rate, regular rhythm, S1 normal heart sound present, S2 normal heart sound present, No gallops present (Cardio), No murmurs present (Cardio), No rub (Cardio) and Peripheral pulses 2+ throughout RATE: regular rate RHYTHM: regular rhythm HEART SOUNDS: S1 normal heart sound present and S2 normal heart sound present PERIPHERAL PULSES: Peripheral pulses 2+ throughout GI: COMMON NORMALS: Normal to inspection, nondistended, normoactive bowel sounds present RECTAL EXAM: deferred OTHER: Generalized abdominal tenderness present no rigidity no rebound tenderness. Extremity: COMMON NORMALS: no clubbing, cyanosis or edema and no pedal edema Neuro: COMMON NORMALS: patient oriented x3 Data : 05/17/20 14:45 05/17/20 14:45 A&P Assessment and plan (1) Pancolitis: NPO. Ns @ 75 cc/hr Dilaudid 2 mg po q6 h prn Zosyn Status: Acute (2) Nicotine dependence, cigarettes, uncomplicated: Status: Chronic (3) Chronic pancreatitis: Status: Chronic Qualifiers: Pancreatitis type: unspecified pancreatitis type Qualified Code(s): K86.1 - Other chronic pancreatitis Additional A&P Information Code Status :Full code DVT PPX: Lovenox 40 mg sc daily Attestations Medical Necessity Statement*: Patient needs to be in hospital for the management of pancollitis.Anticipated LOS greater then 2 midnights. Coding Level of Care Code Acute Spectrographic Analyst for g Fwd Diagnoses Pancolitis K51.00 Nicotine dependence, cigarettes, uncomplicated F17.210 Chronic pancreatitis K86.1 Pancreatitis type: unspecified pancreatitis type
[2020-05-17] MEDS: ciprofloxacin 400 MG/200 ML PREMIX 200 MG IV (17:23)
[2020-05-17] MEDS: metroNIDAZOLE IV 500 MG/100 ML PREMIX 100 MG IV (17:23)
[2020-05-17] MEDS: sodium chloride 0.9% 1,000 ML 75 ML IV (20:53)
[2020-05-17] MEDS: piperacillin-tazobactam 3.375 GM in sodium chloride 0.9% (plus) 50 ML IV (21:14)
[2020-05-18] VITALS (11 sets, daily range): BP systolic 102–134; BP diastolic 64–80; PULSE 54–80; RESP 16–18; TEMP 36.3–36.8; O2SAT 97–100
[2020-05-18] MEDS: piperacillin-tazobactam 3.375 GM in sodium chloride 0.9% (plus) 50 ML IV ×3 (04:50→20:14)
[2020-05-18 06:03] LABS: Basophils % 0.3 %; Eosinophils # 0.1 10^3/uL (0.0-0.8); Eosinophils % 1.6 %; Hematocrit 30.9 % (37.0-47.0); Hemoglobin 10.1 g/dL (11.5-15.3); Lymphocytes # 2.1 10^3/uL (0.8-4.8); Lymphocytes % 28.6 %; Mean Corpuscular HGB Conc 32.7 g/dL (30.0-36.0); Mean Corpuscular Hemoglobin 32.4 pg (28.0-34.0); Mean Platelet Volume 10.6 fL (7.4-10.4); Monocytes # 0.8 10^3/uL (0.2-0.9); Neutrophils # 4.31 10^3/uL (1.8-7.7); Neutrophils % 58.2 %; Nucleated Red Blood Cells % 0 %; Platelet Count 331 10^3/cmm (130-400); Red Blood Count 3.12 10^6/uL (4.1-5.3); Red Cell Distribution Width 15.2 % (12.1-15.1); White Blood Count 7.4 10^3/uL (4.0-10.0)
[2020-05-18 06:49] LABS: Alanine Aminotransferase 8 U/L (0-33); Alkaline Phosphatase 39 IU/L (35-105); Anion Gap 11.9 (5-19); Aspartate Amino Transferase 12 U/L (0-32); Blood Urea Nitrogen 4 mg/dL (6-20); Calcium 8.1 mg/dL (8.5-10.5); Carbon Dioxide 26 mmol/L (22-29); Chloride 104 mmol/L (98-107); Globulin 2.4 g/dL (1.3-4.6); Glucose 82 mg/dL (65-115); Osmolality Calculated 284 mOsm/kg (285-295); Sodium 139 mmol/L (136-145); Total Bilirubin 0.2 mg/dL (0.15-1.2); Total Protein 5.4 g/dL (6.6-8.7)
[2020-05-18 06:53] LABS: Procalcitonin 0.55 ng/mL (0-0.5)
[2020-05-18 07:14] LABS: Potassium 2.9 mmol/L (3.5-5.1)
[2020-05-18] MEDS: sodium chloride 0.9% 1,000 ML 75 ML IV ×2 (08:59→23:42)
[2020-05-18] MEDS: lidocaine 1% 5 ML in potassium chloride premix 100 ML 50 ML IV (09:00)
[2020-05-18] MEDS: ondansetron 2 mg/ML SDV 2 mL 4 MG IVP ×2 (09:02→20:24)
--- NOTE | 2020-05-18 10:28 | P.PN_ITS ---
Subjective Subjective: Interval history: Patient was seen and examined this morning,currently nausea and vomiting has improved,abdominal pain is improving,we have started her on Full liquid diet. She has remained afebrile. Other vitals and labs have reviewed. Vitals/I&O/Wt Last Vital Signs Temp 98.3 F 05/18/20 08:00 Pulse 74 05/18/20 08:00 Resp 17 05/18/20 09:03 BP 120/72 05/18/20 08:00 Pulse Ox 100 05/18/20 08:00 05/17/20 05/18/20 05/18/20 22:59 06:59 14:59 Intake Total 300 / 300 50 / 350 957.5 / 957.5 Output Total 0 / 0 Balance 300 / 300 50 / 350 957.5 / 957.5 Weight last 48 hrs Weight 45.359 kg Physical Exam Const: COMMON NORMALS: patient oriented x3 HENMT: COMMON NORMALS: normocephalic and atraumatic HEAD & SCALP: normocephalic and atraumatic Resp: COMMON NORMALS: clear to auscultation bilaterally AUSCULTATION: clear to auscultation bilaterally Cardio: COMMON NORMALS: regular rate, regular rhythm, S1 normal heart sound present, S2 normal heart sound present, No gallops present (Cardio), No murmurs present (Cardio), No rub (Cardio) and Peripheral pulses 2+ throughout RATE: regular rate RHYTHM: regular rhythm HEART SOUNDS: S1 normal heart sound present and S2 normal heart sound present PERIPHERAL PULSES: Peripheral pulses 2+ throughout GI: COMMON NORMALS: Normal to inspection, nondistended, normoactive bowel sounds present RECTAL EXAM: deferred OTHER: Generalized abdominal tenderness improving no rigidity no rebound tenderness. Extremity: COMMON NORMALS: no clubbing, cyanosis or edema and no pedal edema Neuro: COMMON NORMALS: patient oriented x3 Data : 05/18/20 05:36 05/18/20 05:36 A&P Assessment and plan (1) Pancolitis: Initially NPO.Currently on Full liquid diet. Ns @ 75 cc/hr Dilaudid 2 mg po q6 h prn Zosyn Status: Acute (2) Nicotine dependence, cigarettes, uncomplicated: Status: Chronic (3) Chronic pancreatitis: Status: Chronic Qualifiers: Pancreatitis type: unspecified pancreatitis type Qualified Code(s): K86.1 - Other chronic pancreatitis Additional A&P Information Code Status :Full code DVT PPX: Lovenox 40 mg sc daily Attestations Medical Necessity Statement*: Patient needs to be in hospital for the management of pancollitis. 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
--- NOTE | 2020-05-18 11:29 | PC.CHAP ---
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 social welfare clerk visit [] Patient/Family/Request visit [] Outpatient visit [] Follow-up visit [] Physician referral [] Code/Alert [x] Routine visit [] Staff referral [] Actively dying [] Patient sleeping [] Family support [] [] Out of room [] Palliative care [] [x] Receiving care in room [] Pre-surgical visit [] Trauma [x] Long length of stay [] ICU visit [] Other: Relational/Emotional Strength [x] Patient feels connected with others/family/visitors/staff [] Distress [] Loneliness/isolation [] Abandonment Spirituality of Patient [x] Person of Fay [] Attends Hoahaoism of their Fay [x] Believes in Prayer [] Reads Bible or Buddhism materials [] There are Spiritual issues to be addressed Junior Web Designer Interventions [x] Prayer [x] Active listening [x] Non-anxious presence [x] Spiritual/emotional support [] Crisis/trauma care [x] Spiritual counseling [] Bereavement support [] Provided bereavement packet [] Provided Bible/devotional materials [] Provided toy/stuffed animal, coloring book to patient or family member [] Provided Communion [] Anointing/[place] [] Salvation [x] Completed spiritual assessment [] Other: Impact on Illness or Injury [] Angry [x] Fearful [] Anxious [] Often cries [] Exhaustion [] Unable to work [] Unable to attend cheondoism [] Unable to walk/stand [] Unable to read [] Unable to drive [] Unable to eat/drink [] Unable to sleep [] Unable to be with family [] Patient intubated [] Other: Summary ADM pancress stomck doesn't feel good, wants to go home Time spent with patient 5 mins
[2020-05-18 11:43] LABS: Amphetamines Screen Urine Negative (Negative); Barbiturates Screen Urine Negative (Negative); Benzodiazepines Screen Urine Negative (Negative); Cocaine Screen Urine Negative (Negative); Opiate Screen Urine Positive (Negative); PCP Screen Urine Negative (Negative); THC Screen Urine Positive (Negative)
[2020-05-18] MEDS: zolpidem 5 mg Tablet PO (23:42)
[2020-05-19] VITALS (7 sets, daily range): BP systolic 102–122; BP diastolic 55–67; PULSE 61–74; RESP 16–18; TEMP 36.3–37.2; O2SAT 97–100
[2020-05-19] MEDS: piperacillin-tazobactam 3.375 GM in sodium chloride 0.9% (plus) 50 ML IV ×2 (04:01→12:28)
[2020-05-19] MEDS: ondansetron 2 mg/ML SDV 2 mL 4 MG IVP ×2 (05:25→14:53)
[2020-05-19 06:15] LABS: Basophils % 0.5 %; Eosinophils # 0.1 10^3/uL (0.0-0.8); Eosinophils % 1.6 %; Hematocrit 31.6 % (37.0-47.0); Hemoglobin 10.3 g/dL (11.5-15.3); Lymphocytes # 1.6 10^3/uL (0.8-4.8); Lymphocytes % 21.4 %; Mean Corpuscular HGB Conc 32.6 g/dL (30.0-36.0); Mean Corpuscular Hemoglobin 32.2 pg (28.0-34.0); Mean Corpuscular Volume 98.8 fL (81-99); Mean Platelet Volume 10.3 fL (7.4-10.4); Monocytes # 0.9 10^3/uL (0.2-0.9); Monocytes % 11.5 %; Neutrophils # 4.89 10^3/uL (1.8-7.7); Neutrophils % 64.7 %; Nucleated Red Blood Cells % 0 %; Platelet Count 341 10^3/cmm (130-400); Red Cell Distribution Width 15.1 % (12.1-15.1); White Blood Count 7.6 10^3/uL (4.0-10.0)
[2020-05-19 06:45] LABS: Alanine Aminotransferase 6 U/L (0-33); Albumin Level 2.9 g/dL (3.5-5.2); Alkaline Phosphatase 38 IU/L (35-105); Anion Gap 10.3 (5-19); Aspartate Amino Transferase 8 U/L (0-32); Blood Urea Nitrogen 4 mg/dL (6-20); Carbon Dioxide 26 mmol/L (22-29); Chloride 104 mmol/L (98-107); Globulin 2.2 g/dL (1.3-4.6); Glucose 109 mg/dL (65-115); Osmolality Calculated 281 mOsm/kg (285-295); Potassium 3.3 mmol/L (3.5-5.1); Sodium 137 mmol/L (136-145); Total Bilirubin 0.2 mg/dL (0.15-1.2); Total Protein 5.1 g/dL (6.6-8.7)
[2020-05-19] MEDS: sodium chloride 0.9% 1,000 ML 75 ML IV (12:36)
--- NOTE | 2020-05-19 14:50 | P.PN_ITS ---
Subjective Subjective: Interval history: Patient was seen and examined this morning,she is tolerating regular diet well, abdominal pain, nausea and vomiting has subsided.Has remained afebrile. Other vitals and labs have been reviewed. Vitals/I&O/Wt Last Vital Signs Temp 97.4 F L 05/19/20 12:00 Pulse 65 05/19/20 12:00 Resp 18 05/19/20 12:22 BP 102/64 05/19/20 12:00 Pulse Ox 100 05/19/20 12:22 05/18/20 05/19/20 05/19/20 22:59 06:59 14:59 Intake Total 1530 / 2592.5 550 / 3142.5 1297.5 / 1297.5 Output Total 400 / 400 650 / 1050 Balance 1130 / 2192.5 -100 / 2092.5 1297.5 / 1297.5 Physical Exam Const: COMMON NORMALS: patient oriented x3 HENMT: COMMON NORMALS: normocephalic and atraumatic HEAD & SCALP: normocephalic and atraumatic Resp: COMMON NORMALS: clear to auscultation bilaterally AUSCULTATION: clear to auscultation bilaterally Cardio: COMMON NORMALS: regular rate, regular rhythm, S1 normal heart sound present, S2 normal heart sound present, No gallops present (Cardio), No murmurs present (Cardio), No rub (Cardio) and Peripheral pulses 2+ throughout RATE: regular rate RHYTHM: regular rhythm HEART SOUNDS: S1 normal heart sound p resent and S2 normal heart sound present PERIPHERAL PULSES: Peripheral pulses 2+ throughout GI: COMMON NORMALS: Normal to inspection, nondistended, normoactive bowel sounds present RECTAL EXAM: deferred OTHER: Generalized abdominal tenderness improving no rigidity no rebound tenderness. Extremity: COMMON NORMALS: no clubbing, cyanosis or edema and no pedal edema Neuro: COMMON NORMALS: patient oriented x3 Data : 05/19/20 05:57 05/19/20 05:57 A&P Assessment and plan (1) Pancolitis: Initially NPO.Currently on Full liquid diet. Ns @ 75 cc/hr Dilaudid 2 mg po q6 h prn Zosyn Status: Acute (2) Nicotine dependence, cigarettes, uncomplicated: Status: Chronic (3) Chronic pancreatitis: Status: Chronic Qualifiers: Pancreatitis type: unspecified pancreatitis type Qualified Code(s): K86.1 - Other chronic pancreatitis Additional A&P Information Code Status :Full code DVT PPX: Lovenox 40 mg sc daily Attestations Medical Necessity Statement*: Patient needs to be in hospital for the management of pancollitis.Likely discharge in am Coding Level of Care Code Acute Banking Management Consulting Manager for [facility] Fwd Diagnoses Pancolitis K51.00 Nicotine dependence, cigarettes, uncomplicated F17.210 Chronic pancreatitis K86.1 Pancreatitis type: unspecified pancreatitis type
--- NOTE | 2020-05-19 16:45 | PM.DCS ---
Discharge Providers Date of Admission: 05/17/20 17:17 Date of Discharge: May 19, 2020 Attending Provider at Admission: James Nunez MD Attending Provider at Discharge: James Nunez MD Diagnoses at Discharge Discharge Diagnosis (1) Pancolitis: Status: Resolved (2) Nicotine dependence, cigarettes, uncomplicated: Status: Chronic (3) Chronic pancreatitis: Status: Chronic Permanent problem details: by history alcoholic related, denies ongoing use, acutely worsens every couple months Qualifiers: Pancreatitis type: unspecified pancreatitis type Qualified Code(s): K86.1 - Other chronic pancreatitis Reason for Visit Reason for Visit: ABD PAIN Hospital Course Hospital Course Vanita Barone is a 35 year old female chronic pancreatitis who presented with chief complaints of abdominal pain nausea vomiting, inability to tolerate p.o. intake all her symptoms started last night. Upon arrival in the ER she was worked up for above mention complain. Pertinent Imaging studies:C.T Abdomen and Plelvis : mucosal edema within a large portion of the colon, greatest at the splenic flexure with adjacent fluid. Findings consistent with acute, near lopez colitis. Pertinent labs : WBC : 9.2 H/H: 13/39, PLT : 431, Na : 140, k : 3.5, BUN/SCR : 6/0.5 , LFT :Nl, Lipase : 89. ECA Medications She was started on ciprofloxacin as well as given pain medications and started on I.V fluids. During the hospital stay she was kept on zosyn and NPO initially as well on pain medications, later she was started on full liquid siet and as her symptoms improved her diet was advanced at the time of discharge she was tolerating regular diet had no nausea or vomiting was afebrile, abdominal pain had resolved,no bloody stool. Patient responded well to the above medical management and was discharged in stable condition. Physical Exam Const: COMMON NORMALS: patient oriented x3 HENMT: COMMON NORMALS: normocephalic and atraumatic HEAD & SCALP: normocephalic and atraumatic Resp: COMMON NORMALS: clear to auscultation bilaterally AUSCULTATION: clear to auscultation bilaterally Cardio: COMMON NORMALS: regular rate, regular rhythm, S1 normal heart sound present, S2 normal heart sound present, No gallops present (Cardio), No murmurs present (Cardio), No rub (Cardio) and Peripheral pulses 2+ throughout RATE: regular rate RHYTHM: regular rhythm HEART SOUNDS: S1 normal heart sound present and S2 normal heart sound present PERIPHERAL PULSES: Peripheral pulses 2+ throughout GI: COMMON NORMALS: Normal to inspection, nondistended, normoactive bowel sounds present RECTAL EXAM: deferred OTHER: Generalized abdominal tenderness improving no rigidity no rebound tenderness. Extremity: COMMON NORMALS: no clubbing, cyanosis or edema and no pedal edema Neuro: COMMON NORMALS: patient oriented x3 Discharge Data Data Completed and Pending: Completed Studies During Hospitalization Category Date Time Status CT abdomen pelvis w con* [id number] Urge nt Cat Scan 05/17/20 14:27 Completed Pending at discharge Category Date Time Status Complete Blood Co unt w/Auto AM LABS Lab 05/20/20 04:00 Ordered Comprehensive Met abolic Panel AM LA BS Lab 05/20/20 04:00 Ordered Labs from last 24 hours 05/19/20 05/19/20 05:57 05:57 WBC 7.6 RBC 3.20 L Hgb 10.3 L Hct 31.6 L MCV 98.8 MCH 32.2 MCHC 32.6 RDW 15.1 Plt Count 341 MPV 10.3 Neut % (Auto) 64.7 Lymph % (Auto) 21.4 Chase % (Auto) 11.5 Eos % (Auto) 1.6 Baso % (Auto) 0.5 Neut # (Auto) 4.89 Lymph # (Auto) 1.6 Chase # (Auto) 0.9 Eos # (Auto) 0.1 Baso # (Auto) 0.0 Nucleated RBC % (a uto) 0 Nucleated RBCs # 0.0 Sodium 137 Potassium 3.3 L Chloride 104 Carbon Dioxide 26 Anion Gap 10.3 BUN 4 L Creatinine 0.5 GFR Calculation 168.0 H Glucose 109 Calculated Osmolal ity 281 L Calcium 8.0 L Total Bilirubin 0.2 AST 8 ALT 6 Alkaline Phosphata se 38 Total Protein 5.1 L Albumin 2.9 L Globulin 2.2 Vitals: Last Vital Signs Temp 98.9 F 05/19/20 16:00 Pulse 61 05/19/20 16:00 Resp 18 05/19/20 16:00 BP 122/55 05/19/20 16:00 Pulse Ox 100 05/19/20 16:00 Discharge Plan Discharge Patient Disposition: Home Condition: Stable Prescriptions: New ciprofloxacin HCl 500 mg tablet 500 mg PO BID Qty: 14 RF: 0 metronidazole 500 mg tablet 500 mg PO BID Qty: 14 RF: 0 No Action No Known Home Medications RF: 0 Discharge Orders: Discharge Order (Routine); Ordered 05/19/20 Ordered By: James Nunez Discharge Diet: Regular Discharge Activity: Resume usual activity Discharge Attestations Time Spent in Discharge Care*: less than 30 min Specific Discharge Activities: educating patient, educating and/or supporting family/caregiver, discussing with transplant case manager/social workers/dc planners and documenting/other paperwork Status at Discharge: Cognitive status at discharge: cognitively intact, Behavioral status at discharge: cooperative, Quality Metrics Clinical Quality Measures During this hospital stay, did patient experience: None Coding Level of Care Code Acute Chg FW DC note Diagnoses Pancolitis K51.00 Nicotine dependence, cigarettes, uncomplicated F17.210 Chronic pancreatitis K86.1 Pancreatitis type: unspecified pancreatitis type
== END 2020-05-19 17:45 | disposition home or self-care (01) | DRG 386 ==
LOC: ER 17:48 → MEDSURG 18:22
PROVIDERS: Physician Assistant; Admitting Provider Internal Medicine; Emergency Provider Family Medicine; Visit Provider Internal Medicine
DX: K51.00 Ulcerative (chronic) pancolitis without complications (principal); K86.1 Other chronic pancreatitis; F10.21 Alcohol dependence, in remission; F41.9 Anxiety disorder, unspecified; K21.9 Gastro-esophageal reflux disease without esophagitis; F32.9 Major depressive disorder, single episode, unspecified; F17.210 Nicotine dependence, cigarettes, uncomplicated
CPT/HCPCS: 36415; 74177; 80053; 80306; 81001; 83690; 84145; 84703; 85025; 96365; 96366; 96367; 96375; 96376; 99285; J0744; J2270; J2405; J2543; J3480; J7030; Q9967; S0030